=== PATIENT | female | born 1945 | race American Indian/Alaskan Native ===

== ENCOUNTER 2019-02-20 15:17 | Inpatient (IN) | payer MEDICARE ==
[2019-02-20] MEDS ORDERED: SODIUM CHLORIDE 0.9% 1000 ML 1,000 ML IV ONE ×2 (16:23→18:54)
[2019-02-20 16:43] LABS: Mean Corpuscular HGB Conc 31 % (30-34); Red Blood Count 0.89 M/mm3 (3.65-5.03)
--- NOTE | 2019-02-20 16:51 | Emergency Department Report ---
ED General Adult HPI - General Chief complaint: Weakness Stated complaint: WEAKNESS/ABD PAIN/N/V Time Seen by Provider: 02/20/19 16:23 Source: patient, family, EMS Mode of arrival: Stretcher Limitations: No Limitations - History of Present Illness Initial comments: Patient is 73 years old female with history of hypertension however patient stated than the last time she saw a doctor 10 years ago after hysterectomy. Patient presented to the ER via EMS accompanied by her family for evaluation of generalized weakness for the last 2 weeks. Patient also stated that she has been vomiting and having watery diarrhea also. Patient denies any chest pain. Patient denied hematochezia, hematemesis, melena, hematochezia or hematuria, hemoptysis or vaginal bleeding. Severity scale (0 -10): 0 - Related Data Allergies Allergy/AdvReac Type Severity Reaction Status Date / Time No Known Allergies Allergy Unverified 02/20/19 16:06 ED Review of Systems ROS: Stated complaint: WEAKNESS/ABD PAIN/N/V Other details as noted in HPI Comment: All other systems reviewed and negative Constitutional: denies: chills, fever Respiratory: denies: cough, shortness of breath Cardiovascular: denies: chest pain Gastrointestinal: nausea, vomiting, diarrhea. denies: abdominal pain Musculoskeletal: denies: back pain Neurological: weakness (generalized). denies: headache, numbness, paresthesias, confusion, abnormal gait ED Past Medical Hx - Past Medical History Previous Medical History?: Yes Hx Hypertension: Yes Hx Arthritis: Yes - Surgical History Past Surgical History?: Yes Additional Surgical History: Abdominal - Social History Smoking Status: Never Smoker Substance Use Type: None ED Physical Exam - General Limitations: No Limitations General appearance: alert, in no apparent distress - Head Head exam: Present: atraumatic, normocephalic, normal inspection - Eye Eye exam: Present: PERRL, other (pale conjuctiva) - ENT ENT exam: Present: mucous membranes dry - Neck Neck exam: Present: normal inspection, full ROM. Absent: tenderness, meningismus, lymphadenopathy, thyromegaly - Respiratory Respiratory exam: Present: normal lung sounds bilaterally - Cardiovascular Cardiovascular Exam: Present: regular rate, normal rhythm, normal heart sounds - GI/Abdominal GI/Abdominal exam: Present: soft, normal bowel sounds. Absent: distended, tenderness, guarding, rebound, rigid, organomegaly, mass, bruit, pulsatile mass, hernia - Extremities Exam Extremities exam: Present: normal inspection, full ROM, normal capillary refill. Absent: tenderness, pedal edema, calf tenderness - Back Exam Back exam: Present: normal inspection, full ROM. Absent: CVA tenderness (R), CVA tenderness (L) - Neurological Exam Neurological exam: Present: alert, oriented X3, CN II-XII intact - Skin Skin exam: Present: warm, intact, normal color ED Course Vital Signs 02/20/19 02/20/19 16:41 16:43 Temperature 98.6 F Pulse Rate 102 H Respiratory 14 14 Rate Blood Pressure 91/40 [Left] O2 Sat by Pulse 98 98 Oximetry ED Medical Decision Making - Lab Data Result diagrams: 02/20/19 16:31 02/20/19 16:31 - Radiology Data Radiology results: report reviewed - Medical Decision Making Patient is 73 years old female with history of hypertension however patient stated than the last time she saw a doctor 10 years ago after hysterectomy. Patient presented to the ER via EMS accompanied by her family for evaluation of generalized weakness for the last 2 weeks. Patient also stated that she has been vomiting and having watery diarrhea also. Patient denies any chest pain. Patient denied hematochezia, hematemesis, melena, hematochezia or hematuria, hemoptysis or vaginal bleeding. Patient found to have a blood hemoglobin 3.2. Unknown source of bleeding. Patient transfused one units of PRBC. I discussed the patient with Dr. Sunshine, he agreed to admit the patient to medical service for further management. Critical Care Time: Yes Critical care time in (mins) excluding proc time.: 30 Critical care attestation.: If time is entered above; I have spent that time in minutes in the direct care of this critically ill patient, excluding procedure time. ED Disposition Clinical Impression: Weakness generalized, Acute anemia Disposition: DC OP ADMIT IP TO THIS HOSP Is pt being admited?: Yes Condition: Stable
[2019-02-20 16:52] LABS: Hematocrit 10.3 % (30.3-42.9); Hemoglobin 3.2 gm/dl (10.1-14.3); Mean Corpuscular Volume 116 fl (79-97)
[2019-02-20 16:53] LABS: Red Cell Distribution Width > 40.0 % (13.2-15.2)
[2019-02-20] MEDS ORDERED: SODIUM CHLORIDE 0.9% 500 ML 500 ML IV ONE (16:54)
--- NOTE | 2019-02-20 17:18 | XRay Report ---
CHEST 1 VIEW INDICATION / CLINICAL INFORMATION: Weakness. COMPARISON: None available. FINDINGS: SUPPORT DEVICES: None. HEART / MEDIASTINUM: No significant abnormality. LUNGS / PLEURA: No significant pulmonary or pleural abnormality. No pneumothorax. ADDITIONAL FINDINGS: No significant additional findings. IMPRESSION: 1. No acute findings. Signer Name: Zaki Ly MD Signed: 02/20/2019 5:13 PM Workstation Name: [id number]
[2019-02-20 17:37] LABS: Basophils % (Manual) 0 % (0.0-1.8); Eosinophils % (Manual) 0 % (0.0-4.3); Total Cells Counted 100
[2019-02-20 17:38] LABS: Macrocytosis 2+; Ovalocytes 1+; Schistocytes Few; Tear Drop Cells 1+
[2019-02-20 17:39] LABS: Chol/HDL Ratio 3.3 %; Large Platelets 1+; Platelet Estimate Appears Decreased
[2019-02-20 17:42] LABS: Platelet Count 29 K/mm3 (140-440)
[2019-02-20 18:31] LABS: INR 1.39 (0.87-1.13)
[2019-02-20 18:32] LABS: Partial Thromboplastin Time 30.1 Sec. (24.2-36.6)
[2019-02-20] MEDS ORDERED: SODIUM CHLORIDE 0.9% 500 ML 500 ML IV SCH (19:06)
[2019-02-20] MEDS ORDERED: SODIUM CHLORIDE 0.9% 1000 ML 1,000 ML IV SCH (19:15)
[2019-02-20] MEDS: FAMOTIDINE 20 MG/2 ML INJ IV SCH (22:17)
[2019-02-21] MEDS: ACETAMINOPHEN 325 MG TAB PO PRN (00:39)
--- NOTE | 2019-02-21 07:49 | History and Physical Report ---
History of Present Illness Date of examination: 02/20/19 Date of admission: 02/20/19 17:45 Chief complaint: Severe weakness 1 week History of present illness: 73 years old female with history of hypertension comes in via EMS accompanied by her family for evaluation of generalized weakness for the last 2 weeks. Patient also stated that she has been vomiting and having watery diarrhea also. Patient denies any chest pain. Patient denied hematochezia, hematemesis, melena, hematuria, hemoptysis or vaginal bleeding.Feels Light headed and SOB on minimal walking. Severity scale (0 -10): 0 - Related Data Allergies Allergy/AdvReac Type Severity Reaction Status Date / Time No Known Allergies Allergy Unverified 02/20/19 16:06 Past Medical History Previous Medical History?: Yes Hypertension: Yes Arthritis: Yes Surgical History Past Surgical History?: Yes Additional Surgical History: Abdominal Hysterectomy Social History Smoking Status: Never Smoker Substance Use Type: None Family History Htn Review of Systems ROS: Stated complaint: WEAKNESS/ABD PAIN/N/V Other details as noted in HPI Comment: All other systems reviewed and negative Constitutional: denies: chills, fever Respiratory: denies: cough, shortness of breath Cardiovascular: denies: chest pain Gastrointestinal: nausea, vomiting, diarrhea. denies: abdominal pain Musculoskeletal: denies: back pain Neurological: weakness (generalized). denies: headache, numbness, paresthesias, confusion, abnormal gait Medications and Allergies Allergies Allergy/AdvReac Type Severity Reaction Status Date / Time No Known Allergies Allergy Unverified 02/20/19 16:06 Home Medications Medication Instructions Recorded Confirmed Last Taken Type No Known Home Medications [No 02/20/19 02/20/19 Unknown History Reported Home Medications] Active Meds: Active Medications Acetaminophen (Tylenol) 650 mg PO Q4H PRN PRN Reason: Pain MILD(1-3)/Fever >100.5/VENCES Last Admin: 02/21/19 00:39 Dose: 650 mg Documented by: Famotidine (Pepcid) 20 mg IV DAILY [facility] Last Admin: 02/20/19 22:17 Dose: 20 mg Documented by: Hydromorphone HCl (Dilaudid) 0.5 mg IV Q3H PRN PRN Reason: Pain , Severe (7-10) Sodium Chloride (Nacl 0.9% 1000 Ml) 1,000 mls @ 75 mls/hr IV DIRECT [facility] Ondansetron HCl (Zofran) 4 mg IV Q8H PRN PRN Reason: Nausea And Vomiting Oxycodone/Acetaminophen (Percocet 5/325) 1 tab PO Q6H PRN PRN Reason: Pain, Moderate (4-6) Pneumococcal Polyvalent Vaccine (Pneumovax 23) 0.5 ml IM .ONCE ONE Stop: 02/21/19 12:01 Sodium Chloride (Sodium Chloride Flush Syringe 10 Ml) 10 ml IV BID [facility] Last Admin: 02/20/19 22:17 Dose: 10 ml Documented by: Sodium Chloride (Sodium Chloride Flush Syringe 10 Ml) 10 ml IV PRN PRN PRN Reason: LINE FLUSH Exam - Constitutional Vitals: Temp Pulse Resp BP Pulse Ox 97.8 F 78 18 112/40 98 02/21/19 05:01 02/21/19 05:01 02/21/19 05:01 02/21/19 05:01 02/21/19 05:01 General appearance: Present: no acute distress, well-nourished - EENT Eyes: Present: PERRL ENT: hearing intact, clear oral mucosa, other (pale conjunctiva) - Neck Neck: Present: supple, normal ROM - Respiratory Respiratory effort: normal Respiratory: bilateral: CTA - Cardiovascular Heart rate: 88 Rhythm: regular Heart Sounds: Present: S1 & S2. Absent: rub, click - Extremities Extremities: no ischemia, pulses intact, pulses symmetrical, No edema Peripheral Pulses: within normal limits - Abdominal General gastrointestinal: Present: soft, non-tender, non-distended, normal bowel sounds Female genitourinary: Present: normal - Rectal Rectal Exam: stool brown - Integumentary Integumentary: Present: clear, warm, dry - Musculoskeletal Musculoskeletal: gait normal, strength equal bilaterally - Psychiatric Psychiatric: appropriate mood/affect, intact judgment & insight - Neurologic Neurologic: CNII-XII intact, moves all extremities - Allied Health Allied health notes reviewed: nursing, case management Results - Labs CBC & Chem 7: 02/20/19 16:31 12 16:31 Labs: Laboratory Last Values WBC 3.7 K/mm3 (4.5-11.0) L 02/20/19 16:31 RBC 0.89 M/mm3 (3.65-5.03) L 02/20/19 16:31 Hgb 3.2 gm/dl (10.1-14.3) L* 02/20/19 16:31 Hct 10.3 % (30.3-42.9) L* 02/20/19 16:31 MCV 116 fl (79-97) H 02/20/19 16:31 MCH 36 pg (28-32) H 02/20/19 16:31 MCHC 31 % (30-34) 02/20/19 16:31 RDW > 40.0 % (13.2-15.2) H 02/20/19 16:31 Plt Count 29 K/mm3 (140-440) L 02/20/19 16:31 Add Manual Diff Complete 02/20/19 16:31 Total Counted 100 02/20/19 16:31 Seg Neuts % (Manual) 86.0 % (40.0-70.0) H 02/20/19 16:31 Band Neutrophils % 0 % 02/20/19 16:31 Lymphocytes % (Manual) 12.0 % (13.4-35.0) L 02/20/19 16:31 Reactive Lymphs % (Man) 0 % 02/20/19 16:31 Monocytes % (Manual) 2.0 % (0.0-7.3) 02/20/19 16:31 Eosinophils % (Manual) 0 % (0.0-4.3) 02/20/19 16:31 Basophils % (Manual) 0 % (0.0-1.8) 02/20/19 16:31 Metamyelocytes % 0 % 02/20/19 16:31 Myelocytes % 0 % 02/20/19 16:31 Promyelocytes % 0 % 02/20/19 16:31 Blast Cells % 0 % 02/20/19 16:31 Nucleated RBC % Not Reportable 02/20/19 16:31 Seg Neutrophils # Man 3.2 K/mm3 (1.8-7.7) 02/20/19 16:31 Band Neutrophils # 0.0 K/mm3 02/20/19 16:31 Lymphocytes # (Manual) 0.4 K/mm3 (1.2-5.4) L 02/20/19 16:31 Abs React Lymphs (Man) 0.0 K/mm3 02/20/19 16:31 Monocytes # (Manual) 0.1 K/mm3 (0.0-0.8) 02/20/19 16:31 Eosinophils # (Manual) 0.0 K/mm3 (0.0-0.4) 02/20/19 16:31 Basophils # (Manual) 0.0 K/mm3 (0.0-0.1) 02/20/19 16:31 Metamyelocytes # 0.0 K/mm3 02/20/19 16:31 Myelocytes # 0.0 K/mm3 02/20/19 16:31 Promyelocytes # 0.0 K/mm3 02/20/19 16:31 Blast Cells # 0.0 K/mm3 02/20/19 16:31 WBC Morphology Not Reportable 02/20/19 16:31 Hypersegmented Neuts Not Reportable 02/20/19 16:31 Hyposegmented Neuts Not Reportable 02/20/19 16:31 Hypogranular Neuts Not Reportable 02/20/19 16:31 Smudge Cells Not Reportable 02/20/19 16:31 Toxic Granulation Not Reportable 02/20/19 16:31 Toxic Vacuolation Not Reportable 02/20/19 16:31 Dohle Bodies Not Reportable 02/20/19 16:31 Pelger-Huet Anomaly Not Reportable 02/20/19 16:31 Alessia Rods Not Reportable 02/20/19 16:31 Platelet Estimate Appears decreased 02/20/19 16:31 Clumped Platelets Not Reportable 02/20/19 16:31 Plt Clumps, EDTA Not Reportable 02/20/19 16:31 Large Platelets 1+ 02/20/19 16:31 Giant Platelets Not Reportable 02/20/19 16:31 Platelet Satelliting Not Reportable 02/20/19 16:31 Plt Morphology Comment Not Reportable 02/20/19 16:31 RBC Morphology Not Reportable 02/20/19 16:31 Dimorphic RBCs Not Reportable 02/20/19 16:31 Polychromasia Not Reportable 02/20/19 16:31 Hypochromasia Not Reportable 02/20/19 16:31 Poikilocytosis Not Reportable 02/20/19 16:31 Anisocytosis Not Reportable 02/20/19 16:31 Microcytosis Not Reportable 02/20/19 16:31 Macrocytosis 2+ 02/20/19 16:31 Spherocytes Not Reportable 02/20/19 16:31 Pappenheimer Bodies Not Reportable 02/20/19 16:31 Sickle Cells Not Reportable 02/20/19 16:31 Target Cells Not Reportable 02/20/19 16:31 Tear Drop Cells 1+ 02/20/19 16:31 Ovalocytes 1+ 02/20/19 16:31 Helmet Cells Not Reportable 02/20/19 16:31 [place] Bodies Not Reportable 02/20/19 16:31 [place] Rings Not Reportable 02/20/19 16:31 [place] Cells Not Reportable 02/20/19 16:31 Bite Cells Not Reportable 02/20/19 16:31 Crenated Cell Not Reportable 02/20/19 16:31 Elliptocytes 1+ 02/20/19 16:31 Acanthocytes (Spur) Not Reportable 02/20/19 16:31 Rouleaux Not Reportable 02/20/19 16:31 Hemoglobin C Crystals Not Reportable 02/20/19 16:31 Schistocytes Few 02/20/19 16:31 Malaria parasites Not Reportable 02/20/19 16:31 [place] Bodies Not Reportable 02/20/19 16:31 Hem Pathologist Commnt No 02/20/19 16:31 PT 17.3 Sec. (12.2-14.9) H 02/20/19 17:33 INR 1.39 (0.87-1.13) H 02/20/19 17:33 APTT 30.1 Sec. (24.2-36.6) 02/20/19 17:33 Sodium 143 mmol/L (137-145) 02/20/19 16:31 Potassium 4.3 mmol/L (3.6-5.0) 02/20/19 16:31 Chloride 110.4 mmol/L (98-107) H 02/20/19 16:31 Carbon Dioxide 12 mmol/L (22-30) L 02/20/19 16:31 Anion Gap 25 mmol/L 02/20/19 16:31 BUN 93 mg/dL (7-17) H 02/20/19 16:31 Creatinine 3.0 mg/dL (0.7-1.2) H 02/20/19 16:31 Estimated GFR 15 ml/min 02/20/19 16:31 BUN/Creatinine Ratio 31 % 02/20/19 16:31 Glucose 263 mg/dL (65-100) H 02/20/19 16:31 POC Glucose 328 (70-105) H 02/20/19 16:34 Lactic Acid 2.60 mmol/L (0.7-2.0) H* 02/20/19 16:31 Calcium 9.0 mg/dL (8.4-10.2) 02/20/19 16:31 Magnesium 2.50 mg/dL (1.7-2.3) H 02/20/19 16:31 Total Creatine Kinase 31 units/L (30-135) 02/20/19 16:31 Troponin T 0.046 ng/mL (0.00-0.029) H 02/20/19 16:31 Troponin T 0.047 ng/mL (0.00-0.029) H 02/20/19 16:31 NT-Pro-B Natriuret Pep 3173 pg/mL (0-900) H 02/20/19 17:33 Triglycerides 126 mg/dL (2-149) 02/20/19 16:31 Cholesterol 129 mg/dL (50-199) 02/20/19 16:31 LDL Cholesterol Direct 62 mg/dL (50-130) 02/20/19 16:31 HDL Cholesterol 39 mg/dL (40-59) L 02/20/19 16:31 Cholesterol/HDL Ratio 3.30 % 02/20/19 16:31 Blood Type AB POSITIVE 02/20/19 17:33 Antibody Screen Negative 02/20/19 17:33 Crossmatch See Detail 02/20/19 17:33 Short CBC 02/20/19 Range/Units 16:31 WBC 3.7 L (4.5-11.0) K/mm3 Hgb 3.2 L* (10.1-14.3) gm/dl Hct 10.3 L* (30.3-42.9) % Plt Count 29 L (140-440) K/mm3 BMP 02/20/19 16:31 Sodium 143 Potassium 4.3 Chloride 110.4 H Carbon Dioxide 12 L BUN 93 H Creatinine 3.0 H Glucose 263 H Calcium 9.0 Cardiac Enzymes 02/20/19 02/20/19 Range/Units 16:31 16:31 Total Creatine Kinase 31 (30-135) units/L Troponin T 0.047 H 0.046 H (0.00-0.029) ng/mL - Imaging and Cardiology Chest x-ray: report reviewed (NAF) Assessment and Plan Advance Directives: Yes (Full code) VTE prophylaxis?: Chemical Plan of care discussed with patient/family: Yes - Patient Problems (1) Symptomatic anemia Current Visit: Yes Status: Acute Plan to address problem: Probably nutritional GI eval to r/o any colon mass Transfuse 2 to 3 units of PRBC (2) BRITTANY (acute kidney injury) Current Visit: Yes Status: Acute Plan to address problem: Cr 3.0 IV Fluids for now Nephrology consult (3) Elevated brain natriuretic peptide (BNP) level Current Visit: Yes Status: Acute Plan to address problem: Echo ordered for EF and valve function (4) Elevated troponin Current Visit: Yes Status: Acute Plan to address problem: Possibly sec to elevated creatinine Cardiolgy consult Trend Troponin (5) DVT prophylaxis Current Visit: Yes Status: Acute Plan to address problem: on Heparin and GI prophylaxis
[2019-02-21] MEDS ORDERED: SODIUM CHLORIDE 0.9% 1000 ML 1,000 ML IV SCH (08:00)
[2019-02-21 08:07] LABS: Albumin 3.8 g/dL (3.9-5); Calcium 8.1 mg/dL (8.4-10.2)
[2019-02-21] MEDS: FAMOTIDINE 20 MG/2 ML INJ IV SCH (09:29)
--- NOTE | 2019-02-21 09:31 | Consultation ---
History of Present Illness Consult date: 02/21/19 Consult reason: other (Anemia) History of present illness: Cardiology consult for abnormal troponin and elevated BNP Patient denies chest pain or shortness of breath Patient denies prior history of cardiac disease or procedure Patient with generalized weakness - reason for hospital presentation Severe anemia and pancytopenia - Hb 3.2 on admission ECG showing SR with low voltage Past History Past Medical History: No medical history Medications and Allergies Allergies Allergy/AdvReac Type Severity Reaction Status Date / Time No Known Allergies Allergy Unverified 02/20/19 16:06 Home Medications Medication Instructions Recorded Confirmed Last Taken Type No Known Home Medications [No 02/20/19 02/20/19 Unknown History Reported Home Medications] Active Meds: Active Medications Acetaminophen (Tylenol) 650 mg PO Q4H PRN PRN Reason: Pain MILD(1-3)/Fever >100.5/VENCES Last Admin: 02/21/19 00:39 Dose: 650 mg Documented by: Famotidine (Pepcid) 20 mg IV DAILY [facility] Last Admin: 02/20/19 22:17 Dose: 20 mg Documented by: Hydromorphone HCl (Dilaudid) 0.5 mg IV Q3H PRN PRN Reason: Pain , Severe (7-10) Sodium Chloride (Nacl 0.9% 1000 Ml) 1,000 mls @ 100 mls/hr IV DIRECT [facility] Last Admin: 02/21/19 08:43 Dose: 100 mls/hr Documented by: Ondansetron HCl (Zofran) 4 mg IV Q8H PRN PRN Reason: Nausea And Vomiting Oxycodone/Acetaminophen (Percocet 5/325) 1 tab PO Q6H PRN PRN Reason: Pain, Moderate (4-6) Pneumococcal Polyvalent Vaccine (Pneumovax 23) 0.5 ml IM .ONCE ONE Stop: 02/21/19 12:01 Sodium Chloride (Sodium Chloride Flush Syringe 10 Ml) 10 ml IV BID [facility] Last Admin: 02/20/19 22:17 Dose: 10 ml Documented by: Sodium Chloride (Sodium Chloride Flush Syringe 10 Ml) 10 ml IV PRN PRN PRN Reason: LINE FLUSH Review of Systems All systems: negative Physical Examination Vital Signs Pulse Resp 105 H 17 02/20/19 16:22 02/20/19 16:22 General appearance: no acute distress HEENT: Positive: Pallor Neck: Positive: neck supple Cardiac: Positive: Reg Rate and Rhythm, Systolic Murmur Lungs: Positive: Normal Exam Neuro: Positive: Grossly Intact Abdomen: Positive: Soft Extremities: Absent: edema Results 02/20/19 16:31 02/21/19 07:09 Cardiac Enzymes 02/21/19 Range/Units 07:09 AST 7 (5-40) units/L Coagulation 02/20/19 Range/Units 17:33 PT 17.3 H (12.2-14.9) Sec. INR 1.39 H (0.87-1.13) APTT 30.1 (24.2-36.6) Sec. Lipids 02/20/19 Range/Units 16:31 Triglycerides 126 (2-149) mg/dL Cholesterol 129 (50-199) mg/dL HDL Cholesterol 39 L (40-59) mg/dL Cholesterol/HDL Ratio 3.30 % CBC 02/20/19 Range/Units 16:31 WBC 3.7 L (4.5-11.0) K/mm3 RBC 0.89 L (3.65-5.03) M/mm3 Hgb 3.2 L* (10.1-14.3) gm/dl Hct 10.3 L* (30.3-42.9) % Plt Count 29 L (140-440) K/mm3 Comprehensive Metabolic Panel 02/20/19 02/21/19 Range/Units 16:31 07:09 Sodium 143 146 H (137-145) mmol/L Potassium 4.3 3.8 (3.6-5.0) mmol/L Chloride 110.4 H 110.3 H (98-107) mmol/L Carbon Dioxide 12 L 13 L (22-30) mmol/L BUN 93 H 95 H (7-17) mg/dL Creatinine 3.0 H 2.8 H (0.7-1.2) mg/dL Glucose 263 H 141 H (65-100) mg/dL Calcium 9.0 8.1 L (8.4-10.2) mg/dL AST 7 (5-40) units/L ALT 7 (7-56) units/L Alkaline Phosphatase 40 (35-129) units/L Total Protein 6.5 (6.3-8.2) g/dL Albumin 3.8 L (3.9-5) g/dL - EKG Interpretation EKG: sinus rhythm EKG interpretations - Telemetry EKG Rhythm: Sinus Rhythm Assessment and Plan Non-specific troponin abnormality Severe macrocytic anemia and pancytopenia Acute renal failure Fatigue Cardiac murmur Recommendations: PRBC transfusion Hematology consult Echocardiogram No further cardia work-up is needed for non-specific troponin abnormality
[2019-02-21 09:37] LABS: Bacteria,Urine 1+ /HPF (Negative); Bilirubin,Urine NEG (Negative); Blood,Urine SM (Negative); Color,Urine Yellow (Yellow); Hyaline Casts,Urine 7 /LPF; Mucus,Urine FEW /HPF; Protein,Urine <15 mg/dL mg/dL (Negative); Urobilinogen,Urine < 2.0 mg/dL (<2.0)
[2019-02-21 10:14] LABS: Hematocrit 21.1 % (30.3-42.9); Hemoglobin 6.9 gm/dl (10.1-14.3); Mean Corpuscular HGB Conc 33 % (30-34); Mean Corpuscular Volume 97 fl (79-97); Red Blood Count 2.18 M/mm3 (3.65-5.03)
[2019-02-21 10:18] LABS: Calcium 8.1 mg/dL (8.4-10.2)
--- NOTE | 2019-02-21 10:23 | Progress Note ---
Assessment and Plan Assessment and plan: Severe Symptomatic anemia Hgb 3.2 on admission Now 6.9 after 3 units PRBC. Transfuse 1 Unit PRBC more GI eval Stool occult blood ordered Discussed with GI BRITTANY (acute kidney injury) Cr 3.0 on admission IV Fluids for now Nephrology consulted Pancytopenia Hematology consult Thrombocytopenia Plt 17. Transuse 1 Unit plateletphresis Elevated brain natriuretic peptide (BNP) level Echo ordered for EF and valve function Elevated troponin Possibly sec to elevated creatinine Cardiology consult Trend Troponin right otitis media Levaquin UTI Start levaquin DVT prophylaxis No medical antocoag because low platelets Discussed with patient and daughter at bedside History Interval history: Gen weakness nausea, vomiting,diarrhea X 2 weeks Discharge right ear X 1 day Hospitalist Physical - Physical exam Narrative exam: Gen: Not in acute distress, lying in bed, obese HEENT: Atraumatic, discharge right ear Neck: supple, no JVD Heart: S1 and S2 reg, no murmurs, rubs or gallop Lungs: clear to auscultation bilaterally, no crackles Abd: soft, NT, non distended, normal BS Ext: No edema, no clubbing, no cyanosis Neuro:Awake,alert, oriented in person, not to place or tiime, moves all ext - Constitutional Vitals: Temp Pulse Resp BP Pulse Ox 98.1 F 76 20 118/61 100 02/21/19 07:27 02/21/19 07:27 02/21/19 07:27 02/21/19 07:27 02/21/19 07:27 General appearance: Present: no acute distress Results - Labs CBC & Chem 7: 02/21/19 09:29 02/21/19 09:29 Labs: Laboratory Last Values WBC 3.7 K/mm3 (4.5-11.0) L 02/20/19 16:31 RBC 0.89 M/mm3 (3.65-5.03) L 02/20/19 16:31 Hgb 3.2 gm/dl (10.1-14.3) L* 02/20/19 16:31 Hct 10.3 % (30.3-42.9) L* 02/20/19 16:31 MCV 116 fl (79-97) H 02/20/19 16:31 MCH 36 pg (28-32) H 02/20/19 16:31 MCHC 31 % (30-34) 02/20/19 16:31 RDW > 40.0 % (13.2-15.2) H 02/20/19 16:31 Plt Count 29 K/mm3 (140-440) L 02/20/19 16:31 Add Manual Diff Complete 02/20/19 16:31 Total Counted 100 02/20/19 16:31 Seg Neuts % (Manual) 86.0 % (40.0-70.0) H 02/20/19 16:31 Band Neutrophils % 0 % 02/20/19 16:31 Lymphocytes % (Manual) 12.0 % (13.4-35.0) L 02/20/19 16:31 Reactive Lymphs % (Man) 0 % 02/20/19 16:31 Monocytes % (Manual) 2.0 % (0.0-7.3) 02/20/19 16:31 Eosinophils % (Manual) 0 % (0.0-4.3) 02/20/19 16:31 Basophils % (Manual) 0 % (0.0-1.8) 02/20/19 16:31 Metamyelocytes % 0 % 02/20/19 16:31 Myelocytes % 0 % 02/20/19 16:31 Promyelocytes % 0 % 02/20/19 16:31 Blast Cells % 0 % 02/20/19 16:31 Nucleated RBC % Not Reportable 02/20/19 16:31 Seg Neutrophils # Man 3.2 K/mm3 (1.8-7.7) 02/20/19 16:31 Band Neutrophils # 0.0 K/mm3 02/20/19 16:31 Lymphocytes # (Manual) 0.4 K/mm3 (1.2-5.4) L 02/20/19 16:31 Abs React Lymphs (Man) 0.0 K/mm3 02/20/19 16:31 Monocytes # (Manual) 0.1 K/mm3 (0.0-0.8) 02/20/19 16:31 Eosinophils # (Manual) 0.0 K/mm3 (0.0-0.4) 02/20/19 16:31 Basophils # (Manual) 0.0 K/mm3 (0.0-0.1) 02/20/19 16:31 Metamyelocytes # 0.0 K/mm3 02/20/19 16:31 Myelocytes # 0.0 K/mm3 02/20/19 16:31 Promyelocytes # 0.0 K/mm3 02/20/19 16:31 Blast Cells # 0.0 K/mm3 02/20/19 16:31 WBC Morphology Not Reportable 02/20/19 16:31 Hypersegmented Neuts Not Reportable 02/20/19 16:31 Hyposegmented Neuts Not Reportable 02/20/19 16:31 Hypogranular Neuts Not Reportable 02/20/19 16:31 Smudge Cells Not Reportable 02/20/19 16:31 Toxic Granulation Not Reportable 02/20/19 16:31 Toxic Vacuolation Not Reportable 02/20/19 16:31 Dohle Bodies Not Reportable 02/20/19 16:31 Pelger-Huet Anomaly Not Reportable 02/20/19 16:31 Alessia Rods Not Reportable 02/20/19 16:31 Platelet Estimate Appears decreased 02/20/19 16:31 Clumped Platelets Not Reportable 02/20/19 16:31 Plt Clumps, EDTA Not Reportable 02/20/19 16:31 Large Platelets 1+ 02/20/19 16:31 Giant Platelets Not Reportable 02/20/19 16:31 Platelet Satelliting Not Reportable 02/20/19 16:31 Plt Morphology Comment Not Reportable 02/20/19 16:31 RBC Morphology Not Reportable 02/20/19 16:31 Dimorphic RBCs Not Reportable 02/20/19 16:31 Polychromasia Not Reportable 02/20/19 16:31 Hypochromasia Not Reportable 02/20/19 16:31 Poikilocytosis Not Reportable 02/20/19 16:31 Anisocytosis Not Reportable 02/20/19 16:31 Microcytosis Not Reportable 02/20/19 16:31 Macrocytosis 2+ 02/20/19 16:31 Spherocytes Not Reportable 02/20/19 16:31 Pappenheimer Bodies Not Reportable 02/20/19 16:31 Sickle Cells Not Reportable 02/20/19 16:31 Target Cells Not Reportable 02/20/19 16:31 Tear Drop Cells 1+ 02/20/19 16:31 Ovalocytes 1+ 02/20/19 16:31 Helmet Cells Not Reportable 02/20/19 16:31 Owens-Garibaldi Bodies Not Reportable 02/20/19 16:31 [place] Rings Not Reportable 02/20/19 16:31 Yamilet Cells Not Reportable 02/20/19 16:31 Bite Cells Not Reportable 02/20/19 16:31 Crenated Cell Not Reportable 02/20/19 16:31 Elliptocytes 1+ 02/20/19 16:31 Acanthocytes (Spur) Not Reportable 02/20/19 16:31 Rouleaux Not Reportable 02/20/19 16:31 Hemoglobin C Crystals Not Reportable 02/20/19 16:31 Schistocytes Few 02/20/19 16:31 Malaria parasites Not Reportable 02/20/19 16:31 Leopoldo Bodies Not Reportable 02/20/19 16:31 Hem Pathologist Commnt No 02/20/19 16:31 PT 17.3 Sec. (12.2-14.9) H 02/20/19 17:33 INR 1.39 (0.87-1.13) H 02/20/19 17:33 APTT 30.1 Sec. (24.2-36.6) 02/20/19 17:33 Sodium 148 mmol/L (137-145) H 02/21/19 09:29 Potassium 3.8 mmol/L (3.6-5.0) 02/21/19 09:29 Chloride 113.2 mmol/L (98-107) H 02/21/19 09:29 Carbon Dioxide 12 mmol/L (22-30) L 02/21/19 09:29 Anion Gap 27 mmol/L 02/21/19 09:29 BUN 95 mg/dL (7-17) H 02/21/19 09:29 Creatinine 2.8 mg/dL (0.7-1.2) H 02/21/19 09:29 Estimated GFR 20 ml/min 02/21/19 09:29 BUN/Creatinine Ratio 34 % 02/21/19 09:29 Glucose 138 mg/dL (65-100) H 02/21/19 09:29 POC Glucose 328 (70-105) H 02/20/19 16:34 Lactic Acid 1.40 mmol/L (0.7-2.0) 02/21/19 07:09 Calcium 8.1 mg/dL (8.4-10.2) L 02/21/19 09:29 Magnesium 2.50 mg/dL (1.7-2.3) H 02/20/19 16:31 Total Bilirubin 0.90 mg/dL (0.1-1.2) 02/21/19 07:09 AST 7 units/L (5-40) 02/21/19 07:09 ALT 7 units/L (7-56) 02/21/19 07:09 Alkaline Phosphatase 40 units/L (35-129) 02/21/19 07:09 Total Creatine Kinase 31 units/L (30-135) 02/20/19 16:31 Troponin T 0.033 ng/mL (0.00-0.029) H D 02/21/19 09:29 NT-Pro-B Natriuret Pep 3173 pg/mL (0-900) H 02/20/19 17:33 Total Protein 6.5 g/dL (6.3-8.2) 02/21/19 07:09 Albumin 3.8 g/dL (3.9-5) L 02/21/19 07:09 Albumin/Globulin Ratio 1.4 % 02/21/19 07:09 Triglycerides 126 mg/dL (2-149) 02/20/19 16:31 Cholesterol 129 mg/dL (50-199) 02/20/19 16:31 LDL Cholesterol Direct 62 mg/dL (50-130) 02/20/19 16:31 HDL Cholesterol 39 mg/dL (40-59) L 02/20/19 16:31 Cholesterol/HDL Ratio 3.30 % 02/20/19 16:31 Urine Color Yellow (Yellow) 02/21/19 08:10 Urine Turbidity Slightly-cloudy (Clear) 02/21/19 08:10 Urine pH 5.0 (5.0-7.0) 02/21/19 08:[address] 1.012 (1.003-1.030) 02/21/19 08:10 Urine Protein <15 mg/dl mg/dL (Negative) 02/21/19 08:10 Urine Glucose (UA) Neg mg/dL (Negative) 02/21/19 08:10 Urine Ketones Neg mg/dL (Negative) 02/21/19 08:10 Urine Blood Sm (Negative) 02/21/19 08:10 Urine Nitrite Neg (Negative) 02/21/19 08:10 Urine Bilirubin Neg (Negative) 02/21/19 08:10 Urine Urobilinogen < 2.0 mg/dL (<2.0) 02/21/19 08:10 Ur Leukocyte Esterase Mod (Negative) 02/21/19 08:10 Urine WBC (Auto) 39.0 /HPF (0.0-6.0) H 02/21/19 08:10 Urine RBC (Auto) 2.0 /HPF (0.0-6.0) 02/21/19 08:10 U Epithel Cells (Auto) 2.0 /HPF (0-13.0) 02/21/19 08:10 Urine Bacteria (Auto) 1+ /HPF (Negative) 02/21/19 08:10 Ur Transition Epith Cell 1 /HPF 02/21/19 08:10 Hyaline Casts 7 /LPF 02/21/19 08:10 Urine Mucus Few /HPF 02/21/19 08:10 Blood Type AB POSITIVE 02/20/19 17:33 Antibody Screen Negative 02/20/19 17:33 Crossmatch See Detail 02/20/19 17:33 Active Medications - Current Medications Current Medications: Generic Name Dose Route Start Last Admin Trade Name Freq PRN Reason Stop Dose Admin Acetaminophen 650 mg 02/20/19 19:04 02/21/19 00:39 Tylenol PO 650 mg Q4H PRN Administration Pain MILD(1-3)/Fever >100.5/VENCES Famotidine 20 mg 02/20/19 22:00 02/21/19 09:29 Pepcid IV 20 mg DAILY CARIN Administration Hydromorphone HCl 0.5 mg 02/20/19 19:04 Dilaudid IV Q3H PRN Pain , Severe (7-10) Sodium Chloride 1,000 mls @ 100 mls/hr 02/20/19 19:15 02/21/19 08:43 Nacl 0.9% 1000 Ml IV 100 mls/hr DIRECT CARIN Administration Ondansetron HCl 4 mg 02/20/19 19:04 Zofran IV Q8H PRN Nausea And Vomiting Oxycodone/Acetaminophen 1 tab 02/20/19 19:04 Percocet 5/325 PO Q6H PRN Pain, Moderate (4-6) Pneumococcal Polyvalent Vaccine 0.5 ml 02/21/19 12:00 Pneumovax 23 IM 02/21/19 12:01 .ONCE ONE Sodium Chloride 10 ml 02/20/19 22:00 02/21/19 09:29 Sodium Chloride Flush Syringe 10 Ml IV 10 ml BID CARIN Administration Sodium Chloride 10 ml 02/20/19 19:04 Sodium Chloride Flush Syringe 10 Ml IV PRN PRN LINE FLUSH
[2019-02-21 11:05] LABS: Platelet Count 17 K/mm3 (140-440)
[2019-02-21] MEDS ORDERED: SODIUM CHLORIDE 0.9% 500 ML 500 ML IV ONE ×3 (11:18→22:51)
[2019-02-21] MEDS ORDERED: FLU VACC QUAD 2019-20 (3 YR UP)/PF 60 MCG/0.5 ML SYRINGE IM ONE (12:00)
[2019-02-21] MEDS ORDERED: PNEUMOCOCCAL 23 Valent 0.5 ML VIAL IM ONE (12:00)
[2019-02-21 12:04] LABS: Basophils % (Manual) 0 % (0.0-1.8); Ovalocytes 1+; Tear Drop Cells 1+; Total Cells Counted 100
[2019-02-21 12:06] LABS: Platelet Estimate Appears Decreased; Schistocytes Rare
--- NOTE | 2019-02-21 12:24 | Gastroenterology Consultation ---
History of Present Illness - Reason for Consult Consult date: 02/21/19 anemia Requesting physician: MILADIS OLIVEIRA - History of Present Illness 73 years old female with history of hypertension comes in for diffuse generalized weakness for the last 2 weeks, with associated diarrhea but no overt bleeding as well as TEJEDA. Denies melena, etc. Denies ever having colon or gastric pathology, never had colonoscopy, no FH CRC. NKDA Past Medical History Previous Medical History?: Yes Hypertension: Yes Arthritis: Yes Surgical History Past Surgical History?: Yes Additional Surgical History: Abdominal Hysterectomy Social History Smoking Status: Never Smoker Substance Use Type: None Family History Htn obtained/updated/reviewed current meds Past History Past Medical History: No medical history Medications and Allergies Allergies Allergy/AdvReac Type Severity Reaction Status Date / Time No Known Allergies Allergy Unverified 02/20/19 16:06 Home Medications Medication Instructions Recorded Confirmed Last Taken Type No Known Home Medications [No 02/20/19 02/20/19 Unknown History Reported Home Medications] Active Meds: Active Medications Acetaminophen (Tylenol) 650 mg PO Q4H PRN PRN Reason: Pain MILD(1-3)/Fever >100.5/VENCES Last Admin: 02/21/19 00:39 Dose: 650 mg Documented by: Famotidine (Pepcid) 20 mg IV DAILY [facility] Last Admin: 02/21/19 09:29 Dose: 20 mg Documented by: Hydromorphone HCl (Dilaudid) 0.5 mg IV Q3H PRN PRN Reason: Pain , Severe (7-10) Sodium Chloride (Nacl 0.9% 1000 Ml) 1,000 mls @ 100 mls/hr IV DIRECT CARIN Last Admin: 02/21/19 08:43 Dose: 100 mls/hr Documented by: Levofloxacin/Dextrose (Levaquin 500mg/100ml) 500 mg in 100 mls @ 100 mls/hr IV Q48H CARIN; Protocol Ondansetron HCl (Zofran) 4 mg IV Q8H PRN PRN Reason: Nausea And Vomiting Oxycodone/Acetaminophen (Percocet 5/325) 1 tab PO Q6H PRN PRN Reason: Pain, Moderate (4-6) Sodium Chloride (Sodium Chloride Flush Syringe 10 Ml) 10 ml IV BID [facility]IN Last Admin: 02/21/19 09:29 Dose: 10 ml Documented by: Sodium Chloride (Sodium Chloride Flush Syringe 10 Ml) 10 ml IV PRN PRN PRN Reason: LINE FLUSH Review of Systems - Review of Systems All systems: negative (10 systems reviewed and negative except as mentioned above on HPI) Exam - Constitutional Vital Signs: Temp Pulse Resp BP Pulse Ox 98.1 F 76 20 118/61 100 02/21/19 07:27 02/21/19 07:27 02/21/19 07:27 02/21/19 07:27 02/21/19 07:27 General appearance: no acute distress - EENT Eyes: EOM intact ENT: other (decreased auditory acuity) - Respiratory Respiratory effort: normal - Cardiovascular Rhythm: regular - Gastrointestinal General gastrointestinal: Present: soft, non-tender - Integumentary Integumentary: Present: dry - Neurologic Neurological: alert and oriented x3 - Labs CBC & Chem 7: 02/21/19 09:29 02/21/19 09:29 Lab Results: Laboratory Results - last 24 hr 02/20/19 02/20/19 02/20/19 16:31 16:31 16:31 WBC 3.7 L RBC 0.89 L Hgb 3.2 L* Hct 10.3 L* MCV 116 H MCH 36 H MCHC 31 RDW > 40.0 H Plt Count 29 L Add Manual Diff Complete Total Counted 100 Seg Neuts % (Manual) 86.0 H Band Neutrophils % 0 Lymphocytes % (Manual) 12.0 L Reactive Lymphs % (Man) 0 Monocytes % (Manual) 2.0 Eosinophils % (Manual) 0 Basophils % (Manual) 0 Metamyelocytes % 0 Myelocytes % 0 Promyelocytes % 0 Blast Cells % 0 Nucleated RBC % Not Reportable Seg Neutrophils # Man 3.2 Band Neutrophils # 0.0 Lymphocytes # (Manual) 0.4 L Abs React Lymphs (Man) 0.0 Monocytes # (Manual) 0.1 Eosinophils # (Manual) 0.0 Basophils # (Manual) 0.0 Metamyelocytes # 0.0 Myelocytes # 0.0 Promyelocytes # 0.0 Blast Cells # 0.0 WBC Morphology Not Reportable Hypersegmented Neuts Not Reportable Hyposegmented Neuts Not Reportable Hypogranular Neuts Not Reportable Smudge Cells Not Reportable Toxic Granulation Not Reportable Toxic Vacuolation Not Reportable Dohle Bodies Not Reportable Pelger-Huet Anomaly Not Reportable Alessia Rods Not Reportable Platelet Estimate Appears decreased Clumped Platelets Not Reportable Plt Clumps, EDTA Not Reportable Large Platelets 1+ Giant Platelets Not Reportable Platelet Satelliting Not Reportable Plt Morphology Comment Not Reportable RBC Morphology Not Reportable Dimorphic RBCs Not Reportable Polychromasia Not Reportable Hypochromasia Not Reportable Poikilocytosis Not Reportable Anisocytosis Not Reportable Microcytosis Not Reportable Macrocytosis 2+ Spherocytes Not Reportable Pappenheimer Bodies Not Reportable Sickle Cells Not Reportable Target Cells Not Reportable Tear Drop Cells 1+ Ovalocytes 1+ Helmet Cells Not Reportable Owens-Hines Bodies Not Reportable Anderson Rings Not Reportable Sturgeon Cells Not Reportable Bite Cells Not Reportable Crenated Cell Not Reportable Elliptocytes 1+ Acanthocytes (Spur) Not Reportable Rouleaux Not Reportable Hemoglobin C Crystals Not Reportable Schistocytes Few Malaria parasites Not Reportable Leopoldo Bodies Not Reportable Hem Pathologist Commnt No PT INR APTT Sodium 143 Potassium 4.3 Chloride 110.4 H Carbon Dioxide 12 L Anion Gap 25 BUN 93 H Creatinine 3.0 H Estimated GFR 15 BUN/Creatinine Ratio 31 Glucose 263 H POC Glucose Hemoglobin A1c Lactic Acid Calcium 9.0 Magnesium 2.50 H Total Bilirubin AST ALT Alkaline Phosphatase Total Creatine Kinase 31 Troponin T 0.047 H 0.046 H NT-Pro-B Natriuret Pep Total Protein Albumin Albumin/Globulin Ratio Triglycerides 126 Cholesterol 129 LDL Cholesterol Direct 62 HDL Cholesterol 39 L Cholesterol/HDL Ratio 3.30 Urine Color Urine Turbidity Urine pH Ur Specific [place] Urine Protein Urine Glucose (UA) Urine Ketones Urine Blood Urine Nitrite Urine Bilirubin Urine Urobilinogen Ur Leukocyte Esterase Urine WBC (Auto) Urine RBC (Auto) U Epithel Cells (Auto) Urine Bacteria (Auto) Ur Transition Epith Cell Hyaline Casts Urine Mucus Urine Eosinophils Blood Type Antibody Screen Crossmatch 02/20/19 02/20/19 02/20/19 16:31 16:34 17:33 WBC RBC Hgb Hct MCV MCH MCHC RDW Plt Count Add Manual Diff Total Counted Seg Neuts % (Manual) Band Neutrophils % Lymphocytes % (Manual) Reactive Lymphs % (Man) Monocytes % (Manual) Eosinophils % (Manual) Basophils % (Manual) Metamyelocytes % Myelocytes % Promyelocytes % Blast Cells % Nucleated RBC % Seg Neutrophils # Man Band Neutrophils # Lymphocytes # (Manual) Abs React Lymphs (Man) Monocytes # (Manual) Eosinophils # (Manual) Basophils # (Manual) Metamyelocytes # Myelocytes # Promyelocytes # Blast Cells # WBC Morphology Hypersegmented Neuts Hyposegmented Neuts Hypogranular Neuts Smudge Cells Toxic Granulation Toxic Vacuolation Dohle Bodies Pelger-Huet Anomaly Alessia Rods Platelet Estimate Clumped Platelets Plt Clumps, EDTA Large Platelets Giant Platelets Platelet Satelliting Plt Morphology Comment RBC Morphology Dimorphic RBCs Polychromasia Hypochromasia Poikilocytosis Anisocytosis Microcytosis Macrocytosis Spherocytes Pappenheimer Bodies Sickle Cells Target Cells Tear Drop Cells Ovalocytes Helmet Cells Owens-Hines Bodies Anderson Rings Sturgeon Cells Bite Cells Crenated Cell Elliptocytes Acanthocytes (Spur) Rouleaux Hemoglobin C Crystals Schistocytes Malaria parasites Leopoldo Bodies Hem Pathologist Commnt PT INR APTT Sodium Potassium Chloride Carbon Dioxide Anion Gap BUN Creatinine Estimated GFR BUN/Creatinine Ratio Glucose POC Glucose 328 H Hemoglobin A1c Lactic Acid 2.60 H* Calcium Magnesium Total Bilirubin AST ALT Alkaline Phosphatase Total Creatine Kinase Troponin T NT-Pro-B Natriuret Pep 3173 H Total Protein Albumin Albumin/Globulin Ratio Triglycerides Cholesterol LDL Cholesterol Direct HDL Cholesterol Cholesterol/HDL Ratio Urine Color Urine Turbidity Urine pH Ur Specific [place] Urine Protein Urine Glucose (UA) Urine Ketones Urine Blood Urine Nitrite Urine Bilirubin Urine Urobilinogen Ur Leukocyte Esterase Urine WBC (Auto) Urine RBC (Auto) U Epithel Cells (Auto) Urine Bacteria (Auto) Ur Transition Epith Cell Hyaline Casts Urine Mucus Urine Eosinophils Blood Type Antibody Screen Crossmatch 02/20/19 02/20/19 02/21/19 17:33 17:33 07:09 WBC RBC Hgb Hct MCV MCH MCHC RDW Plt Count Add Manual Diff Total Counted Seg Neuts % (Manual) Band Neutrophils % Lymphocytes % (Manual) Reactive Lymphs % (Man) Monocytes % (Manual) Eosinophils % (Manual) Basophils % (Manual) Metamyelocytes % Myelocytes % Promyelocytes % Blast Cells % Nucleated RBC % Seg Neutrophils # Man Band Neutrophils # Lymphocytes # (Manual) Abs React Lymphs (Man) Monocytes # (Manual) Eosinophils # (Manual) Basophils # (Manual) Metamyelocytes # Myelocytes # Promyelocytes # Blast Cells # WBC Morphology Hypersegmented Neuts Hyposegmented Neuts Hypogranular Neuts Smudge Cells Toxic Granulation Toxic Vacuolation Dohle Bodies Pelger-Huet Anomaly Alessia Rods Platelet Estimate Clumped Platelets Plt Clumps, EDTA Large Platelets Giant Platelets Platelet Satelliting Plt Morphology Comment RBC Morphology Dimorphic RBCs Polychromasia Hypochromasia Poikilocytosis Anisocytosis Microcytosis Macrocytosis Spherocytes Pappenheimer Bodies Sickle Cells Target Cells Tear Drop Cells Ovalocytes Helmet Cells Owens-Hines Bodies Anderson Rings Yamilet Cells Bite Cells Crenated Cell Elliptocytes Acanthocytes (Spur) Rouleaux Hemoglobin C Crystals Schistocytes Malaria parasites Leopoldo Bodies Hem Pathologist Commnt PT 17.3 H INR 1.39 H APTT 30.1 Sodium Potassium Chloride Carbon Dioxide Anion Gap BUN Creatinine Estimated GFR BUN/Creatinine Ratio Glucose POC Glucose Hemoglobin A1c Lactic Acid 1.40 Calcium Magnesium Total Bilirubin AST ALT Alkaline Phosphatase Total Creatine Kinase Troponin T NT-Pro-B Natriuret Pep Total Protein Albumin Albumin/Globulin Ratio Triglycerides Cholesterol LDL Cholesterol Direct HDL Cholesterol Cholesterol/HDL Ratio Urine Color Urine Turbidity Urine pH Ur Specific [place] Urine Protein Urine Glucose (UA) Urine Ketones Urine Blood Urine Nitrite Urine Bilirubin Urine Urobilinogen Ur Leukocyte Esterase Urine WBC (Auto) Urine RBC (Auto) U Epithel Cells (Auto) Urine Bacteria (Auto) Ur Transition Epith Cell Hyaline Casts Urine Mucus Urine Eosinophils Blood Type AB POSITIVE Antibody Screen Negative Crossmatch See Detail 02/21/19 02/21/19 02/21/19 07:09 08:10 09:29 WBC RBC Hgb Hct MCV MCH MCHC RDW Plt Count Add Manual Diff Total Counted Seg Neuts % (Manual) Band Neutrophils % Lymphocytes % (Manual) Reactive Lymphs % (Man) Monocytes % (Manual) Eosinophils % (Manual) Basophils % (Manual) Metamyelocytes % Myelocytes % Promyelocytes % Blast Cells % Nucleated RBC % Seg Neutrophils # Man Band Neutrophils # Lymphocytes # (Manual) Abs React Lymphs (Man) Monocytes # (Manual) Eosinophils # (Manual) Basophils # (Manual) Metamyelocytes # Myelocytes # Promyelocytes # Blast Cells # WBC Morphology Hypersegmented Neuts Hyposegmented Neuts Hypogranular Neuts Smudge Cells Toxic Granulation Toxic Vacuolation Dohle Bodies Pelger-Huet Anomaly Alessia Rods Platelet Estimate Clumped Platelets Plt Clumps, EDTA Large Platelets Giant Platelets Platelet Satelliting Plt Morphology Comment RBC Morphology Dimorphic RBCs Polychromasia Hypochromasia Poikilocytosis Anisocytosis Microcytosis Macrocytosis Spherocytes Pappenheimer Bodies Sickle Cells Target Cells Tear Drop Cells Ovalocytes Helmet Cells Owens-Hines Bodies Anderson Rings Sturgeon Cells Bite Cells Crenated Cell Elliptocytes Acanthocytes (Spur) Rouleaux Hemoglobin C Crystals Schistocytes Malaria parasites Leopoldo Bodies Hem Pathologist Commnt PT INR APTT Sodium 146 H Potassium 3.8 Chloride 110.3 H Carbon Dioxide 13 L Anion Gap 27 BUN 95 H Creatinine 2.8 H Estimated GFR 20 BUN/Creatinine Ratio 34 Glucose 141 H POC Glucose Hemoglobin A1c 6.1 H Lactic Acid Calcium 8.1 L Magnesium Total Bilirubin 0.90 AST 7 ALT 7 Alkaline Phosphatase 40 Total Creatine Kinase Troponin T NT-Pro-B Natriuret Pep Total Protein 6.5 Albumin 3.8 L Albumin/Globulin Ratio 1.4 Triglycerides Cholesterol LDL Cholesterol Direct HDL Cholesterol Cholesterol/HDL Ratio Urine Color Yellow Urine Turbidity Slightly-cloudy Urine pH 5.0 Ur Specific [place] 1.012 Urine Protein <15 mg/dl Urine Glucose (UA) Neg Urine Ketones Neg Urine Blood Sm Urine Nitrite Neg Urine Bilirubin Neg Urine Urobilinogen < 2.0 Ur Leukocyte Esterase Mod Urine WBC (Auto) 39.0 H Urine RBC (Auto) 2.0 U Epithel Cells (Auto) 2.0 Urine Bacteria (Auto) 1+ Ur Transition Epith Cell 1 Hyaline Casts 7 Urine Mucus Few Urine Eosinophils Blood Type Antibody Screen Crossmatch 02/21/19 02/21/19 02/21/19 09:29 09:29 09:29 WBC 2.5 L RBC 2.18 L Hgb 6.9 L D Hct 21.1 L D MCV 97 MCH 32 MCHC 33 RDW 19.0 H Plt Count 17 L* Add Manual Diff Complete Total Counted 100 Seg Neuts % (Manual) 65.0 Band Neutrophils % 0 Lymphocytes % (Manual) 31.0 Reactive Lymphs % (Man) 0 Monocytes % (Manual) 1.0 Eosinophils % (Manual) 3.0 Basophils % (Manual) 0 Metamyelocytes % 0 Myelocytes % 0 Promyelocytes % 0 Blast Cells % 0 Nucleated RBC % Not Reportable Seg Neutrophils # Man 1.6 L Band Neutrophils # 0.0 Lymphocytes # (Manual) 0.8 L Abs React Lymphs (Man) 0.0 Monocytes # (Manual) 0.0 Eosinophils # (Manual) 0.1 Basophils # (Manual) 0.0 Metamyelocytes # 0.0 Myelocytes # 0.0 Promyelocytes # 0.0 Blast Cells # 0.0 WBC Morphology Not Reportable Hypersegmented Neuts Not Reportable Hyposegmented Neuts Not Reportable Hypogranular Neuts Not Reportable Smudge Cells Not Reportable Toxic Granulation Not Reportable Toxic Vacuolation Not Reportable Dohle Bodies Not Reportable Pelger-Huet Anomaly Not Reportable Alessia Rods Not Reportable Platelet Estimate Appears decreased Clumped Platelets Not Reportable Plt Clumps, EDTA Not Reportable Large Platelets Not Reportable Giant Platelets Not Reportable Platelet Satelliting Not Reportable Plt Morphology Comment Not Reportable RBC Morphology Not Reportable Dimorphic RBCs Not Reportable Polychromasia Not Reportable Hypochromasia Not Reportable Poikilocytosis Not Reportable Anisocytosis Not Reportable Microcytosis Not Reportable Macrocytosis Not Reportable Spherocytes Not Reportable Pappenheimer Bodies Not Reportable Sickle Cells Not Reportable Target Cells Not Reportable Tear Drop Cells 1+ Ovalocytes 1+ Helmet Cells Not Reportable Owens-Hines Bodies Not Reportable Anderson Rings Not Reportable Sturgeon Cells Not Reportable Bite Cells Not Reportable Crenated Cell Not Reportable Elliptocytes 1+ Acanthocytes (Spur) Not Reportable Rouleaux Not Reportable Hemoglobin C Crystals Not Reportable Schistocytes Rare Malaria parasites Not Reportable Leopoldo Bodies Not Reportable Hem Pathologist Commnt No PT INR APTT Sodium 148 H Potassium 3.8 Chloride 113.2 H Carbon Dioxide 12 L Anion Gap 27 BUN 95 H Creatinine 2.8 H Estimated GFR 20 BUN/Creatinine Ratio 34 Glucose 138 H POC Glucose Hemoglobin A1c Lactic Acid Calcium 8.1 L Magnesium Total Bilirubin AST ALT Alkaline Phosphatase Total Creatine Kinase Troponin T 0.033 H D NT-Pro-B Natriuret Pep Total Protein Albumin Albumin/Globulin Ratio Triglycerides Cholesterol LDL Cholesterol Direct HDL Cholesterol Cholesterol/HDL Ratio Urine Color Urine Turbidity Urine pH Ur Specific [place] Urine Protein Urine Glucose (UA) Urine Ketones Urine Blood Urine Nitrite Urine Bilirubin Urine Urobilinogen Ur Leukocyte Esterase Urine WBC (Auto) Urine RBC (Auto) U Epithel Cells (Auto) Urine Bacteria (Auto) Ur Transition Epith Cell Hyaline Casts Urine Mucus Urine Eosinophils Blood Type Antibody Screen Crossmatch 02/21/19 Unknown WBC RBC Hgb Hct MCV MCH MCHC RDW Plt Count Add Manual Diff Total Counted Seg Neuts % (Manual) Band Neutrophils % Lymphocytes % (Manual) Reactive Lymphs % (Man) Monocytes % (Manual) Eosinophils % (Manual) Basophils % (Manual) Metamyelocytes % Myelocytes % Promyelocytes % Blast Cells % Nucleated RBC % Seg Neutrophils # Man Band Neutrophils # Lymphocytes # (Manual) Abs React Lymphs (Man) Monocytes # (Manual) Eosinophils # (Manual) Basophils # (Manual) Metamyelocytes # Myelocytes # Promyelocytes # Blast Cells # WBC Morphology Hypersegmented Neuts Hyposegmented Neuts Hypogranular Neuts Smudge Cells Toxic Granulation Toxic Vacuolation Dohle Bodies Pelger-Huet Anomaly Alessia Rods Platelet Estimate Clumped Platelets Plt Clumps, EDTA Large Platelets Giant Platelets Platelet Satelliting Plt Morphology Comment RBC Morphology Dimorphic RBCs Polychromasia Hypochromasia Poikilocytosis Anisocytosis Microcytosis Macrocytosis Spherocytes Pappenheimer Bodies Sickle Cells Target Cells Tear Drop Cells Ovalocytes Helmet Cells Owens-Hines Bodies Anderson Rings Sturgeon Cells Bite Cells Crenated Cell Elliptocytes Acanthocytes (Spur) Rouleaux Hemoglobin C Crystals Schistocytes Malaria parasites Leopoldo Bodies Hem Pathologist Commnt PT INR APTT Sodium Potassium Chloride Carbon Dioxide Anion Gap BUN Creatinine Estimated GFR BUN/Creatinine Ratio Glucose POC Glucose Hemoglobin A1c Lactic Acid Calcium Magnesium Total Bilirubin AST ALT Alkaline Phosphatase Total Creatine Kinase Troponin T NT-Pro-B Natriuret Pep Total Protein Albumin Albumin/Globulin Ratio Triglycerides Cholesterol LDL Cholesterol Direct HDL Cholesterol Cholesterol/HDL Ratio Urine Color Urine Turbidity Urine pH Ur Specific [place] Urine Protein Urine Glucose (UA) Urine Ketones Urine Blood Urine Nitrite Urine Bilirubin Urine Urobilinogen Ur Leukocyte Esterase Urine WBC (Auto) Urine RBC (Auto) U Epithel Cells (Auto) Urine Bacteria (Auto) Ur Transition Epith Cell Hyaline Casts Urine Mucus Urine Eosinophils None seen Blood Type Antibody Screen Crossmatch Assessment and Plan - Patient Problems (1) Symptomatic anemia Current Visit: Yes Status: Acute Plan to address problem: patient is pancytopenic, with severe thrombocytopenia. Additionally there is no overt GI bleeding. Agree with current plan for hematology consultation as well as supportive care, check occult blood stool to rule out evidence for GI bleeding however given the severe thrombocytopenia patient is not safe for routine EGD/colonoscopy at this juncture Once the pancytopenia is resolved, patient would likely benefit from an EGD/colonoscopy. We'll follow again with you tomorrow, but as long as hemoglobin remains stable and no overt bleeding, until there is resolution of the severe thrombocytopenia will likely sign off tomorrow and she can follow-up as an outpatient
--- NOTE | 2019-02-21 13:41 | Consultation ---
History of Present Illness - Reason for Consult Consult date: 02/21/19 acute renal failure - History of Present Illness The patient is a 73 YO female with history significant for Obesity and Hype rtension who presented to [facility] ED via EMS for evaluation of generalized weakness for the past 2 weeks. She last saw a doctor 10 years ago. Patient is a very poor historian and most of the history provided by her daughters at the bedside. The weakness has gradually progressed to the point that she couldn't walk. Per daughter she has been vomiting and having loose stools for the past 2 weeks. H er PO intake has been poor due to decrease appetite. Pt feels light headed and SOB on minimal walking. No h/o chest pain, abd pain, hematochezia, hematemesis, melena, fever, chills, dysuria, hematuria, hemoptysis, vaginal bleeding or leg swelling. Pt is not taking any meds at home. BP was around 90/40s. Labs significant for Creat 2.8, BUN 95, Sodium 148, bicarb 12 and Hb 3.2. Nephrology was consulted for further evaluation. Past History Past Medical History: No medical history, hypertension Medications and Allergies Allergies Allergy/AdvReac Type Severity Reaction Status Date / Time No Known Allergies Allergy Unverified 02/20/19 16:06 Home Medications Medication Instructions Recorded Confirmed Last Taken Type No Known Home Medications [No 02/20/19 02/20/19 Unknown History Reported Home Medications] Active Meds: Active Medications Acetaminophen (Tylenol) 650 mg PO Q4H PRN PRN Reason: Pain MILD(1-3)/Fever >100.5/VENCES Last Admin: 02/21/19 00:39 Dose: 650 mg Documented by: Famotidine (Pepcid) 20 mg IV DAILY [facility] Last Admin: 02/21/19 09:29 Dose: 20 mg Documented by: Hydromorphone HCl (Dilaudid) 0.5 mg IV Q3H PRN PRN Reason: Pain , Severe (7-10) Sodium Chloride (Nacl 0.9% 1000 Ml) 1,000 mls @ 100 mls/hr IV DIRECT [facility]IN Last Admin: 02/21/19 08:43 Dose: 100 mls/hr Documented by: Levofloxacin/Dextrose (Levaquin 500mg/100ml) 500 mg in 100 mls @ 100 mls/hr IV Q48H CARIN; Protocol Last Admin: 02/21/19 13:04 Dose: 100 mls/hr Documented by: Ondansetron HCl (Zofran) 4 mg IV Q8H PRN PRN Reason: Nausea And Vomiting Oxycodone/Acetaminophen (Percocet 5/325) 1 tab PO Q6H PRN PRN Reason: Pain, Moderate (4-6) Sodium Chloride (Sodium Chloride Flush Syringe 10 Ml) 10 ml IV BID [facility] Last Admin: 02/21/19 09:29 Dose: 10 ml Documented by: Sodium Chloride (Sodium Chloride Flush Syringe 10 Ml) 10 ml IV PRN PRN PRN Reason: LINE FLUSH Review of Systems ROS unobtainable: due to mental status (Please see HPI.) Exam - Vital Signs Vital signs: Vital Signs Pulse Resp 105 H 17 02/20/19 16:22 02/20/19 16:22 - General Appearance General appearance: well-developed, well-nourished, appears stated age, obese, other (no distress, pallor) EENT: ATNC, PERRL, mucous membranes dry, vision intact, hearing diminished Neck: Present: neck supple, trachea midline Respiratory: Clear to Ascultation Heart: regular, S1S2, no murmurs Gastrointestinal: Present: normoactive bowel sounds, obese. Absent: tenderness, distended Integumentary: no rash, warm and dry Neurologic: no focal deficit, no asterixis, confused Musculoskeletal: Present: other (no edema) Psychiatric: cooperative Results - Lab Results 02/21/19 09:29 02/21/19 09:29 Most recent lab results Calcium 8.1 mg/dL (8.4-10.2) L 02/21/19 09:29 Magnesium 2.50 mg/dL (1.7-2.3) H 02/20/19 16:31 - Image Kidney/bladder ultrasound: pending Assessment and Plan 1. Acute kidney injury: Vasomotor BRITTANY in the setting of hypotension and volume depletion. Urine studies and Renal US ordered. Baseline renal function unknown. Continue IV fluids. Encouraged PO fluids. Monitor renal function. Renal prognosis is guarded. Avoid nephrotoxic agents. Meds dosage based on GFR. 2. FEN: Anion-gap metabolic acidosis, change IV fluids to Sodium bicarbonate drip. Hypernatremia, hypotonic IV fluids. Monitor lytes. 3. Severe anemia: S/p PRBC. 4. Hypotension: BP improving. 5. Elevated Troponin: Seen by Cards. 6. Newly diagnosed DM. Care plan discussed.
[2019-02-21 14:38] LABS: Iron 41 ug/dL (37-170); Total Iron Binding Capacity 161 mcg/dL (250-450)
[2019-02-21] MEDS ORDERED: SODIUM BICARBONATE 75 MEQ in /WATER, STERILE 1,000 SYR IV SCH ×2 (15:00→17:00)
--- NOTE | 2019-02-21 15:08 | Ultrasound Report ---
Renal ultrasound. 02/21/2019. HISTORY: Abnormal renal function. FINDINGS: Right kidney measures 7.7 cm. Cortex measures 8 mm and is echogenic. A complex lesion at th e upper pole of the right kidney measures 2 cm. Left kidney measures 11.6 cm. Cortex is 1.4 cm. Negative for obstruction. Incidentally noted is a gallbladder distended with sludge-stones. There are graft the bladder contain s moderate urine. IMPRESSION: 1. Atrophic right kidney with indeterminate complex lesion. If the patient cannot receive IV contrast , further evaluation is recommended with MRI. 2. Distended gallbladder containing sludge/stones. Signer Name: Saqib Lopez MD Signed: 02/21/2019 3:03 PM Workstation Name: [id number]
[2019-02-21] MEDS: HYDROmorphone 1 MG/1 ML INJ IV PRN (16:40)
--- NOTE | 2019-02-22 09:54 | Progress Note ---
Assessment and Plan Non-specific troponin abnormality Severe macrocytic anemia and pancytopenia s/p transfusion of PRBCs and platelets Acute renal failure Fatigue Transient high degree heart block on telemetry 02/21 An echocardiogram reports a normal LV systolic function, ejection fraction 50- 55%. Recommendations: Hematology consult and evaluation of severe anemia and pancytopenia Continue telemetry monitoring. No urgent indication for pacemaker implant. Subjective Date of service: 02/22/19 Interval history: Patient denies chest pain, palpitations and unusual shortness of breath. Transient high degree heart block seen on telemetry overnight. It's reported the patient was vomiting during this event. She is not on any AV isabel blocking agents. Currently, stable sinus rhythm on telemetry. Objective Vital Signs Temp Pulse Pulse Resp BP Pulse Ox 02/22/19 04:06 98.4 F 72 18 109/57 02/22/19 02:38 97.6 F 20 139/53 02/21/19 22:19 68 125/53 97 02/21/19 20:23 68 98 02/21/19 19:45 98.5 F 76 18 121/66 94 02/21/19 19:23 98.6 F 22 110/50 02/21/19 19:15 98.5 F 66 18 115/46 02/21/19 18:45 98.0 F 68 18 117/61 99 02/21/19 18:30 97.9 F 69 18 115/46 99 02/21/19 13:21 120/48 97 02/21/19 13:11 97.6 F 86 20 99/30 100 02/21/19 10:00 70 86 18 97 - Physical Examination General: No Apparent Distress HEENT: Positive: Pallor Neck: Positive: trachea midline Cardiac: Positive: Reg Rate and Rhythm Lungs: Positive: Normal Breath Sounds Neuro: Positive: Grossly Intact Extremities: Absent: edema - Labs and Meds CBC 02/21/19 Range/Units 09:29 WBC 2.5 L (4.5-11.0) K/mm3 RBC 2.18 L (3.65-5.03) M/mm3 Hgb 6.9 L D (10.1-14.3) gm/dl Hct 21.1 L D (30.3-42.9) % Plt Count 17 L* (140-440) K/mm3 Comprehensive Metabolic Panel 12/22/19 Range/Units 09:29 Sodium 148 H (137-145) mmol/L Potassium 3.8 (3.6-5.0) mmol/L Chloride 113.2 H (98-107) mmol/L Carbon Dioxide 12 L (22-30) mmol/L BUN 95 H (7-17) mg/dL Creatinine 2.8 H (0.7-1.2) mg/dL Glucose 138 H (65-100) mg/dL Calcium 8.1 L (8.4-10.2) mg/dL
[2019-02-22] MEDS: PANTOPRAZOLE 40 MG INJ IV SCH ×2 (10:20→21:59)
[2019-02-22] MEDS: FAMOTIDINE 20 MG/2 ML INJ IV SCH (10:20)
[2019-02-22 11:42] LABS: Hematocrit 22.1 % (30.3-42.9); Hemoglobin 7.1 gm/dl (10.1-14.3); Mean Corpuscular HGB Conc 32 % (30-34); Mean Corpuscular Volume 101 fl (79-97); Red Blood Count 2.18 M/mm3 (3.65-5.03); Red Cell Distribution Width 19.3 % (13.2-15.2)
[2019-02-22 11:43] LABS: Platelet Count 48 K/mm3 (140-440)
[2019-02-22 11:57] LABS: Calcium 8.4 mg/dL (8.4-10.2)
[2019-02-22] MEDS ORDERED: SODIUM CHLORIDE 0.9% 500 ML 500 ML IV SCH (13:15)
--- NOTE | 2019-02-22 14:01 | Progress Note ---
Assessment and Plan Assessment and plan: Severe Symptomatic anemia Hgb 3.2 on admission Now 7.1 after 4 units PRBC. Transfuse 1 Unit PRBC more GI eval Stool occult blood ordered - negative BRITTANY acute kidney injury poss vasomotor nnephropathy Cr 3.0 on admission, now 2.4 IV Fluids for now Nephrology consulted, following Pancytopenia Transfuse prn Thrombocytopenia Plt 17. Transfused 1 Unit plateletphresis Elevated brain natriuretic peptide (BNP) level Echo ordered for EF and valve function Elevated troponin Possibly sec to elevated creatinine Cardiology consulted Trend Troponin right otitis media Levaquin UTI Started levaquin DVT prophylaxis No medical antocoag because low platelets Discussed with patient and daughter at bedside History Interval history: She feels better after blood transfusion Gen weakness improved nausea, vomiting,diarrhea X 2 weeks Discharge right ear X 2 days Hospitalist Physical - Physical exam Narrative exam: Gen: Not in acute distress, lying in bed, obese HEENT: Atraumatic, discharge right ear Neck: supple, no JVD Heart: S1 and S2 reg, no murmurs, rubs or gallop Lungs: clear to auscultation bilaterally, no crackles Abd: soft, NT, non distended, normal BS Ext: No edema, no clubbing, no cyanosis Neuro:Awake,alert, oriented in person, not to place or tiime, moves all ext - Constitutional Vitals: Temp Pulse Resp BP Pulse Ox 98.4 F 70 18 109/57 97 02/22/19 04:06 02/22/19 10:00 02/22/19 10:00 02/22/19 04:06 02/22/19 10:00 General appearance: Present: no acute distress Results - Labs CBC & Chem 7: 02/22/19 11:30 02/22/19 11:30 Labs: Laboratory Last Values WBC 2.0 K/mm3 (4.5-11.0) L 02/22/19 11:30 RBC 2.18 M/mm3 (3.65-5.03) L 02/22/19 11:30 Hgb 7.1 gm/dl (10.1-14.3) L 02/22/19 11:30 Hct 22.1 % (30.3-42.9) L 02/22/19 11:30 MCV 101 fl (79-97) H 02/22/19 11:30 MCH 33 pg (28-32) H 02/22/19 11:30 MCHC 32 % (30-34) 02/22/19 11:30 RDW 19.3 % (13.2-15.2) H 02/22/19 11:30 Plt Count 48 K/mm3 (140-440) L D 02/22/19 11:30 Add Manual Diff Complete 02/21/19 09:29 Total Counted 100 02/21/19 09:29 Seg Neuts % (Manual) 65.0 % (40.0-70.0) 02/21/19 09:29 Band Neutrophils % 0 % 02/21/19 09:29 Lymphocytes % (Manual) 31.0 % (13.4-35.0) 02/21/19 09:29 Reactive Lymphs % (Man) 0 % 02/21/19 09:29 Monocytes % (Manual) 1.0 % (0.0-7.3) 02/21/19 09:29 Eosinophils % (Manual) 3.0 % (0.0-4.3) 02/21/19 09:29 Basophils % (Manual) 0 % (0.0-1.8) 02/21/19 09:29 Metamyelocytes % 0 % 02/21/19 09:29 Myelocytes % 0 % 02/21/19 09:29 Promyelocytes % 0 % 02/21/19 09:29 Blast Cells % 0 % 02/21/19 09:29 Nucleated RBC % Not Reportable 02/21/19 09:29 Seg Neutrophils # Man 1.6 K/mm3 (1.8-7.7) L 02/21/19 09:29 Band Neutrophils # 0.0 K/mm3 02/21/19 09:29 Lymphocytes # (Manual) 0.8 K/mm3 (1.2-5.4) L 02/21/19 09:29 Abs React Lymphs (Man) 0.0 K/mm3 02/21/19 09:29 Monocytes # (Manual) 0.0 K/mm3 (0.0-0.8) 02/21/19 09:29 Eosinophils # (Manual) 0.1 K/mm3 (0.0-0.4) 02/21/19 09:29 Basophils # (Manual) 0.0 K/mm3 (0.0-0.1) 02/21/19 09:29 Metamyelocytes # 0.0 K/mm3 02/21/19 09:29 Myelocytes # 0.0 K/mm3 02/21/19 09:29 Promyelocytes # 0.0 K/mm3 02/21/19 09:29 Blast Cells # 0.0 K/mm3 02/21/19 09:29 WBC Morphology Not Reportable 02/21/19 09:29 Hypersegmented Neuts Not Reportable 02/21/19 09:29 Hyposegmented Neuts Not Reportable 02/21/19 09:29 Hypogranular Neuts Not Reportable 02/21/19 09:29 Smudge Cells Not Reportable 02/21/19 09:29 Toxic Granulation Not Reportable 02/21/19 09:29 Toxic Vacuolation Not Reportable 02/21/19 09:29 Dohle Bodies Not Reportable 02/21/19 09:29 Pelger-Huet Anomaly Not Reportable 02/21/19 09:29 Alessia Rods Not Reportable 02/21/19 09:29 Platelet Estimate Appears decreased 02/21/19 09:29 Clumped Platelets Not Reportable 02/21/19 09:29 Plt Clumps, EDTA Not Reportable 02/21/19 09:29 Large Platelets Not Reportable 02/21/19 09:29 Giant Platelets Not Reportable 02/21/19 09:29 Platelet Satelliting Not Reportable 02/21/19 09:29 Plt Morphology Comment Not Reportable 02/21/19 09:29 RBC Morphology Not Reportable 02/21/19 09:29 Dimorphic RBCs Not Reportable 02/21/19 09:29 Polychromasia Not Reportable 02/21/19 09:29 Hypochromasia Not Reportable 02/21/19 09:29 Poikilocytosis Not Reportable 02/21/19 09:29 Anisocytosis Not Reportable 02/21/19 09:29 Microcytosis Not Reportable 02/21/19 09:29 Macrocytosis Not Reportable 02/21/19 09:29 Spherocytes Not Reportable 02/21/19 09:29 Pappenheimer Bodies Not Reportable 02/21/19 09:29 Sickle Cells Not Reportable 02/21/19 09:29 Target Cells Not Reportable 02/21/19 09:29 Tear Drop Cells 1+ 02/21/19 09:29 Ovalocytes 1+ 02/21/19 09:29 Helmet Cells Not Reportable 02/21/19 09:29 [place] Bodies Not Reportable 02/21/19 09:29 [place] Rings Not Reportable 02/21/19 09:29 [place] Cells Not Reportable 02/21/19 09:29 Bite Cells Not Reportable 02/21/19 09:29 Crenated Cell Not Reportable 02/21/19 09:29 Elliptocytes 1+ 02/21/19 09:29 Acanthocytes (Spur) Not Reportable 02/21/19 09:29 Rouleaux Not Reportable 02/21/19 09:29 Hemoglobin C Crystals Not Reportable 02/21/19 09:29 Schistocytes Rare 02/21/19 09:29 Malaria parasites Not Reportable 02/21/19 09:29 Percent Retic 20.14 % (0.78-2.58) H 02/22/19 11:30 Leopoldo Bodies Not Reportable 02/21/19 09:29 Hem Pathologist Commnt No 02/21/19 09:29 PT 17.3 Sec. (12.2-14.9) H 02/20/19 17:33 INR 1.39 (0.87-1.13) H 02/20/19 17:33 APTT 30.1 Sec. (24.2-36.6) 02/20/19 17:33 Sodium 148 mmol/L (137-145) H 02/22/19 11:30 Potassium 3.7 mmol/L (3.6-5.0) 02/22/19 11:30 Chloride 116.0 mmol/L (98-107) H 02/22/19 11:30 Carbon Dioxide 12 mmol/L (22-30) L 02/22/19 11:30 Anion Gap 24 mmol/L 02/22/19 11:30 BUN 87 mg/dL (7-17) H 02/22/19 11:30 Creatinine 2.4 mg/dL (0.7-1.2) H 02/22/19 11:30 Estimated GFR 24 ml/min 02/22/19 11:30 BUN/Creatinine Ratio 36 % 02/22/19 11:30 Glucose 114 mg/dL (65-100) H 02/22/19 11:30 POC Glucose 143 (70-105) H 02/21/19 21:02 Hemoglobin A1c 6.1 % (4-6) H 02/21/19 09:29 Lactic Acid 1.40 mmol/L (0.7-2.0) 02/21/19 07:09 Calcium 8.4 mg/dL (8.4-10.2) 02/22/19 11:30 Phosphorus 3.70 mg/dL (2.5-4.5) 02/22/19 11:30 Magnesium 2.40 mg/dL (1.7-2.3) H 02/22/19 11:30 Iron 41 ug/dL (37-170) 02/21/19 13:36 TIBC 161 mcg/dL (250-450) L 02/21/19 13:36 Ferritin 797.2 ng/mL (13.0-400.0) H 02/21/19 13:36 Total Bilirubin 0.90 mg/dL (0.1-1.2) 02/21/19 07:09 AST 7 units/L (5-40) 02/21/19 07:09 ALT 7 units/L (7-56) 02/21/19 07:09 Alkaline Phosphatase 40 units/L (35-129) 02/21/19 07:09 Total Creatine Kinase 31 units/L (30-135) 02/20/19 16:31 Troponin T 0.021 ng/mL (0.00-0.029) 02/22/19 11:30 NT-Pro-B Natriuret Pep 3173 pg/mL (0-900) H 02/20/19 17:33 Total Protein 6.5 g/dL (6.3-8.2) 02/21/19 07:09 Albumin 3.8 g/dL (3.9-5) L 02/21/19 07:09 Albumin/Globulin Ratio 1.4 % 02/21/19 07:09 Triglycerides 126 mg/dL (2-149) 02/20/19 16:31 Cholesterol 129 mg/dL (50-199) 02/20/19 16:31 LDL Cholesterol Direct 62 mg/dL (50-130) 02/20/19 16:31 HDL Cholesterol 39 mg/dL (40-59) L 02/20/19 16:31 Cholesterol/HDL Ratio 3.30 % 02/20/19 16:31 Urine Color Yellow (Yellow) 02/21/19 08:10 Urine Turbidity Slightly-cloudy (Clear) 02/21/19 08:10 Urine pH 5.0 (5.0-7.0) 02/21/19 08:10 Ur Specific [place] 1.012 (1.003-1.030) 02/21/19 08:10 Urine Protein <15 mg/dl mg/dL (Negative) 02/21/19 08:10 Urine Glucose (UA) Neg mg/dL (Negative) 02/21/19 08:10 Urine Ketones Neg mg/dL (Negative) 02/21/19 08:10 Urine Blood Sm (Negative) 02/21/19 08:10 Urine Nitrite Neg (Negative) 02/21/19 08:10 Urine Bilirubin Neg (Negative) 02/21/19 08:10 Urine Urobilinogen < 2.0 mg/dL (<2.0) 02/21/19 08:10 Ur Leukocyte Esterase Mod (Negative) 02/21/19 08:10 Urine WBC (Auto) 39.0 /HPF (0.0-6.0) H 02/21/19 08:10 Urine RBC (Auto) 2.0 /HPF (0.0-6.0) 02/21/19 08:10 U Epithel Cells (Auto) 2.0 /HPF (0-13.0) 02/21/19 08:10 Urine Bacteria (Auto) 1+ /HPF (Negative) 02/21/19 08:10 Ur Transition Epith Cell 1 /HPF 02/21/19 08:10 Hyaline Casts 7 /LPF 02/21/19 08:10 Urine Mucus Few /HPF 02/21/19 08:10 Urine Eosinophils None seen (None Seen) 02/21/19 Unknown Urine Creatinine 99.0 mg/dL (0.1-20.0) H 02/21/19 Unknown Urine Sodium 46 mmol/L 02/21/19 Unknown Blood Type AB POSITIVE 02/20/19 17:33 Antibody Screen Negative 02/20/19 17:33 Crossmatch See Detail 02/20/19 17:33 Active Medications - Current Medications Current Medications: Generic Name Dose Route Start Last Admin Trade Name Freq PRN Reason Stop Dose Admin Acetaminophen 650 mg 02/20/19 19:04 02/21/19 00:39 Tylenol PO 650 mg Q4H PRN Administration Pain MILD(1-3)/Fever >100.5/VENCES Famotidine 20 mg 02/20/19 22:00 02/22/19 10:20 Pepcid IV 20 mg DAILY CARIN Administration Hydromorphone HCl 0.5 mg 02/20/19 19:04 02/21/19 16:40 Dilaudid IV 0.5 mg Q3H PRN Administration Pain , Severe (7-10) Levofloxacin/Dextrose 500 mg in 100 mls @ 100 mls/hr 02/21/19 12:00 02/21/19 13:04 Levaquin 500mg/100ml IV 100 mls/hr Q48H CARIN Administration Protocol Sodium Bicarbonate 75 meq/ 1,075 mls @ 100 mls/hr 02/21/19 17:00 Sterile Water IV DIRECT CARIN Sodium Chloride 500 mls @ 0 mls/hr 02/22/19 13:15 Nacl 0.9% 500 Ml IV 02/22/19 23:00 ONCE CARIN As Directed Ondansetron HCl 4 mg 02/20/19 19:04 Zofran IV Q8H PRN Nausea And Vomiting Oxycodone/Acetaminophen 1 tab 02/20/19 19:04 Percocet 5/325 PO Q6H PRN Pain, Moderate (4-6) Pantoprazole Sodium 40 mg 02/22/19 10:00 02/22/19 10:20 Protonix IV 40 mg BID CARIN Administration Sodium Chloride 10 ml 02/20/19 22:00 02/22/19 10:20 Sodium Chloride Flush Syringe 10 Ml IV 10 ml BID CARIN Administration Sodium Chloride 10 ml 02/20/19 19:04 Sodium Chloride Flush Syringe 10 Ml IV PRN PRN LINE FLUSH
--- NOTE | 2019-02-22 18:20 | Gastroenterology Progress Note ---
Assessment and Plan - Patient Problems (1) Symptomatic anemia Current Visit: Yes Status: Acute Plan to address problem: patient is pancytopenic, with no overt or occult blood detected in the stool. Therefore, this does not appear to be due to GI blood loss Recommend complete the hematology evaluation If after the evaluation there remains a concern for anemia due to chronic gastrointestinal blood loss please call me back. Otherwise, I will sign off and the patient may followup as an outpatient once the hematologic issue is resolved Subjective Date of service: 02/22/19 Principal diagnosis: anemia Interval history: Normal brown stool this evening, no overt bleeding, no abd pain, stool negative for occult blood Objective - Constitutional Vitals: Temp Pulse Resp BP Pulse Ox 98 F 76 18 158/66 96 02/22/19 17:11 02/22/19 17:11 02/22/19 17:11 02/22/19 17:11 02/22/19 17:11 General appearance: no acute distress - Respiratory Respiratory effort: normal - Gastrointestinal General gastrointestinal: Present: soft, non-tender - Labs CBC & Chem 7: 02/22/19 11:30 02/22/19 11:30 Labs: Laboratory Results - last 24 hr 02/20/19 02/21/19 02/22/19 17:33 21:02 11:30 WBC RBC Hgb Hct MCV MCH MCHC RDW Plt Count Percent Retic Sodium Potassium Chloride Carbon Dioxide Anion Gap BUN Creatinine Estimated GFR BUN/Creatinine Ratio Glucose POC Glucose 143 H Calcium Phosphorus Magnesium Troponin T 0.021 TSH Free T4 PTH Intact Blood Type AB POSITIVE Antibody Screen Negative Crossmatch See Detail 02/22/19 02/22/19 02/22/19 11:30 11:30 11:30 WBC 2.0 L RBC 2.18 L Hgb 7.1 L Hct 22.1 L MCV 101 H MCH 33 H MCHC 32 RDW 19.3 H Plt Count 48 L D Percent Retic 20.14 H Sodium 148 H Potassium 3.7 Chloride 116.0 H Carbon Dioxide 12 L Anion Gap 24 BUN 87 H Creatinine 2.4 H Estimated GFR 24 BUN/Creatinine Ratio 36 Glucose 114 H POC Glucose Calcium 8.4 Phosphorus 3.70 Magnesium 2.40 H Troponin T TSH Free T4 PTH Intact Blood Type Antibody Screen Crossmatch 02/22/19 02/22/19 02/22/19 16:54 16:54 16:54 WBC RBC Hgb Hct MCV MCH MCHC RDW Plt Count Percent Retic Sodium Potassium Chloride Carbon Dioxide Anion Gap BUN Creatinine Estimated GFR BUN/Creatinine Ratio Glucose POC Glucose Calcium Phosphorus Magnesium Troponin T TSH 1.210 Free T4 1.05 PTH Intact 77.44 H Blood Type Antibody Screen Crossmatch
--- NOTE | 2019-02-22 22:29 | Progress Note ---
Assessment and Plan 1. Acute kidney injury: Vasomotor BRITTANY in the setting of hypotension and volume depletion. Renal US showed atrophic R kidney with indeterminate complex lesion. Baseline renal function unknown. Continue IV fluids. Encouraged PO fluids. Renal function is improving. Monitor renal function. Renal prognosis is guarded. Avoid nephrotoxic agents. Meds dosage based on GFR. 2. FEN: Anion-gap metabolic acidosis, IV fluids changed to Sodium bicarbonate drip. Hypernatremia, hypotonic IV fluids. Monitor lytes. 3. Severe anemia: S/p PRBC. 4. Hypotension: BP improving. 5. Elevated Troponin: Seen by Cards. 6. Newly diagnosed DM. Care plan discussed. Daughter at the bedside. Examination: General appearance: well-developed, well-nourished, appears stated age, obese, no distress, pallor HEENT: ATNC, CHANEL, vision intact, hearing diminished Neck: neck supple, trachea midline Respiratory: Clear to Ascultation Heart: regular, S1S2, no murmurs Gastrointestinal: soft, normoactive bowel sounds, obese, not tender Integumentary: no rash, warm and dry Neurologic: no focal deficit, no asterixis, confused Ext: no edema Psychiatric: cooperative Subjective Date of service: 02/22/19 Principal diagnosis: anemia Interval history: Patient was seen and examined at the bedside. Feeling better today. Objective - Vital Signs Vital signs: Vital Signs - 12hr 02/22/19 02/22/19 02/22/19 13:39 16:26 16:41 Temperature 98.0 F 97.7 F 97.9 F Pulse Rate 79 66 66 Respiratory 20 18 18 Rate Blood Pressure 128/74 143/45 154/52 Blood Pressure [Left] O2 Sat by Pulse 99 99 99 Oximetry 02/22/19 02/22/19 02/22/19 17:11 17:41 18:11 Temperature 98 F 97.7 F 98.1 F Pulse Rate 76 69 79 Respiratory 18 18 18 Rate Blood Pressure 158/66 145/56 141/76 Blood Pressure [Left] O2 Sat by Pulse 96 99 Oximetry 02/22/19 02/22/19 02/22/19 18:41 19:11 20:42 Temperature 97.7 F 97.8 F 98.5 F Pulse Rate 69 69 64 Respiratory 18 18 18 Rate Blood Pressure 159/64 174/60 Blood Pressure 121/60 [Left] O2 Sat by Pulse 99 100 99 Oximetry - Lab 02/22/19 11:30 02/22/19 11:30 Most recent lab results Calcium 8.4 mg/dL (8.4-10.2) 02/22/19 11:30 Phosphorus 3.70 mg/dL (2.5-4.5) 02/22/19 11:30 Magnesium 2.40 mg/dL (1.7-2.3) H 02/22/19 11:30 Urine Creatinine 99.0 mg/dL (0.1-20.0) H 02/21/19 Unknown Urine Sodium 46 mmol/L 02/21/19 Unknown Medications & Allergies - Medications Allergies/Adverse Reactions: Allergies No Known Allergies Allergy (Unverified 02/20/19 16:06) Home Medications: Home Medications Medication Instructions Recorded Confirmed Last Taken Type No Known Home Medications [No 02/20/19 02/20/19 Unknown History Reported Home Medications] Active Medications: Generic Name Dose Route Start Last Admin Trade Name Freq PRN Reason Stop Dose Admin Acetaminophen 650 mg 02/20/19 19:04 02/21/19 00:39 Tylenol PO 650 mg Q4H PRN Administration Pain MILD(1-3)/Fever >100.5/VENCES Famotidine 20 mg 02/20/19 22:00 02/22/19 10:20 Pepcid IV 20 mg DAILY CARIN Administration Hydromorphone HCl 0.5 mg 02/20/19 19:04 02/21/19 16:40 Dilaudid IV 0.5 mg Q3H PRN Administration Pain , Severe (7-10) Levofloxacin/Dextrose 500 mg in 100 mls @ 100 mls/hr 02/21/19 12:00 02/21/19 13:04 Levaquin 500mg/100ml IV 100 mls/hr Q48H CARIN Administration Protocol Sodium Bicarbonate 75 meq/ 1,075 mls @ 100 mls/hr 02/21/19 17:00 Sterile Water IV DIRECT CARIN Sodium Chloride 500 mls @ 0 mls/hr 02/22/19 13:15 Nacl 0.9% 500 Ml IV 02/22/19 23:00 ONCE CARIN As Directed Ondansetron HCl 4 mg 02/20/19 19:04 Zofran IV Q8H PRN Nausea And Vomiting Oxycodone/Acetaminophen 1 tab 02/20/19 19:04 Percocet 5/325 PO Q6H PRN Pain, Moderate (4-6) Pantoprazole Sodium 40 mg 02/22/19 10:00 02/22/19 21:59 Protonix IV 40 mg BID CARIN Administration Sodium Chloride 10 ml 02/20/19 22:00 02/22/19 22:00 Sodium Chloride Flush Syringe 10 Ml IV 10 ml BID CARIN Administration Sodium Chloride 10 ml 02/20/19 19:04 Sodium Chloride Flush Syringe 10 Ml IV PRN PRN LINE FLUSH
[2019-02-23 01:43] LABS: Hematocrit 22.2 % (30.3-42.9); Hemoglobin 7.4 gm/dl (10.1-14.3)
[2019-02-23] MEDS: SODIUM BICARBONATE 75 MEQ in WATER FOR INJECTION (PF) 1,000 ML IV SCH ×2 (03:14→21:06)
[2019-02-23 07:06] LABS: Calcium 8.5 mg/dL (8.4-10.2)
[2019-02-23] MEDS: ACETAMINOPHEN 325 MG TAB PO PRN ×2 (07:29→23:57)
--- NOTE | 2019-02-23 08:45 | Progress Note ---
Assessment and Plan Non-specific troponin abnormality Severe macrocytic anemia and pancytopenia s/p transfusion of PRBCs and platelets Acute renal failure Fatigue Transient high degree heart block on telemetry 02/21 associated with nausea and vomiting - likely vagal in origin (no recurrence) Hypokalemia An echocardiogram reports a normal LV systolic function, ejection fraction 50- 55%. Recommendations: Hematology consult and evaluation of severe anemia and pancytopenia. Continue to monitor on telemetry. Avoid AV isabel blockers. Subjective Date of service: 02/23/19 Principal diagnosis: anemia Interval history: Physical therapy is at the bedside. No cardiac complaints. No reported cardiac events on telemetry overnight. Objective Vital Signs Temp Pulse Pulse Pulse Resp BP BP 02/23/19 02:00 98.5 F 69 20 133/62 02/22/19 22:00 64 18 02/22/19 20:42 98.5 F 64 18 121/60 02/22/19 20:40 98.5 F 18 121/60 02/22/19 19:11 97.8 F 69 18 174/60 02/22/19 18:41 97.7 F 69 18 159/64 02/22/19 18:11 98.1 F 79 18 141/76 02/22/19 17:41 97.7 F 69 18 145/56 02/22/19 17:11 98 F 76 18 158/66 02/22/19 16:41 97.9 F 66 18 154/52 02/22/19 16:26 97.7 F 66 18 143/45 02/22/19 13:39 98.0 F 79 20 128/74 02/22/19 10:00 70 70 18 Pulse Ox 02/23/19 02:00 98 02/22/19 22:00 99 02/22/19 20:42 99 02/22/19 20:40 02/22/19 19:11 100 02/22/19 18:41 99 02/22/19 18:11 02/22/19 17:41 99 02/22/19 17:11 96 02/22/19 16:41 99 02/22/19 16:26 99 02/22/19 13:39 99 02/22/19 10:00 97 - Physical Examination General: No Apparent Distress HEENT: Positive: Pallor Neck: Positive: trachea midline Cardiac: Positive: Reg Rate and Rhythm Lungs: Positive: Decreased Breath Sounds Neuro: Positive: Grossly Intact, Weakness Abdomen: Positive: Soft Extremities: Absent: edema - Labs and Meds CBC 02/22/19 02/23/19 Range/Units 11:30 00:17 WBC 2.0 L (4.5-11.0) K/mm3 RBC 2.18 L (3.65-5.03) M/mm3 Hgb 7.1 L 7.4 L (10.1-14.3) gm/dl Hct 22.1 L 22.2 L (30.3-42.9) % Plt Count 48 L D (140-440) K/mm3 Comprehensive Metabolic Panel 02/22/19 02/23/19 Range/Units 11:30 04:13 Sodium 148 H 146 H (137-145) mmol/L Potassium 3.7 3.1 L (3.6-5.0) mmol/L Chloride 116.0 H 114.6 H (98-107) mmol/L Carbon Dioxide 12 L 15 L (22-30) mmol/L BUN 87 H 70 H (7-17) mg/dL Creatinine 2.4 H 1.9 H (0.7-1.2) mg/dL Glucose 114 H 102 H (65-100) mg/dL Calcium 8.4 8.5 (8.4-10.2) mg/dL
--- NOTE | 2019-02-23 08:49 | Progress Note ---
Assessment and Plan 1. Acute kidney injury: Vasomotor BRITTANY in the setting of hypotension and volume depletion. Renal US showed atrophic R kidney with indeterminate complex lesion. Baseline renal function unknown. Continue IV fluids. Encouraged PO fluids. Renal function is improving. Monitor renal function. Renal prognosis is guarded. Avoid nephrotoxic agents. Meds dosage based on GFR. 2. FEN: Anion-gap metabolic acidosis, continue IV Sodium bicarbonate drip. Hypernatremia, hypotonic IV fluids. Replete K. Monitor lytes. 3. Severe anemia: S/p PRBC. 4. Hypotension: BP is better. 5. Elevated Troponin: Seen by Cards. 6. Newly diagnosed DM. Care plan discussed. Daughter at the bedside. Examination: General appearance: well-developed, well-nourished, appears stated age, obese, no distress, pallor HEENT: ATNC, CHANEL, vision intact, hearing diminished Neck: neck supple, trachea midline Respiratory: Clear to Ascultation Heart: regular, S1S2, no murmurs Gastrointestinal: soft, normoactive bowel sounds, obese, not tender Integumentary: no rash, warm and dry Neurologic: no focal deficit, no asterixis, confused Ext: no edema Psychiatric: cooperative Subjective Date of service: 02/23/19 Principal diagnosis: anemia Interval history: Patient was seen and examined at the bedside. Feeling better. Daughter at the bedside. Objective - Vital Signs Vital signs: Vital Signs - 12hr 02/22/19 02/23/19 22:00 02:00 Temperature 98.5 F Pulse Rate 69 Pulse Rate [ 64 Right Brachial] Respiratory 18 20 Rate Blood Pressure 133/62 O2 Sat by Pulse 99 98 Oximetry - Lab 02/23/19 00:17 02/23/19 04:13 Most recent lab results Calcium 8.5 mg/dL (8.4-10.2) 02/23/19 04:13 Phosphorus 3.70 mg/dL (2.5-4.5) 02/22/19 11:30 Magnesium 2.40 mg/dL (1.7-2.3) H 02/22/19 11:30 Urine Creatinine 99.0 mg/dL (0.1-20.0) H 02/21/19 Unknown Urine Sodium 46 mmol/L 02/21/19 Unknown Medications & Allergies - Medications Allergies/Adverse Reactions: Allergies No Known Allergies Allergy (Unverified 02/20/19 16:06) Home Medications: Home Medications Medication Instructions Recorded Confirmed Last Taken Type No Known Home Medications [No 02/20/19 02/20/19 Unknown History Reported Home Medications] Active Medications: Generic Name Dose Route Start Last Admin Trade Name Freq PRN Reason Stop Dose Admin Acetaminophen 650 mg 02/20/19 19:04 02/23/19 07:29 Tylenol PO 650 mg Q4H PRN Administration Pain MILD(1-3)/Fever >100.5/VENCES Hydromorphone HCl 0.5 mg 02/20/19 19:04 02/21/19 16:40 Dilaudid IV 0.5 mg Q3H PRN Administration Pain , Severe (7-10) Levofloxacin/Dextrose 500 mg in 100 mls @ 100 mls/hr 02/21/19 12:00 02/21/19 13:04 Levaquin 500mg/100ml IV 100 mls/hr Q48H CARIN Administration Protocol Sodium Bicarbonate 75 meq/ 1,075 mls @ 100 mls/hr 02/21/19 17:00 02/23/19 03:14 Sterile Water IV 100 mls/hr DIRECT CARIN Administration Ondansetron HCl 4 mg 02/20/19 19:04 Zofran IV Q8H PRN Nausea And Vomiting Oxycodone/Acetaminophen 1 tab 02/20/19 19:04 Percocet 5/325 PO Q6H PRN Pain, Moderate (4-6) Pantoprazole Sodium 40 mg 02/22/19 10:00 02/22/19 21:59 Protonix IV 40 mg BID CARIN Administration Sodium Chloride 10 ml 02/20/19 22:00 02/22/19 22:00 Sodium Chloride Flush Syringe 10 Ml IV 10 ml BID CARIN Administration Sodium Chloride 10 ml 02/20/19 19:04 Sodium Chloride Flush Syringe 10 Ml IV PRN PRN LINE FLUSH
[2019-02-23] MEDS: oxyCODONE /ACETAMINOPHEN 5-325MG TAB PO PRN (09:48)
[2019-02-23] MEDS: PANTOPRAZOLE 40 MG INJ IV SCH ×2 (09:51→21:07)
[2019-02-23] MEDS: K-LYTE 25 MEQ TABLET EFF PO SCH ×4 (10:15→18:25)
--- NOTE | 2019-02-23 13:12 | Progress Note ---
Assessment and Plan Assessment and plan: Severe Symptomatic anemia Hgb 3.2 on admission Now 7.1 after 4 units PRBC. GI following Stool occult blood ordered - negative BRITTANY acute kidney injury poss vasomotor nnephropathy Cr 3.0 on admission, now 2.4 IV Fluids for now Nephrology following Pancytopenia Hematology consulted. Thrombocytopenia Plt 17. Transfused 1 Unit plateletphresis Elevated brain natriuretic peptide (BNP) level Echo ordered for EF and valve function Elevated troponin Possibly sec to elevated creatinine Cardiology following Trend Troponin right otitis media Levaquin UTI Started levaquin DVT prophylaxis No medical antocoag because low platelets History Interval history: No new issues overnight. Hospitalist Physical - Constitutional Vitals: Temp Pulse Resp BP Pulse Ox 98.3 F 66 18 148/65 99 02/23/19 07:21 02/23/19 07:21 02/23/19 07:21 02/23/19 07:21 02/23/19 07:21 General appearance: Present: no acute distress - EENT Eyes: Present: PERRL, EOM intact ENT: hearing intact, clear oral mucosa, dentition normal - Neck Neck: Present: supple, normal ROM - Respiratory Respiratory effort: normal Respiratory: bilateral: CTA - Cardiovascular Rhythm: regular Heart Sounds: Present: S1 & S2. Absent: gallop, rub - Extremities Extremities: no ischemia, No edema, Full ROM - Abdominal General gastrointestinal: soft, non-tender, non-distended, normal bowel sounds - Integumentary Integumentary: Present: clear, warm, dry - Neurologic Neurologic: CNII-XII intact, moves all extremities Results - Labs CBC & Chem 7: 02/23/19 00:17 02/23/19 04:13 Labs: Laboratory Last Values WBC 2.0 K/mm3 (4.5-11.0) L 02/22/19 11:30 RBC 2.18 M/mm3 (3.65-5.03) L 02/22/19 11:30 Hgb 7.4 gm/dl (10.1-14.3) L 02/23/19 00:17 Hct 22.2 % (30.3-42.9) L 02/23/19 00:17 MCV 101 fl (79-97) H 02/22/19 11:30 MCH 33 pg (28-32) H 02/22/19 11:30 MCHC 32 % (30-34) 02/22/19 11:30 RDW 19.3 % (13.2-15.2) H 02/22/19 11:30 Plt Count 48 K/mm3 (140-440) L D 02/22/19 11:30 Add Manual Diff Complete 02/21/19 09:29 Total Counted 100 02/21/19 09:29 Seg Neuts % (Manual) 65.0 % (40.0-70.0) 02/21/19 09:29 Band Neutrophils % 0 % 02/21/19 09:29 Lymphocytes % (Manual) 31.0 % (13.4-35.0) 02/21/19 09:29 Reactive Lymphs % (Man) 0 % 02/21/19 09:29 Monocytes % (Manual) 1.0 % (0.0-7.3) 02/21/19 09:29 Eosinophils % (Manual) 3.0 % (0.0-4.3) 02/21/19 09:29 Basophils % (Manual) 0 % (0.0-1.8) 02/21/19 09:29 Metamyelocytes % 0 % 02/21/19 09:29 Myelocytes % 0 % 02/21/19 09:29 Promyelocytes % 0 % 02/21/19 09:29 Blast Cells % 0 % 02/21/19 09:29 Nucleated RBC % Not Reportable 02/21/19 09:29 Seg Neutrophils # Man 1.6 K/mm3 (1.8-7.7) L 02/21/19 09:29 Band Neutrophils # 0.0 K/mm3 02/21/19 09:29 Lymphocytes # (Manual) 0.8 K/mm3 (1.2-5.4) L 02/21/19 09:29 Abs React Lymphs (Man) 0.0 K/mm3 02/21/19 09:29 Monocytes # (Manual) 0.0 K/mm3 (0.0-0.8) 02/21/19 09:29 Eosinophils # (Manual) 0.1 K/mm3 (0.0-0.4) 02/21/19 09:29 Basophils # (Manual) 0.0 K/mm3 (0.0-0.1) 02/21/19 09:29 Metamyelocytes # 0.0 K/mm3 02/21/19 09:29 Myelocytes # 0.0 K/mm3 02/21/19 09:29 Promyelocytes # 0.0 K/mm3 02/21/19 09:29 Blast Cells # 0.0 K/mm3 02/21/19 09:29 WBC Morphology Not Reportable 02/21/19 09:29 Hypersegmented Neuts Not Reportable 02/21/19 09:29 Hyposegmented Neuts Not Reportable 02/21/19 09:29 Hypogranular Neuts Not Reportable 02/21/19 09:29 Smudge Cells Not Reportable 02/21/19 09:29 Toxic Granulation Not Reportable 02/21/19 09:29 Toxic Vacuolation Not Reportable 02/21/19 09:29 Dohle Bodies Not Reportable 02/21/19 09:29 Pelger-Huet Anomaly Not Reportable 02/21/19 09:29 Alessia Rods Not Reportable 02/21/19 09:29 Platelet Estimate Appears decreased 02/21/19 09:29 Clumped Platelets Not Reportable 02/21/19 09:29 Plt Clumps, EDTA Not Reportable 02/21/19 09:29 Large Platelets Not Reportable 02/21/19 09:29 Giant Platelets Not Reportable 02/21/19 09:29 Platelet Satelliting Not Reportable 02/21/19 09:29 Plt Morphology Comment Not Reportable 02/21/19 09:29 RBC Morphology Not Reportable 02/21/19 09:29 Dimorphic RBCs Not Reportable 02/21/19 09:29 Polychromasia Not Reportable 02/21/19 09:29 Hypochromasia Not Reportable 02/21/19 09:29 Poikilocytosis Not Reportable 02/21/19 09:29 Anisocytosis Not Reportable 02/21/19 09:29 Microcytosis Not Reportable 02/21/19 09:29 Macrocytosis Not Reportable 02/21/19 09:29 Spherocytes Not Reportable 02/21/19 09:29 Pappenheimer Bodies Not Reportable 02/21/19 09:29 Sickle Cells Not Reportable 02/21/19 09:29 Target Cells Not Reportable 02/21/19 09:29 Tear Drop Cells 1+ 02/21/19 09:29 Ovalocytes 1+ 02/21/19 09:29 Helmet Cells Not Reportable 02/21/19 09:29 [place] Bodies Not Reportable 02/21/19 09:29 [place] Rings Not Reportable 02/21/19 09:29 [place] Cells Not Reportable 02/21/19 09:29 Bite Cells Not Reportable 02/21/19 09:29 Crenated Cell Not Reportable 02/21/19 09:29 Elliptocytes 1+ 02/21/19 09:29 Acanthocytes (Spur) Not Reportable 02/21/19 09:29 Rouleaux Not Reportable 02/21/19 09:29 Hemoglobin C Crystals Not Reportable 02/21/19 09:29 Schistocytes Rare 02/21/19 09:29 Malaria parasites Not Reportable 02/21/19 09:29 Percent Retic 20.14 % (0.78-2.58) H 02/22/19 11:30 [place] Bodies Not Reportable 02/21/19 09:29 Hem Pathologist Commnt No 02/21/19 09:29 PT 17.3 Sec. (12.2-14.9) H 02/20/19 17:33 INR 1.39 (0.87-1.13) H 02/20/19 17:33 APTT 30.1 Sec. (24.2-36.6) 02/20/19 17:33 Sodium 146 mmol/L (137-145) H 02/23/19 04:13 Potassium 3.1 mmol/L (3.6-5.0) L 02/23/19 04:13 Chloride 114.6 mmol/L (98-107) H 02/23/19 04:13 Carbon Dioxide 15 mmol/L (22-30) L 02/23/19 04:13 Anion Gap 20 mmol/L 02/23/19 04:13 BUN 70 mg/dL (7-17) H 02/23/19 04:13 Creatinine 1.9 mg/dL (0.7-1.2) H 02/23/19 04:13 Estimated GFR 32 ml/min 02/23/19 04:13 BUN/Creatinine Ratio 37 % 02/23/19 04:13 Glucose 102 mg/dL (65-100) H 02/23/19 04:13 POC Glucose 108 (70-105) H 02/23/19 07:29 Hemoglobin A1c 6.1 % (4-6) H 02/21/19 09:29 Lactic Acid 1.40 mmol/L (0.7-2.0) 02/21/19 07:09 Calcium 8.5 mg/dL (8.4-10.2) 02/23/19 04:13 Phosphorus 3.70 mg/dL (2.5-4.5) 02/22/19 11:30 Magnesium 2.40 mg/dL (1.7-2.3) H 02/22/19 11:30 Iron 41 ug/dL (37-170) 02/21/19 13:36 TIBC 161 mcg/dL (250-450) L 02/21/19 13:36 Ferritin 797.2 ng/mL (13.0-400.0) H 02/21/19 13:36 Total Bilirubin 0.90 mg/dL (0.1-1.2) 02/21/19 07:09 AST 7 units/L (5-40) 02/21/19 07:09 ALT 7 units/L (7-56) 02/21/19 07:09 Alkaline Phosphatase 40 units/L (35-129) 02/21/19 07:09 Total Creatine Kinase 31 units/L (30-135) 02/20/19 16:31 Troponin T 0.021 ng/mL (0.00-0.029) 02/22/19 11:30 NT-Pro-B Natriuret Pep 3173 pg/mL (0-900) H 02/20/19 17:33 Total Protein 6.5 g/dL (6.3-8.2) 02/21/19 07:09 Albumin 3.8 g/dL (3.9-5) L 02/21/19 07:09 Albumin/Globulin Ratio 1.4 % 02/21/19 07:09 Triglycerides 126 mg/dL (2-149) 02/20/19 16:31 Cholesterol 129 mg/dL (50-199) 02/20/19 16:31 LDL Cholesterol Direct 62 mg/dL (50-130) 02/20/19 16:31 HDL Cholesterol 39 mg/dL (40-59) L 02/20/19 16:31 Cholesterol/HDL Ratio 3.30 % 02/20/19 16:31 TSH 1.210 mlU/mL (0.270-4.200) 02/22/19 16:54 Free T4 1.05 ng/dL (0.76-1.46) 02/22/19 16:54 PTH Intact 77.44 pg/mL (15-65) H 02/22/19 16:54 Urine Color Yellow (Yellow) 02/21/19 08:10 Urine Turbidity Slightly-cloudy (Clear) 02/21/19 08:10 Urine pH 5.0 (5.0-7.0) 02/21/19 08:10 Ur Specific [place] 1.012 (1.003-1.030) 02/21/19 08:10 Urine Protein <15 mg/dl mg/dL (Negative) 02/21/19 08:10 Urine Glucose (UA) Neg mg/dL (Negative) 02/21/19 08:10 Urine Ketones Neg mg/dL (Negative) 02/21/19 08:10 Urine Blood Sm (Negative) 02/21/19 08:10 Urine Nitrite Neg (Negative) 02/21/19 08:10 Urine Bilirubin Neg (Negative) 02/21/19 08:10 Urine Urobilinogen < 2.0 mg/dL (<2.0) 02/21/19 08:10 Ur Leukocyte Esterase Mod (Negative) 02/21/19 08:10 Urine WBC (Auto) 39.0 /HPF (0.0-6.0) H 02/21/19 08:10 Urine RBC (Auto) 2.0 /HPF (0.0-6.0) 02/21/19 08:10 U Epithel Cells (Auto) 2.0 /HPF (0-13.0) 02/21/19 08:10 Urine Bacteria (Auto) 1+ /HPF (Negative) 02/21/19 08:10 Ur Transition Epith Cell 1 /HPF 02/21/19 08:10 Hyaline Casts 7 /LPF 02/21/19 08:10 Urine Mucus Few /HPF 02/21/19 08:10 Urine Eosinophils None seen (None Seen) 02/21/19 Unknown Urine Creatinine 99.0 mg/dL (0.1-20.0) H 02/21/19 Unknown Urine Sodium 46 mmol/L 02/21/19 Unknown Blood Type AB POSITIVE 02/20/19 17:33 Antibody Screen Negative 02/20/19 17:33 Crossmatch See Detail 02/20/19 17:33 Active Medications - Current Medications Current Medications: Generic Name Dose Route Start Last Admin Trade Name Freq PRN Reason Stop Dose Admin Acetaminophen 650 mg 02/20/19 19:04 02/23/19 07:29 Tylenol PO 650 mg Q4H PRN Administration Pain MILD(1-3)/Fever >100.5/VENCES Hydromorphone HCl 0.5 mg 02/20/19 19:04 02/21/19 16:40 Dilaudid IV 0.5 mg Q3H PRN Administration Pain , Severe (7-10) Levofloxacin/Dextrose 500 mg in 100 mls @ 100 mls/hr 02/21/19 12:00 02/23/19 12:05 Levaquin 500mg/100ml IV 100 mls/hr Q48H CARIN Administration Protocol Sodium Bicarbonate 75 meq/ 1,075 mls @ 100 mls/hr 02/21/19 17:00 02/23/19 03:14 Sterile Water IV 100 mls/hr DIRECT CARIN Administration Ondansetron HCl 4 mg 02/20/19 19:04 Zofran IV Q8H PRN Nausea And Vomiting Oxycodone/Acetaminophen 1 tab 02/20/19 19:04 02/23/19 09:48 Percocet 5/325 PO 1 tab Q6H PRN Administration Pain, Moderate (4-6) Pantoprazole Sodium 40 mg 02/22/19 10:00 02/23/19 09:51 Protonix IV 40 mg BID CARIN Administration Potassium Bicarbonate 25 meq 02/23/19 09:00 02/23/19 10:15 Klor-Con PO 02/23/19 14:01 25 meq Q4HR CARIN Administration Sodium Chloride 10 ml 02/20/19 22:00 02/23/19 09:51 Sodium Chloride Flush Syringe 10 Ml IV 10 ml BID CARIN Administration Sodium Chloride 10 ml 02/20/19 19:04 Sodium Chloride Flush Syringe 10 Ml IV PRN PRN LINE FLUSH
[2019-02-23] MEDS: ONDANSETRON 4 MG/2 ML INJ IV PRN (13:32)
[2019-02-24 06:19] LABS: Calcium 8.8 mg/dL (8.4-10.2)
--- NOTE | 2019-02-24 08:50 | Ultrasound Report ---
ULTRASOUND ABDOMEN, COMPLETE INDICATION: liver spleen size. COMPARISON: No relevant prior imaging study available. FINDINGS: Pancreas: No significant abnormality. Abdominal Aorta: No significant abnormality. IVC: No significant abnormality. Liver: Heterogeneous increased echogenicity suggest fatty infiltration.. Gallbladder: Multiple gallstones. The gallbladder wall is slightly thickened. Bile ducts: No significant abnormality. Common bile duct measures 8 mm. Kidneys: Right: Small right kidney measuring 8 cm. 1 cm complex right upper pole renal cyst. Left : N o significant abnormality. Spleen: No significant abnormality. Free fluid: None. Additional Findings: None. IMPRESSION: 1. Cholelithiasis with mildly thickened gallbladder wall. 2. Right renal atrophy. 3. Fatty liver. Signer Name: Zaki Ly MD Signed: 02/24/2019 8:45 AM Workstation Name: [id number]
[2019-02-24] MEDS: PANTOPRAZOLE 40 MG INJ IV SCH ×2 (09:23→22:28)
[2019-02-24] MEDS: SODIUM BICARBONATE 75 MEQ in WATER FOR INJECTION (PF) 1,000 ML IV SCH (10:07)
--- NOTE | 2019-02-24 10:29 | Progress Note ---
Assessment and Plan Assessment and plan: Severe Symptomatic anemia Hgb 3.2 on admission Now 7.1 after 4 units PRBC. GI following Stool occult blood ordered - negative BRITTANY acute kidney injury poss vasomotor nnephropathy IV Fluids for now Nephrology following Renal lesion. Consider MRI with IV contrast when kidney function improves. Patient may have study done as an outpatient Pancytopenia Hematology consulted. Thrombocytopenia Plt 17. Transfused 1 Unit plateletpheresis previously Follow-up CBC Elevated brain natriuretic peptide (BNP) level Echo ordered for EF and valve function Elevated troponin Possibly sec to elevated creatinine Cardiology following Trend Troponin right otitis media Levaquin UTI Started levaquin DVT prophylaxis No medical antocoag because low platelets History Interval history: No new issues overnight. Hospitalist Physical - Constitutional Vitals: Temp Pulse Resp BP Pulse Ox 99.3 F 46 L 18 130/44 98 02/24/19 07:43 02/24/19 07:43 02/24/19 07:43 02/24/19 07:43 02/24/19 07:43 General appearance: Present: no acute distress - EENT Eyes: Present: PERRL, EOM intact ENT: hearing intact, clear oral mucosa, dentition normal - Neck Neck: Present: supple, normal ROM - Respiratory Respiratory effort: normal Respiratory: bilateral: CTA - Cardiovascular Rhythm: regular Heart Sounds: Present: S1 & S2. Absent: gallop, rub - Extremities Extremities: no ischemia, No edema, Full ROM - Abdominal General gastrointestinal: soft, non-tender, non-distended, normal bowel sounds - Integumentary Integumentary: Present: clear, warm, dry - Neurologic Neurologic: CNII-XII intact, moves all extremities Results - Labs CBC & Chem 7: 02/23/19 00:17 02/24/19 05:02 Labs: Laboratory Last Values WBC 2.0 K/mm3 (4.5-11.0) L 02/22/19 11:30 RBC 2.18 M/mm3 (3.65-5.03) L 02/22/19 11:30 Hgb 7.4 gm/dl (10.1-14.3) L 02/23/19 00:17 Hct 22.2 % (30.3-42.9) L 02/23/19 00:17 MCV 101 fl (79-97) H 02/22/19 11:30 MCH 33 pg (28-32) H 02/22/19 11:30 MCHC 32 % (30-34) 02/22/19 11:30 RDW 19.3 % (13.2-15.2) H 02/22/19 11:30 Plt Count 48 K/mm3 (140-440) L D 02/22/19 11:30 Add Manual Diff Complete 02/21/19 09:29 Total Counted 100 02/21/19 09:29 Seg Neuts % (Manual) 65.0 % (40.0-70.0) 02/21/19 09:29 Band Neutrophils % 0 % 02/21/19 09:29 Lymphocytes % (Manual) 31.0 % (13.4-35.0) 02/21/19 09:29 Reactive Lymphs % (Man) 0 % 02/21/19 09:29 Monocytes % (Manual) 1.0 % (0.0-7.3) 02/21/19 09:29 Eosinophils % (Manual) 3.0 % (0.0-4.3) 02/21/19 09:29 Basophils % (Manual) 0 % (0.0-1.8) 02/21/19 09:29 Metamyelocytes % 0 % 02/21/19 09:29 Myelocytes % 0 % 02/21/19 09:29 Promyelocytes % 0 % 02/21/19 09:29 Blast Cells % 0 % 02/21/19 09:29 Nucleated RBC % Not Reportable 02/21/19 09:29 Seg Neutrophils # Man 1.6 K/mm3 (1.8-7.7) L 02/21/19 09:29 Band Neutrophils # 0.0 K/mm3 02/21/19 09:29 Lymphocytes # (Manual) 0.8 K/mm3 (1.2-5.4) L 02/21/19 09:29 Abs React Lymphs (Man) 0.0 K/mm3 02/21/19 09:29 Monocytes # (Manual) 0.0 K/mm3 (0.0-0.8) 02/21/19 09:29 Eosinophils # (Manual) 0.1 K/mm3 (0.0-0.4) 02/21/19 09:29 Basophils # (Manual) 0.0 K/mm3 (0.0-0.1) 02/21/19 09:29 Metamyelocytes # 0.0 K/mm3 02/21/19 09:29 Myelocytes # 0.0 K/mm3 02/21/19 09:29 Promyelocytes # 0.0 K/mm3 02/21/19 09:29 Blast Cells # 0.0 K/mm3 02/21/19 09:29 WBC Morphology Not Reportable 02/21/19 09:29 Hypersegmented Neuts Not Reportable 02/21/19 09:29 Hyposegmented Neuts Not Reportable 02/21/19 09:29 Hypogranular Neuts Not Reportable 02/21/19 09:29 Smudge Cells Not Reportable 02/21/19 09:29 Toxic Granulation Not Reportable 02/21/19 09:29 Toxic Vacuolation Not Reportable 02/21/19 09:29 Dohle Bodies Not Reportable 02/21/19 09:29 Pelger-Huet Anomaly Not Reportable 02/21/19 09:29 Alessia Rods Not Reportable 02/21/19 09:29 Platelet Estimate Appears decreased 02/21/19 09:29 Clumped Platelets Not Reportable 02/21/19 09:29 Plt Clumps, EDTA Not Reportable 02/21/19 09:29 Large Platelets Not Reportable 02/21/19 09:29 Giant Platelets Not Reportable 02/21/19 09:29 Platelet Satelliting Not Reportable 02/21/19 09:29 Plt Morphology Comment Not Reportable 02/21/19 09:29 RBC Morphology Not Reportable 02/21/19 09:29 Dimorphic RBCs Not Reportable 02/21/19 09:29 Polychromasia Not Reportable 02/21/19 09:29 Hypochromasia Not Reportable 02/21/19 09:29 Poikilocytosis Not Reportable 02/21/19 09:29 Anisocytosis Not Reportable 02/21/19 09:29 Microcytosis Not Reportable 02/21/19 09:29 Macrocytosis Not Reportable 02/21/19 09:29 Spherocytes Not Reportable 02/21/19 09:29 Pappenheimer Bodies Not Reportable 02/21/19 09:29 Sickle Cells Not Reportable 02/21/19 09:29 Target Cells Not Reportable 02/21/19 09:29 Tear Drop Cells 1+ 02/21/19 09:29 Ovalocytes 1+ 02/21/19 09:29 Helmet Cells Not Reportable 02/21/19 09:29 [place] Bodies Not Reportable 02/21/19 09:29 [place] Rings Not Reportable 02/21/19 09:29 [place] Cells Not Reportable 02/21/19 09:29 Bite Cells Not Reportable 02/21/19 09:29 Crenated Cell Not Reportable 02/21/19 09:29 Elliptocytes 1+ 02/21/19 09:29 Acanthocytes (Spur) Not Reportable 02/21/19 09:29 Rouleaux Not Reportable 02/21/19 09:29 Hemoglobin C Crystals Not Reportable 02/21/19 09:29 Schistocytes Rare 02/21/19 09:29 Malaria parasites Not Reportable 02/21/19 09:29 Percent Retic 20.14 % (0.78-2.58) H 02/22/19 11:30 Leopoldo Bodies Not Reportable 02/21/19 09:29 Hem Pathologist Commnt No 02/21/19 09:29 PT 17.3 Sec. (12.2-14.9) H 02/20/19 17:33 INR 1.39 (0.87-1.13) H 02/20/19 17:33 APTT 30.1 Sec. (24.2-36.6) 02/20/19 17:33 Sodium 144 mmol/L (137-145) 02/24/19 05:02 Potassium 3.6 mmol/L (3.6-5.0) 02/24/19 05:02 Chloride 108.6 mmol/L (98-107) H 02/24/19 05:02 Carbon Dioxide 20 mmol/L (22-30) L 02/24/19 05:02 Anion Gap 19 mmol/L 02/24/19 05:02 BUN 57 mg/dL (7-17) H 02/24/19 05:02 Creatinine 1.7 mg/dL (0.7-1.2) H 02/24/19 05:02 Estimated GFR 36 ml/min 02/24/19 05:02 BUN/Creatinine Ratio 34 % 02/24/19 05:02 Glucose 94 mg/dL (65-100) 02/24/19 05:02 POC Glucose 108 (70-105) H 02/23/19 07:29 Hemoglobin A1c 6.1 % (4-6) H 02/21/19 09:29 Lactic Acid 1.40 mmol/L (0.7-2.0) 02/21/19 07:09 Calcium 8.8 mg/dL (8.4-10.2) 02/24/19 05:02 Phosphorus 3.70 mg/dL (2.5-4.5) 02/22/19 11:30 Magnesium 2.40 mg/dL (1.7-2.3) H 02/22/19 11:30 Iron 41 ug/dL (37-170) 02/21/19 13:36 TIBC 161 mcg/dL (250-450) L 02/21/19 13:36 Ferritin 797.2 ng/mL (13.0-400.0) H 02/21/19 13:36 Total Bilirubin 0.90 mg/dL (0.1-1.2) 02/21/19 07:09 AST 7 units/L (5-40) 02/21/19 07:09 ALT 7 units/L (7-56) 02/21/19 07:09 Alkaline Phosphatase 40 units/L (35-129) 02/21/19 07:09 Total Creatine Kinase 31 units/L (30-135) 02/20/19 16:31 Troponin T 0.021 ng/mL (0.00-0.029) 02/22/19 11:30 NT-Pro-B Natriuret Pep 3173 pg/mL (0-900) H 02/20/19 17:33 Total Protein 6.5 g/dL (6.3-8.2) 02/21/19 07:09 Albumin 3.8 g/dL (3.9-5) L 02/21/19 07:09 Albumin/Globulin Ratio 1.4 % 02/21/19 07:09 Triglycerides 126 mg/dL (2-149) 02/20/19 16:31 Cholesterol 129 mg/dL (50-199) 02/20/19 16:31 LDL Cholesterol Direct 62 mg/dL (50-130) 02/20/19 16:31 HDL Cholesterol 39 mg/dL (40-59) L 02/20/19 16:31 Cholesterol/HDL Ratio 3.30 % 02/20/19 16:31 TSH 1.210 mlU/mL (0.270-4.200) 02/22/19 16:54 Free T4 1.05 ng/dL (0.76-1.46) 02/22/19 16:54 PTH Intact 77.44 pg/mL (15-65) H 02/22/19 16:54 Urine Color Yellow (Yellow) 02/21/19 08:10 Urine Turbidity Slightly-cloudy (Clear) 02/21/19 08:10 Urine pH 5.0 (5.0-7.0) 02/21/19 08:10 Ur Specific [place] 1.012 (1.003-1.030) 02/21/19 08:10 Urine Protein <15 mg/dl mg/dL (Negative) 02/21/19 08:10 Urine Glucose (UA) Neg mg/dL (Negative) 02/21/19 08:10 Urine Ketones Neg mg/dL (Negative) 02/21/19 08:10 Urine Blood Sm (Negative) 02/21/19 08:10 Urine Nitrite Neg (Negative) 02/21/19 08:10 Urine Bilirubin Neg (Negative) 02/21/19 08:10 Urine Urobilinogen < 2.0 mg/dL (<2.0) 02/21/19 08:10 Ur Leukocyte Esterase Mod (Negative) 02/21/19 08:10 Urine WBC (Auto) 39.0 /HPF (0.0-6.0) H 02/21/19 08:10 Urine RBC (Auto) 2.0 /HPF (0.0-6.0) 02/21/19 08:10 U Epithel Cells (Auto) 2.0 /HPF (0-13.0) 02/21/19 08:10 Urine Bacteria (Auto) 1+ /HPF (Negative) 02/21/19 08:10 Ur Transition Epith Cell 1 /HPF 02/21/19 08:10 Hyaline Casts 7 /LPF 02/21/19 08:10 Urine Mucus Few /HPF 02/21/19 08:10 Urine Eosinophils None seen (None Seen) 02/21/19 Unknown Urine Creatinine 99.0 mg/dL (0.1-20.0) H 02/21/19 Unknown Urine Sodium 46 mmol/L 02/21/19 Unknown C. difficile Tox (PCR) Negative (Negative) 02/23/19 Unknown Blood Type AB POSITIVE 02/20/19 17:33 Antibody Screen Negative 02/20/19 17:33 Crossmatch See Detail 02/20/19 17:33 Active Medications - Current Medications Current Medications: Generic Name Dose Route Start Last Admin Trade Name Freq PRN Reason Stop Dose Admin Acetaminophen 650 mg 02/20/19 19:04 02/23/19 23:57 Tylenol PO 650 mg Q4H PRN Administration Pain MILD(1-3)/Fever >100.5/VENCES Hydromorphone HCl 0.5 mg 02/20/19 19:04 02/21/19 16:40 Dilaudid IV 0.5 mg Q3H PRN Administration Pain , Severe (7-10) Levofloxacin/Dextrose 500 mg in 100 mls @ 100 mls/hr 02/21/19 12:00 02/23/19 12:05 Levaquin 500mg/100ml IV 100 mls/hr Q48H CARIN Administration Protocol Sodium Bicarbonate 75 meq/ 1,075 mls @ 100 mls/hr 02/21/19 17:00 02/24/19 10:07 Sterile Water IV 100 mls/hr DIRECT CARIN Administration Ondansetron HCl 4 mg 02/20/19 19:04 02/23/19 13:32 Zofran IV 4 mg Q8H PRN Administration Nausea And Vomiting Oxycodone/Acetaminophen 1 tab 02/20/19 19:04 02/23/19 09:48 Percocet 5/325 PO 1 tab Q6H PRN Administration Pain, Moderate (4-6) Pantoprazole Sodium 40 mg 02/22/19 10:00 02/24/19 09:23 Protonix IV 40 mg BID CARIN Administration Sodium Chloride 10 ml 02/20/19 22:00 02/24/19 09:23 Sodium Chloride Flush Syringe 10 Ml IV 10 ml BID CARIN Administration Sodium Chloride 10 ml 02/20/19 19:04 Sodium Chloride Flush Syringe 10 Ml IV PRN PRN LINE FLUSH
--- NOTE | 2019-02-24 11:50 | Progress Note ---
Assessment and Plan 1. Acute kidney injury: Vasomotor BRITTANY in the setting of hypotension and volume depletion. Renal US showed atrophic R kidney with indeterminate complex lesion. Baseline renal function unknown. Continue IV fluids. Encouraged PO fluids. Renal function is improving. Monitor renal function. Renal prognosis is guarded. Avoid nephrotoxic agents. Meds dosage based on GFR. 2. FEN: Anion-gap metabolic acidosis, continue IV Sodium bicarbonate drip. Hypernatremia, hypotonic IV fluids. Replete K. Monitor lytes. 3. Severe anemia: S/p PRBC. 4. Hypotension: BP is better. 5. Elevated Troponin: Seen by Cards. 6. Newly diagnosed DM. Care plan discussed. Examination: General appearance: well-developed, well-nourished, appears stated age, obese, no distress, pallor HEENT: ATNC, CHANEL, vision intact, hearing diminished Neck: neck supple, trachea midline Respiratory: Clear to Ascultation Heart: regular, S1S2, no murmurs Gastrointestinal: soft, normoactive bowel sounds, obese, not tender Integumentary: no rash, warm and dry Neurologic: no focal deficit, no asterixis, confused Ext: no edema Psychiatric: cooperative Subjective Date of service: 02/24/19 Principal diagnosis: anemia Interval history: Patient was seen and examined at the bedside. Feeling better. Able to walk. Daughter at the bedside. Objective - Vital Signs Vital signs: Vital Signs - 12hr 02/24/19 02/24/19 02/24/19 01:52 07:43 10:00 Temperature 98.7 F 99.3 F Pulse Rate 61 46 L Pulse Rate [ 46 L Right Brachial] Respiratory 18 18 18 Rate Blood Pressure 157/60 130/44 O2 Sat by Pulse 98 98 98 Oximetry - Lab 02/23/19 00:17 02/24/19 05:02 Most recent lab results Calcium 8.8 mg/dL (8.4-10.2) 02/24/19 05:02 Phosphorus 3.70 mg/dL (2.5-4.5) 02/22/19 11:30 Magnesium 2.40 mg/dL (1.7-2.3) H 02/22/19 11:30 Urine Creatinine 99.0 mg/dL (0.1-20.0) H 02/21/19 Unknown Urine Sodium 46 mmol/L 02/21/19 Unknown Medications & Allergies - Medications Allergies/Adverse Reactions: Allergies No Known Allergies Allergy (Unverified 02/20/19 16:06) Home Medications: Home Medications Medication Instructions Recorded Confirmed Last Taken Type No Known Home Medications [No 02/20/19 02/20/19 Unknown History Reported Home Medications] Active Medications: Generic Name Dose Route Start Last Admin Trade Name Freq PRN Reason Stop Dose Admin Acetaminophen 650 mg 02/20/19 19:04 02/23/19 23:57 Tylenol PO 650 mg Q4H PRN Administration Pain MILD(1-3)/Fever >100.5/VENCES Hydromorphone HCl 0.5 mg 02/20/19 19:04 02/21/19 16:40 Dilaudid IV 0.5 mg Q3H PRN Administration Pain , Severe (7-10) Levofloxacin/Dextrose 500 mg in 100 mls @ 100 mls/hr 02/21/19 12:00 02/23/19 12:05 Levaquin 500mg/100ml IV 100 mls/hr Q48H CARIN Administration Protocol Sodium Bicarbonate 75 meq/ 1,075 mls @ 100 mls/hr 02/21/19 17:00 02/24/19 10:07 Sterile Water IV 100 mls/hr DIRECT CARIN Administration Ondansetron HCl 4 mg 02/20/19 19:04 02/23/19 13:32 Zofran IV 4 mg Q8H PRN Administration Nausea And Vomiting Oxycodone/Acetaminophen 1 tab 02/20/19 19:04 02/23/19 09:48 Percocet 5/325 PO 1 tab Q6H PRN Administration Pain, Moderate (4-6) Pantoprazole Sodium 40 mg 02/22/19 10:00 02/24/19 09:23 Protonix IV 40 mg BID CARIN Administration Sodium Chloride 10 ml 02/20/19 22:00 02/24/19 09:23 Sodium Chloride Flush Syringe 10 Ml IV 10 ml BID CARIN Administration Sodium Chloride 10 ml 02/20/19 19:04 Sodium Chloride Flush Syringe 10 Ml IV PRN PRN LINE FLUSH
[2019-02-24 13:35] LABS: Iron 52 ug/dL (37-170); Total Iron Binding Capacity 143 mcg/dL (250-450)
[2019-02-24 15:11] LABS: Hematocrit 22.6 % (30.3-42.9); Hemoglobin 7.5 gm/dl (10.1-14.3); Mean Corpuscular HGB Conc 33 % (30-34); Mean Corpuscular Volume 93 fl (79-97); Red Blood Count 2.43 M/mm3 (3.65-5.03); Red Cell Distribution Width 17.6 % (13.2-15.2)
[2019-02-24 15:43] LABS: Platelet Count 22 K/mm3 (140-440)
[2019-02-24] MEDS ORDERED: CYANOCOBALAMIN (VIT B-12) 1000 MCG/1 ML INJ SUB-Q ONE (16:57)
[2019-02-24 17:42] LABS: Basophils % (Manual) 0 % (0.0-1.8); Total Cells Counted 100
[2019-02-24 17:49] LABS: Anisocytosis 2+; Tear Drop Cells 1+
[2019-02-24 17:53] LABS: Ovalocytes 1+; Platelet Estimate Appears Decreased; Schistocytes Rare
[2019-02-24 17:54] LABS: Hypochromasia 1+
--- NOTE | 2019-02-24 22:05 | Event Note ---
Date: 02/24/19 [id number]
[2019-02-25 05:32] LABS: Hematocrit 20.9 % (30.3-42.9); Hemoglobin 7.3 gm/dl (10.1-14.3); Mean Corpuscular HGB Conc 35 % (30-34); Mean Corpuscular Volume 91 fl (79-97); Red Blood Count 2.29 M/mm3 (3.65-5.03); Red Cell Distribution Width 17.5 % (13.2-15.2)
[2019-02-25 05:44] LABS: Platelet Count 18 K/mm3 (140-440)
[2019-02-25 05:51] LABS: Calcium 8.7 mg/dL (8.4-10.2)
[2019-02-25] MEDS ORDERED: POTASSIUM CHLORIDE ER 20 MEQ TAB PO NR (08:07)
--- NOTE | 2019-02-25 08:08 | Hem/Onc Progress Note ---
Assessment and Plan 1. Anemia, leukopenia, thrombocytopenia, pancytopenia. B12 level is low. Folate level is low. Replacement. 2. I discussed with the patient regarding bone marrow aspiration biopsy. ANC is low. 3. Fatty liver. 4. Renal impairment. Nephrology following. 5. History of hypertension. 6. Hemoglobin was 3 at admission. Transfusion support given. 7. Platelet is low. No active bleeding. If bleeding persists, we will look into platelet transfusion. 8. ANC low. The question arises if reverse isolation is needed. The patient at this time is afebrile. The patient received antibiotics, Levaquin. 9. Newly diagnosed diabetes. I discussed with the patient and family member regarding the issues of otitis media history. Levaquin given for same. BMBx - ordered d/w dr Bailey on 02/25 - Patient Problems (1) Thrombocytopenia Current Visit: Yes Status: Acute Subjective Date of service: 02/25/19 Principal diagnosis: low plt Interval history: no bleeding Objective - Exam Narrative Exam: Pain - none General appearance - alert Performance status limited self care Eyes - no icterus ENT - hard of hearing LNs cervical not palpable Neck - no LN Respiratory Normal - on o2 Breath sounds - CTA anteriorly CVS S1 S2 + Extremities nil acute General GI Soft Rectal deferred female - deferred Skin warm Musculoskeletal - moving limbs Neurologically alert awake - Constitutional Vitals: Last Vital Signs Temp 97.9 F 02/25/19 02:00 Pulse 50 L 02/25/19 02:00 Resp 18 02/25/19 02:00 BP 126/46 02/25/19 02:00 Pulse Ox 97 02/25/19 02:00 - Labs Lab Results: Laboratory Results - last 24 hr 02/24/19 02/24/19 02/24/19 05:02 14:44 14:44 WBC RBC Hgb Hct MCV MCH MCHC RDW Plt Count Lymph % (Auto) Add Manual Diff Total Counted Seg Neutrophils % Seg Neuts % (Manual) Band Neutrophils % Lymphocytes % (Manual) Reactive Lymphs % (Man) Monocytes % (Manual) Eosinophils % (Manual) Basophils % (Manual) Metamyelocytes % Myelocytes % Promyelocytes % Blast Cells % Nucleated RBC % Seg Neutrophils # Man Band Neutrophils # Lymphocytes # (Manual) Abs React Lymphs (Man) Monocytes # (Manual) Eosinophils # (Manual) Basophils # (Manual) Metamyelocytes # Myelocytes # Promyelocytes # Blast Cells # WBC Morphology Hypersegmented Neuts Hyposegmented Neuts Hypogranular Neuts Smudge Cells Toxic Granulation Toxic Vacuolation Dohle Bodies Pelger-Huet Anomaly Alessia Rods Platelet Estimate Clumped Platelets Plt Clumps, EDTA Large Platelets Giant Platelets Platelet Satelliting Plt Morphology Comment RBC Morphology Dimorphic RBCs Polychromasia Hypochromasia Poikilocytosis Anisocytosis Microcytosis Macrocytosis Spherocytes Pappenheimer Bodies Sickle Cells Target Cells Tear Drop Cells Ovalocytes Helmet Cells [place] Bodies [place] Rings [place] Cells Bite Cells Crenated Cell Elliptocytes Acanthocytes (Spur) Rouleaux Hemoglobin C Crystals Schistocytes Malaria parasites Leopoldo Bodies Hem Pathologist Commnt Sodium Potassium Chloride Carbon Dioxide Anion Gap BUN Creatinine Estimated GFR BUN/Creatinine Ratio Glucose Calcium Iron 52 TIBC 143 L Ferritin 953.5 H Lactate Dehydrogenase 689 H Vitamin B12 150.0 L Folate 02/24/19 02/24/19 02/25/19 14:44 14:51 04:52 WBC 1.7 L* 1.6 L* RBC 2.43 L 2.29 L Hgb 7.5 L 7.3 L Hct 22.6 L 20.9 L MCV 93 91 MCH 31 32 MCHC 33 35 H RDW 17.6 H 17.5 H Plt Count 22 L 18 L* Lymph % (Auto) Registered Dietetic Technician Registered Dietetic Technician Add Manual Diff Complete Total Counted 100 Seg Neutrophils % Registered Dietetic Technician Registered Dietetic Technician Seg Neuts % (Manual) 23.0 L Band Neutrophils % 0 Lymphocytes % (Manual) 73.0 H Reactive Lymphs % (Man) 0 Monocytes % (Manual) 2.0 Eosinophils % (Manual) 2.0 Basophils % (Manual) 0 Metamyelocytes % 0 Myelocytes % 0 Promyelocytes % 0 Blast Cells % 0 Nucleated RBC % Not Reportable Seg Neutrophils # Man 0.4 L Band Neutrophils # 0.0 Lymphocytes # (Manual) 1.2 Abs React Lymphs (Man) 0.0 Monocytes # (Manual) 0.0 Eosinophils # (Manual) 0.0 Basophils # (Manual) 0.0 Metamyelocytes # 0.0 Myelocytes # 0.0 Promyelocytes # 0.0 Blast Cells # 0.0 WBC Morphology Not Reportable Hypersegmented Neuts Not Reportable Hyposegmented Neuts Not Reportable Hypogranular Neuts Not Reportable Smudge Cells Not Reportable Toxic Granulation Not Reportable Toxic Vacuolation Not Reportable Dohle Bodies Not Reportable Pelger-Huet Anomaly Not Reportable Alessia Rods Not Reportable Platelet Estimate Appears decreased Clumped Platelets Not Reportable Plt Clumps, EDTA Not Reportable Large Platelets Not Reportable Giant Platelets Not Reportable Platelet Satelliting Not Reportable Plt Morphology Comment Not Reportable RBC Morphology Not Reportable Dimorphic RBCs Not Reportable Polychromasia Not Reportable Hypochromasia 1+ Poikilocytosis Not Reportable Anisocytosis 2+ Microcytosis Not Reportable Macrocytosis Not Reportable Spherocytes Not Reportable Pappenheimer Bodies Not Reportable Sickle Cells Not Reportable Target Cells Not Reportable Tear Drop Cells 1+ Ovalocytes 1+ Helmet Cells Not Reportable [place] Bodies Not Reportable [place] Rings Not Reportable [place] Cells Not Reportable Bite Cells Not Reportable Crenated Cell Not Reportable Elliptocytes Not Reportable Acanthocytes (Spur) Not Reportable Rouleaux Not Reportable Hemoglobin C Crystals Not Reportable Schistocytes Rare Malaria parasites Not Reportable Leopoldo Bodies Not Reportable Hem Pathologist Commnt No Sodium Potassium Chloride Carbon Dioxide Anion Gap BUN Creatinine Estimated GFR BUN/Creatinine Ratio Glucose Calcium Iron TIBC Ferritin Lactate Dehydrogenase Vitamin B12 Folate 6.38 L 02/25/19 04:52 WBC RBC Hgb Hct MCV MCH MCHC RDW Plt Count Lymph % (Auto) Add Manual Diff Total Counted Seg Neutrophils % Seg Neuts % (Manual) Band Neutrophils % Lymphocytes % (Manual) Reactive Lymphs % (Man) Monocytes % (Manual) Eosinophils % (Manual) Basophils % (Manual) Metamyelocytes % Myelocytes % Promyelocytes % Blast Cells % Nucleated RBC % Seg Neutrophils # Man Band Neutrophils # Lymphocytes # (Manual) Abs React Lymphs (Man) Monocytes # (Manual) Eosinophils # (Manual) Basophils # (Manual) Metamyelocytes # Myelocytes # Promyelocytes # Blast Cells # WBC Morphology Hypersegmented Neuts Hyposegmented Neuts Hypogranular Neuts Smudge Cells Toxic Granulation Toxic Vacuolation Dohle Bodies Pelger-Huet Anomaly Alessia Rods Platelet Estimate Clumped Platelets Plt Clumps, EDTA Large Platelets Giant Platelets Platelet Satelliting Plt Morphology Comment RBC Morphology Dimorphic RBCs Polychromasia Hypochromasia Poikilocytosis Anisocytosis Microcytosis Macrocytosis Spherocytes Pappenheimer Bodies Sickle Cells Target Cells Tear Drop Cells Ovalocytes Helmet Cells [place] Bodies [place] Rings [place] Cells Bite Cells Crenated Cell Elliptocytes Acanthocytes (Spur) Rouleaux Hemoglobin C Crystals Schistocytes Malaria parasites Leopoldo Bodies Hem Pathologist Commnt Sodium 143 Potassium 3.5 L Chloride 107.1 H Carbon Dioxide 23 Anion Gap 16 BUN 47 H Creatinine 1.5 H Estimated GFR 41 BUN/Creatinine Ratio 31 Glucose 105 H Calcium 8.7 Iron TIBC Ferritin Lactate Dehydrogenase Vitamin B12 Folate Medications & Allergies - Medications Allergies/Adverse Reactions: Allergies No Known Allergies Allergy (Unverified 02/20/19 16:06) Home Medications: Home Medications Medication Instructions Recorded Confirmed Last Taken Type No Known Home Medications [No 02/20/19 02/20/19 Unknown History Reported Home Medications] Active Medications: Generic Name Dose Route Start Last Admin Trade Name Freq PRN Reason Stop Dose Admin Acetaminophen 650 mg 02/20/19 19:04 02/23/19 23:57 Tylenol PO 650 mg Q4H PRN Administration Pain MILD(1-3)/Fever >100.5/VENCES Cyanocobalamin 1,000 mcg 02/25/19 10:00 Vitamin B-12 SUB-Q 03/01/19 09:59 DAILY CARIN Folic Acid 1 mg 02/25/19 10:00 Folvite PO QDAY CARIN Hydromorphone HCl 0.5 mg 02/20/19 19:04 02/21/19 16:40 Dilaudid IV 0.5 mg Q3H PRN Administration Pain , Severe (7-10) Levofloxacin/Dextrose 500 mg in 100 mls @ 100 mls/hr 02/21/19 12:00 02/23/19 12:05 Levaquin 500mg/100ml IV 100 mls/hr Q48H CARIN Administration Protocol Sodium Bicarbonate 75 meq/ 1,075 mls @ 100 mls/hr 02/21/19 17:00 02/24/19 10:07 Sterile Water IV 100 mls/hr DIRECT CARIN Administration Ondansetron HCl 4 mg 02/20/19 19:04 02/23/19 13:32 Zofran IV 4 mg Q8H PRN Administration Nausea And Vomiting Oxycodone/Acetaminophen 1 tab 02/20/19 19:04 02/23/19 09:48 Percocet 5/325 PO 1 tab Q6H PRN Administration Pain, Moderate (4-6) Pantoprazole Sodium 40 mg 02/22/19 10:00 02/24/19 22:28 Protonix IV 40 mg BID CARIN Administration Potassium Chloride 40 meq 02/25/19 08:07 K-Dur PO 02/25/19 08:08 ONCE ONE Sodium Chloride 10 ml 02/20/19 22:00 02/25/19 02:59 Sodium Chloride Flush Syringe 10 Ml IV Not Given BID CARIN Sodium Chloride 10 ml 02/20/19 19:04 Sodium Chloride Flush Syringe 10 Ml IV PRN PRN LINE FLUSH
[2019-02-25] MEDS: ACETAMINOPHEN 325 MG TAB PO PRN (08:12)
[2019-02-25] MEDS: PANTOPRAZOLE 40 MG INJ IV SCH ×2 (09:01→23:09)
[2019-02-25] MEDS: FOLIC ACID 1 MG TAB PO SCH (09:01)
[2019-02-25] MEDS: CYANOCOBALAMIN (VIT B-12) 1000 MCG/1 ML INJ SUB-Q SCH (09:04)
--- NOTE | 2019-02-25 10:28 | Consultation ---
REFERRED BY: Dr. Bailey. REASON FOR CONSULTATION: Pancytopenia. HISTORY OF PRESENT ILLNESS: I saw the patient, a 73-year-old female in the medical floor. The patient has history of hypertension. She came to the hospital because of generalized weakness for 2 weeks. She also has been having vomiting and watery diarrhea. No history of bleeding issues. She was found to be anemic with hemoglobin of 3.2 on 02/20/2019. She received transfusion support of 5 units of PRBC and 1 unit of platelet. I have been asked to evaluate the patient for the cytopenia. B12 level was done and this was low. The patient has been seen by GI team and Nephrology team. Creatinine was 2.8. As per the green prize packer team saw the patient, as per the GI evaluation, this probably is not bleeding issues, but hematology issues. At this time, energy level is better. The patient is hard of hearing and uses a hearing aid. No headache. No visual disturbances. No chest pain, no abdominal pain, no vomiting, no diarrhea. At this time, the patient had vomiting and diarrhea at admission. No seizure, syncope or loss of consciousness. PAST MEDICAL HISTORY: Hypertension. PAST SURGICAL HISTORY: Hysterectomy. SOCIAL HISTORY: Nonsmoker. ALLERGIES: No known drug allergies. MEDICATIONS: Includes pain medications. PHYSICAL EXAMINATION: VITAL SIGNS: Temperature 98, pulse 59, respirations 18, BP 108/59. HEENT: Pallor present, no icterus. NECK: No neck lymph nodes. HEART: S1, S2. LUNGS: Clear to auscultation. ABDOMEN: Soft. EXTREMITIES: No calf tenderness. LABORATORY DATA: White cell 1.4, hemoglobin 7.5, MCV 93, platelet 22, neutrophils 23%, potassium 3.6, creatinine 1.7, calcium 8.8, serum iron 52, ferritin 953, LDH 689, B12 150. Folate 6.38. RADIOLOGY: Ultrasound abdomen, cholelithiasis and fatty liver. Spleen, nil acute. ASSESSMENT AND PLAN: 1. Anemia, leukopenia, thrombocytopenia, pancytopenia. B12 level is low. Folate level is low. Replacement. 2. I discussed with the patient regarding bone marrow aspiration biopsy. ANC is low. 3. Fatty liver. 4. Renal impairment. Nephrology following. 5. History of hypertension. 6. Hemoglobin was 3 at admission. Transfusion support given. 7. Platelet is low. No active bleeding. If bleeding persists, we will look into platelet transfusion. 8. ANC is low. The question arises if reverse isolation is needed. The patient at this time is afebrile. The patient received antibiotics, Levaquin. 9. Newly diagnosed diabetes. I discussed with the patient and family member regarding the issues of otitis media history. Levaquin given for same. JOB# [id number] NM/NTS
[2019-02-25] MEDS: SODIUM BICARBONATE 75 MEQ in WATER FOR INJECTION (PF) 1,000 ML IV SCH (11:34)
--- NOTE | 2019-02-25 11:39 | Progress Note ---
Assessment and Plan Assessment and plan: Pancytopenia. Patient for bone marrow biopsy today. Anemia Hgb 3.2 on admission Now 7.1 after 4 units PRBC. GI following Stool occult blood ordered - negative Thrombocytopenia Transfused 1 Unit plateletpheresis previously Follow-up CBC BRITTANY acute kidney injury poss vasomotor nnephropathy IV Fluids for now Creatinine continues to improve slowly Renal lesion. Consider MRI with IV contrast when kidney function improves. Patient may have study done as an outpatient Thrombocytopenia Plt 17. Transfused 1 Unit plateletpheresis previously Follow-up CBC Elevated brain natriuretic peptide (BNP) level Echo ordered for EF and valve function Elevated troponin Possibly sec to elevated creatinine Cardiology following Trend Troponin right otitis media Levaquin UTI Started levaquin DVT prophylaxis No medical antocoag because low platelets History Interval history: No new issues overnight. Hospitalist Physical - Constitutional Vitals: Temp Pulse Resp BP Pulse Ox 99.0 F 47 L 20 101/30 98 02/25/19 07:20 02/25/19 10:00 02/25/19 10:00 02/25/19 07:20 02/25/19 10:00 General appearance: Present: no acute distress - EENT Eyes: Present: PERRL, EOM intact ENT: hearing intact, clear oral mucosa, dentition normal - Neck Neck: Present: supple, normal ROM - Respiratory Respiratory effort: normal Respiratory: bilateral: CTA - Cardiovascular Rhythm: regular Heart Sounds: Present: S1 & S2. Absent: gallop, rub - Extremities Extremities: no ischemia, No edema, Full ROM - Abdominal General gastrointestinal: soft, non-tender, non-distended, normal bowel sounds - Integumentary Integumentary: Present: clear, warm, dry - Neurologic Neurologic: CNII-XII intact, moves all extremities Results - Labs CBC & Chem 7: 02/25/19 04:52 02/25/19 04:52 Labs: Laboratory Last Values WBC 1.6 K/mm3 (4.5-11.0) L* 02/25/19 04:52 RBC 2.29 M/mm3 (3.65-5.03) L 02/25/19 04:52 Hgb 7.3 gm/dl (10.1-14.3) L 02/25/19 04:52 Hct 20.9 % (30.3-42.9) L 02/25/19 04:52 MCV 91 fl (79-97) 02/25/19 04:52 MCH 32 pg (28-32) 02/25/19 04:52 MCHC 35 % (30-34) H 02/25/19 04:52 RDW 17.5 % (13.2-15.2) H 02/25/19 04:52 Plt Count 18 K/mm3 (140-440) L* 02/25/19 04:52 Lymph % (Auto) Dielectric Press Operator 02/25/19 04:52 Add Manual Diff Complete 02/24/19 14:44 Total Counted 100 02/24/19 14:44 Seg Neutrophils % Dielectric Press Operator 02/25/19 04:52 Seg Neuts % (Manual) 23.0 % (40.0-70.0) L 02/24/19 14:44 Band Neutrophils % 0 % 02/24/19 14:44 Lymphocytes % (Manual) 73.0 % (13.4-35.0) H 02/24/19 14:44 Reactive Lymphs % (Man) 0 % 02/24/19 14:44 Monocytes % (Manual) 2.0 % (0.0-7.3) 02/24/19 14:44 Eosinophils % (Manual) 2.0 % (0.0-4.3) 02/24/19 14:44 Basophils % (Manual) 0 % (0.0-1.8) 02/24/19 14:44 Metamyelocytes % 0 % 02/24/19 14:44 Myelocytes % 0 % 02/24/19 14:44 Promyelocytes % 0 % 02/24/19 14:44 Blast Cells % 0 % 02/24/19 14:44 Nucleated RBC % Not Reportable 02/24/19 14:44 Seg Neutrophils # Man 0.4 K/mm3 (1.8-7.7) L 02/24/19 14:44 Band Neutrophils # 0.0 K/mm3 02/24/19 14:44 Lymphocytes # (Manual) 1.2 K/mm3 (1.2-5.4) 02/24/19 14:44 Abs React Lymphs (Man) 0.0 K/mm3 02/24/19 14:44 Monocytes # (Manual) 0.0 K/mm3 (0.0-0.8) 02/24/19 14:44 Eosinophils # (Manual) 0.0 K/mm3 (0.0-0.4) 02/24/19 14:44 Basophils # (Manual) 0.0 K/mm3 (0.0-0.1) 02/24/19 14:44 Metamyelocytes # 0.0 K/mm3 02/24/19 14:44 Myelocytes # 0.0 K/mm3 02/24/19 14:44 Promyelocytes # 0.0 K/mm3 02/24/19 14:44 Blast Cells # 0.0 K/mm3 02/24/19 14:44 WBC Morphology Not Reportable 02/24/19 14:44 Hypersegmented Neuts Not Reportable 02/24/19 14:44 Hyposegmented Neuts Not Reportable 02/24/19 14:44 Hypogranular Neuts Not Reportable 02/24/19 14:44 Smudge Cells Not Reportable 02/24/19 14:44 Toxic Granulation Not Reportable 02/24/19 14:44 Toxic Vacuolation Not Reportable 02/24/19 14:44 Dohle Bodies Not Reportable 02/24/19 14:44 Pelger-Huet Anomaly Not Reportable 02/24/19 14:44 Alessia Rods Not Reportable 02/24/19 14:44 Platelet Estimate Appears decreased 02/24/19 14:44 Clumped Platelets Not Reportable 02/24/19 14:44 Plt Clumps, EDTA Not Reportable 02/24/19 14:44 Large Platelets Not Reportable 02/24/19 14:44 Giant Platelets Not Reportable 02/24/19 14:44 Platelet Satelliting Not Reportable 02/24/19 14:44 Plt Morphology Comment Not Reportable 02/24/19 14:44 RBC Morphology Not Reportable 02/24/19 14:44 Dimorphic RBCs Not Reportable 02/24/19 14:44 Polychromasia Not Reportable 02/24/19 14:44 Hypochromasia 1+ 02/24/19 14:44 Poikilocytosis Not Reportable 02/24/19 14:44 Anisocytosis 2+ 02/24/19 14:44 Microcytosis Not Reportable 02/24/19 14:44 Macrocytosis Not Reportable 02/24/19 14:44 Spherocytes Not Reportable 02/24/19 14:44 Pappenheimer Bodies Not Reportable 02/24/19 14:44 Sickle Cells Not Reportable 02/24/19 14:44 Target Cells Not Reportable 02/24/19 14:44 Tear Drop Cells 1+ 02/24/19 14:44 Ovalocytes 1+ 02/24/19 14:44 Helmet Cells Not Reportable 02/24/19 14:44 [place] Bodies Not Reportable 02/24/19 14:44 [place] Rings Not Reportable 02/24/19 14:44 [place] Cells Not Reportable 02/24/19 14:44 Bite Cells Not Reportable 02/24/19 14:44 Crenated Cell Not Reportable 02/24/19 14:44 Elliptocytes Not Reportable 02/24/19 14:44 Acanthocytes (Spur) Not Reportable 02/24/19 14:44 Rouleaux Not Reportable 02/24/19 14:44 Hemoglobin C Crystals Not Reportable 02/24/19 14:44 Schistocytes Rare 02/24/19 14:44 Malaria parasites Not Reportable 02/24/19 14:44 Percent Retic 20.14 % (0.78-2.58) H 02/22/19 11:30 Leopoldo Bodies Not Reportable 02/24/19 14:44 Hem Pathologist Commnt No 02/24/19 14:44 PT 17.3 Sec. (12.2-14.9) H 02/20/19 17:33 INR 1.39 (0.87-1.13) H 02/20/19 17:33 APTT 30.1 Sec. (24.2-36.6) 02/20/19 17:33 Sodium 143 mmol/L (137-145) 02/25/19 04:52 Potassium 3.5 mmol/L (3.6-5.0) L 02/25/19 04:52 Chloride 107.1 mmol/L (98-107) H 02/25/19 04:52 Carbon Dioxide 23 mmol/L (22-30) 02/25/19 04:52 Anion Gap 16 mmol/L 02/25/19 04:52 BUN 47 mg/dL (7-17) H 02/25/19 04:52 Creatinine 1.5 mg/dL (0.7-1.2) H 02/25/19 04:52 Estimated GFR 41 ml/min 02/25/19 04:52 BUN/Creatinine Ratio 31 % 02/25/19 04:52 Glucose 105 mg/dL (65-100) H 02/25/19 04:52 POC Glucose 108 (70-105) H 02/23/19 07:29 Hemoglobin A1c 6.1 % (4-6) H 02/21/19 09:29 Lactic Acid 1.40 mmol/L (0.7-2.0) 02/21/19 07:09 Calcium 8.7 mg/dL (8.4-10.2) 02/25/19 04:52 Phosphorus 3.70 mg/dL (2.5-4.5) 02/22/19 11:30 Magnesium 2.40 mg/dL (1.7-2.3) H 02/22/19 11:30 Iron 52 ug/dL (37-170) 02/24/19 05:02 TIBC 143 mcg/dL (250-450) L 02/24/19 05:02 Ferritin 953.5 ng/mL (13.0-400.0) H 02/24/19 14:44 Total Bilirubin 0.90 mg/dL (0.1-1.2) 02/21/19 07:09 AST 7 units/L (5-40) 02/21/19 07:09 ALT 7 units/L (7-56) 02/21/19 07:09 Alkaline Phosphatase 40 units/L (35-129) 02/21/19 07:09 Lactate Dehydrogenase 689 units/L (91-180) H 02/24/19 05:02 Total Creatine Kinase 31 units/L (30-135) 02/20/19 16:31 Troponin T 0.021 ng/mL (0.00-0.029) 02/22/19 11:30 NT-Pro-B Natriuret Pep 3173 pg/mL (0-900) H 02/20/19 17:33 Total Protein 6.5 g/dL (6.3-8.2) 02/21/19 07:09 Albumin 3.8 g/dL (3.9-5) L 02/21/19 07:09 Albumin/Globulin Ratio 1.4 % 02/21/19 07:09 Triglycerides 126 mg/dL (2-149) 02/20/19 16:31 Cholesterol 129 mg/dL (50-199) 02/20/19 16:31 LDL Cholesterol Direct 62 mg/dL (50-130) 02/20/19 16:31 HDL Cholesterol 39 mg/dL (40-59) L 02/20/19 16:31 Cholesterol/HDL Ratio 3.30 % 02/20/19 16:31 Vitamin B12 150.0 pg/mL (211-911) L 02/24/19 14:44 Folate 6.38 ng/mL (7.3-26.0) L 02/24/19 14:51 TSH 1.210 mlU/mL (0.270-4.200) 02/22/19 16:54 Free T4 1.05 ng/dL (0.76-1.46) 02/22/19 16:54 PTH Intact 77.44 pg/mL (15-65) H 02/22/19 16:54 Urine Color Yellow (Yellow) 02/21/19 08:10 Urine Turbidity Slightly-cloudy (Clear) 02/21/19 08:10 Urine pH 5.0 (5.0-7.0) 02/21/19 08:10 Ur Specific [place] 1.012 (1.003-1.030) 02/21/19 08:10 Urine Protein <15 mg/dl mg/dL (Negative) 02/21/19 08:10 Urine Glucose (UA) Neg mg/dL (Negative) 02/21/19 08:10 Urine Ketones Neg mg/dL (Negative) 02/21/19 08:10 Urine Blood Sm (Negative) 02/21/19 08:10 Urine Nitrite Neg (Negative) 02/21/19 08:10 Urine Bilirubin Neg (Negative) 02/21/19 08:10 Urine Urobilinogen < 2.0 mg/dL (<2.0) 02/21/19 08:10 Ur Leukocyte Esterase Mod (Negative) 02/21/19 08:10 Urine WBC (Auto) 39.0 /HPF (0.0-6.0) H 02/21/19 08:10 Urine RBC (Auto) 2.0 /HPF (0.0-6.0) 02/21/19 08:10 U Epithel Cells (Auto) 2.0 /HPF (0-13.0) 02/21/19 08:10 Urine Bacteria (Auto) 1+ /HPF (Negative) 02/21/19 08:10 Ur Transition Epith Cell 1 /HPF 02/21/19 08:10 Hyaline Casts 7 /LPF 02/21/19 08:10 Urine Mucus Few /HPF 02/21/19 08:10 Urine Eosinophils None seen (None Seen) 02/21/19 Unknown Urine Creatinine 99.0 mg/dL (0.1-20.0) H 02/21/19 Unknown Urine Sodium 46 mmol/L 02/21/19 Unknown C. difficile Tox (PCR) Negative (Negative) 02/23/19 Unknown Blood Type AB POSITIVE 02/20/19 17:33 Antibody Screen Negative 02/20/19 17:33 Crossmatch See Detail 02/20/19 17:33 Active Medications - Current Medications Current Medications: Generic Name Dose Route Start Last Admin Trade Name Freq PRN Reason Stop Dose Admin Acetaminophen 650 mg 02/20/19 19:04 02/25/19 08:12 Tylenol PO 650 mg Q4H PRN Administration Pain MILD(1-3)/Fever >100.5/VENCES Cyanocobalamin 1,000 mcg 02/25/19 10:00 02/25/19 09:04 Vitamin B-12 SUB-Q 03/01/19 09:59 1,000 mcg DAILY CARIN Administration Folic Acid 1 mg 02/25/19 10:00 02/25/19 09:01 Folvite PO 1 mg QDAY ACRIN Administration Hydromorphone HCl 0.5 mg 02/20/19 19:04 02/21/19 16:40 Dilaudid IV 0.5 mg Q3H PRN Administration Pain , Severe (7-10) Sodium Bicarbonate 75 meq/ 1,075 mls @ 100 mls/hr 02/21/19 17:00 02/25/19 11:34 Sterile Water IV 100 mls/hr DIRECT CARIN Administration Levofloxacin/Dextrose 500 mg in 100 mls @ 100 mls/hr 02/25/19 10:00 02/25/19 11:20 Levaquin 500mg/100ml IV 100 mls/hr Q24HR CARIN Administration Protocol Ondansetron HCl 4 mg 02/20/19 19:04 02/23/19 13:32 Zofran IV 4 mg Q8H PRN Administration Nausea And Vomiting Oxycodone/Acetaminophen 1 tab 02/20/19 19:04 02/23/19 09:48 Percocet 5/325 PO 1 tab Q6H PRN Administration Pain, Moderate (4-6) Pantoprazole Sodium 40 mg 02/22/19 10:00 02/25/19 09:01 Protonix IV 40 mg BID CARIN Administration Sodium Chloride 10 ml 02/20/19 22:00 02/25/19 09:36 Sodium Chloride Flush Syringe 10 Ml IV Not Given BID CARIN Sodium Chloride 10 ml 02/20/19 19:04 Sodium Chloride Flush Syringe 10 Ml IV PRN PRN LINE FLUSH
[2019-02-25 11:44] LABS: Basophils % (Manual) 0 % (0.0-1.8); Eosinophils % (Manual) 0 % (0.0-4.3); Total Cells Counted 100
[2019-02-25 11:45] LABS: Anisocytosis 2+; Macrocytosis 1+; Ovalocytes Few; Tear Drop Cells Few
[2019-02-25 11:46] LABS: Platelet Estimate Consistent w Auto
[2019-02-25] MEDS ORDERED: HYDROmorphone 1 MG/1 ML INJ IV ONE (12:48)
[2019-02-25] MEDS ORDERED: ONDANSETRON 4 MG/2 ML INJ IV ONE (12:49)
--- NOTE | 2019-02-25 13:04 | Progress Note ---
Assessment and Plan 1. Acute kidney injury: Vasomotor BRITTANY in the setting of hypotension and volume depletion. Renal US showed atrophic R kidney with indeterminate complex lesion. Baseline renal function unknown. Continue IV fluids. Encouraged PO fluids. Renal function is improving. Monitor renal function. Renal prognosis is guarded. Avoid nephrotoxic agents. Meds dosage based on GFR. 2. FEN: Anion-gap metabolic acidosis, continue IV Sodium bicarbonate drip. Hypernatremia, improved. Replete K. Monitor lytes. 3. Severe anemia: S/p PRBC. 4. Hypotension: BP is better. 5. Elevated Troponin: Seen by Cards. 6. Newly diagnosed DM. Care plan discussed. Examination: General appearance: well-developed, well-nourished, appears stated age, obese, no distress, pallor HEENT: ATNC, CHANEL, vision intact, hearing diminished Neck: neck supple, trachea midline Respiratory: Clear to Ascultation Heart: regular, S1S2, no murmurs Gastrointestinal: soft, normoactive bowel sounds, obese, not tender Integumentary: no rash, warm and dry Neurologic: no focal deficit, no asterixis, confused Ext: no edema Psychiatric: cooperative Subjective Date of service: 02/25/19 Principal diagnosis: anemia Interval history: Patient was seen and examined at the bedside. Feeling better. Daughter at the bedside. Objective - Vital Signs Vital signs: Vital Signs - 12hr 02/25/19 02/25/19 02/25/19 02:00 07:20 09:38 Temperature 97.9 F 99.0 F Pulse Rate 50 L 54 L 47 L Pulse Rate [ From Monitor] Respiratory 18 20 Rate Blood Pressure 126/46 101/30 O2 Sat by Pulse 97 98 Oximetry 02/25/19 10:00 Temperature Pulse Rate Pulse Rate [ 47 L From Monitor] Respiratory 20 Rate Blood Pressure O2 Sat by Pulse 98 Oximetry - Lab 02/25/19 04:52 02/26/19 04:57 Most recent lab results Calcium 8.7 mg/dL (8.4-10.2) 02/25/19 04:52 Phosphorus 3.70 mg/dL (2.5-4.5) 02/22/19 11:30 Magnesium 2.40 mg/dL (1.7-2.3) H 02/22/19 11:30 Urine Creatinine 99.0 mg/dL (0.1-20.0) H 02/21/19 Unknown Urine Sodium 46 mmol/L 02/21/19 Unknown Medications & Allergies - Medications Allergies/Adverse Reactions: Allergies No Known Allergies Allergy (Unverified 02/20/19 16:06) Home Medications: Home Medications Medication Instructions Recorded Confirmed Last Taken Type No Known Home Medications [No 02/20/19 02/20/19 Unknown History Reported Home Medications] Active Medications: Generic Name Dose Route Start Last Admin Trade Name Freq PRN Reason Stop Dose Admin Acetaminophen 650 mg 02/20/19 19:04 02/25/19 08:12 Tylenol PO 650 mg Q4H PRN Administration Pain MILD(1-3)/Fever >100.5/VENCES Cyanocobalamin 1,000 mcg 02/25/19 10:00 02/25/19 09:04 Vitamin B-12 SUB-Q 03/01/19 09:59 1,000 mcg DAILY CARIN Administration Folic Acid 1 mg 02/25/19 10:00 02/25/19 09:01 Folvite PO 1 mg QDAY CARIN Administration Hydromorphone HCl 0.5 mg 02/20/19 19:04 02/21/19 16:40 Dilaudid IV 0.5 mg Q3H PRN Administration Pain , Severe (7-10) Sodium Bicarbonate 75 meq/ 1,075 mls @ 100 mls/hr 02/21/19 17:00 02/25/19 11:34 Sterile Water IV 100 mls/hr DIRECT CARIN Administration Levofloxacin/Dextrose 500 mg in 100 mls @ 100 mls/hr 02/25/19 10:00 02/25/19 11:20 Levaquin 500mg/100ml IV 100 mls/hr Q24HR CARIN Administration Protocol Ondansetron HCl 4 mg 02/20/19 19:04 02/23/19 13:32 Zofran IV 4 mg Q8H PRN Administration Nausea And Vomiting Oxycodone/Acetaminophen 1 tab 02/20/19 19:04 02/23/19 09:48 Percocet 5/325 PO 1 tab Q6H PRN Administration Pain, Moderate (4-6) Pantoprazole Sodium 40 mg 02/22/19 10:00 02/25/19 09:01 Protonix IV 40 mg BID CARIN Administration Sodium Chloride 10 ml 02/20/19 22:00 02/25/19 09:36 Sodium Chloride Flush Syringe 10 Ml IV Not Given BID CARIN Sodium Chloride 10 ml 02/20/19 19:04 Sodium Chloride Flush Syringe 10 Ml IV PRN PRN LINE FLUSH
[2019-02-25] MEDS ORDERED: diphenhydrAMINE 50 MG/ML VIAL ONE (13:12)
[2019-02-25] MEDS ORDERED: diphenhydrAMINE 50 MG/ML VIAL IV ONE (13:26)
--- NOTE | 2019-02-25 14:02 | Cat Scan Report ---
CT-GUIDED BONE MARROW ASPIRATION AND BIOPSY INDICATION : Thrombocytopenia PROCEDURE: The risks (including but not limited to bleeding and infection) and benefits were explain ed to the patient and informed consent was obtained. All CT examinations performed at this facility utilize dose modulation, iterative reconstruction or weight-based dosing, when appropriate, to reduce radiation dose to as low as reasonably achievable. A time out procedure was performed. The procedu re site was prepped and draped in the usual sterile fashion and lidocaine was used for local anesthes ia. Under CT guidance, the right posterior iliac wing was selected for biopsy. An 11 gauge needle was ad vanced to the posterior margin of the iliac wing, cortex breached, and 4.5 mL bone marrow aspirate ob tained. The needle was then advanced and a bone marrow biopsy was obtained measuring approximately 2 cm. Samples were given directly to the filling technician who was present during the exam. The patient tolerated the procedure well with no complications. IMPRESSION: Technically successful bone marrow aspirate and biopsy. Signer Name: Ac Carrington Jr, MD Signed: 02/25/2019 1:58 PM Workstation Name: [id number]
[2019-02-25] MEDS: oxyCODONE /ACETAMINOPHEN 5-325MG TAB PO PRN (23:09)
[2019-02-26] MEDS: SODIUM BICARBONATE 75 MEQ in WATER FOR INJECTION (PF) 1,000 ML IV SCH ×2 (03:32→17:47)
[2019-02-26 06:01] LABS: Calcium 8.9 mg/dL (8.4-10.2)
--- NOTE | 2019-02-26 07:38 | Hem/Onc Progress Note ---
Assessment and Plan 1. Anemia, leukopenia, thrombocytopenia, pancytopenia. B12 level is low. Folate level is low. Replacement. 2. I discussed with the patient regarding bone marrow aspiration biopsy. ANC is low. 3. Fatty liver. 4. Renal impairment. Nephrology following. 5. History of hypertension. 6. Hemoglobin was 3 at admission. Transfusion support given. 7. Platelet is low. No active bleeding. If bleeding persists, we will look into platelet transfusion. 8. ANC low. The question arises if reverse isolation is needed. The patient at this time is afebrile. The patient received antibiotics, Levaquin. 9. Newly diagnosed diabetes. I discussed with the patient and family member regarding the issues of otitis media history. Levaquin given for same. BMBx - done d/w dr Bailey on 02/26 neutropenic precautions await prelim BMBX report - Patient Problems (1) Thrombocytopenia Current Visit: Yes Status: Acute Subjective Date of service: 02/26/19 Principal diagnosis: pancytopenia Interval history: no bleeding Objective - Exam Narrative Exam: Pain - none General appearance - alert Performance status limited self care Eyes - no icterus ENT - hard of hearing LNs cervical not palpable Neck - no LN Respiratory Normal - on o2 Breath sounds - CTA anteriorly CVS S1 S2 + Extremities nil acute General GI Soft Rectal deferred female - deferred Skin warm Musculoskeletal - moving limbs Neurologically alert awake - Constitutional Vitals: Last Vital Signs Temp 98.6 F 02/26/19 03:13 Pulse 58 L 02/26/19 03:13 Resp 20 02/26/19 03:13 BP 95/51 02/26/19 03:13 Pulse Ox 95 02/26/19 03:13 - Labs Lab Results: Laboratory Results - last 24 hr 02/25/19 02/26/19 04:52 04:57 Add Manual Diff Complete Total Counted 100 Seg Neuts % (Manual) 23.0 L Band Neutrophils % 0 Lymphocytes % (Manual) 73.0 H Reactive Lymphs % (Man) 1.0 Monocytes % (Manual) 3.0 Eosinophils % (Manual) 0 Basophils % (Manual) 0 Metamyelocytes % 0 Myelocytes % 0 Promyelocytes % 0 Blast Cells % 0 Nucleated RBC % Not Reportable Seg Neutrophils # Man 0.4 L Band Neutrophils # 0.0 Lymphocytes # (Manual) 1.2 Abs React Lymphs (Man) 0.0 Monocytes # (Manual) 0.0 Eosinophils # (Manual) 0.0 Basophils # (Manual) 0.0 Metamyelocytes # 0.0 Myelocytes # 0.0 Promyelocytes # 0.0 Blast Cells # 0.0 WBC Morphology Not Reportable Hypersegmented Neuts Not Reportable Hyposegmented Neuts Not Reportable Hypogranular Neuts Not Reportable Smudge Cells Not Reportable Toxic Granulation Not Reportable Toxic Vacuolation Not Reportable Dohle Bodies Not Reportable Pelger-Huet Anomaly Not Reportable Alessia Rods Not Reportable Platelet Estimate Consistent w auto Clumped Platelets Not Reportable Plt Clumps, EDTA Not Reportable Large Platelets Not Reportable Giant Platelets Not Reportable Platelet Satelliting Not Reportable Plt Morphology Comment Not Reportable RBC Morphology Not Reportable Dimorphic RBCs Not Reportable Polychromasia Not Reportable Hypochromasia Not Reportable Poikilocytosis Not Reportable Anisocytosis 2+ Microcytosis Not Reportable Macrocytosis 1+ Spherocytes Not Reportable Pappenheimer Bodies Not Reportable Sickle Cells Not Reportable Target Cells Not Reportable Tear Drop Cells Few Ovalocytes Few Helmet Cells Not Reportable [place] Bodies Not Reportable [place] Rings Not Reportable [place] Cells Not Reportable Bite Cells Not Reportable Crenated Cell Not Reportable Elliptocytes Few Acanthocytes (Spur) Not Reportable Rouleaux Not Reportable Hemoglobin C Crystals Not Reportable Schistocytes Not Reportable Malaria parasites Not Reportable Leopoldo Bodies Not Reportable Hem Pathologist Commnt No Sodium 142 Potassium 3.9 Chloride 105.1 Carbon Dioxide 25 Anion Gap 16 BUN 42 H Creatinine 1.6 H Estimated GFR 38 BUN/Creatinine Ratio 26 Glucose 116 H Calcium 8.9 Medications & Allergies - Medications Allergies/Adverse Reactions: Allergies No Known Allergies Allergy (Unverified 02/20/19 16:06) Home Medications: Home Medications Medication Instructions Recorded Confirmed Last Taken Type No Known Home Medications [No 02/20/19 02/20/19 Unknown History Reported Home Medications] Active Medications: Generic Name Dose Route Start Last Admin Trade Name Freq PRN Reason Stop Dose Admin Acetaminophen 650 mg 02/20/19 19:04 02/25/19 08:12 Tylenol PO 650 mg Q4H PRN Administration Pain MILD(1-3)/Fever >100.5/VENCES Cyanocobalamin 1,000 mcg 02/25/19 10:00 02/25/19 09:04 Vitamin B-12 SUB-Q 03/01/19 09:59 1,000 mcg DAILY CARIN Administration Folic Acid 1 mg 02/25/19 10:00 02/25/19 09:01 Folvite PO 1 mg QDAY CARIN Administration Hydromorphone HCl 0.5 mg 02/20/19 19:04 02/21/19 16:40 Dilaudid IV 0.5 mg Q3H PRN Administration Pain , Severe (7-10) Sodium Bicarbonate 75 meq/ 1,075 mls @ 100 mls/hr 02/21/19 17:00 02/26/19 03:32 Sterile Water IV 100 mls/hr DIRECT CARIN Administration Levofloxacin/Dextrose 500 mg in 100 mls @ 100 mls/hr 02/25/19 10:00 02/25/19 11:20 Levaquin 500mg/100ml IV 100 mls/hr Q24HR CARIN Administration Protocol Ondansetron HCl 4 mg 02/20/19 19:04 02/23/19 13:32 Zofran IV 4 mg Q8H PRN Administration Nausea And Vomiting Oxycodone/Acetaminophen 1 tab 02/20/19 19:04 02/25/19 23:09 Percocet 5/325 PO 1 tab Q6H PRN Administration Pain, Moderate (4-6) Pantoprazole Sodium 40 mg 02/22/19 10:00 02/25/19 23:09 Protonix IV 40 mg BID CARIN Administration Sodium Chloride 10 ml 02/20/19 22:00 02/25/19 23:13 Sodium Chloride Flush Syringe 10 Ml IV 10 ml BID CARIN Administration Sodium Chloride 10 ml 02/20/19 19:04 Sodium Chloride Flush Syringe 10 Ml IV PRN PRN LINE FLUSH
[2019-02-26] MEDS: FOLIC ACID 1 MG TAB PO SCH (09:26)
[2019-02-26] MEDS: PANTOPRAZOLE 40 MG INJ IV SCH ×2 (09:27→21:58)
[2019-02-26] MEDS: CYANOCOBALAMIN (VIT B-12) 1000 MCG/1 ML INJ SUB-Q SCH (09:28)
--- NOTE | 2019-02-26 11:39 | Progress Note ---
Assessment and Plan Assessment and plan: Pancytopenia. Patient for bone marrow biopsy 02/25--await results Anemia Hgb 3.2 on admission Now 7.1 after 4 units PRBC. GI following Stool occult blood ordered - negative Thrombocytopenia Transfused 1 Unit plateletpheresis previously Follow-up CBC BRITTANY acute kidney injury poss vasomotor nnephropathy IV Fluids for now Creatinine continues to improve slowly Renal lesion. Consider MRI with IV contrast when kidney function improves. Patient may have study done as an outpatient Thrombocytopenia Plt 17. Transfused 1 Unit plateletpheresis previously Follow-up CBC Elevated brain natriuretic peptide (BNP) level Echo ordered for EF and valve function Elevated troponin Possibly sec to elevated creatinine Cardiology following Trend Troponin right otitis media Levaquin UTI Started levaquin DVT prophylaxis No medical antocoag because low platelets History Interval history: No new issues overnight. Hospitalist Physical - Constitutional Vitals: Temp Pulse Resp BP Pulse Ox 99.1 F 65 20 94/58 97 02/26/19 07:22 02/26/19 10:00 02/26/19 10:00 02/26/19 07:22 02/26/19 10:00 General appearance: Present: no acute distress - EENT Eyes: Present: PERRL, EOM intact ENT: hearing intact, clear oral mucosa, dentition normal - Neck Neck: Present: supple, normal ROM - Respiratory Respiratory effort: normal Respiratory: bilateral: CTA - Cardiovascular Rhythm: regular Heart Sounds: Present: S1 & S2. Absent: gallop, rub - Extremities Extremities: no ischemia, No edema, Full ROM - Abdominal General gastrointestinal: soft, non-tender, non-distended, normal bowel sounds - Integumentary Integumentary: Present: clear, warm, dry - Neurologic Neurologic: CNII-XII intact, moves all extremities Results - Labs CBC & Chem 7: 02/25/19 04:52 02/26/19 04:57 Labs: Laboratory Last Values WBC 1.6 K/mm3 (4.5-11.0) L* 02/25/19 04:52 RBC 2.29 M/mm3 (3.65-5.03) L 02/25/19 04:52 Hgb 7.3 gm/dl (10.1-14.3) L 02/25/19 04:52 Hct 20.9 % (30.3-42.9) L 02/25/19 04:52 MCV 91 fl (79-97) 02/25/19 04:52 MCH 32 pg (28-32) 02/25/19 04:52 MCHC 35 % (30-34) H 02/25/19 04:52 RDW 17.5 % (13.2-15.2) H 02/25/19 04:52 Plt Count 18 K/mm3 (140-440) L* 02/25/19 04:52 Lymph % (Auto) Refractory Specialist 02/25/19 04:52 Add Manual Diff Complete 02/25/19 04:52 Total Counted 100 02/25/19 04:52 Seg Neutrophils % Refractory Specialist 02/25/19 04:52 Seg Neuts % (Manual) 23.0 % (40.0-70.0) L 02/25/19 04:52 Band Neutrophils % 0 % 02/25/19 04:52 Lymphocytes % (Manual) 73.0 % (13.4-35.0) H 02/25/19 04:52 Reactive Lymphs % (Man) 1.0 % 02/25/19 04:52 Monocytes % (Manual) 3.0 % (0.0-7.3) 02/25/19 04:52 Eosinophils % (Manual) 0 % (0.0-4.3) 02/25/19 04:52 Basophils % (Manual) 0 % (0.0-1.8) 02/25/19 04:52 Metamyelocytes % 0 % 02/25/19 04:52 Myelocytes % 0 % 02/25/19 04:52 Promyelocytes % 0 % 02/25/19 04:52 Blast Cells % 0 % 02/25/19 04:52 Nucleated RBC % Not Reportable 02/25/19 04:52 Seg Neutrophils # Man 0.4 K/mm3 (1.8-7.7) L 02/25/19 04:52 Band Neutrophils # 0.0 K/mm3 02/25/19 04:52 Lymphocytes # (Manual) 1.2 K/mm3 (1.2-5.4) 02/25/19 04:52 Abs React Lymphs (Man) 0.0 K/mm3 02/25/19 04:52 Monocytes # (Manual) 0.0 K/mm3 (0.0-0.8) 02/25/19 04:52 Eosinophils # (Manual) 0.0 K/mm3 (0.0-0.4) 02/25/19 04:52 Basophils # (Manual) 0.0 K/mm3 (0.0-0.1) 02/25/19 04:52 Metamyelocytes # 0.0 K/mm3 02/25/19 04:52 Myelocytes # 0.0 K/mm3 02/25/19 04:52 Promyelocytes # 0.0 K/mm3 02/25/19 04:52 Blast Cells # 0.0 K/mm3 02/25/19 04:52 WBC Morphology Not Reportable 02/25/19 04:52 Hypersegmented Neuts Not Reportable 02/25/19 04:52 Hyposegmented Neuts Not Reportable 02/25/19 04:52 Hypogranular Neuts Not Reportable 02/25/19 04:52 Smudge Cells Not Reportable 02/25/19 04:52 Toxic Granulation Not Reportable 02/25/19 04:52 Toxic Vacuolation Not Reportable 02/25/19 04:52 Dohle Bodies Not Reportable 02/25/19 04:52 Pelger-Huet Anomaly Not Reportable 02/25/19 04:52 Alessia Rods Not Reportable 02/25/19 04:52 Platelet Estimate Consistent w auto 02/25/19 04:52 Clumped Platelets Not Reportable 02/25/19 04:52 Plt Clumps, EDTA Not Reportable 02/25/19 04:52 Large Platelets Not Reportable 02/25/19 04:52 Giant Platelets Not Reportable 02/25/19 04:52 Platelet Satelliting Not Reportable 02/25/19 04:52 Plt Morphology Comment Not Reportable 02/25/19 04:52 RBC Morphology Not Reportable 02/25/19 04:52 Dimorphic RBCs Not Reportable 02/25/19 04:52 Polychromasia Not Reportable 02/25/19 04:52 Hypochromasia Not Reportable 02/25/19 04:52 Poikilocytosis Not Reportable 02/25/19 04:52 Anisocytosis 2+ 02/25/19 04:52 Microcytosis Not Reportable 02/25/19 04:52 Macrocytosis 1+ 02/25/19 04:52 Spherocytes Not Reportable 02/25/19 04:52 Pappenheimer Bodies Not Reportable 02/25/19 04:52 Sickle Cells Not Reportable 02/25/19 04:52 Target Cells Not Reportable 02/25/19 04:52 Tear Drop Cells Few 02/25/19 04:52 Ovalocytes Few 02/25/19 04:52 Helmet Cells Not Reportable 02/25/19 04:52 [place] Bodies Not Reportable 02/25/19 04:[address] [place] Rings Not Reportable 02/25/19 04:52 [place] Cells Not Reportable 02/25/19 04:52 Bite Cells Not Reportable 02/25/19 04:52 Crenated Cell Not Reportable 02/25/19 04:52 Elliptocytes Few 02/25/19 04:52 Acanthocytes (Spur) Not Reportable 02/25/19 04:52 Rouleaux Not Reportable 02/25/19 04:52 Hemoglobin C Crystals Not Reportable 02/25/19 04:52 Schistocytes Not Reportable 02/25/19 04:52 Malaria parasites Not Reportable 02/25/19 04:52 Percent Retic 20.14 % (0.78-2.58) H 02/22/19 11:30 Leopoldo Bodies Not Reportable 02/25/19 04:52 Hem Pathologist Commnt No 02/25/19 04:52 PT 17.3 Sec. (12.2-14.9) H 02/20/19 17:33 INR 1.39 (0.87-1.13) H 02/20/19 17:33 APTT 30.1 Sec. (24.2-36.6) 02/20/19 17:33 Sodium 142 mmol/L (137-145) 02/26/19 04:57 Potassium 3.9 mmol/L (3.6-5.0) 02/26/19 04:57 Chloride 105.1 mmol/L (98-107) 02/26/19 04:57 Carbon Dioxide 25 mmol/L (22-30) 02/26/19 04:57 Anion Gap 16 mmol/L 02/26/19 04:57 BUN 42 mg/dL (7-17) H 02/26/19 04:57 Creatinine 1.6 mg/dL (0.7-1.2) H 02/26/19 04:57 Estimated GFR 38 ml/min 02/26/19 04:57 BUN/Creatinine Ratio 26 % 02/26/19 04:57 Glucose 116 mg/dL (65-100) H 02/26/19 04:57 POC Glucose 108 (70-105) H 02/23/19 07:29 Hemoglobin A1c 6.1 % (4-6) H 02/21/19 09:29 Lactic Acid 1.40 mmol/L (0.7-2.0) 02/21/19 07:09 Calcium 8.9 mg/dL (8.4-10.2) 02/26/19 04:57 Phosphorus 3.70 mg/dL (2.5-4.5) 02/22/19 11:30 Magnesium 2.40 mg/dL (1.7-2.3) H 02/22/19 11:30 Iron 52 ug/dL (37-170) 02/24/19 05:02 TIBC 143 mcg/dL (250-450) L 02/24/19 05:02 Ferritin 953.5 ng/mL (13.0-400.0) H 02/24/19 14:44 Total Bilirubin 0.90 mg/dL (0.1-1.2) 02/21/19 07:09 AST 7 units/L (5-40) 02/21/19 07:09 ALT 7 units/L (7-56) 02/21/19 07:09 Alkaline Phosphatase 40 units/L (35-129) 02/21/19 07:09 Lactate Dehydrogenase 689 units/L (91-180) H 02/24/19 05:02 Total Creatine Kinase 31 units/L (30-135) 02/20/19 16:31 Troponin T 0.021 ng/mL (0.00-0.029) 02/22/19 11:30 NT-Pro-B Natriuret Pep 3173 pg/mL (0-900) H 02/20/19 17:33 Total Protein 6.5 g/dL (6.3-8.2) 02/21/19 07:09 Albumin 3.8 g/dL (3.9-5) L 02/21/19 07:09 Albumin/Globulin Ratio 1.4 % 02/21/19 07:09 Triglycerides 126 mg/dL (2-149) 02/20/19 16:31 Cholesterol 129 mg/dL (50-199) 02/20/19 16:31 LDL Cholesterol Direct 62 mg/dL (50-130) 02/20/19 16:31 HDL Cholesterol 39 mg/dL (40-59) L 02/20/19 16:31 Cholesterol/HDL Ratio 3.30 % 02/20/19 16:31 Vitamin B12 150.0 pg/mL (211-911) L 02/24/19 14:44 Folate 6.38 ng/mL (7.3-26.0) L 02/24/19 14:51 TSH 1.210 mlU/mL (0.270-4.200) 02/22/19 16:54 Free T4 1.05 ng/dL (0.76-1.46) 02/22/19 16:54 PTH Intact 77.44 pg/mL (15-65) H 02/22/19 16:54 Urine Color Yellow (Yellow) 02/21/19 08:10 Urine Turbidity Slightly-cloudy (Clear) 02/21/19 08:10 Urine pH 5.0 (5.0-7.0) 02/21/19 08:10 Ur Specific [place] 1.012 (1.003-1.030) 02/21/19 08:10 Urine Protein <15 mg/dl mg/dL (Negative) 02/21/19 08:10 Urine Glucose (UA) Neg mg/dL (Negative) 02/21/19 08:10 Urine Ketones Neg mg/dL (Negative) 02/21/19 08:10 Urine Blood Sm (Negative) 02/21/19 08:10 Urine Nitrite Neg (Negative) 02/21/19 08:10 Urine Bilirubin Neg (Negative) 02/21/19 08:10 Urine Urobilinogen < 2.0 mg/dL (<2.0) 02/21/19 08:10 Ur Leukocyte Esterase Mod (Negative) 02/21/19 08:10 Urine WBC (Auto) 39.0 /HPF (0.0-6.0) H 02/21/19 08:10 Urine RBC (Auto) 2.0 /HPF (0.0-6.0) 02/21/19 08:10 U Epithel Cells (Auto) 2.0 /HPF (0-13.0) 02/21/19 08:10 Urine Bacteria (Auto) 1+ /HPF (Negative) 02/21/19 08:10 Ur Transition Epith Cell 1 /HPF 02/21/19 08:10 Hyaline Casts 7 /LPF 02/21/19 08:10 Urine Mucus Few /HPF 02/21/19 08:10 Urine Eosinophils None seen (None Seen) 02/21/19 Unknown Urine Creatinine 99.0 mg/dL (0.1-20.0) H 02/21/19 Unknown Urine Sodium 46 mmol/L 02/21/19 Unknown C. difficile Tox (PCR) Negative (Negative) 02/23/19 Unknown Blood Type AB POSITIVE 02/20/19 17:33 Antibody Screen Negative 02/20/19 17:33 Crossmatch See Detail 02/20/19 17:33 Active Medications - Current Medications Current Medications: Generic Name Dose Route Start Last Admin Trade Name Freq PRN Reason Stop Dose Admin Acetaminophen 650 mg 02/20/19 19:04 02/25/19 08:12 Tylenol PO 650 mg Q4H PRN Administration Pain MILD(1-3)/Fever >100.5/VENCES Cyanocobalamin 1,000 mcg 02/25/19 10:00 02/26/19 09:28 Vitamin B-12 SUB-Q 03/01/19 09:59 1,000 mcg DAILY CARIN Administration Folic Acid 1 mg 02/25/19 10:00 02/26/19 09:26 Folvite PO 1 mg QDAY CARIN Administration Hydromorphone HCl 0.5 mg 02/20/19 19:04 02/21/19 16:40 Dilaudid IV 0.5 mg Q3H PRN Administration Pain , Severe (7-10) Sodium Bicarbonate 75 meq/ 1,075 mls @ 100 mls/hr 02/21/19 17:00 02/26/19 03:32 Sterile Water IV 100 mls/hr DIRECT CARIN Administration Levofloxacin/Dextrose 500 mg in 100 mls @ 100 mls/hr 02/25/19 10:00 02/26/19 09:27 Levaquin 500mg/100ml IV 100 mls/hr Q24HR CARIN Administration Protocol Ondansetron HCl 4 mg 02/20/19 19:04 02/23/19 13:32 Zofran IV 4 mg Q8H PRN Administration Nausea And Vomiting Oxycodone/Acetaminophen 1 tab 02/20/19 19:04 02/25/19 23:09 Percocet 5/325 PO 1 tab Q6H PRN Administration Pain, Moderate (4-6) Pantoprazole Sodium 40 mg 02/22/19 10:00 02/26/19 09:27 Protonix IV 40 mg BID CARIN Administration Sodium Chloride 10 ml 02/20/19 22:00 02/26/19 09:29 Sodium Chloride Flush Syringe 10 Ml IV 10 ml BID CARIN Administration Sodium Chloride 10 ml 02/20/19 19:04 Sodium Chloride Flush Syringe 10 Ml IV PRN PRN LINE FLUSH
--- NOTE | 2019-02-26 12:28 | Progress Note ---
Assessment and Plan 1. Acute kidney injury: Vasomotor BRITTANY in the setting of hypotension and volume depletion. Renal US showed atrophic R kidney with indeterminate complex lesion. Continue IV fluids. Encouraged PO fluids. Renal function is better. Likely pt is at her baseline renal function. Monitor renal function. Avoid nephrotoxic agents. Meds dosage based on GFR. 2. FEN: Anion-gap metabolic acidosis, continue IV Sodium bicarbonate drip. Hypernatremia, improved. Replete K. Monitor lytes. 3. Severe anemia: S/p PRBC. 4. Hypotension: Monitor BP. 5. Elevated Troponin: Seen by Cards. 6. Newly diagnosed DM. Care plan discussed. Examination: General appearance: well-developed, well-nourished, appears stated age, obese, no distress, pallor HEENT: ATNC, CHANEL, vision intact, hearing diminished Neck: neck supple, trachea midline Respiratory: Clear to Ascultation Heart: regular, S1S2, no murmurs Gastrointestinal: soft, normoactive bowel sounds, obese, not tender Integumentary: no rash, warm and dry Neurologic: no focal deficit, no asterixis, confused Ext: no edema Psychiatric: cooperative Subjective Date of service: 02/26/19 Principal diagnosis: anemia Interval history: Patient was seen and examined at the bedside. Feeling better. Daughter at the bedside. Objective - Vital Signs Vital signs: Vital Signs - 12hr 02/26/19 02/26/19 02/26/19 03:13 07:22 10:00 Temperature 98.6 F 99.1 F Pulse Rate 58 L 66 65 Pulse Rate [ 65 From Monitor] Respiratory 20 20 20 Rate Blood Pressure 95/51 94/58 O2 Sat by Pulse 95 97 97 Oximetry - Lab 02/25/19 04:52 02/26/19 04:57 Most recent lab results Calcium 8.9 mg/dL (8.4-10.2) 02/26/19 04:57 Phosphorus 3.70 mg/dL (2.5-4.5) 02/22/19 11:30 Magnesium 2.40 mg/dL (1.7-2.3) H 02/22/19 11:30 Urine Creatinine 99.0 mg/dL (0.1-20.0) H 02/21/19 Unknown Urine Sodium 46 mmol/L 02/21/19 Unknown Medications & Allergies - Medications Allergies/Adverse Reactions: Allergies No Known Allergies Allergy (Unverified 02/20/19 16:06) Home Medications: Home Medications Medication Instructions Recorded Confirmed Last Taken Type No Known Home Medications [No 02/20/19 02/20/19 Unknown History Reported Home Medications] Active Medications: Generic Name Dose Route Start Last Admin Trade Name Freq PRN Reason Stop Dose Admin Acetaminophen 650 mg 02/20/19 19:04 02/25/19 08:12 Tylenol PO 650 mg Q4H PRN Administration Pain MILD(1-3)/Fever >100.5/VENCES Cyanocobalamin 1,000 mcg 02/25/19 10:00 02/26/19 09:28 Vitamin B-12 SUB-Q 03/01/19 09:59 1,000 mcg DAILY CARIN Administration Folic Acid 1 mg 02/25/19 10:00 02/26/19 09:26 Folvite PO 1 mg QDAY CARIN Administration Hydromorphone HCl 0.5 mg 02/20/19 19:04 02/21/19 16:40 Dilaudid IV 0.5 mg Q3H PRN Administration Pain , Severe (7-10) Sodium Bicarbonate 75 meq/ 1,075 mls @ 100 mls/hr 02/21/19 17:00 02/26/19 03:32 Sterile Water IV 100 mls/hr DIRECT CARIN Administration Levofloxacin/Dextrose 500 mg in 100 mls @ 100 mls/hr 02/25/19 10:00 02/26/19 09:27 Levaquin 500mg/100ml IV 100 mls/hr Q24HR CARIN Administration Protocol Ondansetron HCl 4 mg 02/20/19 19:04 02/23/19 13:32 Zofran IV 4 mg Q8H PRN Administration Nausea And Vomiting Oxycodone/Acetaminophen 1 tab 02/20/19 19:04 02/25/19 23:09 Percocet 5/325 PO 1 tab Q6H PRN Administration Pain, Moderate (4-6) Pantoprazole Sodium 40 mg 02/22/19 10:00 02/26/19 09:27 Protonix IV 40 mg BID CARIN Administration Sodium Chloride 10 ml 02/20/19 22:00 02/26/19 09:29 Sodium Chloride Flush Syringe 10 Ml IV 10 ml BID CARIN Administration Sodium Chloride 10 ml 02/20/19 19:04 Sodium Chloride Flush Syringe 10 Ml IV PRN PRN LINE FLUSH
[2019-02-27] MEDS: ACETAMINOPHEN 325 MG TAB PO PRN (05:20)
[2019-02-27] MEDS: oxyCODONE /ACETAMINOPHEN 5-325MG TAB PO PRN ×2 (09:35→16:52)
[2019-02-27] MEDS: CYANOCOBALAMIN (VIT B-12) 1000 MCG/1 ML INJ SUB-Q SCH (09:36)
[2019-02-27] MEDS: PANTOPRAZOLE 40 MG INJ IV SCH ×2 (09:37→23:03)
[2019-02-27] MEDS: FOLIC ACID 1 MG TAB PO SCH (09:38)
--- NOTE | 2019-02-27 10:29 | Progress Note ---
Assessment and Plan Assessment and plan: Pancytopenia. Patient for bone marrow biopsy 02/25--await results Anemia Stool occult blood ordered - negative Thrombocytopenia Transfused 1 Unit plateletpheresis previously Follow-up CBC BRITTANY acute kidney injury poss vasomotor nnephropathy IV Fluids for now Creatinine continues to improve slowly Renal lesion. Consider MRI with IV contrast when kidney function improves. Patient may have study done as an outpatient Thrombocytopenia Plt 17. Transfused 1 Unit plateletpheresis previously Follow-up CBC Elevated brain natriuretic peptide (BNP) level Echo ordered for EF and valve function Elevated troponin Possibly sec to elevated creatinine Cardiology following Trend Troponin right otitis media Levaquin UTI Started levaquin DVT prophylaxis No medical antocoag because low platelets History Interval history: No new issues overnight. Hospitalist Physical - Constitutional Vitals: Temp Pulse Resp BP Pulse Ox 98.4 F 61 18 112/48 98 02/27/19 08:43 02/27/19 08:43 02/27/19 08:43 02/27/19 08:43 02/27/19 08:43 General appearance: Present: no acute distress - EENT Eyes: Present: PERRL, EOM intact ENT: hearing intact, clear oral mucosa, dentition normal - Neck Neck: Present: supple, normal ROM - Respiratory Respiratory effort: normal Respiratory: bilateral: CTA - Cardiovascular Rhythm: regular Heart Sounds: Present: S1 & S2. Absent: gallop, rub - Extremities Extremities: no ischemia, No edema, Full ROM - Abdominal General gastrointestinal: soft, non-tender, non-distended, normal bowel sounds - Integumentary Integumentary: Present: clear, warm, dry - Neurologic Neurologic: CNII-XII intact, moves all extremities Results - Labs CBC & Chem 7: 02/25/19 04:52 02/26/19 04:57 Labs: Laboratory Last Values WBC 1.6 K/mm3 (4.5-11.0) L* 02/25/19 04:52 RBC 2.29 M/mm3 (3.65-5.03) L 02/25/19 04:52 Hgb 7.3 gm/dl (10.1-14.3) L 02/25/19 04:52 Hct 20.9 % (30.3-42.9) L 02/25/19 04:52 MCV 91 fl (79-97) 02/25/19 04:52 MCH 32 pg (28-32) 02/25/19 04:52 MCHC 35 % (30-34) H 02/25/19 04:52 RDW 17.5 % (13.2-15.2) H 02/25/19 04:52 Plt Count 18 K/mm3 (140-440) L* 02/25/19 04:52 Lymph % (Auto) Firmware Engineer 02/25/19 04:52 Add Manual Diff Complete 02/25/19 04:52 Total Counted 100 02/25/19 04:52 Seg Neutrophils % Firmware Engineer 02/25/19 04:52 Seg Neuts % (Manual) 23.0 % (40.0-70.0) L 02/25/19 04:52 Band Neutrophils % 0 % 02/25/19 04:52 Lymphocytes % (Manual) 73.0 % (13.4-35.0) H 02/25/19 04:52 Reactive Lymphs % (Man) 1.0 % 02/25/19 04:52 Monocytes % (Manual) 3.0 % (0.0-7.3) 02/25/19 04:52 Eosinophils % (Manual) 0 % (0.0-4.3) 02/25/19 04:52 Basophils % (Manual) 0 % (0.0-1.8) 02/25/19 04:52 Metamyelocytes % 0 % 02/25/19 04:52 Myelocytes % 0 % 02/25/19 04:52 Promyelocytes % 0 % 02/25/19 04:52 Blast Cells % 0 % 02/25/19 04:52 Nucleated RBC % Not Reportable 02/25/19 04:52 Seg Neutrophils # Man 0.4 K/mm3 (1.8-7.7) L 02/25/19 04:52 Band Neutrophils # 0.0 K/mm3 02/25/19 04:52 Lymphocytes # (Manual) 1.2 K/mm3 (1.2-5.4) 02/25/19 04:52 Abs React Lymphs (Man) 0.0 K/mm3 02/25/19 04:52 Monocytes # (Manual) 0.0 K/mm3 (0.0-0.8) 02/25/19 04:52 Eosinophils # (Manual) 0.0 K/mm3 (0.0-0.4) 02/25/19 04:52 Basophils # (Manual) 0.0 K/mm3 (0.0-0.1) 02/25/19 04:52 Metamyelocytes # 0.0 K/mm3 02/25/19 04:52 Myelocytes # 0.0 K/mm3 02/25/19 04:52 Promyelocytes # 0.0 K/mm3 02/25/19 04:52 Blast Cells # 0.0 K/mm3 02/25/19 04:52 WBC Morphology Not Reportable 02/25/19 04:52 Hypersegmented Neuts Not Reportable 02/25/19 04:52 Hyposegmented Neuts Not Reportable 02/25/19 04:52 Hypogranular Neuts Not Reportable 02/25/19 04:52 Smudge Cells Not Reportable 02/25/19 04:52 Toxic Granulation Not Reportable 02/25/19 04:52 Toxic Vacuolation Not Reportable 02/25/19 04:52 Dohle Bodies Not Reportable 02/25/19 04:52 Pelger-Huet Anomaly Not Reportable 02/25/19 04:52 Alessia Rods Not Reportable 02/25/19 04:52 Platelet Estimate Consistent w auto 02/25/19 04:52 Clumped Platelets Not Reportable 02/25/19 04:52 Plt Clumps, EDTA Not Reportable 02/25/19 04:52 Large Platelets Not Reportable 02/25/19 04:52 Giant Platelets Not Reportable 02/25/19 04:52 Platelet Satelliting Not Reportable 02/25/19 04:52 Plt Morphology Comment Not Reportable 02/25/19 04:52 RBC Morphology Not Reportable 02/25/19 04:52 Dimorphic RBCs Not Reportable 02/25/19 04:52 Polychromasia Not Reportable 02/25/19 04:52 Hypochromasia Not Reportable 02/25/19 04:52 Poikilocytosis Not Reportable 02/25/19 04:52 Anisocytosis 2+ 02/25/19 04:52 Microcytosis Not Reportable 02/25/19 04:52 Macrocytosis 1+ 02/25/19 04:52 Spherocytes Not Reportable 02/25/19 04:52 Pappenheimer Bodies Not Reportable 02/25/19 04:52 Sickle Cells Not Reportable 02/25/19 04:52 Target Cells Not Reportable 02/25/19 04:52 Tear Drop Cells Few 02/25/19 04:52 Ovalocytes Few 02/25/19 04:52 Helmet Cells Not Reportable 02/25/19 04:52 Owens-Abrams Bodies Not Reportable 02/25/19 04:52 [place] Rings Not Reportable 02/25/19 04:52 [place] Cells Not Reportable 02/25/19 04:52 Bite Cells Not Reportable 02/25/19 04:52 Crenated Cell Not Reportable 02/25/19 04:52 Elliptocytes Few 02/25/19 04:52 Acanthocytes (Spur) Not Reportable 02/25/19 04:52 Rouleaux Not Reportable 02/25/19 04:52 Hemoglobin C Crystals Not Reportable 02/25/19 04:52 Schistocytes Not Reportable 02/25/19 04:52 Malaria parasites Not Reportable 02/25/19 04:52 Percent Retic 20.14 % (0.78-2.58) H 02/22/19 11:30 Leopoldo Bodies Not Reportable 02/25/19 04:52 Hem Pathologist Commnt No 02/25/19 04:52 PT 17.3 Sec. (12.2-14.9) H 02/20/19 17:33 INR 1.39 (0.87-1.13) H 02/20/19 17:33 APTT 30.1 Sec. (24.2-36.6) 02/20/19 17:33 Sodium 142 mmol/L (137-145) 02/26/19 04:57 Potassium 3.9 mmol/L (3.6-5.0) 02/26/19 04:57 Chloride 105.1 mmol/L (98-107) 02/26/19 04:57 Carbon Dioxide 25 mmol/L (22-30) 02/26/19 04:57 Anion Gap 16 mmol/L 02/26/19 04:57 BUN 42 mg/dL (7-17) H 02/26/19 04:57 Creatinine 1.6 mg/dL (0.7-1.2) H 02/26/19 04:57 Estimated GFR 38 ml/min 02/26/19 04:57 BUN/Creatinine Ratio 26 % 02/26/19 04:57 Glucose 116 mg/dL (65-100) H 02/26/19 04:57 POC Glucose 108 (70-105) H 02/23/19 07:29 Hemoglobin A1c 6.1 % (4-6) H 02/21/19 09:29 Lactic Acid 1.40 mmol/L (0.7-2.0) 02/21/19 07:09 Calcium 8.9 mg/dL (8.4-10.2) 02/26/19 04:57 Phosphorus 3.70 mg/dL (2.5-4.5) 02/22/19 11:30 Magnesium 2.40 mg/dL (1.7-2.3) H 02/22/19 11:30 Iron 52 ug/dL (37-170) 02/24/19 05:02 TIBC 143 mcg/dL (250-450) L 02/24/19 05:02 Ferritin 953.5 ng/mL (13.0-400.0) H 02/24/19 14:44 Total Bilirubin 0.90 mg/dL (0.1-1.2) 02/21/19 07:09 AST 7 units/L (5-40) 02/21/19 07:09 ALT 7 units/L (7-56) 02/21/19 07:09 Alkaline Phosphatase 40 units/L (35-129) 02/21/19 07:09 Lactate Dehydrogenase 689 units/L (91-180) H 02/24/19 05:02 Total Creatine Kinase 31 units/L (30-135) 02/20/19 16:31 Troponin T 0.021 ng/mL (0.00-0.029) 02/22/19 11:30 NT-Pro-B Natriuret Pep 3173 pg/mL (0-900) H 02/20/19 17:33 Total Protein 6.5 g/dL (6.3-8.2) 02/21/19 07:09 Albumin 3.8 g/dL (3.9-5) L 02/21/19 07:09 Albumin/Globulin Ratio 1.4 % 02/21/19 07:09 Triglycerides 126 mg/dL (2-149) 02/20/19 16:31 Cholesterol 129 mg/dL (50-199) 02/20/19 16:31 LDL Cholesterol Direct 62 mg/dL (50-130) 02/20/19 16:31 HDL Cholesterol 39 mg/dL (40-59) L 02/20/19 16:31 Cholesterol/HDL Ratio 3.30 % 02/20/19 16:31 Vitamin B12 150.0 pg/mL (211-911) L 02/24/19 14:44 Folate 6.38 ng/mL (7.3-26.0) L 02/24/19 14:51 TSH 1.210 mlU/mL (0.270-4.200) 02/22/19 16:54 Free T4 1.05 ng/dL (0.76-1.46) 02/22/19 16:54 PTH Intact 77.44 pg/mL (15-65) H 02/22/19 16:54 Urine Color Yellow (Yellow) 02/21/19 08:10 Urine Turbidity Slightly-cloudy (Clear) 02/21/19 08:10 Urine pH 5.0 (5.0-7.0) 02/21/19 08:10 Ur Specific [place] 1.012 (1.003-1.030) 02/21/19 08:10 Urine Protein <15 mg/dl mg/dL (Negative) 02/21/19 08:10 Urine Glucose (UA) Neg mg/dL (Negative) 02/21/19 08:10 Urine Ketones Neg mg/dL (Negative) 02/21/19 08:10 Urine Blood Sm (Negative) 02/21/19 08:10 Urine Nitrite Neg (Negative) 02/21/19 08:10 Urine Bilirubin Neg (Negative) 02/21/19 08:10 Urine Urobilinogen < 2.0 mg/dL (<2.0) 02/21/19 08:10 Ur Leukocyte Esterase Mod (Negative) 02/21/19 08:10 Urine WBC (Auto) 39.0 /HPF (0.0-6.0) H 02/21/19 08:10 Urine RBC (Auto) 2.0 /HPF (0.0-6.0) 02/21/19 08:10 U Epithel Cells (Auto) 2.0 /HPF (0-13.0) 02/21/19 08:10 Urine Bacteria (Auto) 1+ /HPF (Negative) 02/21/19 08:10 Ur Transition Epith Cell 1 /HPF 02/21/19 08:10 Hyaline Casts 7 /LPF 02/21/19 08:10 Urine Mucus Few /HPF 02/21/19 08:10 Urine Eosinophils None seen (None Seen) 02/21/19 Unknown Urine Creatinine 99.0 mg/dL (0.1-20.0) H 02/21/19 Unknown Urine Sodium 46 mmol/L 02/21/19 Unknown C. difficile Tox (PCR) Negative (Negative) 02/23/19 Unknown Blood Type AB POSITIVE 02/20/19 17:33 Antibody Screen Negative 02/20/19 17:33 Crossmatch See Detail 02/20/19 17:33 Active Medications - Current Medications Current Medications: Generic Name Dose Route Start Last Admin Trade Name Freq PRN Reason Stop Dose Admin Acetaminophen 650 mg 02/20/19 19:04 02/27/19 05:20 Tylenol PO 650 mg Q4H PRN Administration Pain MILD(1-3)/Fever >100.5/VENCES Cyanocobalamin 1,000 mcg 02/25/19 10:00 02/27/19 09:36 Vitamin B-12 SUB-Q 03/01/19 09:59 1,000 mcg DAILY CARIN Administration Folic Acid 1 mg 02/25/19 10:00 02/27/19 09:38 Folvite PO 1 mg QDAY CARIN Administration Hydromorphone HCl 0.5 mg 02/20/19 19:04 02/21/19 16:40 Dilaudid IV 0.5 mg Q3H PRN Administration Pain , Severe (7-10) Sodium Bicarbonate 75 meq/ 1,075 mls @ 100 mls/hr 02/21/19 17:00 02/26/19 17:47 Sterile Water IV 100 mls/hr DIRECT CARIN Administration Levofloxacin/Dextrose 500 mg in 100 mls @ 100 mls/hr 02/25/19 10:00 02/27/19 09:37 Levaquin 500mg/100ml IV 100 mls/hr Q24HR CARIN Administration Protocol Ondansetron HCl 4 mg 02/20/19 19:04 02/23/19 13:32 Zofran IV 4 mg Q8H PRN Administration Nausea And Vomiting Oxycodone/Acetaminophen 1 tab 02/20/19 19:04 02/27/19 09:35 Percocet 5/325 PO 1 tab Q6H PRN Administration Pain, Moderate (4-6) Pantoprazole Sodium 40 mg 02/22/19 10:00 02/27/19 09:37 Protonix IV 40 mg BID CARIN Administration Sodium Chloride 10 ml 02/20/19 22:00 02/27/19 09:37 Sodium Chloride Flush Syringe 10 Ml IV 10 ml BID CARIN Administration Sodium Chloride 10 ml 02/20/19 19:04 Sodium Chloride Flush Syringe 10 Ml IV PRN PRN LINE FLUSH
--- NOTE | 2019-02-27 13:33 | Progress Note ---
Assessment and Plan 1. Acute kidney injury: Vasomotor BRITTANY in the setting of hypotension and volume depletion. Renal US showed atrophic R kidney with indeterminate complex lesion. Continue IV fluids. Encouraged PO fluids. Renal function is better. Likely pt is at her baseline renal function. Monitor renal function. Avoid nephrotoxic agents. Meds dosage based on GFR. 2. FEN: Anion-gap metabolic acidosis, improved. Hypernatremia, improved. Monitor lytes. 3. Severe anemia: S/p PRBC. 4. Pancytopenia: Followed by Heme-onc. 5. Hypotension: Improved. 6. Elevated Troponin: Seen by Cards. 7. Newly diagnosed DM. Care plan discussed. Examination: General appearance: well-developed, well-nourished, appears stated age, obese, no distress, pallor HEENT: ATNC, CHANEL, vision intact, hearing diminished Neck: neck supple, trachea midline Respiratory: Clear to Ascultation Heart: regular, S1S2, no murmurs Gastrointestinal: soft, normoactive bowel sounds, obese, not tender Integumentary: no rash, warm and dry Neurologic: no focal deficit, no asterixis Ext: no edema Psychiatric: cooperative Subjective Date of service: 02/27/19 Principal diagnosis: anemia Interval history: Patient was seen and examined at the bedside. Feeling better. Daughter at the bedside. Objective - Vital Signs Vital signs: Vital Signs - 12hr 02/27/19 02/27/19 03:32 08:43 Temperature 98.6 F 98.4 F Pulse Rate 68 61 Respiratory 18 18 Rate Blood Pressure 145/57 112/48 O2 Sat by Pulse 99 98 Oximetry - Lab 02/27/19 17:51 02/27/19 13:47 Most recent lab results Calcium 8.9 mg/dL (8.4-10.2) 02/26/19 04:57 Phosphorus 3.70 mg/dL (2.5-4.5) 02/22/19 11:30 Magnesium 2.40 mg/dL (1.7-2.3) H 02/22/19 11:30 Urine Creatinine 99.0 mg/dL (0.1-20.0) H 02/21/19 Unknown Urine Sodium 46 mmol/L 02/21/19 Unknown Medications & Allergies - Medications Allergies/Adverse Reactions: Allergies No Known Allergies Allergy (Unverified 02/20/19 16:06) Home Medications: Home Medications Medication Instructions Recorded Confirmed Last Taken Type No Known Home Medications [No 02/20/19 02/20/19 Unknown History Reported Home Medications] Active Medications: Generic Name Dose Route Start Last Admin Trade Name Moisés PRN Reason Stop Dose Admin Acetaminophen 650 mg 02/20/19 19:04 02/27/19 05:20 Tylenol PO 650 mg Q4H PRN Administration Pain MILD(1-3)/Fever >100.5/VENCES Cyanocobalamin 1,000 mcg 02/25/19 10:00 02/27/19 09:36 Vitamin B-12 SUB-Q 03/01/19 09:59 1,000 mcg DAILY CARIN Administration Folic Acid 1 mg 02/25/19 10:00 02/27/19 09:38 Folvite PO 1 mg QDAY CARIN Administration Hydromorphone HCl 0.5 mg 02/20/19 19:04 02/21/19 16:40 Dilaudid IV 0.5 mg Q3H PRN Administration Pain , Severe (7-10) Sodium Bicarbonate 75 meq/ 1,075 mls @ 100 mls/hr 02/21/19 17:00 02/26/19 17:47 Sterile Water IV 100 mls/hr DIRECT CARIN Administration Levofloxacin/Dextrose 500 mg in 100 mls @ 100 mls/hr 02/25/19 10:00 02/27/19 09:37 Levaquin 500mg/100ml IV 100 mls/hr Q24HR CARIN Administration Protocol Ondansetron HCl 4 mg 02/20/19 19:04 02/23/19 13:32 Zofran IV 4 mg Q8H PRN Administration Nausea And Vomiting Oxycodone/Acetaminophen 1 tab 02/20/19 19:04 02/27/19 09:35 Percocet 5/325 PO 1 tab Q6H PRN Administration Pain, Moderate (4-6) Pantoprazole Sodium 40 mg 02/22/19 10:00 02/27/19 09:37 Protonix IV 40 mg BID CARIN Administration Sodium Chloride 10 ml 02/20/19 22:00 02/27/19 09:37 Sodium Chloride Flush Syringe 10 Ml IV 10 ml BID CARIN Administration Sodium Chloride 10 ml 02/20/19 19:04 Sodium Chloride Flush Syringe 10 Ml IV PRN PRN LINE FLUSH
[2019-02-27 14:38] LABS: Calcium 8.8 mg/dL (8.4-10.2)
[2019-02-27 18:15] LABS: Mean Corpuscular HGB Conc 33 % (30-34); Mean Corpuscular Volume 94 fl (79-97); Red Blood Count 2.24 M/mm3 (3.65-5.03); Red Cell Distribution Width 17.2 % (13.2-15.2)
--- NOTE | 2019-02-27 18:33 | Hem/Onc Progress Note ---
Assessment and Plan 1. Anemia, leukopenia, thrombocytopenia, pancytopenia. B12 level is low. Folate level is low. Replacement. 2. I discussed with the patient regarding bone marrow aspiration biopsy. ANC is low. 3. Fatty liver. 4. Renal impairment. Nephrology following. 5. History of hypertension. 6. Hemoglobin was 3 at admission. Transfusion support given. 7. Platelet is low. No active bleeding. If bleeding persists, we will look into platelet transfusion. 8. ANC low. The question arises if reverse isolation is needed. The patient at this time is afebrile. The patient received antibiotics, Levaquin. 9. Newly diagnosed diabetes. I discussed with the patient and family member regarding the issues of otitis media history. Levaquin given for same. BMBx - done d/w dr Bailey on 02/26 neutropenic precautions - d/w family reg same BMBX report - hypercellular marrow - sent out OP follow up an option - Patient Problems (1) Thrombocytopenia Current Visit: Yes Status: Acute Subjective Date of service: 02/27/19 Principal diagnosis: low PLT Interval history: feeling better Objective - Exam Narrative Exam: Pain - none General appearance - alert Performance status limited self care Eyes - no icterus ENT - hard of hearing LNs cervical not palpable Neck - no LN Respiratory Normal - on o2 Breath sounds - CTA anteriorly CVS S1 S2 + Extremities nil acute General GI Soft Rectal deferred female - deferred Skin warm Musculoskeletal - moving limbs Neurologically alert awake - Constitutional Vitals: Last Vital Signs Temp 98.0 F 02/27/19 12:58 Pulse 62 02/27/19 12:58 Resp 19 02/27/19 12:58 BP 130/57 02/27/19 12:58 Pulse Ox 97 02/27/19 12:58 - Labs Lab Results: Laboratory Results - last 24 hr 02/27/19 02/27/19 13:47 17:51 WBC 3.1 L RBC 2.24 L Hgb 7.0 L Hct 21.0 L MCV 94 MCH 31 MCHC 33 RDW 17.2 H [place] % (Auto) Mailer Seg Neutrophils % Mailer Sodium 137 Potassium 3.6 Chloride 102.0 Carbon Dioxide 22 Anion Gap 17 BUN 37 H Creatinine 1.6 H Estimated GFR 38 BUN/Creatinine Ratio 23 Glucose 107 H Calcium 8.8 Medications & Allergies - Medications Allergies/Adverse Reactions: Allergies No Known Allergies Allergy (Unverified 02/20/19 16:06) Home Medications: Home Medications Medication Instructions Recorded Confirmed Last Taken Type No Known Home Medications [No 02/20/19 02/20/19 Unknown History Reported Home Medications] Active Medications: Generic Name Dose Route Start Last Admin Trade Name Freq PRN Reason Stop Dose Admin Acetaminophen 650 mg 02/20/19 19:04 02/27/19 05:20 Tylenol PO 650 mg Q4H PRN Administration Pain MILD(1-3)/Fever >100.5/VENCES Cyanocobalamin 1,000 mcg 02/25/19 10:00 02/27/19 09:36 Vitamin B-12 SUB-Q 03/01/19 09:59 1,000 mcg DAILY CARIN Administration Folic Acid 1 mg 02/25/19 10:00 02/27/19 09:38 Folvite PO 1 mg QDAY CARIN Administration Hydromorphone HCl 0.5 mg 02/20/19 19:04 02/21/19 16:40 Dilaudid IV 0.5 mg Q3H PRN Administration Pain , Severe (7-10) Sodium Bicarbonate 75 meq/ 1,075 mls @ 100 mls/hr 02/21/19 17:00 02/26/19 17:47 Sterile Water IV 100 mls/hr DIRECT CARIN Administration Levofloxacin/Dextrose 500 mg in 100 mls @ 100 mls/hr 02/25/19 10:00 02/27/19 09:37 Levaquin 500mg/100ml IV 100 mls/hr Q24HR CARIN Administration Protocol Ondansetron HCl 4 mg 02/20/19 19:04 02/23/19 13:32 Zofran IV 4 mg Q8H PRN Administration Nausea And Vomiting Oxycodone/Acetaminophen 1 tab 02/20/19 19:04 02/27/19 16:52 Percocet 5/325 PO 1 tab Q6H PRN Administration Pain, Moderate (4-6) Pantoprazole Sodium 40 mg 02/22/19 10:00 02/27/19 09:37 Protonix IV 40 mg BID CARIN Administration Sodium Chloride 10 ml 02/20/19 22:00 02/27/19 09:37 Sodium Chloride Flush Syringe 10 Ml IV 10 ml BID CARIN Administration Sodium Chloride 10 ml 02/20/19 19:04 Sodium Chloride Flush Syringe 10 Ml IV PRN PRN LINE FLUSH
[2019-02-27 18:50] LABS: Platelet Count 18 K/mm3 (140-440)
[2019-02-27 19:25] LABS: Total Cells Counted 100
[2019-02-27 19:26] LABS: Anisocytosis 1+; Hypochromasia 1+; Ovalocytes 1+; Platelet Estimate Appears Decreased; Tear Drop Cells 1+
[2019-02-28] MEDS: ACETAMINOPHEN 325 MG TAB PO PRN (06:41)
--- NOTE | 2019-02-28 07:24 | Progress Note ---
Assessment and Plan Assessment and plan: Pancytopenia. Patient for bone marrow biopsy 02/25--await results Anemia Stool occult blood ordered - negative Thrombocytopenia Transfused 1 Unit plateletpheresis previously Follow-up CBC BRITTANY acute kidney injury poss vasomotor nnephropathy IV Fluids for now Nephrology reports that patient is likely at her baseline renal function. Renal lesion. Renal US showed atrophic R kidney with indeterminate complex lesion. Consider MRI with IV contrast when kidney function improves. Patient may have study done as an outpatient Thrombocytopenia Plt 17. Transfused 1 Unit plateletpheresis previously Follow-up CBC Elevated brain natriuretic peptide (BNP) level Echo ordered for EF and valve function Elevated troponin Possibly sec to elevated creatinine Cardiology following Trend Troponin right otitis media Levaquin UTI Started levaquin DVT prophylaxis No medical antocoag because low platelets History Interval history: No new issues overnight. Hospitalist Physical - Constitutional Vitals: Temp Pulse Resp BP Pulse Ox 98.3 F 66 18 140/65 96 02/28/19 02:08 02/28/19 02:08 02/28/19 02:08 02/28/19 02:08 02/28/19 02:08 General appearance: Present: no acute distress - EENT Eyes: Present: PERRL, EOM intact ENT: hearing intact, clear oral mucosa, dentition normal - Neck Neck: Present: supple, normal ROM - Respiratory Respiratory effort: normal Respiratory: bilateral: CTA - Cardiovascular Rhythm: regular Heart Sounds: Present: S1 & S2. Absent: gallop, rub - Extremities Extremities: no ischemia, No edema, Full ROM - Abdominal General gastrointestinal: soft, non-tender, non-distended, normal bowel sounds - Integumentary Integumentary: Present: clear, warm, dry - Neurologic Neurologic: CNII-XII intact, moves all extremities Results - Labs CBC & Chem 7: 02/27/19 17:51 02/27/19 13:47 Labs: Laboratory Last Values WBC 3.1 K/mm3 (4.5-11.0) L 02/27/19 17:51 RBC 2.24 M/mm3 (3.65-5.03) L 02/27/19 17:51 Hgb 7.0 gm/dl (10.1-14.3) L 02/27/19 17:51 Hct 21.0 % (30.3-42.9) L 02/27/19 17:51 MCV 94 fl (79-97) 02/27/19 17:51 MCH 31 pg (28-32) 02/27/19 17:51 MCHC 33 % (30-34) 02/27/19 17:51 RDW 17.2 % (13.2-15.2) H 02/27/19 17:51 Plt Count 18 K/mm3 (140-440) L* 02/27/19 17:51 Lymph % (Auto) Paper Rewinder 02/25/19 04:52 [place] % (Auto) Paper Rewinder 02/27/19 17:51 Add Manual Diff Complete 02/27/19 17:51 Total Counted 100 02/27/19 17:51 Seg Neutrophils % Paper Rewinder 02/27/19 17:51 Seg Neuts % (Manual) 23.0 % (40.0-70.0) L 02/27/19 17:51 Band Neutrophils % 0 % 02/27/19 17:51 Lymphocytes % (Manual) 57.0 % (13.4-35.0) H 02/27/19 17:51 Reactive Lymphs % (Man) 0 % 02/27/19 17:51 Monocytes % (Manual) 15.0 % (0.0-7.3) H 02/27/19 17:51 Eosinophils % (Manual) 4.0 % (0.0-4.3) 02/27/19 17:51 Basophils % (Manual) 1.0 % (0.0-1.8) 02/27/19 17:51 Metamyelocytes % 0 % 02/27/19 17:51 Myelocytes % 0 % 02/27/19 17:51 Promyelocytes % 0 % 02/27/19 17:51 Blast Cells % 0 % 02/27/19 17:51 Nucleated RBC % Not Reportable 02/27/19 17:51 Seg Neutrophils # Man 0.7 K/mm3 (1.8-7.7) L 02/27/19 17:51 Band Neutrophils # 0.0 K/mm3 02/27/19 17:51 Lymphocytes # (Manual) 1.8 K/mm3 (1.2-5.4) 02/27/19 17:51 Abs React Lymphs (Man) 0.0 K/mm3 02/27/19 17:51 Monocytes # (Manual) 0.5 K/mm3 (0.0-0.8) 02/27/19 17:51 Eosinophils # (Manual) 0.1 K/mm3 (0.0-0.4) 02/27/19 17:51 Basophils # (Manual) 0.0 K/mm3 (0.0-0.1) 02/27/19 17:51 Metamyelocytes # 0.0 K/mm3 02/27/19 17:51 Myelocytes # 0.0 K/mm3 02/27/19 17:51 Promyelocytes # 0.0 K/mm3 02/27/19 17:51 Blast Cells # 0.0 K/mm3 02/27/19 17:51 WBC Morphology Not Reportable 02/27/19 17:51 Hypersegmented Neuts Not Reportable 02/27/19 17:51 Hyposegmented Neuts Not Reportable 02/27/19 17:51 Hypogranular Neuts Not Reportable 02/27/19 17:51 Smudge Cells Not Reportable 02/27/19 17:51 Toxic Granulation Not Reportable 02/27/19 17:51 Toxic Vacuolation Not Reportable 02/27/19 17:51 Dohle Bodies Not Reportable 02/27/19 17:51 Pelger-Huet Anomaly Not Reportable 02/27/19 17:51 Alessia Rods Not Reportable 02/27/19 17:51 Platelet Estimate Appears decreased 02/27/19 17:51 Clumped Platelets Not Reportable 02/27/19 17:51 Plt Clumps, EDTA Not Reportable 02/27/19 17:51 Large Platelets Not Reportable 02/27/19 17:51 Giant Platelets Not Reportable 02/27/19 17:51 Platelet Satelliting Not Reportable 02/27/19 17:51 Plt Morphology Comment Not Reportable 02/27/19 17:51 RBC Morphology Not Reportable 02/27/19 17:51 Dimorphic RBCs Not Reportable 02/27/19 17:51 Polychromasia Not Reportable 02/27/19 17:51 Hypochromasia 1+ 02/27/19 17:51 Poikilocytosis Not Reportable 02/27/19 17:51 Anisocytosis 1+ 02/27/19 17:51 Microcytosis Not Reportable 02/27/19 17:51 Macrocytosis Not Reportable 02/27/19 17:51 Spherocytes Not Reportable 02/27/19 17:51 Pappenheimer Bodies Not Reportable 02/27/19 17:51 Sickle Cells Not Reportable 02/27/19 17:51 Target Cells Not Reportable 02/27/19 17:51 Tear Drop Cells 1+ 02/27/19 17:51 Ovalocytes 1+ 02/27/19 17:51 Helmet Cells Not Reportable 02/27/19 17:51 [place] Bodies Not Reportable 02/27/19 17:51 [place] Rings Not Reportable 02/27/19 17:51 [place] Cells Not Reportable 02/27/19 17:51 Bite Cells Not Reportable 02/27/19 17:51 Crenated Cell Not Reportable 02/27/19 17:51 Elliptocytes 1+ 02/27/19 17:51 Acanthocytes (Spur) Not Reportable 02/27/19 17:51 Rouleaux Not Reportable 02/27/19 17:51 Hemoglobin C Crystals Not Reportable 02/27/19 17:51 Schistocytes Not Reportable 02/27/19 17:51 Malaria parasites Not Reportable 02/27/19 17:51 Percent Retic 20.14 % (0.78-2.58) H 02/22/19 11:30 Leopoldo Bodies Not Reportable 02/27/19 17:51 Hem Pathologist Commnt No 02/27/19 17:51 PT 17.3 Sec. (12.2-14.9) H 02/20/19 17:33 INR 1.39 (0.87-1.13) H 02/20/19 17:33 APTT 30.1 Sec. (24.2-36.6) 02/20/19 17:33 Sodium 137 mmol/L (137-145) 02/27/19 13:47 Potassium 3.6 mmol/L (3.6-5.0) 02/27/19 13:47 Chloride 102.0 mmol/L (98-107) 02/27/19 13:47 Carbon Dioxide 22 mmol/L (22-30) 02/27/19 13:47 Anion Gap 17 mmol/L 02/27/19 13:47 BUN 37 mg/dL (7-17) H 02/27/19 13:47 Creatinine 1.6 mg/dL (0.7-1.2) H 02/27/19 13:47 Estimated GFR 38 ml/min 02/27/19 13:47 BUN/Creatinine Ratio 23 % 02/27/19 13:47 Glucose 107 mg/dL (65-100) H 02/27/19 13:47 POC Glucose 108 (70-105) H 02/23/19 07:29 Hemoglobin A1c 6.1 % (4-6) H 02/21/19 09:29 Lactic Acid 1.40 mmol/L (0.7-2.0) 02/21/19 07:09 Calcium 8.8 mg/dL (8.4-10.2) 02/27/19 13:47 Phosphorus 3.70 mg/dL (2.5-4.5) 02/22/19 11:30 Magnesium 2.40 mg/dL (1.7-2.3) H 02/22/19 11:30 Iron 52 ug/dL (37-170) 02/24/19 05:02 TIBC 143 mcg/dL (250-450) L 02/24/19 05:02 Ferritin 953.5 ng/mL (13.0-400.0) H 02/24/19 14:44 Total Bilirubin 0.90 mg/dL (0.1-1.2) 02/21/19 07:09 AST 7 units/L (5-40) 02/21/19 07:09 ALT 7 units/L (7-56) 02/21/19 07:09 Alkaline Phosphatase 40 units/L (35-129) 02/21/19 07:09 Lactate Dehydrogenase 689 units/L (91-180) H 02/24/19 05:02 Total Creatine Kinase 31 units/L (30-135) 02/20/19 16:31 Troponin T 0.021 ng/mL (0.00-0.029) 02/22/19 11:30 NT-Pro-B Natriuret Pep 3173 pg/mL (0-900) H 02/20/19 17:33 Total Protein 6.5 g/dL (6.3-8.2) 02/21/19 07:09 Albumin 3.8 g/dL (3.9-5) L 02/21/19 07:09 Albumin/Globulin Ratio 1.4 % 02/21/19 07:09 Triglycerides 126 mg/dL (2-149) 02/20/19 16:31 Cholesterol 129 mg/dL (50-199) 02/20/19 16:31 LDL Cholesterol Direct 62 mg/dL (50-130) 02/20/19 16:31 HDL Cholesterol 39 mg/dL (40-59) L 02/20/19 16:31 Cholesterol/HDL Ratio 3.30 % 02/20/19 16:31 Vitamin B12 150.0 pg/mL (211-911) L 02/24/19 14:44 Folate 6.38 ng/mL (7.3-26.0) L 02/24/19 14:51 TSH 1.210 mlU/mL (0.270-4.200) 02/22/19 16:54 Free T4 1.05 ng/dL (0.76-1.46) 02/22/19 16:54 PTH Intact 77.44 pg/mL (15-65) H 02/22/19 16:54 Urine Color Yellow (Yellow) 02/21/19 08:10 Urine Turbidity Slightly-cloudy (Clear) 02/21/19 08:10 Urine pH 5.0 (5.0-7.0) 02/21/19 08:10 Ur Specific [place] 1.012 (1.003-1.030) 02/21/19 08:10 Urine Protein <15 mg/dl mg/dL (Negative) 02/21/19 08:10 Urine Glucose (UA) Neg mg/dL (Negative) 02/21/19 08:10 Urine Ketones Neg mg/dL (Negative) 02/21/19 08:10 Urine Blood Sm (Negative) 02/21/19 08:10 Urine Nitrite Neg (Negative) 02/21/19 08:10 Urine Bilirubin Neg (Negative) 02/21/19 08:10 Urine Urobilinogen < 2.0 mg/dL (<2.0) 02/21/19 08:10 Ur Leukocyte Esterase Mod (Negative) 02/21/19 08:10 Urine WBC (Auto) 39.0 /HPF (0.0-6.0) H 02/21/19 08:10 Urine RBC (Auto) 2.0 /HPF (0.0-6.0) 02/21/19 08:10 U Epithel Cells (Auto) 2.0 /HPF (0-13.0) 02/21/19 08:10 Urine Bacteria (Auto) 1+ /HPF (Negative) 02/21/19 08:10 Ur Transition Epith Cell 1 /HPF 02/21/19 08:10 Hyaline Casts 7 /LPF 02/21/19 08:10 Urine Mucus Few /HPF 02/21/19 08:10 Urine Eosinophils None seen (None Seen) 02/21/19 Unknown Urine Creatinine 99.0 mg/dL (0.1-20.0) H 02/21/19 Unknown Urine Sodium 46 mmol/L 02/21/19 Unknown C. difficile Tox (PCR) Negative (Negative) 02/23/19 Unknown Blood Type AB POSITIVE 02/20/19 17:33 Antibody Screen Negative 02/20/19 17:33 Crossmatch See Detail 02/20/19 17:33 Active Medications - Current Medications Current Medications: Generic Name Dose Route Start Last Admin Trade Name Freq PRN Reason Stop Dose Admin Acetaminophen 650 mg 02/20/19 19:04 02/28/19 06:41 Tylenol PO 650 mg Q4H PRN Administration Pain MILD(1-3)/Fever >100.5/VENCES Cyanocobalamin 1,000 mcg 02/25/19 10:00 02/27/19 09:36 Vitamin B-12 SUB-Q 03/01/19 09:59 1,000 mcg DAILY CARIN Administration Folic Acid 1 mg 02/25/19 10:00 02/27/19 09:38 Folvite PO 1 mg QDAY CARIN Administration Hydromorphone HCl 0.5 mg 02/20/19 19:04 02/21/19 16:40 Dilaudid IV 0.5 mg Q3H PRN Administration Pain , Severe (7-10) Sodium Bicarbonate 75 meq/ 1,075 mls @ 100 mls/hr 02/21/19 17:00 02/26/19 17:47 Sterile Water IV 100 mls/hr DIRECT CARIN Administration Levofloxacin/Dextrose 500 mg in 100 mls @ 100 mls/hr 02/25/19 10:00 02/27/19 09:37 Levaquin 500mg/100ml IV 100 mls/hr Q24HR CARIN Administration Protocol Ondansetron HCl 4 mg 02/20/19 19:04 02/23/19 13:32 Zofran IV 4 mg Q8H PRN Administration Nausea And Vomiting Oxycodone/Acetaminophen 1 tab 02/20/19 19:04 02/27/19 16:52 Percocet 5/325 PO 1 tab Q6H PRN Administration Pain, Moderate (4-6) Pantoprazole Sodium 40 mg 02/22/19 10:00 02/27/19 23:03 Protonix IV 40 mg BID CARIN Administration Sodium Chloride 10 ml 02/20/19 22:00 02/27/19 23:04 Sodium Chloride Flush Syringe 10 Ml IV 10 ml BID CARIN Administration Sodium Chloride 10 ml 02/20/19 19:04 Sodium Chloride Flush Syringe 10 Ml IV PRN PRN LINE FLUSH
[2019-02-28 08:31] LABS: Hematocrit 20.9 % (30.3-42.9); Hemoglobin 6.9 gm/dl (10.1-14.3); Mean Corpuscular HGB Conc 33 % (30-34); Mean Corpuscular Volume 92 fl (79-97); Red Blood Count 2.27 M/mm3 (3.65-5.03); Red Cell Distribution Width 16.4 % (13.2-15.2)
[2019-02-28 08:35] LABS: Calcium 8.4 mg/dL (8.4-10.2)
[2019-02-28 08:36] LABS: Platelet Count 14 K/mm3 (140-440)
[2019-02-28 09:19] LABS: Basophils % (Manual) 0 % (0.0-1.8); Total Cells Counted 100
[2019-02-28 09:20] LABS: Ovalocytes 1+; Platelet Estimate Appears Decreased; Tear Drop Cells Few
[2019-02-28] MEDS: CYANOCOBALAMIN (VIT B-12) 1000 MCG/1 ML INJ SUB-Q SCH (10:00)
[2019-02-28] MEDS: SODIUM BICARBONATE 75 MEQ in WATER FOR INJECTION (PF) 1,000 ML IV SCH (10:04)
[2019-02-28] MEDS: oxyCODONE /ACETAMINOPHEN 5-325MG TAB PO PRN (10:05)
[2019-02-28] MEDS: FOLIC ACID 1 MG TAB PO SCH (10:06)
[2019-02-28] MEDS: PANTOPRAZOLE 40 MG INJ IV SCH (10:08)
[2019-02-28] MEDS ORDERED: SODIUM CHLORIDE 0.9% 500 ML 500 ML IV ONE ×2 (10:29→10:31)
--- NOTE | 2019-02-28 10:44 | Discharge Summary ---
Providers - Providers Date of Admission: 02/22/19 08:06 Date of discharge: 02/28/19 Attending physician: ASCENCION COOLEY 02/21/19 07:57 Consult to Physician [CONS] Routine Comment: Consulting Provider: SHELDON CENTENO Physician Instructions: Reason For Exam: Anemia with Hgb 3.2 02/21/19 07:58 Consult to Physician [CONS] Routine Comment: Consulting Provider: XU BERTRAND Physician Instructions: Reason For Exam: BRITTANY 02/22/19 08:56 Physical Therapy Evaluation and Treat [CONS] Routine Comment: Reason For Exam: Weakness 02/23/19 10:44 Consult to Physician [CONS] Routine Comment: AMARA Consulting Provider: RAJIV CABRAL Physician Instructions: CONSULT WAS CALLED TO /JAGRUTI Reason For Exam: pancytopenia 02/25/19 07:06 Consult to Interventional Radiology [CONS] Routine Consulting Provider: DAVIDE FRIEDMAN Reason For Exam: bone marrow asp and bx Place consult to:: Dr. Friedman Notified:: Dr. Friedman Was contact made?: Yes If yes, spoke with:: Dr. Friedman 02/25/19 07:07 Consult to Physician [CONS] Routine Comment: Consulting Provider: DAVIDE FRIEDMAN Physician Instructions: Reason For Exam: bone marrow asp and bx Primary care physician: EVALUATOR Hospitalization Reason for admission: genalized weakness Condition: Stable Hospital course: The patient is a 73 YO female with history significant for Obesity and Hypertension who presented to [facility] ED via EMS for evaluation of generalized weakness for the past 2 weeks [employer]. She last saw a doctor 10 years ago. Patient is a very poor historian and most of the history was provided by her daughters at the bedside. The weakness gradually progressed to the point that she couldn't walk. The patient was admitted with diagnosis of symptomatic anemia and renal insufficiency. Cardiology was initially consulted for possibility of heart failure exacerbation. However, patient's weakness/fatigue was not related to any active cardiac issues. Echocardiogram on this admission revealed well- preserved LV function with ejection fraction 55 to 60%. Nephrology evaluated the patient for the renal insufficiency and felt that etiology was likely secondary to acute kidney injury from vasomotor nephropathy, hypotension and volume depletion. The patient received IV fluid hydration with improvement in c reatinine to what was felt to be her baseline renal function with a creatinine of 1.5. Patient was initially seen by GI consultation who felt that the anemia was related to pancytopenia. Patient had no overt or occult blood detected in the stool. Therefore, this did not appear to be due to GI blood loss. Hematology consultation was then obtained and patient was scheduled for bone marrow biopsy which has been completed. The patient received PRBCs and platelets as needed to maintain appropriate levels. Patient is to follow-up with Dr. Cabral on Friday for the results and further testing. Dedicated discharge time 35 minutes. Disposition: DC-01 TO HOME OR SELFCARE Time spent for discharge: 35 Core Measure Documentation - Palliative Care Palliative Care/ Comfort Measures: Not Applicable - Core Measures Any of the following diagnoses?: none Exam - Constitutional Vitals: Temp Pulse Resp BP Pulse Ox 98.3 F 66 18 140/65 96 02/28/19 02:08 02/28/19 02:08 02/28/19 02:08 02/28/19 02:08 02/28/19 02:08 General appearance: Present: no acute distress, well-nourished - EENT Eyes: Present: PERRL ENT: hearing intact, clear oral mucosa - Neck Neck: Present: supple, normal ROM - Respiratory Respiratory effort: normal Respiratory: bilateral: CTA - Cardiovascular Heart Sounds: Present: S1 & S2. Absent: rub, click - Extremities Extremities: pulses symmetrical, No edema Peripheral Pulses: within normal limits - Abdominal General gastrointestinal: Present: soft, non-tender, non-distended, normal bowel sounds Female genitourinary: Present: normal - Integumentary Integumentary: Present: clear, warm, dry - Musculoskeletal Musculoskeletal: gait normal, strength equal bilaterally - Psychiatric Psychiatric: appropriate mood/affect, intact judgment & insight - Neurologic Neurologic: CNII-XII intact, moves all extremities Plan Activity: advance as tolerated Weight Bearing Status: Weight Bear as Tolerated Diet: regular Special Instructions: home health RN Durable Medical Equipment Needed Upon Discharge: Walker-Rolling Follow up with: HAIDER ANAND MD [Primary Care Provider] - 7 Days RAJIV CABRAL MD [Staff Physician] - 48 Hours
[2019-02-28] MEDS: HYDROmorphone 1 MG/1 ML INJ IV PRN (12:01)
[2019-02-28] MEDS: ONDANSETRON 4 MG/2 ML INJ IV PRN (13:32)
[2019-02-28] MEDS ORDERED: POTASSIUM CHLORIDE ER 20 MEQ TAB PO ONE ×2 (14:53→21:00)
--- NOTE | 2019-02-28 14:55 | Progress Note ---
Assessment and Plan 1. Acute kidney injury: Vasomotor BRITTANY in the setting of hypotension and volume depletion. Renal US showed atrophic R kidney with indeterminate complex lesion. Continue IV fluids. Encouraged PO fluids. Renal function is better. Likely pt is at her baseline renal function. Monitor renal function. Avoid nephrotoxic agents. Meds dosage based on GFR. 2. FEN: Anion-gap metabolic acidosis, improved. Hypernatremia, improved. Replete K. Monitor lytes. 3. Severe anemia: PRBC today. 4. Pancytopenia: Followed by Heme-onc. 5. Hypotension: Improved. 6. Elevated Troponin: Seen by Cards. 7. Newly diagnosed DM. Care plan discussed. Examination: General appearance: well-developed, well-nourished, appears stated age, obese, no distress, pallor HEENT: ATNC, CHANEL, vision intact, hearing diminished Neck: neck supple, trachea midline Respiratory: Clear to Ascultation Heart: regular, S1S2, no murmurs Gastrointestinal: soft, normoactive bowel sounds, obese, not tender Integumentary: no rash, warm and dry Neurologic: hard of hearing, no asterixis Ext: no edema Psychiatric: cooperative Subjective Date of service: 02/28/19 Principal diagnosis: low PLT Interval history: Patient was seen and examined at the bedside. Doing ok. Objective - Vital Signs Vital signs: Vital Signs - 12hr 02/28/19 02/28/19 02/28/19 08:08 14:06 14:07 Temperature 98.8 F 98.5 F Pulse Rate 64 64 65 Respiratory 18 20 20 Rate Blood Pressure 128/63 147/55 147/57 O2 Sat by Pulse 98 96 96 Oximetry 02/28/19 14:24 Temperature 98.5 F Pulse Rate 61 Respiratory Rate Blood Pressure 160/83 O2 Sat by Pulse 97 Oximetry - Lab 02/28/19 08:00 02/28/19 08:00 Most recent lab results Calcium 8.4 mg/dL (8.4-10.2) 02/28/19 08:00 Phosphorus 3.70 mg/dL (2.5-4.5) 02/22/19 11:30 Magnesium 2.40 mg/dL (1.7-2.3) H 02/22/19 11:30 Urine Creatinine 99.0 mg/dL (0.1-20.0) H 02/21/19 Unknown Urine Sodium 46 mmol/L 02/21/19 Unknown Medications & Allergies - Medications Allergies/Adverse Reactions: Allergies No Known Allergies Allergy (Unverified 02/20/19 16:06) Home Medications: Home Medications Medication Instructions Recorded Confirmed Last Taken Type No Known Home Medications [No 02/20/19 02/20/19 Unknown History Reported Home Medications] Active Medications: Generic Name Dose Route Start Last Admin Trade Name Freq PRN Reason Stop Dose Admin Acetaminophen 650 mg 02/20/19 19:04 02/28/19 06:41 Tylenol PO 650 mg Q4H PRN Administration Pain MILD(1-3)/Fever >100.5/VENCES Cyanocobalamin 1,000 mcg 02/25/19 10:00 02/27/19 09:36 Vitamin B-12 SUB-Q 03/01/19 09:59 1,000 mcg DAILY CARIN Administration Folic Acid 1 mg 02/25/19 10:00 02/28/19 10:06 Folvite PO 1 mg QDAY CARIN Administration Hydromorphone HCl 0.5 mg 02/20/19 19:04 02/28/19 12:01 Dilaudid IV 0.5 mg Q3H PRN Administration Pain , Severe (7-10) Sodium Bicarbonate 75 meq/ 1,075 mls @ 100 mls/hr 02/21/19 17:00 02/28/19 10:04 Sterile Water IV 100 mls/hr DIRECT CARIN Administration Levofloxacin/Dextrose 500 mg in 100 mls @ 100 mls/hr 02/25/19 10:00 02/28/19 10:03 Levaquin 500mg/100ml IV 100 mls/hr Q24HR CARIN Administration Protocol Ondansetron HCl 4 mg 02/20/19 19:04 02/28/19 13:32 Zofran IV 4 mg Q8H PRN Administration Nausea And Vomiting Oxycodone/Acetaminophen 1 tab 02/20/19 19:04 02/28/19 10:05 Percocet 5/325 PO 1 tab Q6H PRN Administration Pain, Moderate (4-6) Pantoprazole Sodium 40 mg 02/28/19 22:00 Protonix PO BID CARIN Sodium Chloride 10 ml 02/20/19 22:00 02/28/19 10:07 Sodium Chloride Flush Syringe 10 Ml IV 10 ml BID CARIN Administration Sodium Chloride 10 ml 02/20/19 19:04 Sodium Chloride Flush Syringe 10 Ml IV PRN PRN LINE FLUSH
[2019-02-28 18:10] VITALS: BP 154/88
[2019-02-28 20:27] LABS: Hematocrit 26.8 % (30.3-42.9); Hemoglobin 9.1 gm/dl (10.1-14.3)
[2019-02-28] MEDS ORDERED: PANTOPRAZOLE 40 MG TAB PO SCH (22:00)
== END 2019-02-28 20:40 | disposition home health service (06) | DRG 808 ==
LOC: ED 15:17 → 2B-ACE 17:45 → INTOOBSV 17:45 → OBSVTOIN 02-22 08:06
PROVIDERS: ADMIT Internal Medicine; ATTEND Hospitalist
PROC: 30233N1 Transfusion of Nonautologous Red Blood Cells into Peripheral Vein, Percutaneous Approach (ICD-10-PCS; 2019-02-20)
PROC: 3E0234Z Introduction of Serum, Toxoid and Vaccine into Muscle, Percutaneous Approach (ICD-10-PCS; 2019-02-21)
PROC: 30233R1 Transfusion of Nonautologous Platelets into Peripheral Vein, Percutaneous Approach (ICD-10-PCS; 2019-02-21)
PROC: 07DR3ZX Extraction of Iliac Bone Marrow, Percutaneous Approach, Diagnostic (ICD-10-PCS; principal; 2019-02-25)
PROC: 079T3ZX Drainage of Bone Marrow, Percutaneous Approach, Diagnostic (ICD-10-PCS; 2019-02-25)
DX: D61.818 Other pancytopenia (principal); N17.0 Acute kidney failure with tubular necrosis; E87.2 Acidosis; E87.0 Hyperosmolality and hypernatremia; N39.0 Urinary tract infection, site not specified; I44.2 Atrioventricular block, complete; I95.9 Hypotension, unspecified; D72.819 Decreased white blood cell count, unspecified; D69.6 Thrombocytopenia, unspecified; K76.0 Fatty (change of) liver, not elsewhere classified; E66.9 Obesity, unspecified; R79.89 Other specified abnormal findings of blood chemistry; R01.1 Cardiac murmur, unspecified; I12.9 Hypertensive chronic kidney disease with stage 1 through stage 4 chronic kidney disease, or unspecified chronic kidney disease; N18.9 Chronic kidney disease, unspecified; E11.22 Type 2 diabetes mellitus with diabetic chronic kidney disease; E87.6 Hypokalemia; M19.90 Unspecified osteoarthritis, unspecified site; E86.9 Volume depletion, unspecified; H66.91 Otitis media, unspecified, right ear; Z23 Encounter for immunization; Z90.710 Acquired absence of both cervix and uterus; Z68.35 Body mass index [BMI] 35.0-35.9, adult; Z79.899 Other long term (current) drug therapy; Z82.49 Family history of ischemic heart disease and other diseases of the circulatory system
CPT/HCPCS: 36415; 38221; 71045; 76700; 76770; 77012; 80048; 80053; 80061; 81001; 82140; 82270; 82550; 82570; 82607; 82728; 82747; 82962; 83036; 83550; 83615; 83735; 83880; 83970; 84100; 84300; 84439; 84443; 84484; 85007; 85014; 85018; 85025; 85027; 85045; 85049; 85097; 85610; 85730; 86850; 86900; 86901; 86920; 87040; 87045; 87086; 87493; 88161; 88184; 88185; 88230; 88291; 88305; 88311; 88313; 89050; 90471; 90686; 90732; 93005; 93010; 93306; 96360; 96374; 96375; G0378; C9113; G0008; G0009; J1170; J1200; J1956; J2405; J3420; J7030; J7040; P9016; P9035

== ENCOUNTER 2019-04-29 18:10 | Inpatient (IN) | payer MEDICARE ==
--- NOTE | 2019-04-29 18:46 | Emergency Department Report ---
- General Chief complaint: Extremity Problem,Nontraumatic Stated complaint: N/V RT SIDE SWELLING Time Seen by Provider: 04/29/19 18:39 Source: patient, family, EMS Mode of arrival: Stretcher Limitations: No Limitations - History of Present Illness Initial comments: Patient is a 73-year-old female that presents emergency room with complaints of right-sided swelling, nausea vomiting, weakness and difficulties with walking. Patient states that her nausea and vomiting started 30 minutes prior to arrival and happen 1 time. Patient states she believes she got nervous once the amb ulance arrived. Patient states that her right-sided swelling started a week ago and is worsening. Patient states that her weakness and difficulties ambulating started 2 weeks ago. Patient states she is now so weak that she has to use a wheelchair for anything. Patient states that she is also having right-sided arm and leg pain. Patient states the leg pain is a 4 out of 10. Patient states the pain is worsening. Patient states the pain is better with rest and worse with movement. Patient denies chest pain or shortness of breath. Patient denies fever chills. Patient denies headache. Patient denies blurry vision. Patient that she has a history of anemia. History is per patient and the patient's daughter. MD Complaint: focal weakness, lack of energy, difficulty walking -: Gradual, week(s) Location: RUE, R hand, RLE Severity: severe Severity scale (0 -10): 4 Consistency: constant Improves with: rest Worsens with: movement Associated Symptoms: nausea/vomiting, myalgias. denies: chest pain, confusion, dark stools, diaphoresis, dysuria, easy bruising, fever/chills, headaches, loss of appetite, rash, shortness of breath, syncope - Related Data Home Medications Medication Instructions Recorded Confirmed Last Taken No Known Home Medications [No 02/20/19 02/20/19 Unknown Reported Home Medications] Allergies Allergy/AdvReac Type Severity Reaction Status Date / Time No Known Allergies Allergy Unverified 02/20/19 16:06 ED Review of Systems ROS: Stated complaint: N/V RT SIDE SWELLING Other details as noted in HPI Constitutional: weakness. denies: chills, fever Eyes: denies: eye pain, eye discharge, vision change ENT: denies: ear pain, throat pain Respiratory: denies: cough, shortness of breath, wheezing Cardiovascular: denies: chest pain, palpitations Endocrine: no symptoms reported Gastrointestinal: nausea, vomiting. denies: abdominal pain, diarrhea Genitourinary: denies: urgency, dysuria, discharge Musculoskeletal: joint swelling, arthralgia, myalgia. denies: back pain Skin: denies: rash, lesions Neurological: weakness, abnormal gait. denies: headache, paresthesias Psychiatric: denies: anxiety, depression Hematological/Lymphatic: denies: easy bleeding, easy bruising ED Past Medical Hx - Past Medical History Previous Medical History?: Yes Hx Hypertension: Yes Hx Arthritis: Yes Additional medical history: anemia,. gout? oa - Surgical History Past Surgical History?: Yes Additional Surgical History: Abdominal - Family History Family history: no significant - Social History Smoking Status: Never Smoker Substance Use Type: None - Medications Home Medications: Home Medications Medication Instructions Recorded Confirmed Last Taken Type No Known Home Medications [No 02/20/19 02/20/19 Unknown History Reported Home Medications] ED Physical Exam - General Limitations: No Limitations General appearance: alert, in no apparent distress - Head Head exam: Present: atraumatic, normocephalic - Eye Eye exam: Present: normal appearance, PERRL Pupils: Present: normal accommodation - ENT ENT exam: Present: mucous membranes moist - Neck Neck exam: Present: normal inspection - Respiratory Respiratory exam: Present: normal lung sounds bilaterally. Absent: respiratory distress - Cardiovascular Cardiovascular Exam: Present: regular rate, normal rhythm. Absent: systolic murmur, diastolic murmur, rubs, gallop - GI/Abdominal GI/Abdominal exam: Present: soft, normal bowel sounds. Absent: distended, tenderness, guarding - Rectal Rectal exam: Present: deferred - Extremities Exam Extremities exam: Present: normal inspection (Except swelling to the right upper and lower extremity.), tenderness (To the right upper and lower extremity.), normal capillary refill, pedal edema. Absent: full ROM, calf tenderness - Back Exam Back exam: Present: normal inspection - Neurological Exam Neurological exam: Present: alert, oriented X3 - Psychiatric Psychiatric exam: Present: normal affect, normal mood - Skin Skin exam: Present: warm, dry, intact, normal color. Absent: rash - Assessment Assessment Interval: Baseline - Level of Consciousness 1a. Level of Consciousness: alert/keenly responsive - LOC Questions 1b. LOC Questions: answers both correctly - LOC Command 1c. LOC Commands: performs tasks correctly - Best Gaze 2. Best Gaze: normal - Visual 3. Visual: no visual loss - Facial Palsy 4. Facial Palsy: normal symmetrical movement - Motor Arm 5a. Motor Arm Left: some gravity effort 5b. Motor Arm Right: some gravity effort - Motor Leg 6a. Motor Leg Left: some gravity effort 6b. Motor Leg Right: no gravity effort - Limb Ataxia 7. Limb Ataxia: absent - Sensory 8. Sensory: normal - Best Language 9. Best Language: no aphasia - Dysarthria 10. Dysarthria: normal - Extinction and Inattention 11. Extinction/Inattention: no abnormality - Scoring Total Score: 9 Stroke Severity: Moderate Stroke ED Course Vital Signs 04/29/19 04/29/19 04/29/19 18:24 18:29 20:58 Temperature 98.5 F 98.5 F Pulse Rate 76 96 H 93 H Respiratory 16 17 18 Rate Blood Pressure 177/76 Blood Pressure 175/97 165/72 [Left] O2 Sat by Pulse 95 96 97 Oximetry - Reevaluation(s) Reevaluation #1: I discussed all results with patient. I discussed plan of care with patient. Patient agrees with plan of care and admission. Patient to be admitted to the hospitalist service. 04/29/19 20:28 - Consultations Consultation #1: Hospitalist consulted for admission. Hospitalist to admit patient. Bridge orders placed. 04/29/19 20:28 ED Medical Decision Making - Lab Data Result diagrams: 04/29/19 18:57 04/29/19 18:57 - EKG Data -: EKG Interpreted by [facility] EKG shows normal: sinus rhythm, axis, intervals, QRS complexes, ST-T waves Rate: normal - Radiology Data Radiology results: report reviewed, image reviewed CT HEAD WITHOUT CONTRAST INDICATION / CLINICAL INFORMATION: Weakness. TECHNIQUE: All CT scans at this location are performed using CT dose reduction for ALARA by means of automated exposure control. COMPARISON: None available. FINDINGS: HEMORRHAGE: No evidence of intracranial hemorrhage or extra-axial fluid collection. EXTRA-AXIAL SPACES: Cortical sulci and sylvian fissures are enlarged reflecting a degree of parenchymal volume loss which is within normal limits for the patient's age. Basilar cisterns have an unremarkable appearance. VENTRICULAR SYSTEM: The third and lateral ventricles are enlarged reflecting resonance of age related parenchymal volume loss. CEREBRAL PARENCHYMA: Periventricular and deep white matter lucency is observed. This is probably secondary to microvascular ischemic change. There is no indication of recent infarction. No areas of encephalomalacia are identified. MIDLINE SHIFT OR HERNIATION: There is no mass effect. CEREBELLUM / BRAINSTEM: Brainstem and cerebellum have an unremarkable appearance. INTRACRANIAL VESSELS:Calcified atherosclerotic plaque is present along the course of the cavernous segments of both internal carotid arteries. Similar findings are seen at the distal vertebral arteries. ORBITS: visualized portions of the orbits have an unremarkable appearance. SOFT TISSUES of HEAD: No significant abnormality. CALVARIUM: Evaluation of bone windows reveals no abnormalities. PARANASAL SINUSES / MASTOID AIR CELLS: Opacification of right-sided mastoid air cells is noted. Subtotal opacification of the right middle ear cavity is also noted. These findings suggest the presence of mastoiditis and otitis media. The left mastoid air cells are clear. Paranasal sinuses are free from inflammatory mucosal disease.. ADDITIONAL FINDINGS: None. IMPRESSION: 1. Age-related involutional changes. 2. No acute intracranial abnormality. 3. Evidence of right-sided mastoiditis and otitis media. CHEST 1 VIEW 04/29/2019 6:53 PM INDICATION / CLINICAL INFORMATION: Weakness. COMPARISON: 02/20/19 FINDINGS: SUPPORT DEVICES: None. HEART / MEDIASTINUM: Heart is mildly enlarged but stable. LUNGS / PLEURA: No significant pulmonary or pleural abnormality. No pneumothorax. ADDITIONAL FINDINGS: No significant additional findings. IMPRESSION: 1. No acute findings. No change. - Medical Decision Making Patient is a 73-year-old female that presents emergency room for multiple complaints. Patient complains of right lower extremity swelling and pain, right upper extremity swelling, nausea vomiting, weakness and gait disturbance. Patient's labs are unremarkable except for elevated troponin and anemia. Patient head CT done shows no acute findings. Patient chest x-ray is negative for acute findings. EKG is negative for acute findings. Patient's UA positive for a infection. Patient given antibiotics. - Differential Diagnosis weakness. poor gait. anemia. uti Critical Care Time: Yes Critical care time in (mins) excluding proc time.: 45 Critical care attestation.: If time is entered above; I have spent that time in minutes in the direct care of this critically ill patient, excluding procedure time. Critical Care Time: 45 minutes ED Disposition Clinical Impression: Weakness generalized, Acute anemia, Elevated troponin, Thrombocytopenia, Gait disturbance, Right leg swelling, Swelling of right upper extremity, Hypokalemia Leg pain Qualifiers: Laterality: right Qualified Code(s): M79.604 - Pain in right leg UTI (urinary tract infection) Qualifiers: Urinary tract infection type: acute cystitis Hematuria presence: with hematuria Qualified Code(s): N30.01 - Acute cystitis with hematuria Disposition: OP ADMIT IP TO THIS HOSP Is pt being admited?: Yes Does the pt Need Aspirin: No Condition: Critical Time of Disposition: 21:57
[2019-04-29 19:17] LABS: Hematocrit 24.6 % (30.3-42.9); Hemoglobin 7.5 gm/dl (10.1-14.3); Mean Corpuscular HGB Conc 30 % (30-34); Mean Corpuscular Volume 77 fl (79-97); Platelet Count 590 K/mm3 (140-440); Red Blood Count 3.17 M/mm3 (3.65-5.03)
[2019-04-29 19:19] LABS: Red Cell Distribution Width 25.4 % (13.2-15.2)
--- NOTE | 2019-04-29 19:20 | XRay Report ---
CHEST 1 VIEW 04/29/2019 6:53 PM INDICATION / CLINICAL INFORMATION: Weakness. COMPARISON: 02/20/19 FINDINGS: SUPPORT DEVICES: None. HEART / MEDIASTINUM: Heart is mildly enlarged but stable. LUNGS / PLEURA: No significant pulmonary or pleural abnormality. No pneumothorax. ADDITIONAL FINDINGS: No significant additional findings. IMPRESSION: 1. No acute findings. No change. Signer Name: Violeta Ochoa MD Signed: 04/29/2019 7:16 PM Workstation Name: [id number]
[2019-04-29 19:34] LABS: Alanine Aminotransferase 9 units/L (7-56); Albumin 3.1 g/dL (3.9-5); BUN/Creatinine Ratio 16; Blood Urea Nitrogen 14 mg/dL (7-17); Calcium 8.4 mg/dL (8.4-10.2); Hemolysis Index 4
[2019-04-29 19:54] LABS: INR 1.11 (0.87-1.13)
[2019-04-29 19:56] LABS: Partial Thromboplastin Time 38.1 Sec. (24.2-36.6)
[2019-04-29 19:58] LABS: Thrombin Time 16.1 Sec. (15.1-19.6)
[2019-04-29 19:58] LABS: Chol/HDL Ratio 4.42 %; HDL Cholesterol 42 mg/dL (40-59); LDL Cholesterol,Direct 117 mg/dL (50-130)
--- NOTE | 2019-04-29 19:59 | Cat Scan Report ---
CT HEAD WITHOUT CONTRAST INDICATION / CLINICAL INFORMATION: Weakness. TECHNIQUE: All CT scans at this location are performed using CT dose reduction for ALARA by means of automated e xposure control. COMPARISON: None available. FINDINGS: HEMORRHAGE: No evidence of intracranial hemorrhage or extra-axial fluid collection. EXTRA-AXIAL SPACES: Cortical sulci and sylvian fissures are enlarged reflecting a degree of parenchym al volume loss which is within normal limits for the patient's age. Basilar cisterns have an unremark able appearance. VENTRICULAR SYSTEM: The third and lateral ventricles are enlarged reflecting resonance of age related parenchymal volume loss. CEREBRAL PARENCHYMA: Periventricular and deep white matter lucency is observed. This is probably seco ndary to microvascular ischemic change. There is no indication of recent infarction. No areas of ence phalomalacia are identified. MIDLINE SHIFT OR HERNIATION: There is no mass effect. CEREBELLUM / BRAINSTEM: Brainstem and cerebellum have an unremarkable appearance. INTRACRANIAL VESSELS:Calcified atherosclerotic plaque is present along the course of the cavernous se gments of both internal carotid arteries. Similar findings are seen at the distal vertebral arteries. ORBITS: visualized portions of the orbits have an unremarkable appearance. SOFT TISSUES of HEAD: No significant abnormality. CALVARIUM: Evaluation of bone windows reveals no abnormalities. PARANASAL SINUSES / MASTOID AIR CELLS: Opacification of right-sided mastoid air cells is noted. Subto derian opacification of the right middle ear cavity is also noted. These findings suggest the presence o f mastoiditis and otitis media. The left mastoid air cells are clear. Paranasal sinuses are free from inflammatory mucosal disease.. ADDITIONAL FINDINGS: None. IMPRESSION: 1. Age-related involutional changes. 2. No acute intracranial abnormality. 3. Evidence of right-sided mastoiditis and otitis media. Signer Name: Homer Hyde MD Signed: 04/29/2019 7:54 PM Workstation Name: [id number]
[2019-04-29 20:00] LABS: Creatine Kinase MB 1.5 ng/mL (0.0-4.0)
[2019-04-29 20:15] LABS: Total Cells Counted 100
[2019-04-29 20:16] LABS: Anisocytosis 2+; Eosinophils % (Manual) 0 % (0.0-4.3); Hypochromasia 1+; Macrocytosis 1+
[2019-04-29 20:17] LABS: Schistocytes Rare
[2019-04-29 20:19] LABS: Ovalocytes Few; Platelet Estimate Consistent w Auto
[2019-04-29 21:12] LABS: Bacteria,Urine 2+ /HPF (Negative); Bilirubin,Urine NEG (Negative); Blood,Urine MOD (Negative); Color,Urine Yellow (Yellow); Mucus,Urine FEW /HPF
[2019-04-29] MEDS ORDERED: CEFEPIME/NS 2 GM/100 ML 2 GM/100 ML BAG IV ONE (22:00)
[2019-04-29] MEDS ORDERED: HYDROmorphone 1 MG/1 ML INJ IV ONE (22:14)
[2019-04-29] MEDS ORDERED: HYDROmorphone 1 MG/1 ML INJ ONE (22:17)
[2019-04-29] MEDS ORDERED: ONDANSETRON 4 MG/2 ML INJ IV PRN (22:34)
[2019-04-29] MEDS ORDERED: oxyCODONE /ACETAMINOPHEN 5-325MG TAB PO PRN (22:34)
--- NOTE | 2019-04-29 22:37 | History and Physical Report ---
History of Present Illness History of present illness: 73-year-old woman with a history of hypertension, arthritis comes emergency room complaining of weakness x2 weeks. Patient states she has had right knee pain and swelling over the last 2 weeks, she is having difficulty ambulating. Also her right arm is become swollen. Patient was admitted 2 weeks ago at that time for generalized weakness, she was found to have pancytopenia, she was transfused platelets and packed red blood cells. Bone marrow biopsy was done, she has follow-up with Dr. Hatch but the results of the bone marrow biopsy are unknown. Patient will be admitted for right knee pain and swelling, right arm swelling and anemia Review Of Systems: Constitutional: no weight loss, fever, chills Ears, eyes, nose, mouth and throat: no nasal congestion, no nasal discharge, no sinus pressure, blurry vision, diplopia Neck: No neck pain or rigidity. Cardiovascular: No palpitations, chest pain Respiratory: No shortness of breath, cough Gastrointestinal: No hematochezia Genitourinary : no dysuria, frequency Musculoskeletal: no muscle ache , joint pain Integumentary: no rash, no pruritis Neurological: no parathesias, focal weakness Endocrine: no cold or heat intolerance, no polyuria or polydipsia Hematologic/Lymphatic: no easy bruising, no easy bleeding, no gland swelling Allergic/Immunologic: no urticaria, no angioedema. PAST MEDICAL HISTORY: hypertension, arthritis PAST SURGICAL HISTORY: Hysterectomy SOCIAL HISTORY: Denies alcohol, tobacco, drugs FAMILY HISTORY: Hypertension Medications and Allergies Allergies Allergy/AdvReac Type Severity Reaction Status Date / Time No Known Allergies Allergy Unverified 02/20/19 16:06 Home Medications Medication Instructions Recorded Confirmed Last Taken Type No Known Home Medications [No 02/20/19 02/20/19 Unknown History Reported Home Medications] Active Meds: Active Medications Acetaminophen (Tylenol) 650 mg PO Q4H PRN PRN Reason: Pain MILD(1-3)/Fever >100.5/VENCES Sodium Chloride (Nacl 0.45% 1000 Ml) 1,000 mls @ 75 mls/hr IV DIRECT CARIN Ceftriaxone Sodium (Rocephin/Ns 1 Gm/50 Ml) 1 gm in 50 mls @ 100 mls/hr IV Q24HR CARIN; Protocol Ondansetron HCl (Zofran) 4 mg IV Q4H PRN PRN Reason: Nausea And Vomiting Oxycodone/Acetaminophen (Percocet 5/325) 1 tab PO Q6H PRN PRN Reason: Pain, Moderate (4-6) Sodium Chloride (Sodium Chloride Flush Syringe 10 Ml) 10 ml IV BID CARIN Sodium Chloride (Sodium Chloride Flush Syringe 10 Ml) 10 ml IV PRN PRN PRN Reason: LINE FLUSH Exam - Physical Exam Narrative exam: Gen. appearance: Patient lying in bed, no apparent distress HEENT: Normocephalic, atraumatic, pupils equally round and reactive to light, extraocular movement intact, and no sclericterus,. No JVD or thyromegaly or nodule,neck supple, no carotid bruit ,mucous membranes moist, no exudate or erythema Heart: S1, S2, regular rate and rhythm Lungs: Clear s bilaterally, breathing comfortable Abdomen: Positive bowel sounds, nontender, nondistended, no organomegaly Extremity: Swelling of the right upper extremity, right knee , no edema, cyanosis, clubbing Skin: No rash, nodules, warm, dry Neuro: speech is fluent, moves extremities, sensory intact - Constitutional Vitals: Temp Pulse Resp BP Pulse Ox 98.5 F 93 H 18 165/72 97 04/29/19 20:58 04/29/19 20:58 04/29/19 20:58 04/29/19 20:58 04/29/19 20:58 Results - Labs CBC & Chem 7: 04/29/19 18:57 04/29/19 18:57 Labs: Abnormal lab results 04/29/19 04/29/19 04/29/19 Range/Units 18:57 18:57 19:35 RBC 3.17 L (3.65-5.03) M/mm3 Hgb 7.5 L (10.1-14.3) gm/dl Hct 24.6 L (30.3-42.9) % MCV 77 L (79-97) fl MCH 24 L (28-32) pg RDW 25.4 H (13.2-15.2) % Plt Count 590 H (140-440) K/mm3 Seg Neuts % (Manual) 94.0 H (40.0-70.0) % Lymphocytes % (Manual) 3.0 L (13.4-35.0) % Seg Neutrophils # Man 8.3 H (1.8-7.7) K/mm3 Lymphocytes # (Manual) 0.3 L (1.2-5.4) K/mm3 APTT 38.1 H (24.2-36.6) Sec. Potassium 3.2 L (3.6-5.0) mmol/L Glucose 150 H (65-100) mg/dL Troponin T 0.033 H (0.00-0.029) ng/mL Albumin 3.1 L (3.9-5) g/dL Urine WBC (Auto) (0.0-6.0) /HPF 04/29/19 Range/Units 20:56 RBC (3.65-5.03) M/mm3 Hgb (10.1-14.3) gm/dl Hct (30.3-42.9) % MCV (79-97) fl MCH (28-32) pg RDW (13.2-15.2) % Plt Count (140-440) K/mm3 Seg Neuts % (Manual) (40.0-70.0) % Lymphocytes % (Manual) (13.4-35.0) % Seg Neutrophils # Man (1.8-7.7) K/mm3 Lymphocytes # (Manual) (1.2-5.4) K/mm3 APTT (24.2-36.6) Sec. Potassium (3.6-5.0) mmol/L Glucose (65-100) mg/dL Troponin T (0.00-0.029) ng/mL Albumin (3.9-5) g/dL Urine WBC (Auto) 9.0 H (0.0-6.0) /HPF - Imaging and Cardiology Chest x-ray: report reviewed CT Scan - head: report reviewed Assessment and Plan Assessment Right knee pain most likely secondary to effusion Check x-ray, consult orthopedic Right arm swelling Check CT chest Anemia Chronic, unknown etiology, bone marrow biopsy pending Transfuse if drops below [address] Hatch UTI, start IV Rocephin, follow cultures Hypertension Continue outpatient medications Hold off on chemical prophylactics since the patient was just transfused platelets DVT prophylaxis
[2019-04-29] MEDS ORDERED: SODIUM CHLORIDE 0.45% 1000 ML 1,000 ML IV SCH (23:00)
--- NOTE | 2019-04-29 23:00 | XRay Report ---
RIGHT KNEE 2 VIEW(S) INDICATION / CLINICAL INFORMATION: SWELLING AND PAIN COMPARISON: None available. FINDINGS: BONES / JOINT(S): No acute fracture or subluxation. Moderate degenerative arthrosis of the right knee . Moderate right knee joint effusion. SOFT TISSUES: Mild circumferential soft tissue swelling. ADDITIONAL FINDINGS: None. Signer Name: Violeta Ochoa MD Signed: 04/29/2019 10:56 PM Workstation Name: [id number]
--- NOTE | 2019-04-29 23:40 | Cat Scan Report ---
CT CHEST WITH IV CONTRAST INDICATION: swelling of right ARM. COMPARISON: None available. TECHNIQUE: All CT scans at this location are performed using CT dose reduction for ALARA by means of automated e xposure control. Axial CT images were obtained through the chest after IV contrast. FINDINGS: Upper Abdomen: No acute abnormality. Cholelithiasis is noted. Skeletal System: No acute abnormality. Chest: Great Vessels: No acute abnormality. Heart: Mild cardiomegaly. Small pericardial effusion. Mediastinum & Lou: No significant abnormality. Lungs: No acute air space or interstitial disease. There is mild atelectasis in the lung bases, grea ter on the left. Pleura: No significant pleural effusion. No pneumothorax. Additional Findings: Right subclavian vein and SVC are unremarkable. IMPRESSION: 1. Cardiomegaly with small pericardial effusion. 2. Bibasilar atelectasis, greater on the left. Lungs are otherwise clear. Signer Name: Israel Kramer MD Signed: 04/29/2019 11:35 PM Workstation Name: [id number]
[2019-04-30 05:10] LABS: Basophils # (Auto) 0.1 K/mm3 (0.0-0.1); Basophils % (Auto) 0.8 % (0.0-1.8); Eosinophils # (Auto) 0.1 K/mm3 (0.0-0.4); Eosinophils % (Auto) 1.3 % (0.0-4.3); Hematocrit 22.2 % (30.3-42.9); Hemoglobin 6.6 gm/dl (10.1-14.3); Lymphocytes % (Auto) 15.1 % (13.4-35.0); Mean Corpuscular HGB Conc 30 % (30-34); Mean Corpuscular Volume 78 fl (79-97); Monocytes # (Auto) 0.6 K/mm3 (0.0-0.8); Monocytes % (Auto) 8.6 % (0.0-7.3); Platelet Count 530 K/mm3 (140-440); Red Blood Count 2.85 M/mm3 (3.65-5.03)
[2019-04-30 05:29] LABS: Red Cell Distribution Width 24.9 % (13.2-15.2)
[2019-04-30 05:32] LABS: BUN/Creatinine Ratio 16; Blood Urea Nitrogen 16 mg/dL (7-17); Calcium 8.3 mg/dL (8.4-10.2); Hemolysis Index 0
--- NOTE | 2019-04-30 07:26 | Hem/Onc Consultation ---
History of Present Illness - Reason for Consult Consult date: 04/30/19 anemia Requesting physician: ASAEL JORDAN - History of Present Illness 73-year-old woman with a history of hypertension, arthritis comes emergency room complaining of weakness x2 weeks. Patient states she has had right knee pain and swelling over the last 2 weeks, she is having difficulty ambulating. Also her right arm is become swollen. Patient was admitted in jan 2019 she was found to have pancytopenia, she was transfused platelets and packed red blood cells. Bone marrow biopsy was done at [facility] B12 and folate def was found pts family member is a RN - and she wanted to give b12 inj at home Past History Past Medical History: anemia, arthritis, hypertension, other (b12 and folate def) Past Surgical History: hysterectomy Social history: denies: smoking, alcohol abuse Family history: hypertension Medications and Allergies Allergies Allergy/AdvReac Type Severity Reaction Status Date / Time No Known Allergies Allergy Unverified 02/20/19 16:06 Home Medications Medication Instructions Recorded Confirmed Last Taken Type Diclofenac 1% [Diclofenac 1% 20 mg PO BID 04/30/19 04/30/19 04/29/19 History topical gel] Furosemide [Lasix TAB] 20 mg PO BID 04/30/19 04/30/19 04/29/19 History Mecobalamin [B12 Active] 1,000 mcg PO DAILY 04/30/19 04/30/19 04/29/19 History Pot Chloride/Brandon Phos/Mag 20 meq PO DAILY 04/30/19 04/30/19 04/29/19 History allopurinoL [Zyloprim] 100 mg PO QDAY 04/30/19 04/30/19 04/29/19 History lisinopriL [Zestril TAB] 40 mg PO QDAY 04/30/19 04/30/19 04/29/19 History traMADoL [Ultram 50 MG tab] 50 mg PO HS PRN 04/30/19 04/30/19 04/29/19 History Active Meds: Active Medications Acetaminophen (Tylenol) 650 mg PO Q4H PRN PRN Reason: Pain MILD(1-3)/Fever >100.5/VENCES Sodium Chloride (Nacl 0.45% 1000 Ml) 1,000 mls @ 75 mls/hr IV DIRECT CARIN Last Admin: 04/30/19 00:55 Dose: 75 mls/hr Documented by: Ceftriaxone Sodium (Rocephin/Ns 1 Gm/50 Ml) 1 gm in 50 mls @ 100 mls/hr IV Q24HR CARIN; Protocol Ondansetron HCl (Zofran) 4 mg IV Q4H PRN PRN Reason: Nausea And Vomiting Oxycodone/Acetaminophen (Percocet 5/325) 1 tab PO Q6H PRN PRN Reason: Pain, Moderate (4-6) Last Admin: 04/30/19 00:54 Dose: 1 tab Documented by: Sodium Chloride (Sodium Chloride Flush Syringe 10 Ml) 10 ml IV BID CARIN Sodium Chloride (Sodium Chloride Flush Syringe 10 Ml) 10 ml IV PRN PRN PRN Reason: LINE FLUSH Review of Systems Constitutional: weakness, no weight loss, no fever Ears, nose, mouth and throat: no ear pain, no epistaxis Cardiovascular: no chest pain Respiratory: no cough Gastrointestinal: no abdominal pain Genitourinary Female: no menorrhagia Neurological: no seizures, no syncope Exam - Exam Narrative Exam: Vitals were reviewed. No pallor No icterus No neck lymph nodes Heart S1-S2 present Lungs clear to auscultation anteriorly Abdomen soft Leg no edema Female genitalia not examined - Constitutional Vitals: Last Vital Signs Temp 98.0 F 04/30/19 02:14 Pulse 87 04/30/19 02:14 Resp 18 04/30/19 02:14 BP 150/75 04/30/19 02:14 Pulse Ox 95 04/30/19 02:14 Results - Labs lab Results: Laboratory Results - last 24 hr 04/29/19 04/29/19 04/29/19 18:57 18:57 19:35 WBC 8.8 RBC 3.17 L Hgb 7.5 L Hct 24.6 L MCV 77 L MCH 24 L MCHC 30 RDW 25.4 H Plt Count 590 H Lymph % (Auto) [place] % (Auto) Eos % (Auto) Baso % (Auto) Lymph # [place] # Eos # Baso # Add Manual Diff Complete Total Counted 100 Seg Neutrophils % Seg Neuts % (Manual) 94.0 H Band Neutrophils % 0 Lymphocytes % (Manual) 3.0 L Reactive Lymphs % (Man) 0 Monocytes % (Manual) 2.0 Eosinophils % (Manual) 0 Basophils % (Manual) 1.0 Metamyelocytes % 0 Myelocytes % 0 Promyelocytes % 0 Blast Cells % 0 Nucleated RBC % Not Reportable Seg Neutrophils # Seg Neutrophils # Man 8.3 H Band Neutrophils # 0.0 Lymphocytes # (Manual) 0.3 L Abs React Lymphs (Man) 0.0 Monocytes # (Manual) 0.2 Eosinophils # (Manual) 0.0 Basophils # (Manual) 0.1 Metamyelocytes # 0.0 Myelocytes # 0.0 Promyelocytes # 0.0 Blast Cells # 0.0 WBC Morphology Not Reportable Hypersegmented Neuts Not Reportable Hyposegmented Neuts Not Reportable Hypogranular Neuts Not Reportable Smudge Cells Not Reportable Toxic Granulation Not Reportable Toxic Vacuolation Not Reportable Dohle Bodies Not Reportable Pelger-Huet Anomaly Not Reportable Alessia Rods Not Reportable Platelet Estimate Consistent w auto Clumped Platelets Not Reportable Plt Clumps, EDTA Not Reportable Large Platelets Not Reportable Giant Platelets Not Reportable Platelet Satelliting Not Reportable Plt Morphology Comment Not Reportable RBC Morphology Not Reportable Dimorphic RBCs Not Reportable Polychromasia Few Hypochromasia 1+ Poikilocytosis Not Reportable Anisocytosis 2+ Microcytosis 1+ Macrocytosis 1+ Spherocytes Not Reportable Pappenheimer Bodies Not Reportable Sickle Cells Not Reportable Target Cells Not Reportable Tear Drop Cells Not Reportable Ovalocytes Few Helmet Cells Not Reportable [place] Bodies Not Reportable [place] Rings Not Reportable [place] Cells Not Reportable Bite Cells Not Reportable Crenated Cell Not Reportable Elliptocytes Not Reportable Acanthocytes (Spur) Not Reportable Rouleaux Not Reportable Hemoglobin C Crystals Not Reportable Schistocytes Rare Malaria parasites Not Reportable [place] Bodies Not Reportable Hem Pathologist Commnt No PT 14.5 INR 1.11 APTT 38.1 H Thrombin Time 16.1 Sodium 142 Potassium 3.2 L Chloride 101.3 Carbon Dioxide 23 Anion Gap 21 BUN 14 Creatinine 0.9 Estimated GFR > 60 BUN/Creatinine Ratio 16 Glucose 150 H Calcium 8.4 Total Bilirubin 0.50 AST 14 ALT 9 Alkaline Phosphatase 94 Total Creatine Kinase 32 CK-MB (CK-2) CK-MB (CK-2) Rel Index Troponin T 0.033 H Total Protein 7.6 Albumin 3.1 L Albumin/Globulin Ratio 0.7 Triglycerides 129 Cholesterol 186 LDL Cholesterol Direct 117 HDL Cholesterol 42 Cholesterol/HDL Ratio 4.42 Urine Color Urine Turbidity Urine pH Ur Specific [place] Urine Protein Urine Glucose (UA) Urine Ketones Urine Blood Urine Nitrite Urine Bilirubin Urine Urobilinogen Ur Leukocyte Esterase Urine WBC (Auto) Urine RBC (Auto) U Epithel Cells (Auto) Urine Bacteria (Auto) Urine Mucus Blood Type Antibody Screen 04/29/19 04/29/19 04/29/19 19:35 19:41 20:56 WBC RBC Hgb Hct MCV MCH MCHC RDW Plt Count Lymph % (Auto) [place] % (Auto) Eos % (Auto) Baso % (Auto) Lymph # [place] # Eos # Baso # Add Manual Diff Total Counted Seg Neutrophils % Seg Neuts % (Manual) Band Neutrophils % Lymphocytes % (Manual) Reactive Lymphs % (Man) Monocytes % (Manual) Eosinophils % (Manual) Basophils % (Manual) Metamyelocytes % Myelocytes % Promyelocytes % Blast Cells % Nucleated RBC % Seg Neutrophils # Seg Neutrophils # Man Band Neutrophils # Lymphocytes # (Manual) Abs React Lymphs (Man) Monocytes # (Manual) Eosinophils # (Manual) Basophils # (Manual) Metamyelocytes # Myelocytes # Promyelocytes # Blast Cells # WBC Morphology Hypersegmented Neuts Hyposegmented Neuts Hypogranular Neuts Smudge Cells Toxic Granulation Toxic Vacuolation Dohle Bodies Pelger-Huet Anomaly Alessia Rods Platelet Estimate Clumped Platelets Plt Clumps, EDTA Large Platelets Giant Platelets Platelet Satelliting Plt Morphology Comment RBC Morphology Dimorphic RBCs Polychromasia Hypochromasia Poikilocytosis Anisocytosis Microcytosis Macrocytosis Spherocytes Pappenheimer Bodies Sickle Cells Target Cells Tear Drop Cells Ovalocytes Helmet Cells [place] Bodies [place] Rings [place] Cells Bite Cells Crenated Cell Elliptocytes Acanthocytes (Spur) Rouleaux Hemoglobin C Crystals Schistocytes Malaria parasites [place] Bodies Hem Pathologist Commnt PT INR APTT Thrombin Time Sodium Potassium Chloride Carbon Dioxide Anion Gap BUN Creatinine Estimated GFR BUN/Creatinine Ratio Glucose Calcium Total Bilirubin AST ALT Alkaline Phosphatase Total Creatine Kinase 37 CK-MB (CK-2) 1.5 CK-MB (CK-2) Rel Index 4.0 Troponin T Total Protein Albumin Albumin/Globulin Ratio Triglycerides Cholesterol LDL Cholesterol Direct HDL Cholesterol Cholesterol/HDL Ratio Urine Color Yellow Urine Turbidity Slightly-cloudy Urine pH 5.0 Ur Specific [place] 1.015 Urine Protein 100 mg/dl Urine Glucose (UA) Neg Urine Ketones Neg Urine Blood Mod Urine Nitrite Neg Urine Bilirubin Neg Urine Urobilinogen 2.0 Ur Leukocyte Esterase Sm Urine WBC (Auto) 9.0 H Urine RBC (Auto) 9.0 U Epithel Cells (Auto) 1.0 Urine Bacteria (Auto) 2+ Urine Mucus Few Blood Type AB POSITIVE Antibody Screen Negative 04/30/19 04/30/19 04:48 04:48 WBC 6.9 RBC 2.85 L Hgb 6.6 L Hct 22.2 L MCV 78 L MCH 23 L MCHC 30 RDW 24.9 H Plt Count 530 H Lymph % (Auto) 15.1 [place] % (Auto) 8.6 H Eos % (Auto) 1.3 Baso % (Auto) 0.8 Lymph # 1.0 L [place] # 0.6 Eos # 0.1 Baso # 0.1 Add Manual Diff Total Counted Seg Neutrophils % 74.2 H Seg Neuts % (Manual) Band Neutrophils % Lymphocytes % (Manual) Reactive Lymphs % (Man) Monocytes % (Manual) Eosinophils % (Manual) Basophils % (Manual) Metamyelocytes % Myelocytes % Promyelocytes % Blast Cells % Nucleated RBC % Seg Neutrophils # 5.1 Seg Neutrophils # Man Band Neutrophils # Lymphocytes # (Manual) Abs React Lymphs (Man) Monocytes # (Manual) Eosinophils # (Manual) Basophils # (Manual) Metamyelocytes # Myelocytes # Promyelocytes # Blast Cells # WBC Morphology Hypersegmented Neuts Hyposegmented Neuts Hypogranular Neuts Smudge Cells Toxic Granulation Toxic Vacuolation Dohle Bodies Pelger-Huet Anomaly Alessia Rods Platelet Estimate Clumped Platelets Plt Clumps, EDTA Large Platelets Giant Platelets Platelet Satelliting Plt Morphology Comment RBC Morphology Dimorphic RBCs Polychromasia Hypochromasia Poikilocytosis Anisocytosis Microcytosis Macrocytosis Spherocytes Pappenheimer Bodies Sickle Cells Target Cells Tear Drop Cells Ovalocytes Helmet Cells [place] Bodies [place] Rings [place] Cells Bite Cells Crenated Cell Elliptocytes Acanthocytes (Spur) Rouleaux Hemoglobin C Crystals Schistocytes Malaria parasites Leopoldo Bodies Hem Pathologist Commnt PT INR APTT Thrombin Time Sodium 143 Potassium 3.3 L Chloride 102.5 Carbon Dioxide 25 Anion Gap 19 BUN 16 Creatinine 1.0 Estimated GFR > 60 BUN/Creatinine Ratio 16 Glucose 155 H Calcium 8.3 L Total Bilirubin AST ALT Alkaline Phosphatase Total Creatine Kinase CK-MB (CK-2) CK-MB (CK-2) Rel Index Troponin T Total Protein Albumin Albumin/Globulin Ratio Triglycerides Cholesterol LDL Cholesterol Direct HDL Cholesterol Cholesterol/HDL Ratio Urine Color Urine Turbidity Urine pH Ur Specific [place] Urine Protein Urine Glucose (UA) Urine Ketones Urine Blood Urine Nitrite Urine Bilirubin Urine Urobilinogen Ur Leukocyte Esterase Urine WBC (Auto) Urine RBC (Auto) U Epithel Cells (Auto) Urine Bacteria (Auto) Urine Mucus Blood Type Antibody Screen Assessment and Plan Anemia B12 deficiency - folate def WBC and PLT normal BMBX path report Jan 2019 Bone marrow, Hypercellular bone marrow (60%) with borderline increase in blasts No evidence of significant dysplasia (in hypocellular smears) or lymphoproliferative disorder h/o left wrist pain - says had gout before # Right knee pain most likely secondary to effusion ortho # Right arm swelling s/p CT chest # Hypertension Continue outpatient medications 04/30 - called janice [phone] pt on b12 inj - MVI and oral iron at home will give b12 inj and folaic acid while she is here - Patient Problems (1) Symptomatic anemia Current Visit: No Status: Acute
--- NOTE | 2019-04-30 07:55 | Progress Note ---
Assessment and Plan Assessment and plan: Patient is a 73-year-old woman with a history of hypertension, anemia, pancytopenia, Gout, CKD 3 and OA who presents to [facility] ED with weakness, fatique, right leg swelling and pain with difficulty ambulating. Also her right arm is become swollen. She has been admitted here in the past (01/2019) with similar issues. According to the chart Patient was admitted 2 weeks ago at a different hospital with generalized weakness; she was found to be pancytopenic. She was transfused platelets and packed red blood cells. Bone marrow biopsy was done, she has follow-up with Dr. Cabral but the results of the bone marrow biopsy are unknown. Patient will be admitted for right knee pain and swelling, right arm s welling and anemia * CT chest with contrast IMPRESSION: 1. Cardiomegaly with small pericardial effusion. 2. Bibasilar atelectasis, greater on the left. Lungs are otherwise clear. * XR right knee FINDINGS: BONES / JOINT(S): No acute fracture or subluxation. Moderate degenerative arthrosis of the right knee. Moderate right knee joint effusion. SOFT TISSUES: Mild circumferential soft tissue swelling. ADDITIONAL FINDINGS: None. * CT head without contrast IMPRESSION: 1. Age-related involutional changes. 2. No acute intracranial abnormality. 3. Evidence of right-sided mastoiditis and otitis media. Acute on chronic anemia of chronic disease with drop in H/H: will transfuse 1 unit of PRBC, heme/onc Following Right knee pain most likely secondary to effusion: Ortho consulted Right arm swelling: negative CT chest, continue to monitor UTI, start IV Rocephin, follow cultures Accelerated Hypertension: Continue outpatient medications, recently started Lisinopril Elevated Troponin, history of elevation, slightly higher in 01/2019: repeat levels Hypokalemia: replete and monitor bmp closely Difficulty ambulating: consult PT DVT prophylaxis: scd only due to the anemia transfuse 1 unit of prbc, get FOBT repeat troponin replete k order PT CCT 31 min History Interval history: Patient was seen and examined. Follow-up on current diagnosis of Anemia. Overn ight uneventful as no events directly reported to me. Patient denies any chest pain, shortness breath, nausea/vomiting or severe headaches. Imaging, nursing note, chart, labs and old chart reviewed. Discussed with patient. Hospitalist Physical - Physical exam Narrative exam: Gen: WDWN, NAD, Awake, Alert, Orientated HEENT: NCAT, EOMI, PERRL, OP Clear Neck: supple, no adenopathy, no thyromegaly, no JVD CVS/Heart: RRR, normal S1S2, pulses present bilaterally Chest/Lungs: CTA B, Symmetrical chest expansion, good air entry bilaterally GI/Abdomen: soft, NTND, good bowel sounds, no guarding or rebound /Bladder: no suprapubic tenderness, no CVA or paraspinal tenderness Extermity/Skin: knee swelling on righ MSK: FROM x 4 Neuro: CN 2-12 grossly intact, no new focal deficits Psych: calm - Constitutional Vitals: Temp Pulse Resp BP Pulse Ox 98.0 F 87 18 150/75 95 04/30/19 02:14 04/30/19 02:14 04/30/19 02:14 04/30/19 02:14 04/30/19 02:14 Results - Labs CBC & Chem 7: 04/30/19 04:48 04/30/19 04:48 Labs: Laboratory Last Values WBC 6.9 K/mm3 (4.5-11.0) 04/30/19 04:48 RBC 2.85 M/mm3 (3.65-5.03) L 04/30/19 04:48 Hgb 6.6 gm/dl (10.1-14.3) L 04/30/19 04:48 Hct 22.2 % (30.3-42.9) L 04/30/19 04:48 MCV 78 fl (79-97) L 04/30/19 04:48 MCH 23 pg (28-32) L 04/30/19 04:48 MCHC 30 % (30-34) 04/30/19 04:48 RDW 24.9 % (13.2-15.2) H 04/30/19 04:48 Plt Count 530 K/mm3 (140-440) H 04/30/19 04:48 Lymph % (Auto) 15.1 % (13.4-35.0) 04/30/19 04:48 [place] % (Auto) 8.6 % (0.0-7.3) H 04/30/19 04:48 Eos % (Auto) 1.3 % (0.0-4.3) 04/30/19 04:48 Baso % (Auto) 0.8 % (0.0-1.8) 04/30/19 04:48 Lymph # 1.0 K/mm3 (1.2-5.4) L 04/30/19 04:48 [place] # 0.6 K/mm3 (0.0-0.8) 04/30/19 04:48 Eos # 0.1 K/mm3 (0.0-0.4) 04/30/19 04:48 Baso # 0.1 K/mm3 (0.0-0.1) 04/30/19 04:48 Add Manual Diff Complete 04/29/19 18:57 Total Counted 100 04/29/19 18:57 Seg Neutrophils % 74.2 % (40.0-70.0) H 04/30/19 04:48 Seg Neuts % (Manual) 94.0 % (40.0-70.0) H 04/29/19 18:57 Band Neutrophils % 0 % 04/29/19 18:57 Lymphocytes % (Manual) 3.0 % (13.4-35.0) L 04/29/19 18:57 Reactive Lymphs % (Man) 0 % 04/29/19 18:57 Monocytes % (Manual) 2.0 % (0.0-7.3) 04/29/19 18:57 Eosinophils % (Manual) 0 % (0.0-4.3) 04/29/19 18:57 Basophils % (Manual) 1.0 % (0.0-1.8) 04/29/19 18:57 Metamyelocytes % 0 % 04/29/19 18:57 Myelocytes % 0 % 04/29/19 18:57 Promyelocytes % 0 % 04/29/19 18:57 Blast Cells % 0 % 04/29/19 18:57 Nucleated RBC % Not Reportable 04/29/19 18:57 Seg Neutrophils # 5.1 K/mm3 (1.8-7.7) 04/30/19 04:48 Seg Neutrophils # Man 8.3 K/mm3 (1.8-7.7) H 04/29/19 18:57 Band Neutrophils # 0.0 K/mm3 04/29/19 18:57 Lymphocytes # (Manual) 0.3 K/mm3 (1.2-5.4) L 04/29/19 18:57 Abs React Lymphs (Man) 0.0 K/mm3 04/29/19 18:57 Monocytes # (Manual) 0.2 K/mm3 (0.0-0.8) 04/29/19 18:57 Eosinophils # (Manual) 0.0 K/mm3 (0.0-0.4) 04/29/19 18:57 Basophils # (Manual) 0.1 K/mm3 (0.0-0.1) 04/29/19 18:57 Metamyelocytes # 0.0 K/mm3 04/29/19 18:57 Myelocytes # 0.0 K/mm3 04/29/19 18:57 Promyelocytes # 0.0 K/mm3 04/29/19 18:57 Blast Cells # 0.0 K/mm3 04/29/19 18:57 WBC Morphology Not Reportable 04/29/19 18:57 Hypersegmented Neuts Not Reportable 04/29/19 18:57 Hyposegmented Neuts Not Reportable 04/29/19 18:57 Hypogranular Neuts Not Reportable 04/29/19 18:57 Smudge Cells Not Reportable 04/29/19 18:57 Toxic Granulation Not Reportable 04/29/19 18:57 Toxic Vacuolation Not Reportable 04/29/19 18:57 Dohle Bodies Not Reportable 04/29/19 18:57 Pelger-Huet Anomaly Not Reportable 04/29/19 18:57 Alessia Rods Not Reportable 04/29/19 18:57 Platelet Estimate Consistent w auto 04/29/19 18:57 Clumped Platelets Not Reportable 04/29/19 18:57 Plt Clumps, EDTA Not Reportable 04/29/19 18:57 Large Platelets Not Reportable 04/29/19 18:57 Giant Platelets Not Reportable 04/29/19 18:57 Platelet Satelliting Not Reportable 04/29/19 18:57 Plt Morphology Comment Not Reportable 04/29/19 18:57 RBC Morphology Not Reportable 04/29/19 18:57 Dimorphic RBCs Not Reportable 04/29/19 18:57 Polychromasia Few 04/29/19 18:57 Hypochromasia 1+ 04/29/19 18:57 Poikilocytosis Not Reportable 04/29/19 18:57 Anisocytosis 2+ 04/29/19 18:57 Microcytosis 1+ 04/29/19 18:57 Macrocytosis 1+ 04/29/19 18:57 Spherocytes Not Reportable 04/29/19 18:57 Pappenheimer Bodies Not Reportable 04/29/19 18:57 Sickle Cells Not Reportable 04/29/19 18:57 Target Cells Not Reportable 04/29/19 18:57 Tear Drop Cells Not Reportable 04/29/19 18:57 Ovalocytes Few 04/29/19 18:57 Helmet Cells Not Reportable 04/29/19 18:57 [place] Bodies Not Reportable 04/29/19 18:57 [place] Rings Not Reportable 04/29/19 18:57 [place] Cells Not Reportable 04/29/19 18:57 Bite Cells Not Reportable 04/29/19 18:57 Crenated Cell Not Reportable 04/29/19 18:57 Elliptocytes Not Reportable 04/29/19 18:57 Acanthocytes (Spur) Not Reportable 04/29/19 18:57 Rouleaux Not Reportable 04/29/19 18:57 Hemoglobin C Crystals Not Reportable 04/29/19 18:57 Schistocytes Rare 04/29/19 18:57 Malaria parasites Not Reportable 04/29/19 18:57 [place] Bodies Not Reportable 04/29/19 18:57 Hem Pathologist Commnt No 04/29/19 18:57 PT 14.5 Sec. (12.2-14.9) 04/29/19 19:35 INR 1.11 (0.87-1.13) 04/29/19 19:35 APTT 38.1 Sec. (24.2-36.6) H 04/29/19 19:35 Thrombin Time 16.1 Sec. (15.1-19.6) 04/29/19 19:35 Sodium 143 mmol/L (137-145) 04/30/19 04:48 Potassium 3.3 mmol/L (3.6-5.0) L 04/30/19 04:48 Chloride 102.5 mmol/L (98-107) 04/30/19 04:48 Carbon Dioxide 25 mmol/L (22-30) 04/30/19 04:48 Anion Gap 19 mmol/L 04/30/19 04:48 BUN 16 mg/dL (7-17) 04/30/19 04:48 Creatinine 1.0 mg/dL (0.7-1.2) 04/30/19 04:48 Estimated GFR > 60 ml/min 04/30/19 04:48 BUN/Creatinine Ratio 16 % 04/30/19 04:48 Glucose 155 mg/dL (65-100) H 04/30/19 04:48 Calcium 8.3 mg/dL (8.4-10.2) L 04/30/19 04:48 Total Bilirubin 0.50 mg/dL (0.1-1.2) 04/29/19 18:57 AST 14 units/L (5-40) 04/29/19 18:57 ALT 9 units/L (7-56) 04/29/19 18:57 Alkaline Phosphatase 94 units/L (35-129) 04/29/19 18:57 Total Creatine Kinase 37 units/L (30-135) 04/29/19 19:35 CK-MB (CK-2) 1.5 ng/mL (0.0-4.0) 04/29/19 19:35 CK-MB (CK-2) Rel Index 4.0 (0-4) 04/29/19 19:35 Troponin T 0.033 ng/mL (0.00-0.029) H 04/29/19 18:57 Total Protein 7.6 g/dL (6.3-8.2) 04/29/19 18:57 Albumin 3.1 g/dL (3.9-5) L 04/29/19 18:57 Albumin/Globulin Ratio 0.7 % 04/29/19 18:57 Triglycerides 129 mg/dL (2-149) 04/29/19 18:57 Cholesterol 186 mg/dL (50-199) 04/29/19 18:57 LDL Cholesterol Direct 117 mg/dL (50-130) 04/29/19 18:57 HDL Cholesterol 42 mg/dL (40-59) 04/29/19 18:57 Cholesterol/HDL Ratio 4.42 % 04/29/19 18:57 Urine Color Yellow (Yellow) 04/29/19 20:56 Urine Turbidity Slightly-cloudy (Clear) 04/29/19 20:56 Urine pH 5.0 (5.0-7.0) 04/29/19 20:56 Ur Specific [place] 1.015 (1.003-1.030) 04/29/19 20:56 Urine Protein 100 mg/dl mg/dL (Negative) 04/29/19 20:56 Urine Glucose (UA) Neg mg/dL (Negative) 04/29/19 20:56 Urine Ketones Neg mg/dL (Negative) 04/29/19 20:56 Urine Blood Mod (Negative) 04/29/19 20:56 Urine Nitrite Neg (Negative) 04/29/19 20:56 Urine Bilirubin Neg (Negative) 04/29/19 20:56 Urine Urobilinogen 2.0 mg/dL (<2.0) 04/29/19 20:56 Ur Leukocyte Esterase Sm (Negative) 04/29/19 20:56 Urine WBC (Auto) 9.0 /HPF (0.0-6.0) H 04/29/19 20:56 Urine RBC (Auto) 9.0 /HPF (0.0-6.0) 04/29/19 20:56 U Epithel Cells (Auto) 1.0 /HPF (0-13.0) 04/29/19 20:56 Urine Bacteria (Auto) 2+ /HPF (Negative) 04/29/19 20:56 Urine Mucus Few /HPF 04/29/19 20:56 Blood Type AB POSITIVE 04/29/19 19:41 Antibody Screen Negative 04/29/19 19:41 Active Medications - Current Medications Current Medications: Generic Name Dose Route Start Last Admin Trade Name Freq PRN Reason Stop Dose Admin Acetaminophen 650 mg 04/29/19 22:34 Tylenol PO Q4H PRN Pain MILD(1-3)/Fever >100.5/VENCES Cyanocobalamin 1,000 mcg 04/30/19 07:52 Vitamin B-12 SUB-Q 04/30/19 07:53 ONCE ONE Sodium Chloride 1,000 mls @ 75 mls/hr 04/29/19 23:00 04/30/19 00:55 Nacl 0.45% 1000 Ml IV 75 mls/hr DIRECT CARIN Administration Ceftriaxone Sodium 1 gm in 50 mls @ 100 mls/hr 04/30/19 10:00 Rocephin/Ns 1 Gm/50 Ml IV Q24HR CARIN Protocol Ondansetron HCl 4 mg 02/27/20 22:34 Zofran IV Q4H PRN Nausea And Vomiting Oxycodone/Acetaminophen 1 tab 04/29/19 22:34 04/30/19 00:54 Percocet 5/325 PO 1 tab Q6H PRN Administration Pain, Moderate (4-6) Sodium Chloride 10 ml 04/30/19 10:00 Sodium Chloride Flush Syringe 10 Ml IV BID [facility] Sodium Chloride 10 ml 04/29/19 22:34 Sodium Chloride Flush Syringe 10 Ml IV PRN PRN LINE FLUSH
[2019-04-30] MEDS ORDERED: POTASSIUM CHLORIDE ER 20 MEQ TAB PO NR (09:00)
[2019-04-30] MEDS ORDERED: SODIUM CHLORIDE 0.9% 500 ML 500 ML IV ONE ×2 (09:30→18:00)
[2019-04-30 09:52] LABS: Iron 12 ug/dL (37-170); Total Iron Binding Capacity 199 mcg/dL (250-450)
[2019-04-30] MEDS ORDERED: MECOBALAMIN 1000 MCG PO SCH (10:00)
[2019-04-30] MEDS: allopurinoL 100 MG TAB PO SCH (10:57)
[2019-04-30] MEDS: FUROSEMIDE 20 MG TAB PO SCH ×2 (10:57→23:29)
[2019-04-30] MEDS: FOLIC ACID 1 MG TAB PO SCH (10:57)
[2019-04-30] MEDS: LISINOPRIL 40 MG TAB PO SCH (10:58)
[2019-04-30] MEDS: CYANOCOBALAMIN (VIT B-12) 1000 MCG/1 ML INJ SUB-Q NR ×2 (10:58→11:00)
[2019-04-30] MEDS: DICLOFENAC SODIUM 1% TOPICAL GEL 100 GM TP SCH (10:58)
[2019-04-30] MEDS: cefTRIAXone/NS 1 GM/50 ML 1 GM/50 ML BAG IV SCH (11:00)
--- NOTE | 2019-04-30 11:49 | Vascular Lab Report ---
DUPLEX DOPPLER LOWER EXTREMITY VEINS, RIGHT INDICATION: rigth leg swelling. TECHNIQUE: Duplex doppler imaging was performed through the veins of the right lower extremity using venous comp ression and other maneuvers. COMPARISON: No relevant prior imaging study available. FINDINGS: Right Common femoral vein: Negative. Right Superficial femoral vein: Negative. Right Popliteal vein: Negative. Right Calf veins: Negative. Additional findings: None.. IMPRESSION: Negative for DVT. Signer Name: Saqib Lopez MD Signed: 04/30/2019 11:44 AM Workstation Name: [email or web address]
--- NOTE | 2019-04-30 11:50 | Vascular Lab Report ---
RIGHT UPPER EXTREMITY VENOUS DOPPLER HISTORY: Right upper extremity swelling. FINDINGS: Duplex Doppler evaluation of the deep venous system of the right upper extremity was perfor med with spectral waveform analysis. There is appropriate flow and compressibility. Negative for visu alized thrombus. IMPRESSION: Negative right upper extremity venous Doppler. Signer Name: Saqib Lopez MD Signed: 04/30/2019 11:45 AM Workstation Name: [id number]
[2019-04-30] MEDS: CYANOCOBALAMIN (VIT B-12) 1000 MCG TAB PO SCH (13:00)
[2019-04-30] MEDS ORDERED: hydrALAZINE 20 MG/1 ML INJ IV PRN (18:05)
[2019-05-01 06:02] LABS: Hematocrit 27.6 % (30.3-42.9); Hemoglobin 8.5 gm/dl (10.1-14.3); Mean Corpuscular HGB Conc 31 % (30-34); Mean Corpuscular Volume 78 fl (79-97); Platelet Count 515 K/mm3 (140-440); Red Blood Count 3.53 M/mm3 (3.65-5.03)
[2019-05-01 06:11] LABS: Red Cell Distribution Width 23.8 % (13.2-15.2)
[2019-05-01 06:15] LABS: BUN/Creatinine Ratio 14; Blood Urea Nitrogen 13 mg/dL (7-17); Calcium 7.9 mg/dL (8.4-10.2); Hemolysis Index 0
[2019-05-01] MEDS: CYANOCOBALAMIN (VIT B-12) 1000 MCG TAB PO SCH (10:45)
[2019-05-01] MEDS: LISINOPRIL 40 MG TAB PO SCH (10:46)
[2019-05-01] MEDS: allopurinoL 100 MG TAB PO SCH (10:46)
[2019-05-01] MEDS: FUROSEMIDE 20 MG TAB PO SCH ×2 (10:46→22:11)
[2019-05-01] MEDS: FOLIC ACID 1 MG TAB PO SCH (10:46)
[2019-05-01] MEDS: cefTRIAXone/NS 1 GM/50 ML 1 GM/50 ML BAG IV SCH (10:49)
[2019-05-01] MEDS: DICLOFENAC SODIUM 1% TOPICAL GEL 100 GM TP SCH ×2 (10:49→22:16)
[2019-05-01] MEDS ORDERED: MAGNESIUM SULFATE 2 GM/50 ML BAG IV ONE (12:00)
--- NOTE | 2019-05-01 12:47 | Discharge Summary ---
Providers - Providers Date of Admission: 04/29/19 22:31 Date of discharge: 05/01/19 Attending physician: GUZMAN LONDON 04/29/19 22:34 Consult to Physician [CONS] Routine Comment: called office/ rosetta Consulting Provider: RAJIV CABRAL Physician Instructions: Reason For Exam: anemia 04/29/19 23:43 Consult to Physician [CONS] Routine Comment: called office/ rosetta Consulting Provider: RE JOYCE Physician Instructions: Reason For Exam: rt knee pain/swelling 04/30/19 08:08 Physical Therapy Evaluation and Treat [CONS] Routine Comment: Reason For Exam: gait evaluation/ambulatory dysfunction Primary care physician: VIPUL MCKEON MD Hospitalization Condition: Stable Hospital course: Patient is a 73-year-old woman with a history of hypertension, anemia, pancytopenia, Gout, CKD 3 and OA who presents to [facility] ED with weakness, fatigue, right leg swelling and pain with difficulty ambulating. Also her right arm is become swollen. She has been admitted here in the past (01/2019) with similar issues. According to the chart Patient was admitted 2 weeks ago at a different hospital with generalized weakness; she was found to be pancytopenic. She was transfused platelets and packed red blood cells. Bone marrow biopsy was done, she has follow-up with Dr. Cabral but the results of the bone marrow biopsy are unknown. Patient will be admitted for right knee pain and swelling, right arm swelling and anemia * CT chest with contrast IMPRESSION: 1. Cardiomegaly with small pericardial effusion. 2. Bibasilar atelectasis, greater on the left. Lungs are otherwise clear. * XR right knee FINDINGS: BONES, JOINT(S): No acute fracture or subluxation. Moderate degenerative arthrosis of the right knee. Moderate right knee joint effusion. SOFT TISSUES: Mild circumferential soft tissue swelling. ADDITIONAL FINDINGS: None. * CT head without contrast IMPRESSION: 1. Age-related involutional changes. 2. No acute intracranial abnormality. 3. Evidence of right-sided mastoiditis and otitis media. Discharge Diagnoses: Acute on chronic anemia of chronic disease with drop in H/H: s/p transfused 1 unit of PRBC, Right knee pain most likely secondary to effusion: Ortho consulted, but not available, referral will be given. Right arm swelling: negative CT chest, continue to monitor UTI, start IV Rocephin, follow cultures Accelerated Hypertension: Continue outpatient medications, recently started Lisinopril Elevated Troponin, history of elevation, slightly higher in 01/2019: repeat levels Hypokalemia: replete and monitor bmp closely Difficulty ambulating: consult PT, PT did not see because low h/h needing transfusion DVT prophylaxis: scd only due to the anemia Patient refuses placement, has much support at home. Disposition: [id number] HOME [facility] Time spent for discharge: 34 minutes Core Measure Documentation - Palliative Care Palliative Care/ Comfort Measures: Not Applicable - Core Measures Any of the following diagnoses?: none - VTE Discharge Requirements Deep Vein Thrombosis/Pulmonary Embolism Present on Admission: No Has pt received <5 days of overlap therapy or INR<2.0: No Anticoagulant overlap therapy prescribed at discharge: No Contraindication No Overlap Therapy order at DC: Not Indicated Exam - Physical Exam Narrative exam: Gen: WDWN, NAD, Awake, Alert, Orientated HEENT: NCAT, EOMI, PERRL, OP Clear Neck: supple, no adenopathy, no thyromegaly, no JVD CVS/Heart: RRR, normal S1S2, pulses present bilaterally Chest/Lungs: CTA B, Symmetrical chest expansion, good air entry bilaterally GI/Abdomen: soft, NTND, good bowel sounds, no guarding or rebound /Bladder: no suprapubic tenderness, no CVA or paraspinal tenderness Extermity/Skin: knee swelling on righ MSK: FROM x 4 Neuro: CN 2-12 grossly intact, no new focal deficits Psych: calm - Constitutional Vitals: Temp Pulse Resp BP Pulse Ox 99.3 F 93 H 18 172/78 94 05/01/19 08:30 05/01/19 10:46 05/01/19 08:30 05/01/19 10:46 05/01/19 08:30 Plan Activity: other (no strenous activity unless cleared by PCP) Diet: low salt Durable Medical Equipment Needed Upon Discharge: Wheelchair (You can obtain one at [facility], call first to see if they have them in stock) Additional Instructions: 1) Come in to see Ricardo Starr, on Friday. His office is located here, in the [facility], first floor. 2) You can obtain wheelchair at [facility], call first to see if they have them in stock. 3) Right knee pain possible gouty attack, take medrol dose pack which are steroids. Follow up with: VIPUL MCKEON MD [Primary Care Provider] - 7 Days RAJIV CABRAL MD [Staff Physician] - 7 Days RE JOYCE MD [Staff Physician] - 3 Days Prescriptions: methylPREDNISolone [Medrol 4MG DOSEPAK (21 tabs)] 1 dose PO DAILY #1 pack oxyCODONE /ACETAMINOPHEN [Percocet 5/325 mg] 1 tab PO Q6H PRN #30 tablet PRN Reason: Pain, Moderate (4-6)
[2019-05-01] MEDS: traMADol 50 MG TAB PO PRN (16:04)
--- NOTE | 2019-05-01 17:36 | Consultation ---
History of Present Illness - [facility] Consult date: 05/01/19 Consult reason: joint pain History of present illness: 73-year-old female who comes in complaining of right knee pain and swelling for the past couple weeks patient denies a history of trauma but admits to gout in the past. Patient was admitted for generalized weakness there is a history of pancytopenia from vitamin B12 and folate deficiency Past History Past Medical History: anemia, arthritis, hypertension, other (b12 and folate def) Past Surgical History: hysterectomy Social history: denies: smoking, alcohol abuse Family history: hypertension Medications and Allergies Allergies Allergy/AdvReac Type Severity Reaction Status Date / Time No Known Allergies Allergy Unverified 02/20/19 16:06 Home Medications Medication Instructions Recorded Confirmed Last Taken Type Diclofenac 1% [Diclofenac 1% 20 mg PO BID 04/30/19 04/30/19 04/29/19 History topical gel] Furosemide [Lasix TAB] 20 mg PO BID 04/30/19 04/30/19 04/29/19 History Mecobalamin [B12 Active] 1,000 mcg PO DAILY 04/30/19 04/30/19 04/29/19 History Pot Chloride/Brandon Phos/Mag 20 meq PO DAILY 04/30/19 04/30/19 04/29/19 History allopurinoL [Zyloprim] 100 mg PO QDAY 04/30/19 04/30/19 04/29/19 History lisinopriL [Zestril TAB] 40 mg PO QDAY 04/30/19 04/30/19 04/29/19 History traMADoL [Ultram 50 MG tab] 50 mg PO HS PRN 04/30/19 04/30/19 04/29/19 History methylPREDNISolone [Medrol 4MG 1 dose PO DAILY #1 pack 05/01/19 Unknown Rx DOSEPAK (21 tabs)] oxyCODONE /ACETAMINOPHEN [Percocet 1 tab PO Q6H PRN #30 tablet 05/01/19 Unknown Rx 5/325 mg] Active Meds: Active Medications Acetaminophen (Tylenol) 650 mg PO Q4H PRN PRN Reason: Pain MILD(1-3)/Fever >100.5/VENCES Allopurinol (Zyloprim) 100 mg PO QDAY CARIN Last Admin: 05/01/19 10:46 Dose: 100 mg Documented by: Cyanocobalamin (Vitamin B-12) 1,000 mcg PO QDAY [facility] Last Admin: 05/01/19 10:45 Dose: 1,000 mcg Documented by: Diclofenac Sodium (Diclofenac 1%) 0.004 applic TP BID [facility] Last Admin: 05/01/19 10:49 Dose: 0.004 applic Documented by: Folic Acid (Folvite) 1 mg PO QDAY [facility] Last Admin: 05/01/19 10:46 Dose: 1 mg Documented by: Furosemide (Lasix) 20 mg PO BID [facility] Last Admin: 05/01/19 10:46 Dose: 20 mg Documented by: Hydralazine HCl (Apresoline) 10 mg IV Q4HR PRN PRN Reason: HTN SBP>=180 DBP>=110 Last Admin: 04/30/19 18:59 Dose: 10 mg Documented by: Ceftriaxone Sodium (Rocephin/Ns 1 Gm/50 Ml) 1 gm in 50 mls @ 100 mls/hr IV Q24HR [facility]; Protocol Last Admin: 05/01/19 10:49 Dose: 100 mls/hr Documented by: Labetalol HCl (Labetalol) 10 mg IV Q4H PRN PRN Reason: HTN SBP>=180 Lisinopril (Zestril) 40 mg PO QDAY [facility] Last Admin: 05/01/19 10:46 Dose: 40 mg Documented by: Ondansetron HCl (Zofran) 4 mg IV Q4H PRN PRN Reason: Nausea And Vomiting Oxycodone/Acetaminophen (Percocet 5/325) 1 tab PO Q6H PRN PRN Reason: Pain, Moderate (4-6) Last Admin: 04/30/19 00:54 Dose: 1 tab Documented by: Sodium Chloride (Sodium Chloride Flush Syringe 10 Ml) 10 ml IV BID [facility] Last Admin: 05/01/19 10:46 Dose: 10 ml Documented by: Sodium Chloride (Sodium Chloride Flush Syringe 10 Ml) 10 ml IV PRN PRN PRN Reason: LINE FLUSH Tramadol HCl (Ultram) 50 mg PO HS PRN PRN Reason: Pain, Mild (1-3) Last Admin: 05/01/19 16:04 Dose: 50 mg Documented by: Physical Examination - Physical exam Narrative exam: Significant musculoskeletal exam at the right knee patient is noted to have mild joint effusion there is tenderness along the medial joint line there is no redness or erythema passive range of motion is good active range of motion limited due to pain Plain x-rays taken of the right knee were reviewed by me and show findings consistent with osteoarthritis primarily involving the medial compartment Eyes: PERRL ENT: Positive: clear oral mucosa Respiratory effort: normal Respiratory: bilateral: CTA Rhythm: regular Heart Sounds: Positive: S1 & S2 General gastrointestinal: Positive: soft, non-tender, non-distended, normal bowel sounds Integumentary: clear, warm, dry Neurologic: Positive: CNII-XII intact, moves all extremities, gait normal. Negative: focal deficits Assessment and Plan Right knee pain and swelling suspect osteoarthritis Recommend Depo-Med the procedure rol injection this was done today at the bedside there were no complications patient tolerated
[2019-05-02 06:36] LABS: Hematocrit 24.3 % (30.3-42.9); Hemoglobin 7.5 gm/dl (10.1-14.3); Mean Corpuscular HGB Conc 31 % (30-34); Mean Corpuscular Volume 78 fl (79-97); Platelet Count 458 K/mm3 (140-440); Red Blood Count 3.13 M/mm3 (3.65-5.03)
[2019-05-02 06:37] LABS: Red Cell Distribution Width 23.5 % (13.2-15.2)
[2019-05-02 06:54] LABS: BUN/Creatinine Ratio 16; Blood Urea Nitrogen 14 mg/dL (7-17); Calcium 8.1 mg/dL (8.4-10.2); Hemolysis Index 0
[2019-05-02] MEDS ORDERED: POTASSIUM CHLORIDE ER 20 MEQ TAB PO ONE (08:08)
--- NOTE | 2019-05-02 08:08 | Progress Note ---
Assessment and Plan Assessment and plan: Patient is a 73-year-old woman with a history of hypertension, anemia, pancytopenia, Gout, CKD 3 and OA who presents to [facility] ED with weakness, fatique, right leg swelling and pain with difficulty ambulating. Also her right arm is become swollen. She has been admitted here in the past (01/2019) with similar issues. According to the chart Patient was admitted 2 weeks ago at a different hospital with generalized weakness; she was found to be pancytopenic. She was transfused platelets and packed red blood cells. Bone marrow biopsy was done, she has follow-up with Dr. Cabral but the results of the bone marrow biopsy are unknown. Patient will be admitted for right knee pain and swelling, right arm s welling and anemia * CT chest with contrast IMPRESSION: 1. Cardiomegaly with small pericardial effusion. 2. Bibasilar atelectasis, greater on the left. Lungs are otherwise clear. * XR right knee FINDINGS: BONES / JOINT(S): No acute fracture or subluxation. Moderate degenerative arthrosis of the right knee. Moderate right knee joint effusion. SOFT TISSUES: Mild circumferential soft tissue swelling. ADDITIONAL FINDINGS: None. * CT head without contrast IMPRESSION: 1. Age-related involutional changes. 2. No acute intracranial abnormality. 3. Evidence of right-sided mastoiditis and otitis media. Acute on chronic anemia of chronic disease with drop in H/H: will transfuse 1 unit of PRBC, heme/onc Following Right knee pain most likely secondary to effusion: Ortho consulted Right arm swelling: negative CT chest, continue to monitor UTI, start IV Rocephin, follow cultures Accelerated Hypertension: Continue outpatient medications, recently started Lisinopril Elevated Troponin, history of elevation, slightly higher in 01/2019: repeat levels Hypokalemia: replete and monitor bmp closely Difficulty ambulating: consult PT DVT prophylaxis: scd only due to the anemia History Interval history: Patient was seen and examined. Follow-up on current diagnosis of Anemia. Overnight uneventful as no events directly reported to me. Patient denies any chest pain, shortness breath, nausea/vomiting or severe headaches. Imaging, nursing note, chart, labs and old chart reviewed. Discussed with patient. Hospitalist Physical - Physical exam Narrative exam: Gen: WDWN, NAD, Awake, Alert, Orientated HEENT: NCAT, EOMI, PERRL, OP Clear Neck: supple, no adenopathy, no thyromegaly, no JVD CVS/Heart: RRR, normal S1S2, pulses present bilaterally Chest/Lungs: CTA B, Symmetrical chest expansion, good air entry bilaterally GI/Abdomen: soft, NTND, good bowel sounds, no guarding or rebound /Bladder: no suprapubic tenderness, no CVA or paraspinal tenderness Extermity/Skin: knee swelling on righ MSK: FROM x 4 Neuro: CN 2-12 grossly intact, no new focal deficits Psych: calm - Constitutional Vitals: Temp Pulse Resp BP Pulse Ox 98.8 F 85 20 135/61 95 05/02/19 02:00 05/02/19 02:00 05/02/19 02:00 05/02/19 02:00 05/02/19 02:00 Results - Labs CBC & Chem 7: 05/02/19 06:06 05/02/19 06:06 Labs: Laboratory Last Values WBC 6.6 K/mm3 (4.5-11.0) 05/02/19 06:06 RBC 3.13 M/mm3 (3.65-5.03) L 05/02/19 06:06 Hgb 7.5 gm/dl (10.1-14.3) L 05/02/19 06:06 Hct 24.3 % (30.3-42.9) L 05/02/19 06:06 MCV 78 fl (79-97) L 05/02/19 06:06 MCH 24 pg (28-32) L 05/02/19 06:06 MCHC 31 % (30-34) 05/02/19 06:06 RDW 23.5 % (13.2-15.2) H 05/02/19 06:06 Plt Count 458 K/mm3 (140-440) H 05/02/19 06:06 Lymph % (Auto) 15.1 % (13.4-35.0) 04/30/19 04:48 [place]ountain % (Auto) 8.6 % (0.0-7.3) H 04/30/19 04:48 Eos % (Auto) 1.3 % (0.0-4.3) 04/30/19 04:48 Baso % (Auto) 0.8 % (0.0-1.8) 04/30/19 04:48 Lymph # 1.0 K/mm3 (1.2-5.4) L 04/30/19 04:48 Fountain # 0.6 K/mm3 (0.0-0.8) 04/30/19 04:48 Eos # 0.1 K/mm3 (0.0-0.4) 04/30/19 04:48 Baso # 0.1 K/mm3 (0.0-0.1) 04/30/19 04:48 Add Manual Diff Complete 04/29/19 18:57 Total Counted 100 04/29/19 18:57 Seg Neutrophils % 74.2 % (40.0-70.0) H 04/30/19 04:48 Seg Neuts % (Manual) 94.0 % (40.0-70.0) H 04/29/19 18:57 Band Neutrophils % 0 % 04/29/19 18:57 Lymphocytes % (Manual) 3.0 % (13.4-35.0) L 04/29/19 18:57 Reactive Lymphs % (Man) 0 % 04/29/19 18:57 Monocytes % (Manual) 2.0 % (0.0-7.3) 04/29/19 18:57 Eosinophils % (Manual) 0 % (0.0-4.3) 04/29/19 18:57 Basophils % (Manual) 1.0 % (0.0-1.8) 04/29/19 18:57 Metamyelocytes % 0 % 04/29/19 18:57 Myelocytes % 0 % 04/29/19 18:57 Promyelocytes % 0 % 04/29/19 18:57 Blast Cells % 0 % 04/29/19 18:57 Nucleated RBC % Not Reportable 04/29/19 18:57 Seg Neutrophils # 5.1 K/mm3 (1.8-7.7) 04/30/19 04:48 Seg Neutrophils # Man 8.3 K/mm3 (1.8-7.7) H 04/29/19 18:57 Band Neutrophils # 0.0 K/mm3 04/29/19 18:57 Lymphocytes # (Manual) 0.3 K/mm3 (1.2-5.4) L 04/29/19 18:57 Abs React Lymphs (Man) 0.0 K/mm3 04/29/19 18:57 Monocytes # (Manual) 0.2 K/mm3 (0.0-0.8) 04/29/19 18:57 Eosinophils # (Manual) 0.0 K/mm3 (0.0-0.4) 04/29/19 18:57 Basophils # (Manual) 0.1 K/mm3 (0.0-0.1) 04/29/19 18:57 Metamyelocytes # 0.0 K/mm3 04/29/19 18:57 Myelocytes # 0.0 K/mm3 04/29/19 18:57 Promyelocytes # 0.0 K/mm3 04/29/19 18:57 Blast Cells # 0.0 K/mm3 04/29/19 18:57 WBC Morphology Not Reportable 04/29/19 18:57 Hypersegmented Neuts Not Reportable 04/29/19 18:57 Hyposegmented Neuts Not Reportable 04/29/19 18:57 Hypogranular Neuts Not Reportable 04/29/19 18:57 Smudge Cells Not Reportable 04/29/19 18:57 Toxic Granulation Not Reportable 04/29/19 18:57 Toxic Vacuolation Not Reportable 04/29/19 18:57 Dohle Bodies Not Reportable 04/29/19 18:57 Pelger-Huet Anomaly Not Reportable 04/29/19 18:57 Alessia Rods Not Reportable 04/29/19 18:57 Platelet Estimate Consistent w auto 04/29/19 18:57 Clumped Platelets Not Reportable 04/29/19 18:57 Plt Clumps, EDTA Not Reportable 04/29/19 18:57 Large Platelets Not Reportable 04/29/19 18:57 Giant Platelets Not Reportable 04/29/19 18:57 Platelet Satelliting Not Reportable 04/29/19 18:57 Plt Morphology Comment Not Reportable 04/29/19 18:57 RBC Morphology Not Reportable 04/29/19 18:57 Dimorphic RBCs Not Reportable 04/29/19 18:57 Polychromasia Few 04/29/19 18:57 Hypochromasia 1+ 04/29/19 18:57 Poikilocytosis Not Reportable 04/29/19 18:57 Anisocytosis 2+ 04/29/19 18:57 Microcytosis 1+ 04/29/19 18:57 Macrocytosis 1+ 04/29/19 18:57 Spherocytes Not Reportable 04/29/19 18:57 Pappenheimer Bodies Not Reportable 04/29/19 18:57 Sickle Cells Not Reportable 04/29/19 18:57 Target Cells Not Reportable 04/29/19 18:57 Tear Drop Cells Not Reportable 04/29/19 18:57 Ovalocytes Few 04/29/19 18:57 Helmet Cells Not Reportable 04/29/19 18:57 [place]-[employer] Bodies Not Reportable 04/29/19 18:57 Solomons Rings Not Reportable 04/29/19 18:57 [place] Cells Not Reportable 04/29/19 18:57 Bite Cells Not Reportable 04/29/19 18:57 Crenated Cell Not Reportable 04/29/19 18:57 Elliptocytes Not Reportable 04/29/19 18:57 Acanthocytes (Spur) Not Reportable 04/29/19 18:57 Rouleaux Not Reportable 04/29/19 18:57 Hemoglobin C Crystals Not Reportable 04/29/19 18:57 Schistocytes Rare 04/29/19 18:57 Malaria parasites Not Reportable 04/29/19 18:57 Leopoldo Bodies Not Reportable 04/29/19 18:57 Hem Pathologist Commnt No 04/29/19 18:57 PT 14.5 Sec. (12.2-14.9) 04/29/19 19:35 INR 1.11 (0.87-1.13) 04/29/19 19:35 APTT 38.1 Sec. (24.2-36.6) H 04/29/19 19:35 Thrombin Time 16.1 Sec. (15.1-19.6) 04/29/19 19:35 Sodium 140 mmol/L (137-145) 05/02/19 06:06 Potassium 2.8 mmol/L (3.6-5.0) L* 05/02/19 06:06 Chloride 99.6 mmol/L (98-107) 05/02/19 06:06 Carbon Dioxide 27 mmol/L (22-30) 05/02/19 06:06 Anion Gap 16 mmol/L 05/02/19 06:06 BUN 14 mg/dL (7-17) 05/02/19 06:06 Creatinine 0.9 mg/dL (0.7-1.2) 05/02/19 06:06 Estimated GFR > 60 ml/min 05/02/19 06:06 BUN/Creatinine Ratio 16 % 05/02/19 06:06 Glucose 125 mg/dL (65-100) H 05/02/19 06:06 Calcium 8.1 mg/dL (8.4-10.2) L 05/02/19 06:06 Magnesium 1.40 mg/dL (1.7-2.3) L 05/01/19 04:39 Iron 12 ug/dL (37-170) L 04/30/19 04:48 TIBC 199 mcg/dL (250-450) L 04/30/19 04:48 Ferritin 1041.0 ng/mL (13.0-400.0) H 04/30/19 09:24 Total Bilirubin 0.50 mg/dL (0.1-1.2) 04/29/19 18:57 AST 14 units/L (5-40) 04/29/19 18:57 ALT 9 units/L (7-56) 04/29/19 18:57 Alkaline Phosphatase 94 units/L (35-129) 04/29/19 18:57 Lactate Dehydrogenase 376 units/L (91-180) H 04/30/19 04:48 Total Creatine Kinase 37 units/L (30-135) 04/29/19 19:35 CK-MB (CK-2) 1.5 ng/mL (0.0-4.0) 04/29/19 19:35 CK-MB (CK-2) Rel Index 4.0 (0-4) 04/29/19 19:35 Troponin T 0.038 ng/mL (0.00-0.029) H 04/30/19 18:15 Total Protein 7.6 g/dL (6.3-8.2) 04/29/19 18:57 Albumin 3.1 g/dL (3.9-5) L 04/29/19 18:57 Albumin/Globulin Ratio 0.7 % 04/29/19 18:57 Triglycerides 129 mg/dL (2-149) 04/29/19 18:57 Cholesterol 186 mg/dL (50-199) 04/29/19 18:57 LDL Cholesterol Direct 117 mg/dL (50-130) 04/29/19 18:57 HDL Cholesterol 42 mg/dL (40-59) 04/29/19 18:57 Cholesterol/HDL Ratio 4.42 % 04/29/19 18:57 Urine Color Yellow (Yellow) 04/29/19 20:56 Urine Turbidity Slightly-cloudy (Clear) 04/29/19 20:56 Urine pH 5.0 (5.0-7.0) 04/29/19 20:56 Ur Specific White 1.015 (1.003-1.030) 04/29/19 20:56 Urine Protein 100 mg/dl mg/dL (Negative) 04/29/19 20:56 Urine Glucose (UA) Neg mg/dL (Negative) 04/29/19 20:56 Urine Ketones Neg mg/dL (Negative) 04/29/19 20:56 Urine Blood Mod (Negative) 04/29/19 20:56 Urine Nitrite Neg (Negative) 04/29/19 20:56 Urine Bilirubin Neg (Negative) 04/29/19 20:56 Urine Urobilinogen 2.0 mg/dL (<2.0) 04/29/19 20:56 Ur Leukocyte Esterase Sm (Negative) 04/29/19 20:56 Urine WBC (Auto) 9.0 /HPF (0.0-6.0) H 04/29/19 20:56 Urine RBC (Auto) 9.0 /HPF (0.0-6.0) 04/29/19 20:56 U Epithel Cells (Auto) 1.0 /HPF (0-13.0) 04/29/19 20:56 Urine Bacteria (Auto) 2+ /HPF (Negative) 04/29/19 20:56 Urine Mucus Few /HPF 04/29/19 20:56 Blood Type AB POSITIVE 04/29/19 19:41 Antibody Screen Negative 04/29/19 19:41 Crossmatch See Detail 04/29/19 19:41 Active Medications - Current Medications Current Medications: Generic Name Dose Route Start Last Admin Trade Name Freq PRN Reason Stop Dose Admin Acetaminophen 650 mg 04/29/19 22:34 Tylenol PO Q4H PRN Pain MILD(1-3)/Fever >100.5/VENCES Allopurinol 100 mg 04/30/19 10:00 05/01/19 10:46 Zyloprim PO 100 mg QDAY CARIN Administration Cyanocobalamin 1,000 mcg 04/30/19 13:00 05/01/19 10:45 Vitamin B-12 PO 1,000 mcg QDAY CARIN Administration Diclofenac Sodium 0.004 applic 04/30/19 10:00 05/01/19 22:16 Diclofenac 1% TP 0.004 applic BID CARIN Administration Folic Acid 1 mg 04/30/19 10:00 05/01/19 10:46 Folvite PO 1 mg QDAY CARIN Administration Furosemide 20 mg 04/30/19 10:00 05/01/19 22:11 Lasix PO 20 mg BID CARIN Administration Hydralazine HCl 10 mg 04/30/19 18:05 04/30/19 18:59 Apresoline IV 10 mg Q4HR PRN Administration HTN SBP>=180 DBP>=110 Ceftriaxone Sodium 1 gm in 50 mls @ 100 mls/hr 04/30/19 10:00 05/01/19 10:49 Rocephin/Ns 1 Gm/50 Ml IV 100 mls/hr Q24HR CARIN Administration Protocol Labetalol HCl 10 mg 04/30/19 18:05 Labetalol IV Q4H PRN HTN SBP>=180 Lisinopril 40 mg 04/30/19 10:00 05/01/19 10:46 Zestril PO 40 mg QDAY CARIN Administration Ondansetron HCl 4 mg 04/29/19 22:34 Zofran IV Q4H PRN Nausea And Vomiting Oxycodone/Acetaminophen 1 tab 04/29/19 22:34 04/30/19 00:54 Percocet 5/325 PO 1 tab Q6H PRN Administration Pain, Moderate (4-6) Sodium Chloride 10 ml 04/30/19 10:00 05/01/19 22:12 Sodium Chloride Flush Syringe 10 Ml IV 10 ml BID CARIN Administration Sodium Chloride 10 ml 04/29/19 22:34 Sodium Chloride Flush Syringe 10 Ml IV PRN PRN LINE FLUSH Tramadol HCl 50 mg 04/30/19 22:00 05/01/19 16:04 Ultram PO 50 mg HS PRN Administration Pain, Mild (1-3) Nutrition/Malnutrition Assess - Dietary Evaluation Nutrition/Malnutrition Findings: Nutrition Notes Start: 04/30/19 09:58 Freq: Status: Active Protocol: Document 04/30/19 09:59 CC (Rec: 04/30/19 10:09 CC [id number]) Co-Sign 04/30/19 09:59 LP Nutrition Notes 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 Pt reported her apeptite has okay [employer]. Pt reported appetite was normal for her. Pt reported appetite is still okay. Pt reported she has lost wt unitentionally since being sick. Pt did not know timeframe of wt loss. Pt reported UBW of 130lbs (59kg). Observed breakfast tray 75% consumed with pt still eating Burn Absent Trauma Absent GI Symptoms Nausea Food Allergy No Current % PO Good (75-100%) Minimum of two criteria No Nutrition Intervention Anticipated Discharge Needs: cardiac Revisit per MD consult or patient Sign Off request:
[2019-05-02] MEDS: FOLIC ACID 1 MG TAB PO SCH (09:05)
[2019-05-02] MEDS: CYANOCOBALAMIN (VIT B-12) 1000 MCG TAB PO SCH (09:05)
[2019-05-02] MEDS: FUROSEMIDE 20 MG TAB PO SCH ×2 (09:05→22:45)
[2019-05-02] MEDS: allopurinoL 100 MG TAB PO SCH (09:06)
[2019-05-02] MEDS: LISINOPRIL 40 MG TAB PO SCH (09:07)
[2019-05-02] MEDS: DICLOFENAC SODIUM 1% TOPICAL GEL 100 GM TP SCH ×2 (09:15→22:45)
[2019-05-02] MEDS: cefTRIAXone/NS 1 GM/50 ML 1 GM/50 ML BAG IV SCH (09:15)
--- NOTE | 2019-05-02 09:46 | Hem/Onc Progress Note ---
Assessment and Plan Anemia B12 deficiency - folate def WBC normal PLT high BMBX path report Jan 2019 Bone marrow, Hypercellular bone marrow (60%) with borderline increase in blasts No evidence of significant dysplasia (in hypocellular smears) or lymphoproliferative disorder h/o left wrist pain - says had gout before # h/o Right knee pain most likely secondary to effusion ortho # h/o Right arm swelling s/p CT chest # Hypertension Continue outpatient medications [facility] [phone] 3/ - pt got b12 inj - MVI and oral iron - folic acid - Patient Problems (1) Symptomatic anemia Current Visit: No Status: Acute Subjective Date of service: 05/02/19 Principal diagnosis: anemia Interval history: no bleeding Objective - Exam Narrative Exam: Vitals were reviewed. No pallor No icterus No neck lymph nodes Heart S1-S2 present Lungs clear to auscultation anteriorly Abdomen soft Leg no edema Female genitalia not examined - Constitutional Vitals: Last Vital Signs Temp 98.9 F 05/02/19 08:20 Pulse 86 05/02/19 08:20 Resp 20 05/02/19 08:20 BP 163/81 05/02/19 09:07 Pulse Ox 94 05/02/19 08:20 - Labs Lab Results: Laboratory Results - last 24 hr 05/02/19 05/02/19 06:06 06:06 WBC 6.6 RBC 3.13 L Hgb 7.5 L Hct 24.3 L MCV 78 L MCH 24 L MCHC 31 RDW 23.5 H Plt Count 458 H Sodium 140 Potassium 2.8 L* Chloride 99.6 Carbon Dioxide 27 Anion Gap 16 BUN 14 Creatinine 0.9 Estimated GFR > 60 BUN/Creatinine Ratio 16 Glucose 125 H Calcium 8.1 L Medications & Allergies - Medications Allergies/Adverse Reactions: Allergies No Known Allergies Allergy (Unverified 02/20/19 16:06) Home Medications: Home Medications Medication Instructions Recorded Confirmed Last Taken Type Diclofenac 1% [Diclofenac 1% 20 mg PO BID 04/30/19 04/30/19 04/29/19 History topical gel] Furosemide [Lasix TAB] 20 mg PO BID 04/30/19 04/30/19 04/29/19 History Mecobalamin [B12 Active] 1,000 mcg PO DAILY 04/30/19 04/30/19 04/29/19 History Pot Chloride/Brandon Phos/Mag 20 meq PO DAILY 04/30/19 04/30/19 04/29/19 History allopurinoL [Zyloprim] 100 mg PO QDAY 04/30/19 04/30/19 04/29/19 History lisinopriL [Zestril TAB] 40 mg PO QDAY 04/30/19 04/30/19 04/29/19 History traMADoL [Ultram 50 MG tab] 50 mg PO HS PRN 04/30/19 04/30/19 04/29/19 History methylPREDNISolone [Medrol 4MG 1 dose PO DAILY #1 pack 05/01/19 Unknown Rx DOSEPAK (21 tabs)] oxyCODONE /ACETAMINOPHEN [Percocet 1 tab PO Q6H PRN #30 tablet 05/01/19 Unknown Rx 5/325 mg] Active Medications: Generic Name Dose Route Start Last Admin Trade Name Freq PRN Reason Stop Dose Admin Acetaminophen 650 mg 04/29/19 22:34 Tylenol PO Q4H PRN Pain MILD(1-3)/Fever >100.5/VENCES Allopurinol 100 mg 04/30/19 10:00 05/02/19 09:06 Zyloprim PO 100 mg QDAY CARIN Administration Cyanocobalamin 1,000 mcg 04/30/19 13:00 05/02/19 09:05 Vitamin B-12 PO 1,000 mcg QDAY CARIN Administration Diclofenac Sodium 0.004 applic 04/30/19 10:00 05/02/19 09:15 Diclofenac 1% TP 0.004 applic BID CARIN Administration Folic Acid 1 mg 04/30/19 10:00 05/02/19 09:05 Folvite PO 1 mg QDAY CARIN Administration Furosemide 20 mg 04/30/19 10:00 05/02/19 09:05 Lasix PO 20 mg BID CARIN Administration Hydralazine HCl 10 mg 04/30/19 18:05 04/30/19 18:59 Apresoline IV 10 mg Q4HR PRN Administration HTN SBP>=180 DBP>=110 Ceftriaxone Sodium 1 gm in 50 mls @ 100 mls/hr 04/30/19 10:00 05/02/19 09:15 Rocephin/Ns 1 Gm/50 Ml IV 100 mls/hr Q24HR CARIN Administration Protocol Labetalol HCl 10 mg 04/30/19 18:05 Labetalol IV Q4H PRN HTN SBP>=180 Lisinopril 40 mg 04/30/19 10:00 05/02/19 09:07 Zestril PO 40 mg QDAY CARIN Administration Ondansetron HCl 4 mg 04/29/19 22:34 Zofran IV Q4H PRN Nausea And Vomiting Oxycodone/Acetaminophen 1 tab 04/29/19 22:34 04/30/19 00:54 Percocet 5/325 PO 1 tab Q6H PRN Administration Pain, Moderate (4-6) Sodium Chloride 10 ml 04/30/19 10:00 05/02/19 09:16 Sodium Chloride Flush Syringe 10 Ml IV 10 ml BID CARIN Administration Sodium Chloride 10 ml 04/29/19 22:34 Sodium Chloride Flush Syringe 10 Ml IV PRN PRN LINE FLUSH Tramadol HCl 50 mg 04/30/19 22:00 05/01/19 16:04 Ultram PO 50 mg HS PRN Administration Pain, Mild (1-3)
--- NOTE | 2019-05-02 12:49 | Progress Note ---
Assessment and Plan Assessment and plan: Patient is a 73-year-old woman with a history of hypertension, anemia, pancytopenia, Gout, CKD 3 and OA who presents to [facility] with weakness, fatique, right leg swelling and pain with difficulty ambulating. Also her right arm is become swollen. She has been admitted here in the past (01/2019) with similar issues. According to the chart Patient was admitted 2 weeks ago at a different hospital with generalized weakness; she was found to be pancytopenic. She was transfused platelets and packed red blood cells. Bone marrow biopsy was done, she has follow-up with Dr. Cabral but the results of the bone marrow biopsy are unknown. Patient will be admitted for right knee pain and swelling, right arm s welling and anemia * CT chest with contrast IMPRESSION: 1. Cardiomegaly with small pericardial effusion. 2. Bibasilar atelectasis, greater on the left. Lungs are otherwise clear. * XR right knee FINDINGS: BONES / JOINT(S): No acute fracture or subluxation. Moderate degenerative arthrosis of the right knee. Moderate right knee joint effusion. SOFT TISSUES: Mild circumferential soft tissue swelling. ADDITIONAL FINDINGS: None. * CT head without contrast IMPRESSION: 1. Age-related involutional changes. 2. No acute intracranial abnormality. 3. Evidence of right-sided mastoiditis and otitis media. Acute on chronic anemia of chronic disease with drop in H/H: will transfuse 1 unit of PRBC, heme/onc Following Right knee pain most likely secondary to effusion from Arthritis: Ortho consulted, s/p right knee injection which helped some Right arm swelling: negative CT chest, continue to monitor UTI, start IV Rocephin, follow cultures Accelerated Hypertension: Continue outpatient medications, recently started Lisinopril Elevated Troponin, history of elevation, slightly higher in 01/2019: repeat levels Hypokalemia: replete and monitor bmp closely Difficulty ambulating: consult PT DVT prophylaxis: scd only due to the anemia Disposition: continue inpatient care, she changed her mind after Physical therapist recommended [facility]. So placement pending. History Interval history: Patient was seen and examined. Follow-up on current diagnosis of Anemia. Ove rnight uneventful as no events directly reported to me. Patient denies any chest pain, shortness breath, nausea/vomiting or severe headaches. Imaging, nursing note, chart, labs and old chart reviewed. Discussed with patient. Hospitalist Physical - Physical exam Narrative exam: Gen: WDWN, NAD, Awake, Alert, Orientated HEENT: NCAT, EOMI, PERRL, OP Clear Neck: supple, no adenopathy, no thyromegaly, no JVD CVS/Heart: RRR, normal S1S2, pulses present bilaterally Chest/Lungs: CTA B, Symmetrical chest expansion, good air entry bilaterally GI/Abdomen: soft, NTND, good bowel sounds, no guarding or rebound /Bladder: no suprapubic tenderness, no CVA or paraspinal tenderness Extermity/Skin: knee swelling on righ MSK: FROM x 4 Neuro: CN 2-12 grossly intact, no new focal deficits Psych: calm - Constitutional Vitals: Temp Pulse Resp BP Pulse Ox 98.9 F 86 20 163/81 94 05/02/19 08:20 05/02/19 08:20 05/02/19 08:20 05/02/19 09:07 05/02/19 08:20 Results - Labs CBC & Chem 7: 05/02/19 06:06 05/02/19 06:06 Labs: Laboratory Last Values WBC 6.6 K/mm3 (4.5-11.0) 05/02/19 06:06 RBC 3.13 M/mm3 (3.65-5.03) L 05/02/19 06:06 Hgb 7.5 gm/dl (10.1-14.3) L 05/02/19 06:06 Hct 24.3 % (30.3-42.9) L 05/02/19 06:06 MCV 78 fl (79-97) L 05/02/19 06:06 MCH 24 pg (28-32) L 05/02/19 06:06 MCHC 31 % (30-34) 05/02/19 06:06 RDW 23.5 % (13.2-15.2) H 05/02/19 06:06 Plt Count 458 K/mm3 (140-440) H 05/02/19 06:06 Lymph % (Auto) 15.1 % (13.4-35.0) 04/30/19 04:48 Jessamine % (Auto) 8.6 % (0.0-7.3) H 04/30/19 04:48 Eos % (Auto) 1.3 % (0.0-4.3) 04/30/19 04:48 Baso % (Auto) 0.8 % (0.0-1.8) 04/30/19 04:48 Lymph # 1.0 K/mm3 (1.2-5.4) L 04/30/19 04:48 Jessamine # 0.6 K/mm3 (0.0-0.8) 04/30/19 04:48 Eos # 0.1 K/mm3 (0.0-0.4) 04/30/19 04:48 Baso # 0.1 K/mm3 (0.0-0.1) 04/30/19 04:48 Add Manual Diff Complete 04/29/19 18:57 Total Counted 100 04/29/19 18:57 Seg Neutrophils % 74.2 % (40.0-70.0) H 04/30/19 04:48 Seg Neuts % (Manual) 94.0 % (40.0-70.0) H 04/29/19 18:57 Band Neutrophils % 0 % 04/29/19 18:57 Lymphocytes % (Manual) 3.0 % (13.4-35.0) L 04/29/19 18:57 Reactive Lymphs % (Man) 0 % 04/29/19 18:57 Monocytes % (Manual) 2.0 % (0.0-7.3) 04/29/19 18:57 Eosinophils % (Manual) 0 % (0.0-4.3) 04/29/19 18:57 Basophils % (Manual) 1.0 % (0.0-1.8) 04/29/19 18:57 Metamyelocytes % 0 % 04/29/19 18:57 Myelocytes % 0 % 04/29/19 18:57 Promyelocytes % 0 % 04/29/19 18:57 Blast Cells % 0 % 04/29/19 18:57 Nucleated RBC % Not Reportable 04/29/19 18:57 Seg Neutrophils # 5.1 K/mm3 (1.8-7.7) 04/30/19 04:48 Seg Neutrophils # Man 8.3 K/mm3 (1.8-7.7) H 04/29/19 18:57 Band Neutrophils # 0.0 K/mm3 04/29/19 18:57 Lymphocytes # (Manual) 0.3 K/mm3 (1.2-5.4) L 04/29/19 18:57 Abs React Lymphs (Man) 0.0 K/mm3 04/29/19 18:57 Monocytes # (Manual) 0.2 K/mm3 (0.0-0.8) 04/29/19 18:57 Eosinophils # (Manual) 0.0 K/mm3 (0.0-0.4) 04/29/19 18:57 Basophils # (Manual) 0.1 K/mm3 (0.0-0.1) 04/29/19 18:57 Metamyelocytes # 0.0 K/mm3 04/29/19 18:57 Myelocytes # 0.0 K/mm3 04/29/19 18:57 Promyelocytes # 0.0 K/mm3 04/29/19 18:57 Blast Cells # 0.0 K/mm3 04/29/19 18:57 WBC Morphology Not Reportable 04/29/19 18:57 Hypersegmented Neuts Not Reportable 04/29/19 18:57 Hyposegmented Neuts Not Reportable 04/29/19 18:57 Hypogranular Neuts Not Reportable 04/29/19 18:57 Smudge Cells Not Reportable 04/29/19 18:57 Toxic Granulation Not Reportable 04/29/19 18:57 Toxic Vacuolation Not Reportable 04/29/19 18:57 Dohle Bodies Not Reportable 04/29/19 18:57 Pelger-Huet Anomaly Not Reportable 04/29/19 18:57 Alessia Rods Not Reportable 04/29/19 18:57 Platelet Estimate Consistent w auto 04/29/19 18:57 Clumped Platelets Not Reportable 04/29/19 18:57 Plt Clumps, EDTA Not Reportable 04/29/19 18:57 Large Platelets Not Reportable 04/29/19 18:57 Giant Platelets Not Reportable 04/29/19 18:57 Platelet Satelliting Not Reportable 04/29/19 18:57 Plt Morphology Comment Not Reportable 04/29/19 18:57 RBC Morphology Not Reportable 04/29/19 18:57 Dimorphic RBCs Not Reportable 04/29/19 18:57 Polychromasia Few 04/29/19 18:57 Hypochromasia 1+ 04/29/19 18:57 Poikilocytosis Not Reportable 04/29/19 18:57 Anisocytosis 2+ 04/29/19 18:57 Microcytosis 1+ 04/29/19 18:57 Macrocytosis 1+ 04/29/19 18:57 Spherocytes Not Reportable 04/29/19 18:57 Pappenheimer Bodies Not Reportable 04/29/19 18:57 Sickle Cells Not Reportable 04/29/19 18:57 Target Cells Not Reportable 04/29/19 18:57 Tear Drop Cells Not Reportable 04/29/19 18:57 Ovalocytes Few 04/29/19 18:57 Helmet Cells Not Reportable 04/29/19 18:57 Owens-Beaumont Bodies Not Reportable 04/29/19 18:57 [place] Rings Not Reportable 04/29/19 18:57 Yamilet Cells Not Reportable 04/29/19 18:57 Bite Cells Not Reportable 04/29/19 18:57 Crenated Cell Not Reportable 04/29/19 18:57 Elliptocytes Not Reportable 04/29/19 18:57 Acanthocytes (Spur) Not Reportable 04/29/19 18:57 Rouleaux Not Reportable 04/29/19 18:57 Hemoglobin C Crystals Not Reportable 04/29/19 18:57 Schistocytes Rare 04/29/19 18:57 Malaria parasites Not Reportable 04/29/19 18:57 Leopoldo Bodies Not Reportable 04/29/19 18:57 Hem Pathologist Commnt No 04/29/19 18:57 PT 14.5 Sec. (12.2-14.9) 04/29/19 19:35 INR 1.11 (0.87-1.13) 04/29/19 19:35 APTT 38.1 Sec. (24.2-36.6) H 04/29/19 19:35 Thrombin Time 16.1 Sec. (15.1-19.6) 04/29/19 19:35 Sodium 140 mmol/L (137-145) 05/02/19 06:06 Potassium 2.8 mmol/L (3.6-5.0) L* 05/02/19 06:06 Chloride 99.6 mmol/L (98-107) 05/02/19 06:06 Carbon Dioxide 27 mmol/L (22-30) 05/02/19 06:06 Anion Gap 16 mmol/L 05/02/19 06:06 BUN 14 mg/dL (7-17) 05/02/19 06:06 Creatinine 0.9 mg/dL (0.7-1.2) 05/02/19 06:06 Estimated GFR > 60 ml/min 05/02/19 06:06 BUN/Creatinine Ratio 16 % 05/02/19 06:06 Glucose 125 mg/dL (65-100) H 05/02/19 06:06 Calcium 8.1 mg/dL (8.4-10.2) L 05/02/19 06:06 Magnesium 1.40 mg/dL (1.7-2.3) L 05/01/19 04:39 Iron 12 ug/dL (37-170) L 04/30/19 04:48 TIBC 199 mcg/dL (250-450) L 04/30/19 04:48 Ferritin 1041.0 ng/mL (13.0-400.0) H 04/30/19 09:24 Total Bilirubin 0.50 mg/dL (0.1-1.2) 04/29/19 18:57 AST 14 units/L (5-40) 04/29/19 18:57 ALT 9 units/L (7-56) 04/29/19 18:57 Alkaline Phosphatase 94 units/L (35-129) 04/29/19 18:57 Lactate Dehydrogenase 376 units/L (91-180) H 04/30/19 04:48 Total Creatine Kinase 37 units/L (30-135) 04/29/19 19:35 CK-MB (CK-2) 1.5 ng/mL (0.0-4.0) 04/29/19 19:35 CK-MB (CK-2) Rel Index 4.0 (0-4) 04/29/19 19:35 Troponin T 0.038 ng/mL (0.00-0.029) H 04/30/19 18:15 Total Protein 7.6 g/dL (6.3-8.2) 04/29/19 18:57 Albumin 3.1 g/dL (3.9-5) L 04/29/19 18:57 Albumin/Globulin Ratio 0.7 % 04/29/19 18:57 Triglycerides 129 mg/dL (2-149) 04/29/19 18:57 Cholesterol 186 mg/dL (50-199) 04/29/19 18:57 LDL Cholesterol Direct 117 mg/dL (50-130) 04/29/19 18:57 HDL Cholesterol 42 mg/dL (40-59) 04/29/19 18:57 Cholesterol/HDL Ratio 4.42 % 04/29/19 18:57 Urine Color Yellow (Yellow) 04/29/19 20:56 Urine Turbidity Slightly-cloudy (Clear) 04/29/19 20:56 Urine pH 5.0 (5.0-7.0) 04/29/19 20:56 Ur Specific [place] 1.015 (1.003-1.030) 04/29/19 20:56 Urine Protein 100 mg/dl mg/dL (Negative) 04/29/19 20:56 Urine Glucose (UA) Neg mg/dL (Negative) 04/29/19 20:56 Urine Ketones Neg mg/dL (Negative) 04/29/19 20:56 Urine Blood Mod (Negative) 04/29/19 20:56 Urine Nitrite Neg (Negative) 04/29/19 20:56 Urine Bilirubin Neg (Negative) 04/29/19 20:56 Urine Urobilinogen 2.0 mg/dL (<2.0) 04/29/19 20:56 Ur Leukocyte Esterase Sm (Negative) 04/29/19 20:56 Urine WBC (Auto) 9.0 /HPF (0.0-6.0) H 04/29/19 20:56 Urine RBC (Auto) 9.0 /HPF (0.0-6.0) 04/29/19 20:56 U Epithel Cells (Auto) 1.0 /HPF (0-13.0) 04/29/19 20:56 Urine Bacteria (Auto) 2+ /HPF (Negative) 04/29/19 20:56 Urine Mucus Few /HPF 04/29/19 20:56 Blood Type AB POSITIVE 04/29/19 19:41 Antibody Screen Negative 04/29/19 19:41 Crossmatch See Detail 04/29/19 19:41 Active Medications - Current Medications Current Medications: Generic Name Dose Route Start Last Admin Trade Name Freq PRN Reason Stop Dose Admin Acetaminophen 650 mg 04/29/19 22:34 Tylenol PO Q4H PRN Pain MILD(1-3)/Fever >100.5/VENCES Allopurinol 100 mg 04/30/19 10:00 05/02/19 09:06 Zyloprim PO 100 mg QDAY CARIN Administration Cyanocobalamin 1,000 mcg 04/30/19 13:00 05/02/19 09:05 Vitamin B-12 PO 1,000 mcg QDAY CARIN Administration Diclofenac Sodium 0.004 applic 04/30/19 10:00 05/02/19 09:15 Diclofenac 1% TP 0.004 applic BID CARIN Administration Folic Acid 1 mg 04/30/19 10:00 05/02/19 09:05 Folvite PO 1 mg QDAY CARIN Administration Furosemide 20 mg 04/30/19 10:00 05/02/19 09:05 Lasix PO 20 mg BID CARIN Administration Hydralazine HCl 10 mg 04/30/19 18:05 04/30/19 18:59 Apresoline IV 10 mg Q4HR PRN Administration HTN SBP>=180 DBP>=110 Ceftriaxone Sodium 1 gm in 50 mls @ 100 mls/hr 04/30/19 10:00 05/02/19 09:15 Rocephin/Ns 1 Gm/50 Ml IV 100 mls/hr Q24HR CARIN Administration Protocol Labetalol HCl 10 mg 04/30/19 18:05 Labetalol IV Q4H PRN HTN SBP>=180 Lisinopril 40 mg 04/30/19 10:00 05/02/19 09:07 Zestril PO 40 mg QDAY CARIN Administration Ondansetron HCl 4 mg 04/29/19 22:34 Zofran IV Q4H PRN Nausea And Vomiting Oxycodone/Acetaminophen 1 tab 04/29/19 22:34 04/30/19 00:54 Percocet 5/325 PO 1 tab Q6H PRN Administration Pain, Moderate (4-6) Sodium Chloride 10 ml 04/30/19 10:00 05/02/19 09:16 Sodium Chloride Flush Syringe 10 Ml IV 10 ml BID CARIN Administration Sodium Chloride 10 ml 04/29/19 22:34 Sodium Chloride Flush Syringe 10 Ml IV PRN PRN LINE FLUSH Tramadol HCl 50 mg 04/30/19 22:00 05/01/19 16:04 Ultram PO 50 mg HS PRN Administration Pain, Mild (1-3) Nutrition/Malnutrition Assess - Dietary Evaluation Nutrition/Malnutrition Findings: Nutrition Notes Start: 04/30/19 09:58 Freq: Status: Active Protocol: Document 04/30/19 09:59 CC (Rec: 04/30/19 10:09 CC [id number]) Co-Sign 04/30/19 09:59 LP Nutrition Notes 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 Pt reported appetite was normal for her. Pt reported appetite is still okay. Pt reported she has lost wt unitentionally since being sick. Pt did not know timeframe of wt loss. Pt reported UBW of 130lbs (59kg). Observed breakfast tray 75% consumed with pt still eating Burn Absent Trauma Absent GI Symptoms Nausea Food Allergy No Current % PO Good (75-100%) Minimum of two criteria No Nutrition Intervention Anticipated Discharge Needs: cardiac Revisit per MD consult or patient Sign Off request:
[2019-05-02] MEDS: ACETAMINOPHEN 325 MG TAB PO PRN (23:03)
[2019-05-03 07:14] LABS: Hematocrit 24.3 % (30.3-42.9); Hemoglobin 7.5 gm/dl (10.1-14.3); Mean Corpuscular HGB Conc 31 % (30-34); Mean Corpuscular Volume 78 fl (79-97); Platelet Count 472 K/mm3 (140-440); Red Blood Count 3.11 M/mm3 (3.65-5.03)
[2019-05-03 07:38] LABS: BUN/Creatinine Ratio 19; Blood Urea Nitrogen 17 mg/dL (7-17); Calcium 8.4 mg/dL (8.4-10.2); Hemolysis Index 8
--- NOTE | 2019-05-03 07:48 | Hem/Onc Progress Note ---
Assessment and Plan Anemia B12 deficiency - folate def - low iron WBC normal PLT high BMBX path report Jan 2019 Bone marrow, Hypercellular bone marrow (60%) with borderline increase in blasts No evidence of significant dysplasia (in hypocellular smears) or lymphoproliferative disorder h/o left wrist pain - says had gout before # h/o Right knee pain most likely secondary to effusion ortho # h/o Right arm swelling s/p CT chest # Hypertension Continue outpatient medications daughter - janice - [phone] 3/2 - pt got b12 inj - MVI - folic acid no dvt rt arm or the leg oral iron - as s iron low - Patient Problems (1) Symptomatic anemia Current Visit: No Status: Acute Subjective Date of service: 05/03/19 Principal diagnosis: anemia Interval history: rt arm edema Objective - Exam Narrative Exam: Vitals were reviewed. No pallor No icterus No neck lymph nodes Heart S1-S2 present Lungs clear to auscultation anteriorly Abdomen soft Leg no edema Female genitalia not examined - Constitutional Vitals: Last Vital Signs Temp 97.8 F 05/03/19 02:37 Pulse 81 05/03/19 02:37 Resp 20 05/03/19 02:37 BP 153/77 05/03/19 02:37 Pulse Ox 96 05/03/19 02:37 - Labs Lab Results: Laboratory Results - last 24 hr 05/02/19 05/03/19 05/03/19 22:27 04:04 06:52 Sodium 141 Chloride 100.7 Carbon Dioxide 24 Anion Gap 20 BUN 17 Creatinine 0.9 Estimated GFR > 60 BUN/Creatinine Ratio 19 Glucose 160 H POC Glucose > 500 H 149 H Calcium 8.4 Medications & Allergies - Medications Allergies/Adverse Reactions: Allergies No Known Allergies Allergy (Unverified 02/20/19 16:06) Home Medications: Home Medications Medication Instructions Recorded Confirmed Last Taken Type Diclofenac 1% [Diclofenac 1% 20 mg PO BID 04/30/19 04/30/19 04/29/19 History topical gel] Furosemide [Lasix TAB] 20 mg PO BID 04/30/19 04/30/19 04/29/19 History Mecobalamin [B12 Active] 1,000 mcg PO DAILY 04/30/19 04/30/19 04/29/19 History Pot Chloride/Brandon Phos/Mag 20 meq PO DAILY 04/30/19 04/30/1920 History allopurinoL [Zyloprim] 100 mg PO QDAY 04/30/19 04/30/19 04/29/19 History lisinopriL [Zestril TAB] 40 mg PO QDAY 04/30/19 04/30/19 04/29/19 History traMADoL [Ultram 50 MG tab] 50 mg PO HS PRN 04/30/19 04/30/19 04/29/19 History methylPREDNISolone [Medrol 4MG 1 dose PO DAILY #1 pack 05/01/19 Unknown Rx DOSEPAK (21 tabs)] oxyCODONE /ACETAMINOPHEN [Percocet 1 tab PO Q6H PRN #30 tablet 05/01/19 Unknown Rx 5/325 mg] Active Medications: Generic Name Dose Route Start Last Admin Trade Name Freq PRN Reason Stop Dose Admin Acetaminophen 650 mg 04/29/19 22:34 05/02/19 23:03 Tylenol PO 650 mg Q4H PRN Administration Pain MILD(1-3)/Fever >100.5/VENCES Allopurinol 100 mg 04/30/19 10:00 05/02/19 09:06 Zyloprim PO 100 mg QDAY CARIN Administration Cyanocobalamin 1,000 mcg 04/30/19 13:00 05/02/19 09:05 Vitamin B-12 PO 1,000 mcg QDAY CARIN Administration Cyanocobalamin 1,000 mcg 05/03/19 07:28 Vitamin B-12 SUB-Q 05/03/19 07:29 ONCE ONE Diclofenac Sodium 0.004 applic 04/30/19 10:00 05/02/19 22:45 Diclofenac 1% TP 0.004 applic BID CARIN Administration Folic Acid 1 mg 04/30/19 10:00 05/02/19 09:05 Folvite PO 1 mg QDAY CARIN Administration Furosemide 20 mg 04/30/19 10:00 05/02/19 22:45 Lasix PO 20 mg BID CARIN Administration Hydralazine HCl 10 mg 04/30/19 18:05 04/30/19 18:59 Apresoline IV 10 mg Q4HR PRN Administration HTN SBP>=180 DBP>=110 Ceftriaxone Sodium 1 gm in 50 mls @ 100 mls/hr 04/30/19 10:00 05/02/19 09:15 Rocephin/Ns 1 Gm/50 Ml IV 100 mls/hr Q24HR CARIN Administration Protocol Labetalol HCl 10 mg 04/30/19 18:05 Labetalol IV Q4H PRN HTN SBP>=180 Lisinopril 40 mg 04/30/19 10:00 05/02/19 09:07 Zestril PO 40 mg QDAY CARIN Administration Ondansetron HCl 4 mg 04/29/19 22:34 Zofran IV Q4H PRN Nausea And Vomiting Oxycodone/Acetaminophen 1 tab 04/29/19 22:34 04/30/19 00:54 Percocet 5/325 PO 1 tab Q6H PRN Administration Pain, Moderate (4-6) Sodium Chloride 10 ml 04/30/19 10:00 05/02/19 23:06 Sodium Chloride Flush Syringe 10 Ml IV 10 ml BID CARIN Administration Sodium Chloride 10 ml 04/29/19 22:34 Sodium Chloride Flush Syringe 10 Ml IV PRN PRN LINE FLUSH Tramadol HCl 50 mg 04/30/19 22:00 05/01/19 16:04 Ultram PO 50 mg HS PRN Administration Pain, Mild (1-3)
[2019-05-03] MEDS ORDERED: CYANOCOBALAMIN (VIT B-12) 1000 MCG/1 ML INJ SUB-Q NR (09:00)
[2019-05-03] MEDS: CYANOCOBALAMIN (VIT B-12) 1000 MCG TAB PO SCH (09:42)
[2019-05-03] MEDS: cefTRIAXone/NS 1 GM/50 ML 1 GM/50 ML BAG IV SCH (09:42)
[2019-05-03] MEDS: FOLIC ACID 1 MG TAB PO SCH (09:42)
[2019-05-03] MEDS: FERROUS SULFATE 325 MG TAB PO SCH ×2 (09:42→21:28)
[2019-05-03] MEDS: allopurinoL 100 MG TAB PO SCH (09:42)
[2019-05-03] MEDS: LISINOPRIL 40 MG TAB PO SCH (09:42)
[2019-05-03] MEDS: FUROSEMIDE 20 MG TAB PO SCH ×2 (09:42→21:28)
[2019-05-03] MEDS: DICLOFENAC SODIUM 1% TOPICAL GEL 100 GM TP SCH ×2 (09:59→21:35)
[2019-05-03] MEDS: ACETAMINOPHEN 325 MG TAB PO PRN (13:04)
--- NOTE | 2019-05-03 13:58 | Progress Note ---
Assessment and Plan Assessment and plan: Patient is a 73-year-old woman with a history of hypertension, anemia, pancytopenia, Gout, CKD 3 and OA who presents to [facility] ED with weakness, fatique, right leg swelling and pain with difficulty ambulating. Also her right arm is become swollen. She has been admitted here in the past (01/2019) with similar issues. According to the chart Patient was admitted 2 weeks ago at a different hospital with generalized weakness; she was found to be pancytopenic. She was transfused platelets and packed red blood cells. Bone marrow biopsy was done, she has follow-up with Dr. Cabral but the results of the bone marrow biopsy are unknown. Patient will be admitted for right knee pain and swelling, right arm s welling and anemia * CT chest with contrast IMPRESSION: 1. Cardiomegaly with small pericardial effusion. 2. Bibasilar atelectasis, greater on the left. Lungs are otherwise clear. * XR right knee FINDINGS: BONES / JOINT(S): No acute fracture or subluxation. Moderate degenerative arthrosis of the right knee. Moderate right knee joint effusion. SOFT TISSUES: Mild circumferential soft tissue swelling. ADDITIONAL FINDINGS: None. * CT head without contrast IMPRESSION: 1. Age-related involutional changes. 2. No acute intracranial abnormality. 3. Evidence of right-sided mastoiditis and otitis media. Acute on chronic anemia of chronic disease with drop in H/H: will transfuse 1 unit of PRBC, heme/onc Following Right knee pain most likely secondary to effusion from Arthritis: Ortho consulted, s/p right knee injection which helped some Right arm swelling: negative CT chest, continue to monitor UTI, start IV Rocephin, follow cultures Accelerated Hypertension: Continue outpatient medications, recently started Lisinopril Elevated Troponin, history of elevation, slightly higher in 01/2019: repeat levels Hypokalemia: replete and monitor bmp closely Difficulty ambulating: consult PT DVT prophylaxis: scd only due to the anemia Disposition: continue inpatient care, she changed her mind after Physical therapist recommended GLENNY. So placement pending. History Interval history: Patient was seen and examined. Follow-up on current diagnosis of Anemia. Ove rnight uneventful as no events directly reported to me. Patient denies any chest pain, shortness breath, nausea/vomiting or severe headaches. Imaging, nursing note, chart, labs and old chart reviewed. Discussed with patient. Hospitalist Physical - Physical exam Narrative exam: Gen: WDWN, NAD, Awake, Alert, Orientated HEENT: NCAT, EOMI, PERRL, OP Clear Neck: supple, no adenopathy, no thyromegaly, no JVD CVS/Heart: RRR, normal S1S2, pulses present bilaterally Chest/Lungs: CTA B, Symmetrical chest expansion, good air entry bilaterally GI/Abdomen: soft, NTND, good bowel sounds, no guarding or rebound /Bladder: no suprapubic tenderness, no CVA or paraspinal tenderness Extermity/Skin: knee swelling on righ MSK: FROM x 4 Neuro: CN 2-12 grossly intact, no new focal deficits Psych: calm - Constitutional Vitals: Temp Pulse Resp BP Pulse Ox 98.3 F 81 20 181/86 95 05/03/19 08:26 05/03/19 09:42 05/03/19 08:26 05/03/19 09:42 05/03/19 08:26 Results - Labs CBC & Chem 7: 05/03/19 06:52 05/03/19 06:52 Labs: Laboratory Last Values WBC 4.7 K/mm3 (4.5-11.0) 05/03/19 06:52 RBC 3.11 M/mm3 (3.65-5.03) L 05/03/19 06:52 Hgb 7.5 gm/dl (10.1-14.3) L 05/03/19 06:52 Hct 24.3 % (30.3-42.9) L 05/03/19 06:52 MCV 78 fl (79-97) L 05/03/19 06:52 MCH 24 pg (28-32) L 05/03/19 06:52 MCHC 31 % (30-34) 05/03/19 06:52 RDW 23.0 % (13.2-15.2) H 05/03/19 06:52 Plt Count 472 K/mm3 (140-440) H 05/03/19 06:52 Lymph % (Auto) 15.1 % (13.4-35.0) 04/30/19 04:48 Fleming % (Auto) 8.6 % (0.0-7.3) H 04/30/19 04:48 Eos % (Auto) 1.3 % (0.0-4.3) 04/30/19 04:48 Baso % (Auto) 0.8 % (0.0-1.8) 04/30/19 04:48 Lymph # 1.0 K/mm3 (1.2-5.4) L 04/30/19 04:48 Fleming # 0.6 K/mm3 (0.0-0.8) 04/30/19 04:48 Eos # 0.1 K/mm3 (0.0-0.4) 04/30/19 04:48 Baso # 0.1 K/mm3 (0.0-0.1) 04/30/19 04:48 Add Manual Diff Complete 04/29/19 18:57 Total Counted 100 04/29/19 18:57 Seg Neutrophils % 74.2 % (40.0-70.0) H 04/30/19 04:48 Seg Neuts % (Manual) 94.0 % (40.0-70.0) H 04/29/19 18:57 Band Neutrophils % 0 % 04/29/19 18:57 Lymphocytes % (Manual) 3.0 % (13.4-35.0) L 04/29/19 18:57 Reactive Lymphs % (Man) 0 % 04/29/19 18:57 Monocytes % (Manual) 2.0 % (0.0-7.3) 04/29/19 18:57 Eosinophils % (Manual) 0 % (0.0-4.3) 04/29/19 18:57 Basophils % (Manual) 1.0 % (0.0-1.8) 04/29/19 18:57 Metamyelocytes % 0 % 04/29/19 18:57 Myelocytes % 0 % 04/29/19 18:57 Promyelocytes % 0 % 04/29/19 18:57 Blast Cells % 0 % 04/29/19 18:57 Nucleated RBC % Not Reportable 04/29/19 18:57 Seg Neutrophils # 5.1 K/mm3 (1.8-7.7) 04/30/19 04:48 Seg Neutrophils # Man 8.3 K/mm3 (1.8-7.7) H 04/29/19 18:57 Band Neutrophils # 0.0 K/mm3 04/29/19 18:57 Lymphocytes # (Manual) 0.3 K/mm3 (1.2-5.4) L 04/29/19 18:57 Abs React Lymphs (Man) 0.0 K/mm3 04/29/19 18:57 Monocytes # (Manual) 0.2 K/mm3 (0.0-0.8) 04/29/19 18:57 Eosinophils # (Manual) 0.0 K/mm3 (0.0-0.4) 04/29/19 18:57 Basophils # (Manual) 0.1 K/mm3 (0.0-0.1) 04/29/19 18:57 Metamyelocytes # 0.0 K/mm3 04/29/19 18:57 Myelocytes # 0.0 K/mm3 04/29/19 18:57 Promyelocytes # 0.0 K/mm3 04/29/19 18:57 Blast Cells # 0.0 K/mm3 04/29/19 18:57 WBC Morphology Not Reportable 04/29/19 18:57 Hypersegmented Neuts Not Reportable 04/29/19 18:57 Hyposegmented Neuts Not Reportable 04/29/19 18:57 Hypogranular Neuts Not Reportable 04/29/19 18:57 Smudge Cells Not Reportable 04/29/19 18:57 Toxic Granulation Not Reportable 04/29/19 18:57 Toxic Vacuolation Not Reportable 04/29/19 18:57 Dohle Bodies Not Reportable 04/29/19 18:57 Pelger-Huet Anomaly Not Reportable 04/29/19 18:57 Alessia Rods Not Reportable 04/29/19 18:57 Platelet Estimate Consistent w auto 04/29/19 18:57 Clumped Platelets Not Reportable 04/29/19 18:57 Plt Clumps, EDTA Not Reportable 04/29/19 18:57 Large Platelets Not Reportable 04/29/19 18:57 Giant Platelets Not Reportable 04/29/19 18:57 Platelet Satelliting Not Reportable 04/29/19 18:57 Plt Morphology Comment Not Reportable 04/29/19 18:57 RBC Morphology Not Reportable 04/29/19 18:57 Dimorphic RBCs Not Reportable 04/29/19 18:57 Polychromasia Few 04/29/19 18:57 Hypochromasia 1+ 04/29/19 18:57 Poikilocytosis Not Reportable 04/29/19 18:57 Anisocytosis 2+ 04/29/19 18:57 Microcytosis 1+ 04/29/19 18:57 Macrocytosis 1+ 04/29/19 18:57 Spherocytes Not Reportable 04/29/19 18:57 Pappenheimer Bodies Not Reportable 04/29/19 18:57 Sickle Cells Not Reportable 04/29/19 18:57 Target Cells Not Reportable 04/29/19 18:57 Tear Drop Cells Not Reportable 04/29/19 18:57 Ovalocytes Few 04/29/19 18:57 Helmet Cells Not Reportable 04/29/19 18:57 [place] Bodies Not Reportable 04/29/19 18:57 [place] Rings Not Reportable 04/29/19 18:57 [place]ile[place] Cells Not Reportable 04/29/19 18:57 Bite Cells Not Reportable 04/29/19 18:57 Crenated Cell Not Reportable 04/29/19 18:57 Elliptocytes Not Reportable 04/29/19 18:57 Acanthocytes (Spur) Not Reportable 04/29/19 18:57 Rouleaux Not Reportable 04/29/19 18:57 Hemoglobin C Crystals Not Reportable 04/29/19 18:57 Schistocytes Rare 04/29/19 18:57 Malaria parasites Not Reportable 04/29/19 18:57 L[place] Bodies Not Reportable 04/29/19 18:57 Hem Pathologist Commnt No 04/29/19 18:57 PT 14.5 Sec. (12.2-14.9) 04/29/19 19:35 INR 1.11 (0.87-1.13) 04/29/19 19:35 APTT 38.1 Sec. (24.2-36.6) H 04/29/19 19:35 Thrombin Time 16.1 Sec. (15.1-19.6) 04/29/19 19:35 Sodium 141 mmol/L (137-145) 05/03/19 06:52 Potassium 3.5 mmol/L (3.6-5.0) L D 05/03/19 06:52 Chloride 100.7 mmol/L (98-107) 05/03/19 06:52 Carbon Dioxide 24 mmol/L (22-30) 05/03/19 06:52 Anion Gap 20 mmol/L 05/03/19 06:52 BUN 17 mg/dL (7-17) 05/03/19 06:52 Creatinine 0.9 mg/dL (0.7-1.2) 05/03/19 06:52 Estimated GFR > 60 ml/min 05/03/19 06:52 BUN/Creatinine Ratio 19 % 05/03/19 06:52 Glucose 160 mg/dL (65-100) H 05/03/19 06:52 POC Glucose 149 (70-105) H 05/03/19 04:04 Calcium 8.4 mg/dL (8.4-10.2) 05/03/19 06:52 Magnesium 1.40 mg/dL (1.7-2.3) L 05/01/19 04:39 Iron 12 ug/dL (37-170) L 04/30/19 04:48 TIBC 199 mcg/dL (250-450) L 04/30/19 04:48 Ferritin 1041.0 ng/mL (13.0-400.0) H 04/30/19 09:24 Total Bilirubin 0.50 mg/dL (0.1-1.2) 04/29/19 18:57 AST 14 units/L (5-40) 04/29/19 18:57 ALT 9 units/L (7-56) 04/29/19 18:57 Alkaline Phosphatase 94 units/L (35-129) 04/29/19 18:57 Lactate Dehydrogenase 376 units/L (91-180) H 04/30/19 04:48 Total Creatine Kinase 37 units/L (30-135) 04/29/19 19:35 CK-MB (CK-2) 1.5 ng/mL (0.0-4.0) 04/29/19 19:35 CK-MB (CK-2) Rel Index 4.0 (0-4) 04/29/19 19:35 Troponin T 0.038 ng/mL (0.00-0.029) H 04/30/19 18:15 Total Protein 7.6 g/dL (6.3-8.2) 04/29/19 18:57 Albumin 3.1 g/dL (3.9-5) L 04/29/19 18:57 Albumin/Globulin Ratio 0.7 % 04/29/19 18:57 Triglycerides 129 mg/dL (2-149) 04/29/19 18:57 Cholesterol 186 mg/dL (50-199) 04/29/19 18:57 LDL Cholesterol Direct 117 mg/dL (50-130) 04/29/19 18:57 HDL Cholesterol 42 mg/dL (40-59) 04/29/19 18:57 Cholesterol/HDL Ratio 4.42 % 04/29/19 18:57 Urine Color Yellow (Yellow) 04/29/19 20:56 Urine Turbidity Slightly-cloudy (Clear) 04/29/19 20:56 Urine pH 5.0 (5.0-7.0) 04/29/19 20:56 Ur Specific [place] 1.015 (1.003-1.030) 04/29/19 20:56 Urine Protein 100 mg/dl mg/dL (Negative) 04/29/19 20:56 Urine Glucose (UA) Neg mg/dL (Negative) 04/29/19 20:56 Urine Ketones Neg mg/dL (Negative) 04/29/19 20:56 Urine Blood Mod (Negative) 04/29/19 20:56 Urine Nitrite Neg (Negative) 04/29/19 20:56 Urine Bilirubin Neg (Negative) 04/29/19 20:56 Urine Urobilinogen 2.0 mg/dL (<2.0) 04/29/19 20:56 Ur Leukocyte Esterase Sm (Negative) 04/29/19 20:56 Urine WBC (Auto) 9.0 /HPF (0.0-6.0) H 04/29/19 20:56 Urine RBC (Auto) 9.0 /HPF (0.0-6.0) 04/29/19 20:56 U Epithel Cells (Auto) 1.0 /HPF (0-13.0) 04/29/19 20:56 Urine Bacteria (Auto) 2+ /HPF (Negative) 04/29/19 20:56 Urine Mucus Few /HPF 04/29/19 20:56 Blood Type AB POSITIVE 04/29/19 19:41 Antibody Screen Negative 04/29/19 19:41 Crossmatch See Detail 04/29/19 19:41 Active Medications - Current Medications Current Medications: Generic Name Dose Route Start Last Admin Trade Name Freq PRN Reason Stop Dose Admin Acetaminophen 650 mg 04/29/19 22:34 05/03/19 13:04 Tylenol PO 650 mg Q4H PRN Administration Pain MILD(1-3)/Fever >100.5/VENCES Allopurinol 100 mg 04/30/19 10:00 05/03/19 09:42 Zyloprim PO 100 mg QDAY CARIN Administration Cyanocobalamin 1,000 mcg 04/30/19 13:00 05/03/19 09:42 Vitamin B-12 PO 1,000 mcg QDAY CARIN Administration Diclofenac Sodium 0.004 applic 04/30/19 10:00 05/03/19 09:59 Diclofenac 1% TP 0.004 applic BID CARIN Administration Ferrous Sulfate 325 mg 05/03/19 10:00 05/03/19 09:42 Feosol PO 325 mg BID CARIN Administration Folic Acid 1 mg 04/30/19 10:00 05/03/19 09:42 Folvite PO 1 mg QDAY CARIN Administration Furosemide 20 mg 04/30/19 10:00 05/03/19 09:42 Lasix PO 20 mg BID CARIN Administration Hydralazine HCl 10 mg 04/30/19 18:05 04/30/19 18:59 Apresoline IV 10 mg Q4HR PRN Administration HTN SBP>=180 DBP>=110 Ceftriaxone Sodium 1 gm in 50 mls @ 100 mls/hr 04/30/19 10:00 05/03/19 09:42 Rocephin/Ns 1 Gm/50 Ml IV 100 mls/hr Q24HR CARIN Administration Protocol Labetalol HCl 10 mg 04/30/19 18:05 Labetalol IV Q4H PRN HTN SBP>=180 Lisinopril 40 mg 04/30/19 10:00 05/03/19 09:42 Zestril PO 40 mg QDAY CARIN Administration Ondansetron HCl 4 mg 04/29/19 22:34 Zofran IV Q4H PRN Nausea And Vomiting Oxycodone/Acetaminophen 1 tab 04/29/19 22:34 04/30/19 00:54 Percocet 5/325 PO 1 tab Q6H PRN Administration Pain, Moderate (4-6) Potassium Chloride 20 meq 05/03/19 13:55 K-Dur PO 05/03/19 13:56 ONCE ONE Sodium Chloride 10 ml 04/30/19 10:00 05/03/19 09:43 Sodium Chloride Flush Syringe 10 Ml IV 10 ml BID CARIN Administration Sodium Chloride 10 ml 04/29/19 22:34 Sodium Chloride Flush Syringe 10 Ml IV PRN PRN LINE FLUSH Tramadol HCl 50 mg 04/30/19 22:00 05/01/19 16:04 Ultram PO 50 mg HS PRN Administration Pain, Mild (1-3) Nutrition/Malnutrition Assess - Dietary Evaluation Nutrition/Malnutrition Findings: Nutrition Notes Start: 04/30/19 09:58 Freq: Status: Active Protocol: Document 04/30/19 09:59 CC (Rec: 04/30/19 10:09 CC [id number]) Co-Sign 04/30/19 09:59 LP Nutrition Notes Need for Assessment generated from: [employer] automobile Initial or Follow up Brief Note Current Diagnosis Acute Kidney Injury, Hypertension Other Pertinent Diagnosis UTI, gout, RE swelling Current Diet Cardiac Labs/Tests K 3.3 Pertinent Medications 1/2 NS at 75ml/hr Height 5 ft 6 in Weight 107 kg Lizella Body Weight (kg) 59.09 BMI 38.0 Intake Prior to Admission Good Weight Status Obese Subjective/Other Information Screen for skin risk score </= 18. Pt reported her apeptite has okay [employer]. Pt reported appetite was normal for her. Pt reported appetite is still okay. Pt reported she has lost wt unitentionally since being sick. Pt did not know timeframe of wt loss. Pt reported UBW of 130lbs (59kg). Observed breakfast tray 75% consumed with pt still eating Burn Absent Trauma Absent GI Symptoms Nausea Food Allergy No Current % PO Good (75-100%) Minimum of two criteria No Nutrition Intervention Anticipated Discharge Needs: cardiac Revisit per MD consult or patient Sign Off request:
[2019-05-03] MEDS ORDERED: POLYETHYLENE GLYCOL 3350 17 GM POWDER PO PRN (14:41)
[2019-05-03] MEDS ORDERED: POTASSIUM CHLORIDE ER 20 MEQ TAB PO ONE (15:00)
--- NOTE | 2019-05-04 07:32 | Hem/Onc Progress Note ---
Assessment and Plan Anemia B12 deficiency - folate def - low iron WBC normal PLT high BMBX path report Jan 2019 at [facility] Bone marrow, Hypercellular bone marrow (60%) with borderline increase in blasts No evidence of significant dysplasia (in hypocellular smears) or lymph oproliferative disorder h/o left wrist pain - says had gout before # h/o Right knee pain most likely secondary to effusion ortho # h/o Right arm swelling s/p CT chest # Hypertension Continue outpatient medications daughter - janice - [phone] 05/03 - pt got b12 inj - MVI - folic acid no dvt rt arm or the leg oral iron - as s iron low as per RN - Placement being looked into anemia - ? cause Bleed??? - Patient Problems (1) Symptomatic anemia Current Visit: No Status: Acute Subjective Date of service: 05/04/19 Principal diagnosis: anemia Interval history: Placement being looked into Objective - Exam Narrative Exam: Vitals were reviewed. No pallor No icterus No neck lymph nodes Heart S1-S2 present Lungs clear to auscultation anteriorly Abdomen soft Leg no edema Female genitalia not examined - Constitutional Vitals: Last Vital Signs Temp 97.8 F 05/03/19 20:40 Pulse 82 05/03/19 20:40 Resp 20 05/03/19 20:40 BP 139/60 05/03/19 20:40 Pulse Ox 95 05/03/19 20:40 - Labs Lab Results: Laboratory Results - last 24 hr 05/03/19 05/03/19 06:52 06:52 WBC 4.7 RBC 3.11 L Hgb 7.5 L Hct 24.3 L MCV 78 L MCH 24 L MCHC 31 RDW 23.0 H Plt Count 472 H Sodium 141 Potassium 3.5 L D Chloride 100.7 Carbon Dioxide 24 Anion Gap 20 BUN 17 Creatinine 0.9 Estimated GFR > 60 BUN/Creatinine Ratio 19 Glucose 160 H Calcium 8.4 Medications & Allergies - Medications Allergies/Adverse Reactions: Allergies No Known Allergies Allergy (Unverified 02/20/19 16:06) Home Medications: Home Medications Medication Instructions Recorded Confirmed Last Taken Type Diclofenac 1% [Diclofenac 1% 20 mg PO BID 04/30/19 04/30/19 04/29/19 History topical gel] Furosemide [Lasix TAB] 20 mg PO BID 04/30/19 04/30/19 04/29/19 History Mecobalamin [B12 Active] 1,000 mcg PO DAILY 04/30/19 04/30/19 04/29/19 History Pot Chloride/Brandon Phos/Mag 20 meq PO DAILY 04/30/19 04/30/19 04/29/19 History allopurinoL [Zyloprim] 100 mg PO QDAY 04/30/19 04/30/19 04/29/19 History lisinopriL [Zestril TAB] 40 mg PO QDAY 04/30/19 04/30/19 04/29/19 History traMADoL [Ultram 50 MG tab] 50 mg PO HS PRN 04/30/19 04/30/19 04/29/19 History methylPREDNISolone [Medrol 4MG 1 dose PO DAILY #1 pack 05/01/19 Unknown Rx DOSEPAK (21 tabs)] oxyCODONE /ACETAMINOPHEN [Percocet 1 tab PO Q6H PRN #30 tablet 05/01/19 Unknown Rx 5/325 mg] Active Medications: Generic Name Dose Route Start Last Admin Trade Name Freq PRN Reason Stop Dose Admin Acetaminophen 650 mg 04/29/19 22:34 05/03/19 13:04 Tylenol PO 650 mg Q4H PRN Administration Pain MILD(1-3)/Fever >100.5/VENCES Allopurinol 100 mg 04/30/19 10:00 05/03/19 09:42 Zyloprim PO 100 mg QDAY CARIN Administration Cyanocobalamin 1,000 mcg 04/30/19 13:00 05/03/19 09:42 Vitamin B-12 PO 1,000 mcg QDAY CARIN Administration Diclofenac Sodium 0.004 applic 04/30/19 10:00 05/03/19 21:35 Diclofenac 1% TP 0.004 applic BID CARIN Administration Ferrous Sulfate 325 mg 05/03/19 10:00 05/03/19 21:28 Feosol PO 325 mg BID CARIN Administration Folic Acid 1 mg 04/30/19 10:00 05/03/19 09:42 Folvite PO 1 mg QDAY CARIN Administration Furosemide 20 mg 04/30/19 10:00 05/03/19 21:28 Lasix PO 20 mg BID CARIN Administration Hydralazine HCl 10 mg 04/30/19 18:05 04/30/19 18:59 Apresoline IV 10 mg Q4HR PRN Administration HTN SBP>=180 DBP>=110 Ceftriaxone Sodium 1 gm in 50 mls @ 100 mls/hr 04/30/19 10:00 05/03/19 09:42 Rocephin/Ns 1 Gm/50 Ml IV 100 mls/hr Q24HR CARIN Administration Protocol Labetalol HCl 10 mg 04/30/19 18:05 Labetalol IV Q4H PRN HTN SBP>=180 Lisinopril 40 mg 04/30/19 10:00 05/03/19 09:42 Zestril PO 40 mg QDAY CARIN Administration Ondansetron HCl 4 mg 04/29/19 22:34 Zofran IV Q4H PRN Nausea And Vomiting Oxycodone/Acetaminophen 1 tab 04/29/19 22:34 04/30/19 00:54 Percocet 5/325 PO 1 tab Q6H PRN Administration Pain, Moderate (4-6) Polyethylene Glycol 17 gm 05/03/19 14:41 05/03/19 15:57 Miralax 3350 PO 17 gm QDAY PRN Administration Constipation Sodium Chloride 10 ml 04/30/19 10:00 05/03/19 21:29 Sodium Chloride Flush Syringe 10 Ml IV 10 ml BID CARIN Administration Sodium Chloride 10 ml 04/29/19 22:34 Sodium Chloride Flush Syringe 10 Ml IV PRN PRN LINE FLUSH Tramadol HCl 50 mg 04/30/19 22:00 05/01/19 16:04 Ultram PO 50 mg HS PRN Administration Pain, Mild (1-3)
[2019-05-04] MEDS ORDERED: CYANOCOBALAMIN (VIT B-12) 1000 MCG/1 ML INJ SUB-Q NR (07:56)
--- NOTE | 2019-05-04 09:04 | Progress Note ---
Assessment and Plan DJD right knee doing well continue PT and rehab Subjective Date of service: 05/04/19 Principal diagnosis: anemia Interval history: states knee feeling much better after shot, not 100% yet but definitely more mobility Objective Narrative Exam: right knee - good active ROM, - Labs CBC & BMP: 05/03/19 06:52 05/03/19 06:52
[2019-05-04 09:20] VITALS: BP 154/77
[2019-05-04] MEDS: allopurinoL 100 MG TAB PO SCH (11:55)
[2019-05-04] MEDS: FERROUS SULFATE 325 MG TAB PO SCH (11:55)
[2019-05-04] MEDS: FOLIC ACID 1 MG TAB PO SCH (11:56)
[2019-05-04] MEDS: FUROSEMIDE 20 MG TAB PO SCH (11:56)
[2019-05-04] MEDS: LISINOPRIL 40 MG TAB PO SCH (11:59)
[2019-05-04] MEDS: traMADol 50 MG TAB PO PRN (12:06)
[2019-05-04] MEDS: cefTRIAXone/NS 1 GM/50 ML 1 GM/50 ML BAG IV SCH (12:06)
[2019-05-04] MEDS: CYANOCOBALAMIN (VIT B-12) 1000 MCG TAB PO SCH (12:07)
[2019-05-04] MEDS: DICLOFENAC SODIUM 1% TOPICAL GEL 100 GM TP SCH (12:19)
--- NOTE | 2019-05-04 12:42 | Progress Note ---
Assessment and Plan Acute on chronic anemia of chronic disease with drop in H/H: will transfuse 1 unit of PRBC, heme/onc Following Right knee pain most likely secondary to effusion from Arthritis: Ortho consu lted, s/p right knee injection which helped some Right arm swelling: negative CT chest, continue to monitor UTI, start IV Rocephin, follow cultures Accelerated Hypertension: Continue outpatient medications, recently started L isinopril Elevated Troponin, history of elevation, slightly higher in 01/2019: repeat levels Hypokalemia: replete and monitor bmp closely Difficulty ambulating: consult PT DVT prophylaxis: scd only due to the anemia Disposition: continue inpatient care, she changed her mind after Physical therapist recommended GLENNY. So placement pending. Brief History Patient is a 73-year-old woman with a history of hypertension, anemia, pancytopenia, Gout, CKD 3 and OA who presents to [facility] ED with weakness, fatique, right leg swelling and pain with difficulty ambulating. Also her right arm is become swollen. She has been admitted here in the past (01/2019) with similar issues. According to the chart Patient was admitted 2 weeks ago at a different hospital with generalized weakness; she was found to be pancytopenic. She was transfused platelets and packed red blood cells. Bone marrow biopsy was done, she has follow-up with Dr. Cabral but the results of the bone marrow biopsy are unknown. Patient will be admitted for right knee pain and swelling, right arm swelling and anemia * CT chest with contrast IMPRESSION: 1. Cardiomegaly with small pericardial effusion. 2. Bibasilar atelectasis, greater on the left. Lungs are otherwise clear. * XR right knee FINDINGS: BONES / JOINT(S): No acute fracture or subluxation. Moderate degenerative arthrosis of the right knee. Moderate right knee joint effusion. SOFT TISSUES: Mild circumferential soft tissue swelling. ADDITIONAL FINDINGS: None. * CT head without contrast IMPRESSION: 1. Age-related involutional changes. 2. No acute intracranial abnormality. 3. Evidence of right-sided mastoiditis and otitis media. Hospitalist Physical Gen: WDWN, NAD, Awake, Alert, Orientated HEENT: NCAT, EOMI, PERRL, OP Clear Neck: supple, no adenopathy, no thyromegaly, no JVD CVS/Heart: RRR, normal S1S2, pulses present bilaterally Chest/Lungs: CTA B, Symmetrical chest expansion, good air entry bilaterally GI/Abdomen: soft, NTND, good bowel sounds, no guarding or rebound /Bladder: no suprapubic tenderness, no CVA or paraspinal tenderness Extermity/Skin: knee swelling on righ MSK: FROM x 4 Neuro: CN 2-12 grossly intact, no new focal deficits Psych: calm Subjective Date of service: 05/04/19 Principal diagnosis: anemia Objective - Constitutional Vitals: Vital Signs - 12hr 05/04/19 07:57 Temperature 99.0 F Pulse Rate 75 Respiratory 18 Rate Blood Pressure 154/77 O2 Sat by Pulse 92 Oximetry - Labs CBC & Chem 7: 05/03/19 06:52 05/03/19 06:52
[2019-05-04] MEDS ORDERED: POTASSIUM CHLORIDE ER 20 MEQ TAB PO SCH (14:00)
--- NOTE | 2019-05-04 15:59 | Discharge Summary ---
Providers - Providers Date of Admission: 04/29/19 22:31 Date of discharge: 05/04/19 Attending physician: NAHOMY REINA 04/29/19 22:34 Consult to Physician [CONS] Routine Comment: called office/ rosetta Consulting Provider: RAJIV CABRAL Physician Instructions: Reason For Exam: anemia 04/29/19 23:43 Consult to Physician [CONS] Routine Comment: called office/ rosetta Consulting Provider: RE JOYCE Physician Instructions: Reason For Exam: rt knee pain/swelling 04/30/19 08:08 Physical Therapy Evaluation and Treat [CONS] Routine Comment: Reason For Exam: gait evaluation/ambulatory dysfunction Primary care physician: VIPUL MCKEON MD Hospitalization Condition: Stable Hospital course: Discharge diagnosis: Acute on chronic anemia of chronic disease with drop in H/H: s/p transfuse 1 unit of PRBC, heme/onc Following Right knee pain most likely secondary to effusion from Arthritis: Ortho consulted, s/p right knee injection which helped some Right arm swelling: negative CT chest, continue to monitor UTI, started IV Rocephin, followed cultures Accelerated Hypertension: Continue outpatient medications, recently started Lisinopril Elevated Troponin, chronic, slightly higher in 01/2019: repeat levels Hypokalemia: replete and monitor bmp closely Difficulty ambulating: consulted PT - need GLENNY DVT prophylaxis: scd only due to the anemia Disposition: continue inpatient care, she changed her mind after Physical therapist recommended GLENNY. So placement pending. Brief History Patient is a 73-year-old woman with a history of hypertension, anemia, pancytopenia, Gout, CKD 3 and OA who presents to [facility] with weakness, fatique, right leg swelling and pain with difficulty ambulating. Also her right arm is become swollen. She has been admitted here in the past (01/2019) with similar issues. According to the chart Patient was admitted 2 weeks ago at a different hospital with generalized weakness; she was found to be pancytopenic. She was transfused platelets and packed red blood cells. Bone marrow biopsy was done, she has follow-up with Dr. Cabral but the results of the bone marrow biopsy are unknown. Patient will be admitted for right knee pain and swelling, right arm swelling and anemia * CT chest with contrast IMPRESSION: 1. Cardiomegaly with small pericardial effusion. 2. Bibasilar atelectasis, greater on the left. Lungs are otherwise clear. * XR right knee FINDINGS: BONES / JOINT(S): No acute fracture or subluxation. Moderate degenerative arthrosis of the right knee. Moderate right knee joint effusion. SOFT TISSUES: Mild circumferential soft tissue swelling. ADDITIONAL FINDINGS: None. * CT head without contrast IMPRESSION: 1. Age-related involutional changes. 2. No acute intracranial abnormality. 3. Evidence of right-sided mastoiditis and otitis media. Hospitalist Physical Gen: WDWN, NAD, Awake, Alert, Orientated HEENT: NCAT, EOMI, PERRL, OP Clear Neck: supple, no adenopathy, no thyromegaly, no JVD CVS/Heart: RRR, normal S1S2, pulses present bilaterally Chest/Lungs: CTA B, Symmetrical chest expansion, good air entry bilaterally GI/Abdomen: soft, NTND, good bowel sounds, no guarding or rebound /Bladder: no suprapubic tenderness, no CVA or paraspinal tenderness Extermity/Skin: knee swelling on righ MSK: FROM x 4 Neuro: CN 2-12 grossly intact, no new focal deficits Psych: calm Disposition: DC/[place] Time spent for discharge: 34 minutes Core Measure Documentation - Palliative Care Palliative Care/ Comfort Measures: Not Applicable - Core Measures Any of the following diagnoses?: history only Exam - Constitutional Vitals: Temp Pulse Resp BP Pulse Ox 99.0 F 75 18 154/77 92 05/04/19 07:57 05/04/19 07:57 05/04/19 07:57 05/04/19 07:57 05/04/19 07:57 Plan Activity: advance as tolerated Weight Bearing Status: Non-Weight Bearing Diet: low fat, low salt Follow up with: RAJIV CABRAL MD [Staff Physician] - 7 Days VIPUL MCKEON MD [Primary Care Provider] - 7 Days RE JOYCE MD [Staff Physician] - 3 Days Prescriptions: Ferrous Sulfate [Feosol 325 MG tab] 325 mg PO BID #60 tablet Folic Acid [Folvite] 1 mg PO QDAY #30 tablet methylPREDNISolone [Medrol 4MG DOSEPAK (21 tabs)] 1 dose PO DAILY #1 pack oxyCODONE /ACETAMINOPHEN [Percocet 5/325] 1 tab PO Q6HR PRN #30 tablet PRN Reason: Pain Cyanocobalamin [Vitamin B-12] 1,000 mcg PO QDAY #30 tablet
== END 2019-05-04 19:07 | DRG 565 ==
LOC: ED 18:10 → 2B-ACE 22:31 → UNDODISIN 05-03 16:03
PROVIDERS: ADMIT Internal Medicine; ATTEND Internal Medicine
PROC: 30233N1 Transfusion of Nonautologous Red Blood Cells into Peripheral Vein, Percutaneous Approach (ICD-10-PCS; principal; 2019-04-30)
DX: M25.461 Effusion, right knee (principal); N30.01 Acute cystitis with hematuria; E87.6 Hypokalemia; M17.11 Unilateral primary osteoarthritis, right knee; M79.89 Other specified soft tissue disorders; D63.8 Anemia in other chronic diseases classified elsewhere; M10.9 Gout, unspecified; N18.3 Chronic kidney disease, stage 3 (moderate); I12.9 Hypertensive chronic kidney disease with stage 1 through stage 4 chronic kidney disease, or unspecified chronic kidney disease; D69.6 Thrombocytopenia, unspecified; R26.9 Unspecified abnormalities of gait and mobility; E53.8 Deficiency of other specified B group vitamins; Z90.710 Acquired absence of both cervix and uterus; Z82.49 Family history of ischemic heart disease and other diseases of the circulatory system; Z79.899 Other long term (current) drug therapy
CPT/HCPCS: 36415; 70450; 71045; 71260; 80048; 80053; 80061; 81001; 82550; 82553; 82728; 82962; 83550; 83615; 83735; 84484; 85007; 85025; 85027; 85610; 85670; 85730; 86850; 86900; 86901; 86920; 87086; 87116; 93005; 93010; 96374; 96375; G0378; J0360; J0692; J0696; J1170; J3420; J3475; J7030; J7040; P9016; Q9967